=== PATIENT | male | born 1950 | race Caucasian/White ===

== ENCOUNTER 2016-11-17 17:25 | Inpatient (IN) | payer MEDICARE ==
[2016-11-17] MEDS ORDERED: SODIUM CHLORIDE 0.9% 1,000 ML IV STA (19:53)
--- NOTE | 2016-11-17 20:02 | ED ---
General Adult HPI - General Chief complaint: Dizziness Stated complaint: abn labs Time Seen by Provider: 11/17/16 19:29 Source: patient, family, RN notes reviewed, old records reviewed Mode of arrival: wheelchair Limitations: no limitations - History of Present Illness Initial comments: Chief complaint history of present illness a 66-year-old male here with his . The patient has end-stage renal disease. He had his dialysis today blood pressure was low at time. He felt dizzy. It suggested he come to the hospital. He is also having increased ascites for the past month. - Related Data Home Medications Medication Instructions Recorded Confirmed Amiodarone HCl [Pacerone] 200 mg PO HS 12/26/15 06/03/16 Furosemide [Lasix] 80 mg PO HS 12/26/15 06/03/16 Metoprolol Succinate [Toprol XL] 25 mg PO HS 12/26/15 06/03/16 Midodrine [ProAmatine] 10 mg PO DAILY PRN 12/26/15 06/03/16 Pantoprazole [Protonix] 40 mg PO DAILY 12/26/15 06/03/16 Pravastatin Sodium [Pravachol] 80 mg PO HS 12/26/15 06/03/16 Warfarin [Coumadin] 1 mg PO [id number] 06/01/16 06/03/16 Warfarin [Coumadin] 2 mg PO MOTH 06/01/16 06/03/16 Previous Rx's Medication Instructions Recorded Aspirin EC [Ecotrin Low Dose] 81 mg PO DAILY tablet. 02/07/15 Allergies Allergy/AdvReac Type Severity Reaction Status Date / Time No Known Allergies Allergy Verified 11/17/16 20:36 Review of Systems ROS Statement: Those systems with pertinent positive or pertinent negative responses have been documented in the HPI. Review of systems no headache or visual acuity changes no chest pain or shortness of breath. Feels dizzy when he gets up. He does have ascites worsening for the past month. He has dialysis 3 times weekly. Patient has a very low ejection fraction recently had a defibrillator placed. Patient had paracentesis one time several years ago. He does have peripheral edema. All systems were reviewed past medical problems end-stage renal disease dialysis 3 times a week. GERD, A. fib on Coumadin. Otherwise denies any surgeries other than the AV fistula in his right arm for dialysis. He's had a colonoscopy. He' s had paracentesis for ascites before. Patient has no indwelling defibrillator. Family history sister had cancer. Patient has no ALLERGIES. Currently nonsmoker nondrinker. ROS Other: All systems not noted in ROS Statement are negative. Past Medical History Past Medical History: Dialysis, GERD/Reflux, Renal Disease Additional Past Medical History / Comment(s): SEE DR VENTURA H&P, BLOOD CLOT IN PAST NOT SURE WHERE, ESSENTIAL TREMORS, CHRONIC RENAL FAILURE, HEMODIALYSIS, MON.WED.TUE. History of Any Multi-Drug Resistant Organisms: None Reported Past Surgical History: No Surgical Hx Reported Additional Past Surgical History / Comment(s): COLONOSCOPY, EGD, TEETH REMOVED, CARDIOVERSION, FISTULA RT UPPER ARM FOR HEMODIALYSIS, PREVIOUS CATHETER IN NECK FOR HEMODIALYSIS NOW REMOVED Past Anesthesia/Blood Transfusion Reactions: No Reported Reaction Past Psychological History: No Psychological Hx Reported Smoking Status: Former smoker Past Alcohol Use History: None Reported Additional Past Alcohol Use History / Comment(s): STARTED SMOKING AT AGE 15, SMOKED 1 TO 1.5 PPD, QUIT Past Drug Use History: None Reported - Past Family History Sister(s) Family Medical History: Cancer Mother Family Medical History: No Reported History Additional Family Medical History / Comment(s): SMOKER Father Family Medical History: No Reported History, Cancer Additional Family Medical History / Comment(s): SMOKER, PALPATATIONS General Exam - General Exam Comments Initial Comments: General: The patient is awake and alert, in no distress, has obvious ascites. Was hypotensive after having had 4/2 L removed during dialysis. He does have a large amount of third spacing with his abdominal ascites. Vital signs temperature 98.6 pulse 90 respiratory rate 20 pulse ox 90% room air blood pressure 107/53. Significantly lower after having had his dialysis and was advised to come the emergency room.. Eye: Pupils are equal, round and reactive to light, extra-ocular movements are intact ; there is normal conjunctiva bilaterally. No signs of icterus. Ears, nose, mouth and throat: There are moist mucous membranes and no oral lesions. Neck: The neck is supple, there is no tenderness . Cardiovascular: There is a regular rate and rhythm. No murmur, rub or gallop is appreciated. Respiratory: Lungs are clear to auscultation, respirations are non-labored, breath sounds are equal. No wheezes, stridor, rales, or rhonchi. Gastrointestinal: Significantly distended abdomenascites. Positive fluid wave. has Become more distended over the past month, per . Back,There is no tenderness to palpation in the midline. There is no obvious deformity. No rashes noted. Musculoskeletal: Normal ROM, no tenderness, pitting edema to his thighs . Sensation intact. Pulses equal bilaterally 2+. Neurological: CN II-XII intact, There are no obvious motor or sensory deficits. Coordination appears grossly intact. Speech is normal. Skin: Skin is warm and dry and no rashes or lesions are noted. Psychiatric: Cooperative, appropriate mood & affect, normal judgment. Limitations: no limitations Course Vital Signs 11/17/16 18:01 Temperature 98.6 F Pulse Rate 90 Respiratory 20 Rate Blood Pressure 107/53 O2 Sat by Pulse 98 Oximetry Medical Decision Making - Medical Decision Making Medical decision making patient's white count 11.7 hemoglobin 12 medical 38, INR 3.9. The patient's potassium is 5.3. BUN 28 creatinine 5.6 with a GFR of 10. Glucose 119. Chest x-ray was done and reviewed by radiologist his impression is there is no focal airspace opacity, pleural effusion, or pneumothorax seen. Cardiac silhouette size within normal limits. The osseous structures are intact. No acute cardiopulmonary process. As read by Dr. Viet Foreman X-ray of the abdomen was done and reviewed by radiologist his impression is; there is gas pattern within normal limits. No abnormal gas collections. No incidental abdominal pelvic findings. Visualized lung bases and pleural spaces are negative. Impression no acute process. As read by Dr. Master Foreman - Lab Data Result diagrams: 11/17/16 20:00 11/17/16 20:00 Lab Results 11/17/16 11/17/16 11/17/16 Range/Units 20:00 20:00 20:00 WBC 11.7 H (3.8-10.6) k/uL RBC 3.69 L (4.30-5.90) m/uL Hgb 12.3 L (13.0-17.5) gm/dL Hct 38.2 L (39.0-53.0) % MCV 103.7 H (80.0-100.0) fL MCH 33.5 (25.0-35.0) pg MCHC 32.3 (31.0-37.0) g/dL RDW 16.9 H (11.5-15.5) % Plt Count 202 (150-450) k/uL Neutrophils % 80 % Lymphocytes % 11 % Monocytes % 6 % Eosinophils % 1 % Basophils % 1 % Neutrophils # 9.3 H (1.3-7.7) k/uL Lymphocytes # 1.3 (1.0-4.8) k/uL Monocytes # 0.8 (0-1.0) k/uL Eosinophils # 0.1 (0-0.7) k/uL Basophils # 0.1 (0-0.2) k/uL Anisocytosis Slight Macrocytosis Moderate PT 38.6 H (9.0-12.0) sec INR 3.9 (<1.1) Sodium 140 (137-145) mmol/L Potassium 5.3 H (3.5-5.1) mmol/L Chloride 93 L (98-107) mmol/L Carbon Dioxide 31 H (22-30) mmol/L Anion Gap 16 mmol/L BUN 28 H (9-20) mg/dL Creatinine 5.63 H* (0.66-1.25) mg/dL Est GFR (MDRD) Af Amer 12 (>60 ml/min/1.73 sqM) Est GFR (MDRD) Non-Af 10 (>60 ml/min/1.73 sqM) Glucose 119 H (74-99) mg/dL Calcium 9.0 (8.4-10.2) mg/dL Total Bilirubin 0.7 (0.2-1.3) mg/dL AST 30 (17-59) U/L ALT 38 (21-72) U/L Alkaline Phosphatase 114 (38-126) U/L Total Protein 8.0 (6.3-8.2) g/dL Albumin 4.4 (3.5-5.0) g/dL Disposition Clinical Impression: End-stage renal disease, Ascites Disposition: ADMITTED IP TO THIS HOSP Condition: Fair
[2016-11-17 20:19] LABS: Anisocytosis Slight; Basophils # (A) 0.1 k/uL (0-0.2); Basophils % (A) 1 %; CH 34.5; CHCM 33.5; Eosinophils # (A) 0.1 k/uL (0-0.7); Eosinophils % (A) 1 %; HCT 38.2 % (39.0-53.0); HDW 3.06; HGB 12.3 gm/dL (13.0-17.5); Luc # (Auto) 0.17; Luc % (Auto) 1; Lymphocytes # (A) 1.3 k/uL (1.0-4.8); Lymphocytes % (A) 11 %; MCH 33.5 pg (25.0-35.0); MCHC 32.3 g/dL (31.0-37.0); MCV 103.7 fL (80.0-100.0); Macrocytosis Moderate; Mean Platelet Volume 7.3; Monocytes # (A) 0.8 k/uL (0-1.0); Monocytes % (A) 6 %; Neutrophils # (A) 9.3 k/uL (1.3-7.7); Neutrophils % (A) 80 %; RBC 3.69 m/uL (4.30-5.90); RDW 16.9 % (11.5-15.5); WBC 11.7 k/uL (3.8-10.6); WBC (Perox) 12.41
[2016-11-17 20:24] LABS: INR 3.9 (<1.1); Prothrombin Time 38.6 sec (9.0-12.0)
[2016-11-17 20:33] LABS: Potassium 5.3 mmol/L (3.5-5.1); Total Bilirubin 0.7 mg/dL (0.2-1.3)
--- NOTE | 2016-11-17 20:38 | XR ---
EXAMINATION TYPE: XR chest 2V DATE OF EXAM: 11/17/2016 8:30 PM COMPARISON: NONE HISTORY: Dyspnea TECHNIQUE: Frontal and lateral views of the chest are obtained. FINDINGS: There is no focal air space opacity, pleural effusion, or pneumothorax seen. The cardiac silhouette size is within normal limits. The osseous structures are intact. IMPRESSION: No acute cardiopulmonary process.
--- NOTE | 2016-11-17 20:41 | XR ---
EXAMINATION TYPE: XR abdomen 4V DATE OF EXAM: 11/17/2016 8:30 PM COMPARISON: NONE HISTORY: Hypotension dyspnea is and suspicion for ascites TECHNIQUE: 1 upright and 3 supine views FINDINGS: Bowel gas pattern is within normal limits. No abnormal gas collections. No incidental abdom inopelvic findings. Visualized lung bases and pleural spaces are negative. IMPRESSION: No acute process
[2016-11-17] MEDS ORDERED: NALOXONE 0.4 MG/ML 1 ML VIAL IV PRN (21:07)
[2016-11-17] MEDS ORDERED: MIDODRINE 5 MG TAB PO PRN (21:11)
[2016-11-17] MEDS ORDERED: CALCIUM ACETATE 667 MG CAP PO PRN (21:11)
[2016-11-17] MEDS ORDERED: SODIUM CHLORIDE 0.9% 1,000 ML IV SCH (21:15)
[2016-11-17 23:25] VITALS: BMI 29.5
[2016-11-18 07:45] VITALS: BP 91/54; PULSE 83; RESP 20; TEMP 97.2
[2016-11-18] MEDS: CALCIUM ACETATE 667 MG CAP PO SCH ×3 (07:57→18:32)
[2016-11-18] MEDS ORDERED: RENAL MULTIVITAMIN PO SCH (09:00)
[2016-11-18] MEDS ORDERED: SODIUM BICARBONATE TAB 650 MG TAB PO SCH (09:00)
[2016-11-18] MEDS ORDERED: PANTOPRAZOLE 40 MG TABLET PO SCH (09:00)
[2016-11-18 09:35] LABS: Calcium 8.3 mg/dL (8.4-10.2); Potassium 5.4 mmol/L (3.5-5.1)
--- NOTE | 2016-11-18 11:50 | HP ---
HISTORY AND PHYSICAL AND DISCHARGE SUMMARY DATE OF ADMISSION: Patient is a 66-year-old admitted secondary to dizziness and hypotension after dialysis and this commonly happens to him and I did review his medications. There is nothing much we can change. Patient does have history of irregular heartbeat for which patient is on metoprolol as well as amiodarone which we cannot discontinue. Patient is not on antihypertensive medications and patient was evaluated by Nephrology and patient does not have any fevers. No chills, no nausea or vomiting. The only thing is the INR is elevated. Patient's Coumadin will be changed and will change the dose of Coumadin and patient will be discharged today. Patient needs to be careful and someone needs to be next to him, post-dialysis. Beyond that, nothing much else can be done and patient is on midodrine and probably slow dialysis would help him, but that will be decided by Nephrology. REVIEW OF SYSTEMS: CONSTITUTIONAL: No fever, no malaise, no fatigue. HEENT: No recent visual problems or hearing problems. Denied any sore throat. CARDIOVASCULAR: No chest pain, orthopnea, PND, no palpitations, no syncope. PULMONARY: No shortness of breath, no cough, no hemoptysis. GASTROINTESTINAL: No diarrhea, no nausea, no vomiting, no abdominal pain. Normoactive bowel sounds. NEUROLOGICAL: No headaches, no weakness, no numbness. HEMATOLOGICAL: Denies any bleeding or petechiae. GENITOURINARY: Denies any burning micturition, frequency, or urgency. MUSCULOSKELETAL/RHEUMATOLOGICAL: Denies any joint pain, swelling, or any muscle pain. ENDOCRINE: Denies any polyuria or polydipsia. The rest of the 14 point review of systems is negative. REVIEW OF SYSTEMS: CONSTITUTIONAL: As described in HPI. HEENT: No recent visual problems or hearing problems. Denied any sore throat. CARDIOVASCULAR: No chest pain, orthopnea, PND, no palpitations, no syncope. PULMONARY: No shortness of breath, no cough, no hemoptysis. GASTROINTESTINAL: No diarrhea, no nausea, no vomiting, no abdominal pain. Normoactive bowel sounds. NEUROLOGICAL: No headaches, no weakness, no numbness. HEMATOLOGICAL: Denies any bleeding or petechiae. GENITOURINARY: Denies any burning micturition, frequency, or urgency. MUSCULOSKELETAL/RHEUMATOLOGICAL: Denies any joint pain, swelling, or any muscle pain. ENDOCRINE: Denies any polyuria or polydipsia. The rest of the 14 point review of systems is negative. Home medications include amiodarone, Lasix, metoprolol, midodrine, Protonix, Pravastatin, Coumadin, aspirin. ALLERGIES: No known drug allergies. PAST MEDICAL HISTORY: Gastroesophageal reflux disease, hemodialysis-dependent. Patient does have severe ischemic cardiomyopathy and ejection fraction of 20%, end-stage renal disease. SOCIAL HISTORY: Former smoker. Quit smoking in 2012, denied any alcohol abuse or any drug abuse. FAMILY HISTORY: Sister had cancer. Father had cancer as well. PHYSICAL EXAMINATION: Temperature 97.2, pulse of 83, respiratory rate of 20, blood pressure is 91/54, saturating at 95% on room air. GENERAL EXAMINATION: Morbidly obese. Abdomen is distended, there is probably a little bit of ascites. No rebound or rigidity. No tenderness was appreciated. HEENT: Pupils are round and equally reacting to light. EOMI. No scleral icterus. No conjunctival pallor. Normocephalic, atraumatic. No pharyngeal erythema. No thyromegaly. CARDIOVASCULAR: S1 and S2 present. No murmurs, rubs, or gallops. PULMONARY: Chest is clear to auscultation, no wheezing or crackles. ABDOMEN: Soft, nontender, nondistended, normoactive bowel sounds. No palpable organomegaly. MUSCULOSKELETAL: No joint swelling or deformity. NEUROLOGICAL: Gross neurological examination did not reveal any focal deficits. SKIN: No rashes. Patient has lower extremity edema, which appears to be chronic venostasis. LABORATORY DATA: CBC, CMP are abnormal for elevated potassium of 5.4, which is expected to be corrected with hemodialysis, BUN of 39, creatinine of 6.82. ASSESSMENT AND PLAN: 1. Hypotension, post hemodialysis, which is common for him. No further intervention can be done in his situation. Patient is already on midodrine. Probably slow hemodialysis will help. Further management regarding that as per Nephrology. 2. Severe ischemic cardiomyopathy. Patient is not in congestive heart failure exacerbation at this point of time. Patient is fairly euvolemic. Patient barely makes any urine. 3. Patient is on Lasix 80 mg p.o. at bedtime, although patient barely urinates. Patient is on low dose of metoprolol succinate which will be continued because patient's heart rate is already in the 90s. Discontinuation of cutting down of this medication can cause reflex tachycardia. Patient is also on amiodarone, which will be continued. 4. End-stage renal disease. 5. Deep venous in the past for which patient is on Coumadin, supratherapeutic INR. Will cut down the Coumadin dose. 6. Metabolic bone disease. 7. End-stage renal disease, hemodialysis dependent, probably related to cardiorenal syndrome. Patient will be discharged today to follow with his primary care physician and Nephrology as scheduled. Patient will follow with Dr. Jose Nix in 3 to 5 days. Cardiac and renal diet. Activity as tolerated.
--- NOTE | 2016-11-18 13:49 | CONS ---
DATE OF CONSULTATION: 11/18/2016 Patient is seen for consultation for end-stage renal disease. Patient is a 66-year-old white male with history of end-stage renal disease on hemodialysis on a Tuesday, Tuesday, Tuesday schedule. He was admitted to the hospital with low blood pressure. He normally runs low blood pressure as outpatient; however, was complaining of significant dizziness, and therefore he was admitted. He denied any chest pain. There is no fever, no shortness of breath. Blood pressure was 107/53 in the ER. PAST MEDICAL HISTORY: End-stage renal disease, gastroesophageal reflux disease, hypertension, metabolic bone disease. PAST SURGICAL HISTORY: Perm-A-Cath placement, colonoscopy, fistula right upper arm for dialysis. SOCIAL HISTORY: Patient is an ex-smoker. No history of drug abuse or alcohol abuse. REVIEW OF SYSTEMS: As per HPI. Medications prior to admission included amiodarone, Lasix, Toprol, midodrine, Protonix, Pravachol, Coumadin. ALLERGIES: None. On examination, the patient is comfortable, awake, alert, oriented x3, not in any acute distress. Blood pressure is 91/54, heart rate 83, he is afebrile. Examination of the heart, S1 and S2. Examination of the lungs, bilateral breath sounds are heard. Abdomen is soft, nontender. Examination of the lower extremities shows trace edema bilaterally. Chronic skin changes are noted. [employer] exam is grossly intact. Labs show sodium 137, potassium 5.4, BUN 39, creatinine 6.82, hemoglobin 12.3 g/dL. White cell count 11.7. ASSESSMENT: 1. End-stage renal disease on hemodialysis on a Tuesday, Tuesday, Tuesday schedule. Blood pressure had been low, but it normally runs low on a regular basis. I will discontinue the IV fluids. Patient can be discharged from a nephrology standpoint and he be dialyzed as outpatient tomorrow if he is discharged. Continue with the midodrine. Currently there is no evidence of infection. 2. Hypotension, which is chronic, maintained on midodrine. 3. Chronic kidney bone mineral disorder, maintained on PhosLo. PLAN: Patient is stable for discharge, discontinue the IV fluids and follow up as outpatient tomorrow for dialysis. Continue with the midodrine.
[2016-11-18] MEDS ORDERED: FUROSEMIDE 80 MG TAB PO SCH (21:00)
[2016-11-18] MEDS ORDERED: AMIODARONE 200 MG TAB PO SCH (21:00)
[2016-11-18] MEDS ORDERED: METOPROLOL SUCCINATE (ER) 25 MG TAB.ER.24H PO SCH (21:00)
== END 2016-11-18 18:50 | disposition home or self-care (01) | DRG 312 ==
LOC: EC 17:25 → 5MS5E 21:07
PROVIDERS: ADMIT Internal Medicine; ATTEND Internal Medicine
DX: I95.3 Hypotension of hemodialysis (principal); N18.6 End stage renal disease; R18.8 Other ascites; I13.11 Hypertensive heart and chronic kidney disease without heart failure, with stage 5 chronic kidney disease, or end stage renal disease; E88.89 Other specified metabolic disorders; I48.91 Unspecified atrial fibrillation; I25.5 Ischemic cardiomyopathy; K21.9 Gastro-esophageal reflux disease without esophagitis; R79.1 Abnormal coagulation profile; Z99.2 Dependence on renal dialysis; Z87.891 Personal history of nicotine dependence; Z79.01 Long term (current) use of anticoagulants; Z79.82 Long term (current) use of aspirin; Z79.899 Other long term (current) drug therapy
CPT/HCPCS: 36415; 71020; 74020; 80048; 80053; 85025; 85610; 93005; 96360; 99285

== ENCOUNTER 2016-12-16 12:35 | Inpatient (IN) | payer OTHER, MEDICARE ==
--- NOTE | 2016-12-16 12:44 | ED ---
Dizziness HPI - General Stated Complaint: Dizzy Time Seen by Provider: 12/16/16 12:35 Source: patient, EMS, RN notes reviewed, old records reviewed Mode of arrival: EMS - History of Present Illness Initial Comments: This is a 58-year-old male with a history of cardiac arrhythmia who was brought in by EMS from the [facility] who complains of dizziness on exertion. He was taken off amiodarone about 3 weeks ago states his symptoms that she started them but got much worse over last 3 days. He denies any chest pain source breath or overt chest pain. He is a dialysis patient is dialysis on Tuesday was a Fridays he also has apparently no history of diabetes who was noted have a blood sugar was elevated to 48 today. He states at rest he feels fine. She was noted have a rapid heart rate around 120 it was unclear whether was atrial fibrillation or atrial flutter. MD Complaint: dizziness - Related Data Home Medications Medication Instructions Recorded Confirmed Metoprolol Succinate [Toprol XL] 25 mg PO HS 12/26/15 12/16/16 Midodrine [ProAmatine] 20 mg PO DIRECTED PRN 12/26/15 12/16/16 Pantoprazole [Protonix] 40 mg PO HS 12/26/15 12/16/16 Pravastatin Sodium [Pravachol] 80 mg PO HS 12/26/15 12/16/16 Aspirin EC [Ecotrin Low Dose] 81 mg PO HS 11/17/16 12/16/16 Calcium Acetate [PhosLo] 1,334 mg PO AC-TID 11/17/16 12/16/16 Calcium Acetate [PhosLo] 667 mg PO DAILY PRN 11/17/16 12/16/16 Furosemide [Lasix] 80 mg PO HS 11/17/16 12/16/16 Renal Multivitamin 1 tab PO DAILY 11/17/16 12/16/16 Sodium Bicarbonate Tab 650 mg PO BID 11/17/16 12/16/16 Furosemide [Lasix] 40 - 80 mg PO DAILY 12/16/16 12/16/16 Warfarin [Coumadin] 2 mg PO HS 12/16/16 12/16/16 Allergies Allergy/AdvReac Type Severity Reaction Status Date / Time No Known Allergies Allergy Verified 12/16/16 13:34 Review of Systems ROS Statement: Those systems with pertinent positive or pertinent negative responses have been documented in the HPI. ROS Other: All systems not noted in ROS Statement are negative. Past Medical History Past Medical History: Dialysis, GERD/Reflux, Renal Disease Additional Past Medical History / Comment(s): SEE DR AUDREY Zhang&Carlos, BLOOD CLOT IN PAST NOT SURE WHERE, ESSENTIAL TREMORS, CHRONIC RENAL FAILURE, HEMODIALYSIS, MON.TUE.TUE. History of Any Multi-Drug Resistant Organisms: None Reported Past Surgical History: No Surgical Hx Reported Additional Past Surgical History / Comment(s): COLONOSCOPY, EGD, TEETH REMOVED, CARDIOVERSION, FISTULA RT UPPER ARM FOR HEMODIALYSIS, PREVIOUS CATHETER IN NECK FOR HEMODIALYSIS NOW REMOVED Past Anesthesia/Blood Transfusion Reactions: No Reported Reaction Past Psychological History: No Psychological Hx Reported Smoking Status: Former smoker Past Alcohol Use History: None Reported Additional Past Alcohol Use History / Comment(s): STARTED SMOKING AT AGE 15, SMOKED 1 TO 1.5 PPD, QUIT Past Drug Use History: None Reported - Past Family History Sister(s) Family Medical History: Cancer Mother Family Medical History: No Reported History Additional Family Medical History / Comment(s): SMOKER Father Family Medical History: Cancer Additional Family Medical History / Comment(s): SMOKER, PALPATATIONS General Exam - General Exam Comments Initial Comments: Is a well-developed well-nourished awake alert oriented 3 male General appearance: alert, in no apparent distress Head exam: Present: atraumatic, normocephalic, normal inspection Eye exam: Present: normal appearance, PERRL, EOMI. Absent: scleral icterus, conjunctival injection, periorbital swelling ENT exam: Present: normal exam, mucous membranes moist Neck exam: Present: normal inspection. Absent: tenderness, meningismus, lymphadenopathy Respiratory exam: Present: normal lung sounds bilaterally. Absent: respiratory distress, wheezes, rales, rhonchi, stridor Cardiovascular Exam: Present: regular rate, normal rhythm, normal heart sounds. Absent: systolic murmur, diastolic murmur, rubs, gallop, clicks GI/Abdominal exam: Present: soft, normal bowel sounds. Absent: distended, tenderness, guarding, rebound, rigid Extremities exam: Present: full ROM, normal capillary refill, pedal edema ( Trace edema bilaterally with stasis dermatitis of both lower extremities.). Absent: tenderness, joint swelling, calf tenderness Back exam: Present: normal inspection Neurological exam: Present: alert, oriented X3, CN II-XII intact Psychiatric exam: Present: normal affect, normal mood Skin exam: Present: warm, dry, intact, normal color. Absent: rash Course Vital Signs 12/16/16 12/16/16 12:40 15:02 Temperature 97.6 F Pulse Rate 119 H 107 H Respiratory 20 18 Rate Blood Pressure 133/53 92/45 O2 Sat by Pulse 98 99 Oximetry EKG Findings - EKG Results: EKG: interpreted by ERMD (Atrial flutter with a variable AV block rate was 125 QRS duration 104 QTC QTC of 362/522 left exodeviation low-voltage nonspecific ST configuration. No overt change from that presented from the office today.) Medical Decision Making - Medical Decision Making I did review the x-ray report no acute findings. - Lab Data Result diagrams: 12/16/16 13:43 12/16/16 13:43 Lab Results 12/16/16 12/16/16 12/16/16 Range/Units 12:58 13:43 13:43 WBC 9.0 (3.8-10.6) k/uL RBC 3.34 L (4.30-5.90) m/uL Hgb 11.5 L (13.0-17.5) gm/dL Hct 35.1 L (39.0-53.0) % MCV 105.4 H (80.0-100.0) fL MCH 34.5 (25.0-35.0) pg MCHC 32.7 (31.0-37.0) g/dL RDW 17.1 H (11.5-15.5) % Plt Count 211 (150-450) k/uL Neutrophils % 77 % Lymphocytes % 12 % Monocytes % 8 % Eosinophils % 1 % Basophils % 0 % Neutrophils # 6.9 (1.3-7.7) k/uL Lymphocytes # 1.0 (1.0-4.8) k/uL Monocytes # 0.7 (0-1.0) k/uL Eosinophils # 0.1 (0-0.7) k/uL Basophils # 0.0 (0-0.2) k/uL Anisocytosis Slight Macrocytosis Moderate PT 13.5 H (9.0-12.0) sec INR 1.4 (<1.1) APTT 21.9 L (22.0-30.0) sec Sodium (137-145) mmol/L Potassium (3.5-5.1) mmol/L Chloride (98-107) mmol/L Carbon Dioxide (22-30) mmol/L Anion Gap mmol/L BUN (9-20) mg/dL Creatinine (0.66-1.25) mg/dL Est GFR (MDRD) Af Amer (>60 ml/min/1.73 sqM) Est GFR (MDRD) Non-Af (>60 ml/min/1.73 sqM) Glucose (74-99) mg/dL POC Glucose (mg/dL) 135 H (75-99) mg/dL POC Glu Battery Plate Remover ID Branch, Bob Calcium (8.4-10.2) mg/dL Magnesium (1.6-2.3) mg/dL Total Bilirubin (0.2-1.3) mg/dL AST (17-59) U/L ALT (21-72) U/L Alkaline Phosphatase (38-126) U/L Total Creatine Kinase (55-170) U/L CK-MB (CK-2) (0.0-2.4) ng/mL CK-MB (CK-2) Rel Index Troponin I (0.000-0.034) ng/mL Total Protein (6.3-8.2) g/dL Albumin (3.5-5.0) g/dL 12/16/16 12/16/16 Range/Units 13:43 13:43 WBC (3.8-10.6) k/uL RBC (4.30-5.90) m/uL Hgb (13.0-17.5) gm/dL Hct (39.0-53.0) % MCV (80.0-100.0) fL MCH (25.0-35.0) pg MCHC (31.0-37.0) g/dL RDW (11.5-15.5) % Plt Count (150-450) k/uL Neutrophils % % Lymphocytes % % Monocytes % % Eosinophils % % Basophils % % Neutrophils # (1.3-7.7) k/uL Lymphocytes # (1.0-4.8) k/uL Monocytes # (0-1.0) k/uL Eosinophils # (0-0.7) k/uL Basophils # (0-0.2) k/uL Anisocytosis Macrocytosis PT (9.0-12.0) sec INR (<1.1) APTT (22.0-30.0) sec Sodium 137 (137-145) mmol/L Potassium 5.9 H (3.5-5.1) mmol/L Chloride 92 L (98-107) mmol/L Carbon Dioxide 29 (22-30) mmol/L Anion Gap 16 mmol/L BUN 43 H (9-20) mg/dL Creatinine 7.63 H* (0.66-1.25) mg/dL Est GFR (MDRD) Af Amer 9 (>60 ml/min/1.73 sqM) Est GFR (MDRD) Non-Af 7 (>60 ml/min/1.73 sqM) Glucose 107 H (74-99) mg/dL POC Glucose (mg/dL) (75-99) mg/dL POC Glu Battery Plate Remover ID Calcium 9.2 (8.4-10.2) mg/dL Magnesium 2.1 (1.6-2.3) mg/dL Total Bilirubin 0.7 (0.2-1.3) mg/dL AST 22 (17-59) U/L ALT 32 (21-72) U/L Alkaline Phosphatase 99 (38-126) U/L Total Creatine Kinase 35 L (55-170) U/L CK-MB (CK-2) 0.5 (0.0-2.4) ng/mL CK-MB (CK-2) Rel Index 1.4 Troponin I 0.024 (0.000-0.034) ng/mL Total Protein 7.5 (6.3-8.2) g/dL Albumin 4.3 (3.5-5.0) g/dL - Radiology Data Radiology results: report reviewed, image reviewed Disposition Clinical Impression: Atrial flutter, Dizziness, Chronic renal failure syndrome Disposition: [facility] Condition: Stable
[2016-12-16 12:59] LABS: Glucose,Whole Blood 135 mg/dL (75-99)
[2016-12-16 14:18] LABS: Calcium 9.2 mg/dL (8.4-10.2); Magnesium 2.1 mg/dL (1.6-2.3); Potassium 5.9 mmol/L (3.5-5.1); Total Bilirubin 0.7 mg/dL (0.2-1.3); Total Protein 7.5 g/dL (6.3-8.2)
[2016-12-16 14:21] LABS: Anisocytosis Slight; Basophils % (A) 0 %; CH 34.5; Eosinophils # (A) 0.1 k/uL (0-0.7); Eosinophils % (A) 1 %; HCT 35.1 % (39.0-53.0); HDW 3.06; HGB 11.5 gm/dL (13.0-17.5); Luc % (Auto) 3; Lymphocytes % (A) 12 %; MCH 34.5 pg (25.0-35.0); MCHC 32.7 g/dL (31.0-37.0); MCV 105.4 fL (80.0-100.0); Macrocytosis Moderate; Mean Platelet Volume 7.4; Monocytes # (A) 0.7 k/uL (0-1.0); Monocytes % (A) 8 %; Neutrophils # (A) 6.9 k/uL (1.3-7.7); Neutrophils % (A) 77 %; RBC 3.34 m/uL (4.30-5.90); RDW 17.1 % (11.5-15.5); WBC (Perox) 9.79
[2016-12-16 14:29] LABS: INR 1.4 (<1.1); Partial Thromboplastin Time 21.9 sec (22.0-30.0); Prothrombin Time 13.5 sec (9.0-12.0)
[2016-12-16 14:39] LABS: Creatine Kinase MB 0.5 ng/mL (0.0-2.4); Troponin I 0.024 ng/mL (0.000-0.034)
[2016-12-16 15:05] VITALS: RESP 18
[2016-12-16] MEDS ORDERED: NALOXONE 0.4 MG/ML 1 ML VIAL IV PRN (18:43)
[2016-12-16] MEDS ORDERED: CALCIUM ACETATE 667 MG CAP PO PRN (18:45)
[2016-12-16] MEDS ORDERED: SODIUM CHLORIDE 0.9% 1,000 ML IV SCH (18:45)
--- NOTE | 2016-12-16 19:04 | XR ---
EXAMINATION TYPE: XR chest 2V DATE OF EXAM: 12/16/2016 4:51 PM COMPARISON: 11/17/2016 HISTORY: Dizziness TECHNIQUE: Frontal and lateral views of the chest are obtained. FINDINGS: The heart and mediastinum are normal. Lungs are clear. Diaphragm is normal. Bony thorax is intact. There is a left axillary implanted device noted. There are chest leads. Bony thorax is intac t. IMPRESSION: No active cardiopulmonary disease. Normal heart. There is clearing of a poorly marginate d 2 cm density over the right upper lobe compared to last exam..
[2016-12-16] MEDS: FUROSEMIDE 80 MG TAB PO SCH (21:15)
[2016-12-16] MEDS: METOPROLOL SUCCINATE (ER) 25 MG TAB.ER.24H PO SCH (21:15)
[2016-12-16] MEDS: ASPIRIN 81 MG CHEW PO SCH (21:15)
[2016-12-16] MEDS: PANTOPRAZOLE 40 MG TABLET PO SCH (21:15)
[2016-12-16] MEDS: PRAVASTATIN SODIUM 80 MG TAB PO SCH (21:16)
[2016-12-16 21:30] LABS: Glucose,Whole Blood 231 mg/dL (75-99)
[2016-12-17] MEDS: INSULIN LISPRO (humaLOG) 300 UNIT/3 ML VIAL SQ SCH ×3 (06:35→18:47)
[2016-12-17 06:38] LABS: Glucose,Whole Blood 115 mg/dL (75-99)
--- NOTE | 2016-12-17 08:34 | P.NPCON ---
History of Present Illness - Reason for Consult end stage renal disease - History of Present Illness Reason for consultation: End-stage renal disease History of present illness: Patient is a 66-year-old male seen in renal consultation for end- stage renal disease. He is maintained on hemodialysis on a Tuesday schedule via left upper extremity AV fistula. Patient has history of severe systolic CHF with ejection fraction of less than 20%. Etiology of his renal disease is cardiorenal syndrome. He did not miss any dialysis sessions. Patient was getting blood work done as an outpatient yesterday and felt dizzy and was subsequently sent to the hospital for further care. Patient states his amiodarone was discontinued about 3 weeks ago and he was feeling fine up until 3 days ago when he's been noticing more dizziness particularly with changes in position. He did get up this morning to go to the bathroom and did not feel very dizzy. Denies any vomiting or diarrhea. Denies any chest pain. Appetite is good. No other complaints at this time. Denies syncopal episodes. Vital signs are stable. General: The patient appeared well nourished and normally developed. HEENT: Head exam is unremarkable. Neck is without jugular venous distension. LUNGS: Lungs are clear to auscultation and percussion. Breath sounds decreased. HEART: Rate and Rhythm are regular. First and second heart sounds normal. No murmurs, rubs or gallops. ABDOMEN: Abdominal exam reveals normal bowel sounds. Non-tender and non- distended. No evidence of peritonitis. EXTREMITITES: Trace edema. Past Medical History Past Medical History: Dialysis, GERD/Reflux, Renal Disease Additional Past Medical History / Comment(s): SEE DR AUDREY Zhang&Carlos, BLOOD CLOT IN PAST NOT SURE WHERE, ESSENTIAL TREMORS, CHRONIC RENAL FAILURE, HEMODIALYSIS, TUE.TUE.TUE. History of Any Multi-Drug Resistant Organisms: None Reported Past Surgical History: AICD Additional Past Surgical History / Comment(s): COLONOSCOPY, EGD, TEETH REMOVED, CARDIOVERSION, FISTULA RT UPPER ARM FOR HEMODIALYSIS, PREVIOUS CATHETER IN NECK FOR HEMODIALYSIS NOW REMOVED Past Anesthesia/Blood Transfusion Reactions: No Reported Reaction Type of Cardiac Device: AICD Device Placement Date:: may 2016 Past Psychological History: No Psychological Hx Reported Additional Psychological History / Comment(s): lives at home with his , no pets. pt stated independant when up but has fallen in past,does have a walker at home if he needs it.no outside services. pt served in the [employer] when younger and has done long term work,. Smoking Status: Former smoker Past Alcohol Use History: None Reported Additional Past Alcohol Use History / Comment(s): STARTED SMOKING AT AGE 15, SMOKED 1 TO 1.5 PPD, QUIT Past Drug Use History: None Reported - Past Family History Sister(s) Family Medical History: Cancer Mother Family Medical History: No Reported History Additional Family Medical History / Comment(s): SMOKER Father Family Medical History: Cancer Additional Family Medical History / Comment(s): SMOKER, PALPATATIONS Medications and Allergies Home Medications Medication Instructions Recorded Confirmed Type Metoprolol Succinate [Toprol XL] 25 mg PO HS 12/26/15 12/16/16 History Midodrine [ProAmatine] 20 mg PO DIRECTED PRN 12/26/15 12/16/16 History Pantoprazole [Protonix] 40 mg PO HS 12/26/15 12/16/16 History Pravastatin Sodium [Pravachol] 80 mg PO HS 12/26/15 12/16/16 History Aspirin EC [Ecotrin Low Dose] 81 mg PO HS 11/17/16 12/16/16 History Calcium Acetate [PhosLo] 1,334 mg PO AC-TID 11/17/16 12/16/16 History Calcium Acetate [PhosLo] 667 mg PO DAILY PRN 11/17/16 12/16/16 History Furosemide [Lasix] 80 mg PO HS 11/17/16 12/16/16 History Renal Multivitamin 1 tab PO DAILY 11/17/16 12/16/16 History Sodium Bicarbonate Tab 650 mg PO BID 11/17/16 12/16/16 History Furosemide [Lasix] 40 - 80 mg PO DAILY 12/16/16 12/16/16 History Warfarin [Coumadin] 2 mg PO HS 12/16/16 12/16/16 History Allergies Allergy/AdvReac Type Severity Reaction Status Date / Time No Known Allergies Allergy Verified 12/16/16 13:34 Physical Exam Vitals: Vital Signs Temp Pulse Pulse Resp BP BP Pulse Ox 12/17/16 04:00 97.1 F L 90 18 92/57 97 12/17/16 00:00 97.3 F L 94 17 92/60 97 12/16/16 20:39 97.2 F L 92 18 105/60 100 12/16/16 19:24 98.2 F 89 18 98/70 98 Intake and Output 12/16/16 12/17/16 12/17/16 22:59 06:59 14:59 Intake Total 640 Balance 640 Intake: Intake, IV Titration 160 Amount Sodium Chloride 0.9% 1, 160 000 ml @ 20 mls/hr IV . Q24H [facility] Rx#:[id number] Oral 480 Other: Voiding Method Toilet Toilet # Voids 0 0 Weight 125.3 kg Results - Lab Results Most recent lab results Calcium 9.2 mg/dL (8.4-10.2) 12/16/16 13:43 Magnesium 2.1 mg/dL (1.6-2.3) 12/16/16 13:43 12/16/16 13:43 12/16/16 13:43 Assessment and Plan Plan: Assessment: #1. End-stage renal disease maintained on hemodialysis on a Tuesday schedule via left upper extremity AV fistula. #2. Hyperkalemia secondary to chronic kidney disease. #3. Systolic CHF with ejection fraction of less than 20%. Compensated. #4. Chronic kidney disease mineral bone disease. #5. Anemia of chronic kidney disease. Hemoglobin at goal. #6. Dizziness. Rule out orthostatic hypotension. Possibly related to the discontinuation of amiodarone. #7. Chronic hypotension related to underlying cardiac status maintained on Midodrine. Plan: Hemodialysis today with goal 4 L ultrafiltration. Check phosphorus level. Maintain PhosLo with meals. Check orthostatic vital signs. Await cardiology recommendations. Thank you for the consultation. I will continue to follow the patient with you during his hospital stay.
[2016-12-17] MEDS ORDERED: MIDODRINE 5 MG TAB PO PRN (09:00)
[2016-12-17] MEDS ORDERED: HEPARIN SODIUM,PORCINE 5,000 UNIT/ML 1 ML VIAL IV PRN (10:49)
[2016-12-17] MEDS ORDERED: HEPARIN SODIUM,PORCINE 5,000 UNIT/ML 1 ML VIAL IV ONE (10:49)
[2016-12-17] MEDS ORDERED: HEPARIN SODIUM,PORCINE/D5W PMX 25,000 UNIT in DEXTROSE/WATER 1 500ML.BAG IV SCH (11:00)
--- NOTE | 2016-12-17 11:12 | CONS ---
DATE OF CONSULTATION: Mario is a 66-year-old gentleman with history of chronic end-stage renal disease on hemodialysis, cardiomyopathy with severe LV systolic dysfunction, history of chronic systolic heart failure, status post AICD, chronic atrial flutter, who presented to the hospital complaining of feeling dizzy where he was found to be in atrial flutter with poorly controlled ventricular rate and admitted to hospital for the same and he converted back to sinus rhythm. At the time of my evaluation this morning, he is free of symptoms. Denies chest pain, difficulty in breathing, palpitations or syncope. Patient was on amiodarone up until 3 weeks ago when it was stopped. He sees my associate, Dr. Enrique in the office. Patient has a subcutaneous ICD from the [employer]. Past medical history is significant for end-stage renal disease on hemodialysis, hypertension, dyslipidemia, cardiomyopathy, status post AICD. Current medications include Toprol XL 25 daily, midodrine, Protonix, Pravachol, aspirin, PhosLo, Lasix, Coumadin. ALLERGIES: There are no known drug allergies. Family history is negative for premature coronary artery disease. Social history is negative for current smoking, EtOH abuse, or drug abuse. REVIEW OF SYSTEMS: HEENT: Unremarkable. CARDIAC: As described above. RESPIRATORY: Negative. GI: Negative. GENITOURINARY: Negative. ALLERGY/IMMUNOLOGY: Negative. SKIN: Negative. MUSCULOSKELETAL: Significant for arthritis. PSYCHOSOCIAL: Negative. ENDOCRINE: Negative. HEMATOLOGICAL: Negative. DERMATOLOGY: Negative. CONSTITUTIONAL: Negative. ONCOLOGICAL: Negative. The rest of the system review is not relevant. On exam, he is comfortable at rest. Afebrile. Blood pressure is low at 86/58, but there are no orthostatic changes. There is no jugular venous distention. Carotid upstroke is normal. There is no bruit. Chest exam reveals diminished air entry at the bases. Heart exam reveals first and second heart sounds. No gallop. Exam of the extremities did not reveal any edema. Peripheral pulses are palpable. There is chronic dry skin bilaterally. EKG shows atrial flutter. Labs show a hemoglobin of 11.5. INR is subtherapeutic at 1.4. Potassium is 5.9. Creatinine is 7.6 with a BUN of 43. ASSESSMENT: 1. Paroxysmal atrial flutter. 2. Cardiomyopathy, status post AICD. 3. End-stage renal disease on hemodialysis. 4. Subtherapeutic anticoagulation. 5. History of dizziness. PLAN: Patient's dizziness may be related to hypotension. Patient is already on a large dose of midodrine, which will be continued. Instead of putting it on a p.r.n. basis, will probably change it to a regular dose. I am going to resume the amiodarone so that we can keep him in sinus rhythm. I will start him on IV heparin because of subtherapeutic anticoagulation.
[2016-12-17 11:26] LABS: INR 1.5 (<1.1); Partial Thromboplastin Time 24.7 sec (22.0-30.0); Prothrombin Time 14.3 sec (9.0-12.0)
[2016-12-17 11:33] LABS: Anisocytosis Slight; Basophils % (A) 1 %; CH 34.8; CHCM 33.3; Eosinophils # (A) 0.1 k/uL (0-0.7); Eosinophils % (A) 1 %; HCT 30.4 % (39.0-53.0); HDW 3.05; Luc # (Auto) 0.22; Luc % (Auto) 3; Lymphocytes # (A) 1.1 k/uL (1.0-4.8); Lymphocytes % (A) 13 %; MCH 34.6 pg (25.0-35.0); MCHC 32.8 g/dL (31.0-37.0); MCV 105.4 fL (80.0-100.0); Macrocytosis Moderate; Mean Platelet Volume 7.4; Monocytes # (A) 0.6 k/uL (0-1.0); Monocytes % (A) 7 %; Neutrophils # (A) 6.4 k/uL (1.3-7.7); Neutrophils % (A) 76 %; RBC 2.88 m/uL (4.30-5.90); RDW 17.2 % (11.5-15.5); WBC 8.5 k/uL (3.8-10.6); WBC (Perox) 8.72
[2016-12-17 11:51] LABS: Glucose,Whole Blood 108 mg/dL (75-99)
[2016-12-17] MEDS ORDERED: FOLIC ACID-VIT B COMPLEX-VIT C 1 CAP PO SCH (12:00)
[2016-12-17] MEDS: APIXABAN 2.5 MG TABLET PO SCH ×2 (12:08→21:18)
[2016-12-17 12:29] LABS: Hemoglobin A1C 5.9 % (4.2-6.1)
--- NOTE | 2016-12-17 16:16 | HP ---
DATE OF ADMISSION: This dictation is both H&P and discharge summary. Patient is a 66-year-old gentleman with cardiac arrhythmia, which is atrial fibrillation and flutter. He is on anticoagulation with Coumadin, came in with complaints of dizziness. Patient has had this history of dizziness multiple times. Patient was admitted in the hospital in the recent past for the same symptoms. Patient's midodrine was increased to 20 b.i.d. p.r.n. at that time. Patient is in atrial flutter with rapid ventricular rate. Patient is presently rate controlled. Patient is in sinus rhythm at this point of time. The patient had 25 mg of metoprolol. Patient was on amiodarone, which was discontinued. Patient has had this hypotension issue for a long time, which causes dizziness mostly on the days of dialysis. Today, Cardiology evaluated the patient. Patient is in sinus rhythm. Patient's midodrine is being scheduled and patient is subtherapeutic on Coumadin and Cardiology is recommending Eliquis 2.5 mg twice a day with which he will be discharged home on. Patient is approved for Eliquis although the patient is end-stage renal disease. REVIEW OF SYSTEMS: CONSTITUTIONAL: No fever, no malaise, no fatigue. HEENT: No recent visual problems or hearing problems. Denied any sore throat. CARDIOVASCULAR: As described in HPI. Patient denied any shortness of breath, orthopnea or PND. PULMONARY: No shortness of breath, no cough, no hemoptysis. GASTROINTESTINAL: No diarrhea, no nausea, no vomiting, no abdominal pain. Normoactive bowel sounds. NEUROLOGICAL: No headaches, no weakness, no numbness. HEMATOLOGICAL: Denies any bleeding or petechiae. GENITOURINARY: Denies any burning micturition, frequency, or urgency. MUSCULOSKELETAL/RHEUMATOLOGICAL: Denies any joint pain, swelling, or any muscle pain. ENDOCRINE: Denies any polyuria or polydipsia. The rest of the 14 point review of systems is negative. Home medications include: Metoprolol, midodrine, pantoprazole, pravastatin, aspirin, calcium acetate, Lasix, multivitamin supplementation, Coumadin. ALLERGIES: No known drug allergies. PAST MEDICAL HISTORY: Endstage renal disease, cardiorenal syndrome, gastroesophageal reflux disease, atrial fibrillation, colonoscopy in the past, former smoker. SOCIAL HISTORY: Quit smoking in March 2013. Denied any alcohol abuse or drug abuse. FAMILY HISTORY: Significant for sister with cancer, unknown primary. Father had some kind of cancer of lung. PHYSICAL EXAMINATION: VITAL SIGNS: Temperature 97.5, pulse of 100, respiratory rate of 18, blood pressure is 86/58, saturating at 96% on room air. GENERAL: The patient is alert and oriented x3, not in any acute distress. Well developed, well nourished. HEENT: Pupils are round and equally reacting to light. EOMI. No scleral icterus. No conjunctival pallor. Normocephalic, atraumatic. No pharyngeal erythema. No thyromegaly. CARDIOVASCULAR: S1 and S2 present. No murmurs, rubs, or gallops. PULMONARY: Chest is clear to auscultation, no wheezing or crackles. ABDOMEN: Soft, nontender, nondistended, normoactive bowel sounds. No palpable organomegaly. MUSCULOSKELETAL: No joint swelling or deformity. EXTREMITIES: No cyanosis, clubbing, or pedal edema. NEUROLOGICAL: Gross neurological examination did not reveal any focal deficits. SKIN: No rashes. LABORATORY DATA: CBC and CMP no significant abnormality was appreciated. Hemoglobin is low with elevated MCV. I believe I did B12 level during his last hospitalization. Patient may have anemia of chronic disease. ASSESSMENT AND PLAN: 1. Dizziness related to his hypotension, which has been there for a long time and mostly happens on the days of hemodialysis. Patient is already on midodrine, which will be used as scheduled rather than p.r.n. 2. Severe ischemic cardiomyopathy leading to cardiorenal syndrome and patient ended up on hemodialysis and patient will be continued on hemodialysis. Patient will be continued on Lasix and patient still urinates. 3. Deep venous thrombosis in the past and also atrial fibrillation. Patient is on Coumadin, which will be switched to Eliquis 2.5. 4. Metabolic bone disease. 5. Hyperphosphatemic secondary to endstage renal disease. 6. Hyperlipidemia. Patient will be discharged today. Patient will follow with Dr. Jose Nix in 3 to 5 days. Activity as tolerated. Follow with cardiology and nephrology as scheduled.
[2016-12-17 17:02] LABS: Glucose,Whole Blood 104 mg/dL (75-99)
[2016-12-17 17:09] VITALS: BP 89/53; PULSE 76; TEMP 98.8
[2016-12-17] MEDS ORDERED: MIDODRINE 5 MG TAB PO SCH (17:30)
[2016-12-17] MEDS ORDERED: AMIODARONE 200 MG TAB PO SCH (21:00)
[2016-12-17] MEDS: ASPIRIN 81 MG CHEW PO SCH (21:19)
[2016-12-17] MEDS: FUROSEMIDE 80 MG TAB PO SCH (21:19)
[2016-12-17] MEDS: METOPROLOL SUCCINATE (ER) 25 MG TAB.ER.24H PO SCH (21:19)
[2016-12-17] MEDS: PANTOPRAZOLE 40 MG TABLET PO SCH (21:20)
[2016-12-17] MEDS: PRAVASTATIN SODIUM 80 MG TAB PO SCH (21:20)
== END 2016-12-18 08:12 | disposition home or self-care (01) | DRG 314 ==
LOC: EC 12:35 → OBSVTOIN 18:43 → 6SEL 18:43
PROVIDERS: ADMIT Internal Medicine; ATTEND Internal Medicine
DX: I95.89 Other hypotension (principal); N18.6 End stage renal disease; I13.2 Hypertensive heart and chronic kidney disease with heart failure and with stage 5 chronic kidney disease, or end stage renal disease; I48.92 Unspecified atrial flutter; I50.22 Chronic systolic (congestive) heart failure; E88.89 Other specified metabolic disorders; I48.91 Unspecified atrial fibrillation; E83.39 Other disorders of phosphorus metabolism; E87.5 Hyperkalemia; E78.5 Hyperlipidemia, unspecified; D63.1 Anemia in chronic kidney disease; I25.5 Ischemic cardiomyopathy; K21.9 Gastro-esophageal reflux disease without esophagitis; Z79.01 Long term (current) use of anticoagulants; Z79.82 Long term (current) use of aspirin; Z79.899 Other long term (current) drug therapy; Z87.891 Personal history of nicotine dependence; Z95.810 Presence of automatic (implantable) cardiac defibrillator; Z99.2 Dependence on renal dialysis
CPT/HCPCS: 36415; 71020; 80053; 82550; 82553; 83036; 83735; 84443; 84484; 85025; 85610; 85730; 90935; 93005; 96374; 99285

== ENCOUNTER 2017-01-26 17:52 | Inpatient (IN) | payer OTHER, MEDICARE ==
[2017-01-26] MEDS ORDERED: SODIUM CHLORIDE 0.9% 500 ML IV STA (19:18)
--- NOTE | 2017-01-26 19:21 | ED ---
Weakness HPI - General Source: patient, RN notes reviewed Mode of arrival: wheelchair Limitations: no limitations <Jose Ferraro - Last Filed: 01/26/17 19:19> <Naveed Linares - Last Filed: 02/02/17 05:12> - General Chief complaint: Weakness Stated complaint: Weakness,rectal bleed Time Seen by Provider: 01/26/17 19:12 - History of Present Illness Initial comments: This a 66-year-old male presents emergency Department with chief complaint of weakness, frequent falls. Patient's been having increasing weakness. Patient states he has currently on dialysis for chronic renal failure. Patient has been Hospital for weakness. Patient states that his blood pressure has been lower than usual but states he does get very low at dialysis. Patient states that he was in the hospital and then in November and December for weakness irregular heartbeat. Patient states that he does take Coumadin. Patient states currently when he has a bowel movement he states that he's had some rectal bleeding bright red blood. Patient denies any pain associated. Patient does admit to abdominal distention but states this is no the usual form. Patient states she's had paracentesis in the past. Patient denies any chest pain or shortness breath at this time. Patient states his lower extremities are very weak and states that he's been falling more than usual. Patient states he does not have much activity throughout the day states that he very much just sits around all day. Patient states he did go to dialysis today when she had no comp patients. (Jose Ferraro) - Related Data Home Medications Medication Instructions Recorded Confirmed Metoprolol Succinate [Toprol XL] 25 mg PO HS 12/26/15 01/26/17 Pantoprazole [Protonix] 40 mg PO HS 12/26/15 01/26/17 Pravastatin Sodium [Pravachol] 80 mg PO HS 12/26/15 01/26/17 Aspirin EC [Ecotrin Low Dose] 81 mg PO HS 11/17/16 01/26/17 Calcium Acetate [PhosLo] 1,334 mg PO AC-TID 11/17/16 01/26/17 Calcium Acetate [PhosLo] 667 mg PO DAILY PRN 11/17/16 01/26/17 Furosemide [Lasix] 80 mg PO HS 11/17/16 01/26/17 Renal Multivitamin 1 tab PO DAILY 11/17/16 01/26/17 Sodium Bicarbonate Tab 650 mg PO HS 11/17/16 01/26/17 Apixaban [Eliquis] 5 mg PO HS 01/26/17 01/26/17 Midodrine [ProAmatine] 5 mg PO DIRECTED 01/26/17 01/26/17 Allergies Allergy/AdvReac Type Severity Reaction Status Date / Time No Known Allergies Allergy Verified 01/26/17 19:53 Review of Systems ROS Other: All systems not noted in ROS Statement are negative. <Jose Ferraro - Last Filed: 01/26/17 19:19> ROS Other: All systems not noted in ROS Statement are negative. <Naveed Linares - Last Filed: 02/02/17 05:12> ROS Statement: Those systems with pertinent positive or pertinent negative responses have been documented in the HPI. Past Medical History Past Medical History: Dialysis, GERD/Reflux, Renal Disease Additional Past Medical History / Comment(s): SEE DR VENTURA H&P, BLOOD CLOT IN PAST NOT SURE WHERE, ESSENTIAL TREMORS, CHRONIC RENAL FAILURE, HEMODIALYSIS, TUE.WED.TUE. History of Any Multi-Drug Resistant Organisms: None Reported Past Surgical History: AICD Additional Past Surgical History / Comment(s): COLONOSCOPY, EGD, TEETH REMOVED, CARDIOVERSION, FISTULA RT UPPER ARM FOR HEMODIALYSIS, PREVIOUS CATHETER IN NECK FOR HEMODIALYSIS NOW REMOVED Past Anesthesia/Blood Transfusion Reactions: No Reported Reaction Type of Cardiac Device: AICD Device Placement Date:: may 2016 Past Psychological History: No Psychological Hx Reported Additional Psychological History / Comment(s): lives at home with his , no pets. pt stated independant when up but has fallen in past,does have a walker at home if he needs it.no outside services. 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 Smoking Status: Former smoker Past Alcohol Use History: None Reported, Occasional, Rare Additional Past Alcohol Use History / Comment(s): STARTED SMOKING AT AGE 15, SMOKED 1 TO 1.5 PPD, QUIT Past Drug Use History: None Reported - Past Family History Sister(s) Family Medical History: Cancer Mother Family Medical History: No Reported History Additional Family Medical History / Comment(s): SMOKER Father Family Medical History: Cancer Additional Family Medical History / Comment(s): SMOKER, PALPATATIONS <Jose Ferraro Maryuri - Last Filed: 01/26/17 19:19> General Exam Limitations: no limitations General appearance: alert, in no apparent distress Head exam: Present: atraumatic, normocephalic, normal inspection Eye exam: Present: normal appearance, PERRL, EOMI. Absent: scleral icterus, conjunctival injection, periorbital swelling ENT exam: Present: normal oropharynx, mucous membranes moist Neck exam: Present: normal inspection, full ROM. Absent: tenderness, meningismus, lymphadenopathy Respiratory exam: Present: normal lung sounds bilaterally. Absent: respiratory distress, wheezes, rales, rhonchi, stridor Cardiovascular Exam: Present: regular rate, normal rhythm, normal heart sounds. Absent: systolic murmur, diastolic murmur, rubs, gallop, clicks GI/Abdominal exam: Present: soft, distended, normal bowel sounds. Absent: tenderness, guarding, rebound, rigid Rectal exam: Present: normal inspection, normal rectal tone Neurological exam: Present: alert, oriented X3, CN II-XII intact, reflexes normal. Absent: motor sensory deficit Skin exam: Present: warm, dry, intact, normal color. Absent: rash <Jose Ferraro Maryuri - Last Filed: 01/26/17 19:19> EKG Findings - EKG Comments: EKG Findings:: There are low voltage QRS complexes and possible old anterior infarct. - EKG Results: EKG: interpreted by ERMD, sinus rhythm (Rate 87 bpm), normal axis, normal ST/T - Blocks, [place], Hypertrophy, ST Abn: Repolarization changes or abnormalities: Q-T interval prolongation <Naveed Linares - Last Filed: 02/02/17 05:12> Medical Decision Making <Jose Ferraro - Last Filed: 01/26/17 19:19> - Lab Data Result diagrams: 01/31/17 08:55 01/31/17 09:05 <Naveed Linares - Last Filed: 02/02/17 05:12> - Medical Decision Making I saw this patient in conjunction with the physician assistant customer service manager. I performed independent history and physical exam. Agree with case management. (Naveed Linares) - Lab Data Lab Results 01/26/17 01/26/17 01/26/17 Range/Units 19:23 19:23 19:23 WBC 10.8 H (3.8-10.6) k/uL RBC 3.26 L (4.30-5.90) m/uL Hgb 11.4 L (13.0-17.5) gm/dL Hct 34.8 L (39.0-53.0) % MCV 106.9 H (80.0-100.0) fL MCH 34.9 (25.0-35.0) pg MCHC 32.7 (31.0-37.0) g/dL RDW 17.5 H (11.5-15.5) % Plt Count 195 (150-450) k/uL Neutrophils % 82 % Lymphocytes % 9 % Monocytes % 6 % Eosinophils % 1 % Basophils % 1 % Neutrophils # 8.8 H (1.3-7.7) k/uL Lymphocytes # 1.0 (1.0-4.8) k/uL Monocytes # 0.7 (0-1.0) k/uL Eosinophils # 0.1 (0-0.7) k/uL Basophils # 0.1 (0-0.2) k/uL Anisocytosis Slight Macrocytosis Marked PT (9.0-12.0) sec INR (<1.1) APTT (22.0-30.0) sec Sodium 136 L (137-145) mmol/L Potassium 5.3 H (3.5-5.1) mmol/L Chloride 91 L (98-107) mmol/L Carbon Dioxide 28 (22-30) mmol/L Anion Gap 17 mmol/L BUN 25 H (9-20) mg/dL Creatinine 6.15 H* (0.66-1.25) mg/dL Est GFR (MDRD) Af Amer 11 (>60 ml/min/1.73 sqM) Est GFR (MDRD) Non-Af 9 (>60 ml/min/1.73 sqM) Glucose 147 H (74-99) mg/dL Plasma Lactic Acid Maciel (0.7-2.0) mmol/L Calcium 9.0 (8.4-10.2) mg/dL Phosphorus 4.5 (2.5-4.5) mg/dL Magnesium 1.6 (1.6-2.3) mg/dL Total Bilirubin 0.8 (0.2-1.3) mg/dL AST 32 (17-59) U/L ALT 41 (21-72) U/L Alkaline Phosphatase 118 (38-126) U/L Total Creatine Kinase 33 L (55-170) U/L CK-MB (CK-2) 0.5 (0.0-2.4) ng/mL CK-MB (CK-2) Rel Index 1.5 Troponin I <0.012 (0.000-0.034) ng/mL NT-Pro-B Natriuret Pep pg/mL Total Protein 7.8 (6.3-8.2) g/dL Albumin 4.4 (3.5-5.0) g/dL 01/26/17 01/26/17 01/26/17 Range/Units 19:23 19:23 19:23 WBC (3.8-10.6) k/uL RBC (4.30-5.90) m/uL Hgb (13.0-17.5) gm/dL Hct (39.0-53.0) % MCV (80.0-100.0) fL MCH (25.0-35.0) pg MCHC (31.0-37.0) g/dL RDW (11.5-15.5) % Plt Count (150-450) k/uL Neutrophils % % Lymphocytes % % Monocytes % % Eosinophils % % Basophils % % Neutrophils # (1.3-7.7) k/uL Lymphocytes # (1.0-4.8) k/uL Monocytes # (0-1.0) k/uL Eosinophils # (0-0.7) k/uL Basophils # (0-0.2) k/uL Anisocytosis Macrocytosis PT 10.5 (9.0-12.0) sec INR 1.0 (<1.1) APTT 21.6 L (22.0-30.0) sec Sodium (137-145) mmol/L Potassium (3.5-5.1) mmol/L Chloride (98-107) mmol/L Carbon Dioxide (22-30) mmol/L Anion Gap mmol/L BUN (9-20) mg/dL Creatinine (0.66-1.25) mg/dL Est GFR (MDRD) Af Amer (>60 ml/min/1.73 sqM) Est GFR (MDRD) Non-Af (>60 ml/min/1.73 sqM) Glucose (74-99) mg/dL Plasma Lactic Acid Maciel 4.0 H* (0.7-2.0) mmol/L Calcium (8.4-10.2) mg/dL Phosphorus (2.5-4.5) mg/dL Magnesium (1.6-2.3) mg/dL Total Bilirubin (0.2-1.3) mg/dL AST (17-59) U/L ALT (21-72) U/L Alkaline Phosphatase (38-126) U/L Total Creatine Kinase (55-170) U/L CK-MB (CK-2) (0.0-2.4) ng/mL CK-MB (CK-2) Rel Index Troponin I (0.000-0.034) ng/mL NT-Pro-B Natriuret Pep 8940 pg/mL Total Protein (6.3-8.2) g/dL Albumin (3.5-5.0) g/dL Disposition <Jose Ferraro - Last Filed: 01/26/17 19:19> <Naveed Linares - Last Filed: 02/02/17 05:12> Clinical Impression: Weakness, Hypotension Disposition: ADMITTED IP TO THIS HOSP Condition: Poor
[2017-01-26 19:35] LABS: Anisocytosis Slight; Basophils # (A) 0.1 k/uL (0-0.2); Basophils % (A) 1 %; CH 35.6; CHCM 33.6; Eosinophils # (A) 0.1 k/uL (0-0.7); Eosinophils % (A) 1 %; HCT 34.8 % (39.0-53.0); HDW 3.15; HGB 11.4 gm/dL (13.0-17.5); Luc # (Auto) 0.21; Luc % (Auto) 2; Lymphocytes % (A) 9 %; MCH 34.9 pg (25.0-35.0); MCHC 32.7 g/dL (31.0-37.0); MCV 106.9 fL (80.0-100.0); Macrocytosis Marked; Mean Platelet Volume 7.1; Monocytes # (A) 0.7 k/uL (0-1.0); Monocytes % (A) 6 %; Neutrophils # (A) 8.8 k/uL (1.3-7.7); Neutrophils % (A) 82 %; RBC 3.26 m/uL (4.30-5.90); RDW 17.5 % (11.5-15.5); WBC 10.8 k/uL (3.8-10.6); WBC (Perox) 11.72
[2017-01-26 19:41] LABS: Partial Thromboplastin Time 21.6 sec (22.0-30.0); Prothrombin Time 10.5 sec (9.0-12.0)
[2017-01-26 19:43] LABS: Magnesium 1.6 mg/dL (1.6-2.3); Phosphorous 4.5 mg/dL (2.5-4.5); Potassium 5.3 mmol/L (3.5-5.1); Total Bilirubin 0.8 mg/dL (0.2-1.3); Total Protein 7.8 g/dL (6.3-8.2)
--- NOTE | 2017-01-26 19:56 | XR ---
EXAMINATION TYPE: XR chest 2V DATE OF EXAM: 01/26/2017 7:44 PM COMPARISON: 12/16/2016 HISTORY: Weakness TECHNIQUE: Frontal and lateral views of the chest are obtained. FINDINGS: Heart and mediastinum are normal. Lungs are clear. Diaphragm is normal. There is a pacemak er over the left lateral chest wall. There is no pleural effusion. Bony thorax is intact. IMPRESSION: No active cardiopulmonary disease. Normal heart. No change.
[2017-01-26 19:57] LABS: Creatine Kinase 33 U/L (55-170)
[2017-01-26 20:10] LABS: Creatine Kinase MB 0.5 ng/mL (0.0-2.4); Troponin I <0.012 ng/mL (0.000-0.034)
[2017-01-26] MEDS ORDERED: NALOXONE 0.4 MG/ML 1 ML VIAL IV PRN (20:30)
[2017-01-26] MEDS ORDERED: MIDODRINE 5 MG TAB PO PRN (20:45)
[2017-01-26 22:10] LABS: Glucose,Whole Blood 108 mg/dL (75-99)
[2017-01-26] MEDS: LACTATED RINGERS 1,000 ML IV SCH (22:48)
[2017-01-26] MEDS: APIXABAN 5 MG TAB PO SCH (22:49)
[2017-01-26] MEDS: PRAVASTATIN SODIUM 80 MG TAB PO SCH (22:49)
[2017-01-26] MEDS: PANTOPRAZOLE 40 MG TABLET PO SCH (22:49)
[2017-01-26] MEDS: ASPIRIN 81 MG CHEW PO SCH (22:49)
[2017-01-26] MEDS: SODIUM BICARBONATE TAB 650 MG TAB PO SCH (22:49)
[2017-01-26] MEDS ORDERED: CALCIUM ACETATE 667 MG CAP PO PRN (23:00)
[2017-01-26] MEDS ORDERED: HYDROcodone/APAP 5-325MG 1 EACH TAB PO PRN (23:02)
[2017-01-26] MEDS ORDERED: ALPRAZolam 0.25 MG TAB PO PRN (23:02)
[2017-01-26] MEDS ORDERED: HYDROmorphone 1 MG/ML 1 ML SYRINGE IVP PRN (23:02)
[2017-01-26] MEDS ORDERED: TEMAZEPAM 15 MG CAP PO PRN (23:02)
[2017-01-26] MEDS ORDERED: VANCOMYCIN 1,900 MG in SODIUM CHLORIDE 0.9% 250 ML IVPB ONE (23:02)
[2017-01-26] MEDS ORDERED: IV VANCOMYCIN PER PHARMACY 1 EACH MISC MISCELLANE PRN (23:02)
[2017-01-26] MEDS ORDERED: VANCOMYCIN 2,000 MG in SODIUM CHLORIDE 0.9% 500 ML IVPB ONE (23:15)
[2017-01-27] MEDS ORDERED: SODIUM CHLORIDE 0.9% 500 ML IV ONE (00:48)
[2017-01-27] MEDS: SODIUM CHLORIDE 0.9% 250 ML IV SCH ×18 (01:10→08:13)
[2017-01-27 05:18] LABS: Anisocytosis Slight; Basophils # (A) 0.1 k/uL (0-0.2); Basophils % (A) 1 %; CH 35.8; CHCM 34.4; Eosinophils # (A) 0.1 k/uL (0-0.7); Eosinophils % (A) 2 %; HCT 29.1 % (39.0-53.0); HDW 3.31; Luc # (Auto) 0.28; Luc % (Auto) 4; Lymphocytes # (A) 1.3 k/uL (1.0-4.8); Lymphocytes % (A) 17 %; MCHC 34.3 g/dL (31.0-37.0); MCV 105.1 fL (80.0-100.0); Macrocytosis Moderate; Mean Platelet Volume 7.2; Monocytes # (A) 0.6 k/uL (0-1.0); Monocytes % (A) 8 %; Neutrophils # (A) 5.3 k/uL (1.3-7.7); Neutrophils % (A) 69 %; RBC 2.77 m/uL (4.30-5.90); RDW 17.6 % (11.5-15.5); WBC 7.7 k/uL (3.8-10.6); WBC (Perox) 7.47
[2017-01-27 05:23] LABS: Calcium 8.1 mg/dL (8.4-10.2); Potassium 4.5 mmol/L (3.5-5.1)
[2017-01-27] MEDS: NOREPINEPHRIN 4 MG-0.9% NS PMX 4 MG/250 ML ML IV SCH ×2 (05:27→18:48)
[2017-01-27] MEDS ORDERED: SODIUM CHLORIDE 0.9% 1,000 ML IV ONE (06:59)
[2017-01-27 08:14] LABS: Magnesium 1.7 mg/dL (1.6-2.3); Phosphorous 4.3 mg/dL (2.5-4.5)
--- NOTE | 2017-01-27 08:26 | HP ---
DATE OF ADMISSION: CHIEF COMPLAINT: Weakness. HISTORY OF PRESENT ILLNESS: This 66-year-old gentleman with a past history of gastroesophageal reflux disease, history of chronic renal failure on hemodialysis, history of deep venous thrombosis, history of cardiomyopathy, AICD, being followed by Dr. Nix in the outpatient setting was complaining of weakness. The patient apparently getting increasingly weak at home and had multiple falls. The patient also on hemodialysis. The patient also had multiple episodes of hypotension during hemodialysis. Patient came to [facility] and admitted for further evaluation and treatment. Blood pressure fluctuating. Blood pressure went up to 70 systolic and currently is increased after multiple IV fluid boluses. The has been patient closely monitored in the ICU. There is no history of fever, rigors. No history of headache, loss of consciousness or seizures. PAST MEDICAL HISTORY: History of chronic renal failure on hemodialysis, history of gastroesophageal reflux disease, history of automatic implantable cardioverter defibrillator, cardiomyopathy. Medications prior to admission include home medications are: 1. Eliquis 5 mg p.o. q.h.s. 2. Sodium bicarb 650 q.h.s. 3. Multivitamin 1 p.o. daily. 4. Pravachol 80 mg daily. 5. Protonix 40 mg daily. 6. ProAmatine 5 mg p.r.n. 7. Toprol-XL 25 mg q.h.s. 8. Lasix 80 mg q.h.s. 9. PhosLo 1334 a.c. t.i.d. 10. PhosLo 667 p.r.n. 11. Ecotrin 81 mg q.h.s. ALLERGIES: None. FAMILY HISTORY: No history of heart disease, strokes in the family. History of smoking in the family. SOCIAL HISTORY: Previous history of smoking, occasional alcohol intake. REVIEW OF SYSTEMS: ENT: No diminishing hearing. No diminished vision. CARDIOVASCULAR SYSTEM: No angina, otherwise as mentioned earlier. RESPIRATORY: No cough, no hemoptysis. GI: As mentioned earlier. : As mentioned earlier. NERVOUS SYSTEM: No numbness, generalized weakness. ALLERGY/IMMUNOLOGY: No asthma. MUSCULOSKELETAL: As mentioned earlier. HEMATOLOGY/ONCOLOGY: No history of anemia. ENDOCRINE: No history of diabetes, hypothyroidism. CONSTITUTIONAL: As mentioned earlier. DERMATOLOGY: Negative. RHEUMATOLOGY: Negative. PSYCHIATRY: As mentioned earlier. PHYSICAL EXAMINATION: Patient is alert and oriented x3. Pulse is 60, blood pressure 105/54 was 79/51, respirations 18, temperature 97.4, pulse ox 98% on 2 liters. HEENT: Conjunctivae normal. Oral mucosa moist. NECK: No jugular venous distention. No carotid bruit. No lymph node enlargement. CARDIOVASCULAR: S1 and S2, muffled. No S3, no S4. RESPIRATORY: Breath sounds diminished at the bases. A few scattered rhonchi. ABDOMEN: Soft, obese, nontender. LEGS: Minimal edema. NERVOUS SYSTEM: Higher function as mentioned. Moves all four limbs. Mild diffuse weakness. LYMPHATIC: No lymphadenopathy in the neck, axillae or groin. SKIN: No ulcer, rash or bleeding. LABS: WBC 10.8, hemoglobin 11.4, MCV 106.9. Sodium 130, potassium 5.3. Creatinine 6.1. ASSESSMENT: 1. Generalized weakness for evaluation, relative hypotension. 2. Chronic renal failure, stage V, on hemodialysis. 3. Increased WBC. 4. Anemia, macrocytic, possibly secondary to renal disease. 5. Hyponatremia. 6. Hyperkalemia. 7. Increased random blood sugar. 8. Increased plasma lactic acid. 9. History of gastroesophageal reflux disease. 10. History of automatic implantable cardioverter defibrillator. 11. History of colonoscopy. 12. History of cardioversion. 13. Right upper arm fistula for hemodialysis. 14. Remote history of nicotine dependence. 15. Obesity with body mass index of 35.9. 16. FULL CODE. RECOMMENDATIONS AND DISCUSSION: This 66-year-old gentleman who presented with multiple complex medical issues, will monitor the patient closely. Continue the current medications. I recommend to hold the beta blockers. Monitor blood pressure closely. IV bolus fluids may be repeated cautiously. Otherwise nephrology consultation. Repeat labs. There is no evidence of infection at this time, we will obtain blood cultures and continue to monitor. Prognosis guarded because of multiple complex medical issues. I discussed with the patient who understands and discussed with staff. A copy of dictation forwarded to Dr. Nix, who is the primary physician. MUNA
[2017-01-27] MEDS: CALCIUM ACETATE 667 MG CAP PO SCH ×3 (09:18→18:25)
[2017-01-27] MEDS: FOLIC ACID-VIT B COMPLEX-VIT C 1 CAP PO SCH (09:18)
--- NOTE | 2017-01-27 10:49 | P.NPCON ---
History of Present Illness - Reason for Consult end stage renal disease - History of Present Illness Reason for consultation: End-stage renal disease History of present illness: Patient is a 66-year-old male seen in renal consultation for end- stage renal disease. He is making on hemodialysis on a Tuesday schedule via right upper extremity AV fistula. Patient has systolic CHF with ejection fraction of less than 20% status post AICD. Patient presented to the hospital due to recurrent falls. Patient states he's been getting dizzy and sustained about 3 falls in the last 2 weeks. He denies any chest shortness breath. Denies any vomiting or diarrhea. Appetite has been fair. Chest x-ray suggests no evidence of volume overload. His lactic acid level was 4 on admission and is improved to 2.1 today. He did receive 2-1/2 L of IV fluid resuscitation as his blood pressure was in the systolic 60s on admission. He is currently on 5 mics of levofed with maintenance fluids running at 40 mL an hour. Overall he is feeling better with no other complaints at this time. Vital signs are stable. General: The patient appeared well nourished and normally developed. HEENT: Head exam is unremarkable. Neck is without jugular venous distension. LUNGS: Lungs are clear to auscultation and percussion. Breath sounds decreased. HEART: Rate and Rhythm are regular. First and second heart sounds normal. No murmurs, rubs or gallops. ABDOMEN: Abdominal exam reveals normal bowel sounds. Non-tender and non- distended. No evidence of peritonitis. EXTREMITITES: 1+ edema. Chronic changes noted. Past Medical History Past Medical History: Dialysis, GERD/Reflux, Renal Disease Additional Past Medical History / Comment(s): SEE DR AUDREY Zhang&P, BLOOD CLOT IN PAST NOT SURE WHERE, ESSENTIAL TREMORS, CHRONIC RENAL FAILURE, HEMODIALYSIS, TUE.TUE.TUE. History of Any Multi-Drug Resistant Organisms: None Reported Past Surgical History: AICD Additional Past Surgical History / Comment(s): COLONOSCOPY, EGD, TEETH REMOVED, CARDIOVERSION, FISTULA RT UPPER ARM FOR HEMODIALYSIS, PREVIOUS CATHETER IN NECK FOR HEMODIALYSIS NOW REMOVED Past Anesthesia/Blood Transfusion Reactions: No Reported Reaction Type of Cardiac Device: AICD Device Placement Date:: may 2016 Past Psychological History: No Psychological Hx Reported Additional Psychological History / Comment(s): lives at home with his , no pets. pt stated independant when up but has fallen in past,does have a walker at home if he needs it.no outside services. 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 Smoking Status: Former smoker Past Alcohol Use History: None Reported, Occasional, Rare Additional Past Alcohol Use History / Comment(s): STARTED SMOKING AT AGE 10, SMOKED 1 TO 1.5 PPD, QUIT Past Drug Use History: None Reported - Past Family History Sister(s) Family Medical History: Cancer Mother Family Medical History: No Reported History Additional Family Medical History / Comment(s): SMOKER Father Family Medical History: Cancer Additional Family Medical History / Comment(s): SMOKER, PALPATATIONS Medications and Allergies Home Medications Medication Instructions Recorded Confirmed Type Metoprolol Succinate [Toprol XL] 25 mg PO HS 12/26/15 01/26/17 History Pantoprazole [Protonix] 40 mg PO HS 12/26/15 01/26/17 History Pravastatin Sodium [Pravachol] 80 mg PO HS 12/26/15 01/26/17 History Aspirin EC [Ecotrin Low Dose] 81 mg PO HS 11/17/16 01/26/17 History Calcium Acetate [PhosLo] 1,334 mg PO AC-TID 11/17/16 01/26/17 History Calcium Acetate [PhosLo] 667 mg PO DAILY PRN 11/17/16 01/26/17 History Furosemide [Lasix] 80 mg PO HS 11/17/16 01/26/17 History Renal Multivitamin 1 tab PO DAILY 11/17/16 01/26/17 History Sodium Bicarbonate Tab 650 mg PO HS 11/17/16 01/26/17 History Apixaban [Eliquis] 5 mg PO HS 01/26/17 01/26/17 History Midodrine [ProAmatine] 5 mg PO DIRECTED 01/26/17 01/26/17 History Allergies Allergy/AdvReac Type Severity Reaction Status Date / Time No Known Allergies Allergy Verified 01/26/17 19:53 Physical Exam Vitals: Vital Signs Temp Pulse Resp BP Pulse Ox 01/27/17 09:00 89 28 H 96/54 96 01/27/17 08:00 98.1 F 71 19 92/50 94 L 01/27/17 07:15 80 81/44 98 01/27/17 07:00 71 16 90/54 95 01/27/17 06:45 78 87/61 96 01/27/17 06:30 85 14 92/57 89 L 01/27/17 06:15 79 14 94/57 99 01/27/17 06:00 81 91/60 98 01/27/17 05:45 83 90/58 01/27/17 05:30 82 79/54 01/27/17 05:15 85 73/40 01/27/17 05:00 84 79/38 01/27/17 04:45 82 81/45 01/27/17 04:30 98.2 F 82 16 89/57 97 01/27/17 04:15 81 80/50 01/27/17 04:00 79 76/42 01/27/17 03:45 78 76/49 01/27/17 03:30 84 73/51 01/27/17 03:15 86 75/49 01/27/17 03:00 86 75/49 01/27/17 02:45 94 89/44 01/27/17 02:30 135 H 71/51 01/27/17 02:15 92 61/38 01/27/17 02:00 85 76/48 01/27/17 01:45 128 H 86/49 01/27/17 01:30 98.2 F 89 14 81/47 98 01/27/17 01:15 109 H 72/45 01/27/17 01:00 90 69/37 01/27/17 00:45 79 70/37 01/27/17 00:30 88 70/37 01/27/17 00:15 90 85/47 01/27/17 00:00 105 H 18 85/47 01/26/17 23:45 100 85/47 01/26/17 23:30 85/47 97 01/26/17 23:15 97 106/63 97 01/26/17 23:00 87 106/63 98 01/26/17 22:45 86 106/63 99 01/26/17 22:30 94 106/63 98 01/26/17 22:15 98.2 F 16 97/60 98 01/26/17 22:07 97/60 Intake and Output 01/26/17 01/27/17 01/27/17 22:59 06:59 14:59 Intake Total 0924.439 1449 Balance 6856.111 0626 Intake: Intake, IV Titration 1925.333 3844 Amount Lactated Ringers 1,000 ml 180 20 @ 20 mls/hr IV .Q24H [facility] Rx#:[id number] Norepinephrin 4 mg-0.9% 14.875 Ns Pmx 4 mg In 250 ml @ Titrate IV .Q0M [facility] Rx#: [id number] Sodium Chloride 0.9% 1, 1000 000 ml @ 666 mls/hr IV . Q1H31M [facility] Rx#:[id number] Sodium Chloride 0.9% 250 250 ml @ 999 mls/hr IV .Q16M [facility] Rx#:[id number] Sodium Chloride 0.9% 250 250 ml @ 999 mls/hr IV .Q16M [facility] Rx#:[id number] Vancomycin 2,000 mg In 500 Sodium Chloride 0.9% 500 ml @ 167 mls/hr IVPB ONCE ONE Rx#:[id number] Oral 360 Other: Weight 123.6 kg Results - Lab Results Most recent lab results Calcium 8.1 mg/dL (8.4-10.2) L 01/27/17 04:54 Phosphorus 4.3 mg/dL (2.5-4.5) 01/27/17 04:54 Magnesium 1.7 mg/dL (1.6-2.3) 01/27/17 04:54 01/27/17 04:54 01/27/17 04:54 Assessment and Plan Plan: Assessment: #1. End-stage renal disease maintained on hemodialysis on a Tuesday schedule via right upper extremity AV fistula. #2. Systolic CHF with ejection fraction of less than 20%. #3. Hypotension related to hypovolemia status post 2.5 L fluid bolus. Blood pressures improved but still requiring 5 mics of levofed. Cortisol level pending. White count slightly elevated at 10.8 on admission. Cultures are pending. #4. Lactic acidosis related to hypotension/hypovolemia. Improved. #5. Chronic kidney disease mineral bone disease. Plan: Encourage oral intake. Hemodialysis tomorrow with ultrafiltration as blood pressure tolerates. Wean vasopressors. Follow-up cultures and cortisol level. Maintain PhosLo with meals. Thank you for the consultation. I will continue to follow the patient with you during his hospital stay.
[2017-01-27] MEDS ORDERED: VANCOMYCIN 2,000 MG in SODIUM CHLORIDE 0.9% 500 ML IVPB ONE (12:00)
--- NOTE | 2017-01-27 12:17 | P.CRDCN ---
History of Present Illness Consult date: 01/27/17 Chief complaint: Not feeling well History of present illness: This is a pleasant 66-year-old gentleman who I see in the office as an outpatient with a past medical history significant for severe nonischemic cardiomyopathy with an ejection fraction around 25%, status post ICD, in the stage renal disease on hemodialysis, as well as multiple comorbid diseases, was admitted to the hospital because of low blood pressure. The patient has always marginally low blood pressure with a systolic pressure in the 80s to 90s. He went to have dialysis yesterday when his pressure was in the 80s. He was sent to the hospital for further evaluation and management. According to his , the patient has been feeling weak and tired and feeling sometimes dizzy once he stands up. He was receiving metoprolol as well as Lasix and both were held. The patient was started on Midrin. Also a workup to rule out sepsis is in process were patient was had blood culture. Currently he is on Levophed. He is not in any respiratory distress. He has been maintaining normal sinus mechanism. I agree about holding the metoprolol and holding the Lasix at this point. We' ll try to wean him from the Levophed. I would not recommend any further cardiac workup on this gentleman at this point. Past Medical History Past Medical History: Dialysis, GERD/Reflux, Renal Disease Additional Past Medical History / Comment(s): SEE DR VENTURA H&P, BLOOD CLOT IN PAST NOT SURE WHERE, ESSENTIAL TREMORS, CHRONIC RENAL FAILURE, HEMODIALYSIS, MON.WED.TUE. History of Any Multi-Drug Resistant Organisms: None Reported Past Surgical History: AICD Additional Past Surgical History / Comment(s): COLONOSCOPY, EGD, TEETH REMOVED, CARDIOVERSION, FISTULA RT UPPER ARM FOR HEMODIALYSIS, PREVIOUS CATHETER IN NECK FOR HEMODIALYSIS NOW REMOVED Past Anesthesia/Blood Transfusion Reactions: No Reported Reaction Type of Cardiac Device: AICD Device Placement Date:: may 2016 Past Psychological History: No Psychological Hx Reported Additional Psychological History / Comment(s): lives at home with his , no pets. pt stated independant when up but has fallen in past,does have a walker at home if he needs it.no outside services. 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 Smoking Status: Former smoker Past Alcohol Use History: None Reported, Occasional, Rare Additional Past Alcohol Use History / Comment(s): STARTED SMOKING AT AGE 10, SMOKED 1 TO 1.5 PPD, QUIT Past Drug Use History: None Reported - Past Family History Sister(s) Family Medical History: Cancer Mother Family Medical History: No Reported History Additional Family Medical History / Comment(s): SMOKER Father Family Medical History: Cancer Additional Family Medical History / Comment(s): SMOKER, PALPATATIONS Medications and Allergies Home Medications Medication Instructions Recorded Confirmed Type Metoprolol Succinate [Toprol XL] 25 mg PO HS 12/26/15 01/26/17 History Pantoprazole [Protonix] 40 mg PO HS 12/26/15 01/26/17 History Pravastatin Sodium [Pravachol] 80 mg PO HS 12/26/15 01/26/17 History Aspirin EC [Ecotrin Low Dose] 81 mg PO HS 11/17/16 01/26/17 History Calcium Acetate [PhosLo] 1,334 mg PO AC-TID 11/17/16 01/26/17 History Calcium Acetate [PhosLo] 667 mg PO DAILY PRN 11/17/16 01/26/17 History Furosemide [Lasix] 80 mg PO HS 11/17/16 01/26/17 History Renal Multivitamin 1 tab PO DAILY 11/17/16 01/26/17 History Sodium Bicarbonate Tab 650 mg PO HS 11/17/16 01/26/17 History Apixaban [Eliquis] 5 mg PO HS 01/26/17 01/26/17 History Midodrine [ProAmatine] 5 mg PO DIRECTED 01/26/17 01/26/17 History Allergies Allergy/AdvReac Type Severity Reaction Status Date / Time No Known Allergies Allergy Verified 01/26/17 19:53 Physical Exam Vitals: Vital Signs Temp Pulse Resp BP Pulse Ox 01/27/17 11:30 70 29 H 76/51 97 01/27/17 11:15 72 21 83/53 95 01/27/17 11:00 74 19 76/51 95 01/27/17 10:45 81 23 83/53 95 01/27/17 10:30 74 23 85/55 97 01/27/17 10:15 77 20 83/54 98 01/27/17 10:00 81 19 86/52 96 01/27/17 09:45 81 20 86/52 95 01/27/17 09:30 79 20 87/51 93 L 01/27/17 09:15 84 20 79/51 94 L 01/27/17 09:00 89 28 H 96/54 96 01/27/17 08:00 98.1 F 71 19 92/50 94 L 01/27/17 07:15 80 81/44 98 01/27/17 07:00 71 16 90/54 95 01/27/17 06:45 78 87/61 96 01/27/17 06:30 85 14 92/57 89 L 01/27/17 06:15 79 14 94/57 99 01/27/17 06:00 81 91/60 98 01/27/17 05:45 83 90/58 01/27/17 05:30 82 79/54 01/27/17 05:15 85 73/40 01/27/17 05:00 84 79/38 01/27/17 04:45 82 81/45 01/27/17 04:30 98.2 F 82 16 89/57 97 01/27/17 04:15 81 80/50 01/27/17 04:00 79 76/42 01/27/17 03:45 78 76/49 01/27/17 03:30 84 73/51 01/27/17 03:15 86 75/49 01/27/17 03:00 86 75/49 01/27/17 02:45 94 89/44 01/27/17 02:30 135 H 71/51 01/27/17 02:15 92 61/38 01/27/17 02:00 85 76/48 01/27/17 01:45 128 H 86/49 01/27/17 01:30 98.2 F 89 14 81/47 98 01/27/17 01:15 109 H 72/45 01/27/17 01:00 90 69/37 01/27/17 00:45 79 70/37 01/27/17 00:30 88 70/37 01/27/17 00:15 90 85/47 01/27/17 00:00 105 H 18 85/47 01/26/17 23:45 100 85/47 01/26/17 23:30 85/47 97 01/26/17 23:15 97 106/63 97 01/26/17 23:00 87 106/63 98 01/26/17 22:45 86 106/63 99 01/26/17 22:30 94 106/63 98 01/26/17 22:15 98.2 F 16 97/60 98 01/26/17 22:07 97/60 Intake and Output 01/26/17 01/27/17 01/27/17 22:59 06:59 14:59 Intake Total 1281.436 9243 Balance 9815.227 8322 Intake: IV 80 0.9 at KVO 80 Intake, IV Titration 1075.096 1492 Amount Lactated Ringers 1,000 ml 180 100 @ 20 mls/hr IV .Q24H [facility] Rx#:[id number] Norepinephrin 4 mg-0.9% 14.875 Ns Pmx 4 mg In 250 ml @ Titrate IV .Q0M [facility] Rx#: [id number] Sodium Chloride 0.9% 1, 1000 000 ml @ 666 mls/hr IV . Q1H31M [facility] Rx#:[id number] Sodium Chloride 0.9% 250 250 ml @ 999 mls/hr IV .Q16M [facility] Rx#:[id number] Sodium Chloride 0.9% 250 250 ml @ 999 mls/hr IV .Q16M [facility] Rx#:[id number] Vancomycin 2,000 mg In 500 Sodium Chloride 0.9% 500 ml @ 167 mls/hr IVPB ONCE ONE Rx#:[id number] Oral 360 250 Other: Voiding Method Urinal Weight 123.6 kg - Constitutional General appearance: no acute distress - Respiratory Respiratory: bilateral: CTA - Cardiovascular Rhythm: regular Heart sounds: normal: S1, S2 Results 01/27/17 04:54 01/27/17 04:54 CBC 01/27/17 Range/Units 04:54 WBC 7.7 (3.8-10.6) k/uL RBC 2.77 L (4.30-5.90) m/uL Hgb 10.0 L (13.0-17.5) gm/dL Hct 29.1 L (39.0-53.0) % Plt Count 192 (150-450) k/uL Comprehensive Metabolic Panel 01/27/17 Range/Units 04:54 Sodium 137 (137-145) mmol/L Potassium 4.5 (3.5-5.1) mmol/L Chloride 97 L (98-107) mmol/L Carbon Dioxide 25 (22-30) mmol/L BUN 32 H (9-20) mg/dL Creatinine 6.79 H* (0.66-1.25) mg/dL Glucose 118 H (74-99) mg/dL Calcium 8.1 L (8.4-10.2) mg/dL Current Medications Generic Name Dose Route Start Last Admin Trade Name Freq PRN Reason Stop Dose Admin Hydrocodone Bitart/Acetaminophen 1 each 01/26/17 23:02 [place] 5-325 PO Q6HR PRN Pain Alprazolam 0.25 mg 01/26/17 23:02 Xanax PO TID PRN Anxiety Apixaban 5 mg 01/26/17 21:00 01/26/17 22:49 Eliquis PO 5 mg HS [facility] Administration Aspirin 81 mg 01/26/17 21:00 01/26/17 22:49 Aspirin PO 81 mg HS [facility] Administration Calcium Acetate 1,334 mg 01/27/17 07:30 01/27/17 09:18 Phoslo PO 1,334 mg AC-TID [facility] Administration Calcium Acetate 667 mg 01/26/17 23:00 Phoslo PO DAILY PRN snack Hydromorphone HCl 0.5 mg 01/26/17 23:02 Dilaudid IVP Q6HR PRN Severe Pain Lactated Ringer's 1,000 mls @ 20 mls/hr 01/26/17 20:30 01/26/17 22:48 Lactated Ringers IV 20 mls/hr .Q24H [facility] Administration Norepinephrine Bitartrate 4 mg in 250 mls @ 0 mls/hr 01/27/17 03:45 01/27/17 06:39 Levophed-0.9% Nacl 4 Mg/250ml Pmx IV 5 mcg/min .Q0M [facility] 18.75 mls/hr Protocol Titration Titrate Vancomycin HCl 2,000 mg/ 500 mls @ 167 mls/hr 01/27/17 12:00 Sodium Chloride IVPB 01/27/17 14:59 ONCE ONE Midodrine 10 mg 01/27/17 12:30 Proamatine PO AC-TID [facility] Miscellaneous Information 1 each 01/26/17 23:02 Pharmacy To Dose Iv Vancomycin MISCELLANE DIRECTED PRN Per Protocol Multivit/Ca Carb/B Cmplx/FA/Prenat 1 each 01/27/17 09:00 01/27/17 09:18 Nephrocaps PO 1 each DAILY [facility] Administration Naloxone HCl 0.2 mg 01/26/17 20:30 Narcan IV Q2M PRN Opioid Reversal Pantoprazole Sodium 40 mg 01/26/17 21:00 01/26/17 22:49 Protonix PO 40 mg HS [facility] Administration Pravastatin Sodium 80 mg 01/26/17 21:00 01/26/17 22:49 Pravachol PO 80 mg HS [facility] Administration Sodium Bicarbonate 650 mg 01/26/17 21:00 01/26/17 22:49 Sodium Bicarbonate Tab PO 650 mg HS [facility] Administration Temazepam 15 mg 01/26/17 23:02 Restoril PO HS PRN Insomnia Intake and Output 01/26/17 01/27/17 01/27/17 22:59 06:59 14:59 Intake Total 3091.696 4893 Balance 6913.991 7051 Intake: IV 80 0.9 at KVO 80 Intake, IV Titration 3868.390 0582 Amount Lactated Ringers 1,000 ml 180 100 @ 20 mls/hr IV .Q24H [facility] Rx#:[id number] Norepinephrin 4 mg-0.9% 14.875 Ns Pmx 4 mg In 250 ml @ Titrate IV .Q0M [facility] Rx#: [id number] Sodium Chloride 0.9% 1, 1000 000 ml @ 666 mls/hr IV . Q1H31M [facility] Rx#:[id number] Sodium Chloride 0.9% 250 250 ml @ 999 mls/hr IV .Q16M [facility] Rx#:[id number] Sodium Chloride 0.9% 250 250 ml @ 999 mls/hr IV .Q16M [facility] Rx#:[id number] Vancomycin 2,000 mg In 500 Sodium Chloride 0.9% 500 ml @ 167 mls/hr IVPB ONCE [facility] Rx#:[id number] Oral 360 250 Other: Voiding Method Urinal Weight 123.6 kg 01/27/17 04:54 01/27/17 04:54 Assessment and Plan Plan: Assessment #1 systemic hypertension #2 severe cardiomyopathy #3 incisional disease Plan #1 sepsis to be ruled out #2 right wean the patient from Levophed #3 agree to start the patient on Midrin to support the blood pressure #4 follow-up with the patient
[2017-01-27] MEDS: MIDODRINE 5 MG TAB PO SCH ×2 (12:33→18:25)
--- NOTE | 2017-01-27 12:56 | P.CNPUL ---
History of Present Illness Consult date: 01/27/17 Requesting physician: Trice Patel Reason for consult: other (Critical care management) Chief complaint: Dizziness weakness falls History of present illness: This is a very pleasant 66-year-old gentleman who follows at the [facility] for his primary care needs. He has a history of atrial fibrillation, cardiomyopathy status post AICD placement, chronic renal failure receiving hemodialysis on Fridays, a chronic venous stasis, history of liver failure with previous paracentesis, esophageal reflux disease. He had presented here yesterday after being at dialysis at which time 5 L of fluid was removed. He has had recent ongoing issues with dizziness, lightheadedness and falling. He denied any significant trauma. He was found to be quite hypotensive and admitted to the intensive care unit for the same. He is currently on levothyroxine at 5 mcg/m to maintain arterial pressures greater than 65. Currently, he is awake and alert in no acute distress. He denies any worsening shortness of breath, cough or congestion. No chills or night sweats. His chest x-ray reveals no acute cardiopulmonary process. No leukocytosis. ProBNP 8940. Creatinine 6.79 initial lactic acid 4.0, down to 2.1 today. Review of Systems 14 point review of system was conducted. All negative other than as mentioned in the HPI. Past Medical History Past Medical History: Dialysis, GERD/Reflux, Renal Disease Additional Past Medical History / Comment(s): SEE DR VENTURA H&P, BLOOD CLOT IN PAST NOT SURE WHERE, ESSENTIAL TREMORS, CHRONIC RENAL FAILURE, HEMODIALYSIS, TUE.TUE.TUE. History of Any Multi-Drug Resistant Organisms: None Reported Past Surgical History: AICD Additional Past Surgical History / Comment(s): COLONOSCOPY, EGD, TEETH REMOVED, CARDIOVERSION, FISTULA RT UPPER ARM FOR HEMODIALYSIS, PREVIOUS CATHETER IN NECK FOR HEMODIALYSIS NOW REMOVED Past Anesthesia/Blood Transfusion Reactions: No Reported Reaction Type of Cardiac Device: AICD Device Placement Date:: may 2016 Past Psychological History: No Psychological Hx Reported Additional Psychological History / Comment(s): lives at home with his , no pets. pt stated independant when up but has fallen in past,does have a walker at home if he needs it.no outside services. 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 Smoking Status: Former smoker Past Alcohol Use History: None Reported, Occasional, Rare Additional Past Alcohol Use History / Comment(s): STARTED SMOKING AT AGE 10, SMOKED 1 TO 1.5 PPD, QUIT Past Drug Use History: None Reported - Past Family History Sister(s) Family Medical History: Cancer Mother Family Medical History: No Reported History Additional Family Medical History / Comment(s): SMOKER Father Family Medical History: Cancer Additional Family Medical History / Comment(s): SMOKER, PALPATATIONS Medications and Allergies Home Medications Medication Instructions Recorded Confirmed Type Metoprolol Succinate [Toprol XL] 25 mg PO HS 12/26/15 01/26/17 History Pantoprazole [Protonix] 40 mg PO HS 12/26/15 01/26/17 History Pravastatin Sodium [Pravachol] 80 mg PO HS 12/26/15 01/26/17 History Aspirin EC [Ecotrin Low Dose] 81 mg PO HS 11/17/16 01/26/17 History Calcium Acetate [PhosLo] 1,334 mg PO AC-TID 11/17/16 01/26/17 History Calcium Acetate [PhosLo] 667 mg PO DAILY PRN 11/17/16 01/26/17 History Furosemide [Lasix] 80 mg PO HS 11/17/16 01/26/17 History Renal Multivitamin 1 tab PO DAILY 11/17/16 01/26/17 History Sodium Bicarbonate Tab 650 mg PO HS 11/17/16 01/26/17 History Apixaban [Eliquis] 5 mg PO HS 01/26/17 01/26/17 History Midodrine [ProAmatine] 5 mg PO DIRECTED 01/26/17 01/26/17 History Allergies Allergy/AdvReac Type Severity Reaction Status Date / Time No Known Allergies Allergy Verified 01/26/17 19:53 Physical Exam Vitals: Vital Signs Temp Pulse Resp BP Pulse Ox 01/27/17 11:30 70 29 H 76/51 97 01/27/17 11:15 72 21 83/53 95 01/27/17 11:00 74 19 76/51 95 01/27/17 10:45 81 23 83/53 95 01/27/17 10:30 74 23 85/55 97 01/27/17 10:15 77 20 83/54 98 01/27/17 10:00 81 19 86/52 96 01/27/17 09:45 81 20 86/52 95 01/27/17 09:30 79 20 87/51 93 L 01/27/17 09:15 84 20 79/51 94 L 01/27/17 09:00 89 28 H 96/54 96 01/27/17 08:00 98.1 F 71 19 92/50 94 L 01/27/17 07:15 80 81/44 98 01/27/17 07:00 71 16 90/54 95 01/27/17 06:45 78 87/61 96 01/27/17 06:30 85 14 92/57 89 L 01/27/17 06:15 79 14 94/57 99 01/27/17 06:00 81 91/60 98 01/27/17 05:45 83 90/58 01/27/17 05:30 82 79/54 01/27/17 05:15 85 73/40 01/27/17 05:00 84 79/38 01/27/17 04:45 82 81/45 01/27/17 04:30 98.2 F 82 16 89/57 97 01/27/17 04:15 81 80/50 01/27/17 04:00 79 76/42 01/27/17 03:45 78 76/49 01/27/17 03:30 84 73/51 01/27/17 03:15 86 75/49 01/27/17 03:00 86 75/49 01/27/17 02:45 94 89/44 01/27/17 02:30 135 H 71/51 01/27/17 02:15 92 61/38 01/27/17 02:00 85 76/48 01/27/17 01:45 128 H 86/49 01/27/17 01:30 98.2 F 89 14 81/47 98 01/27/17 01:15 109 H 72/45 01/27/17 01:00 90 69/37 01/27/17 00:45 79 70/37 01/27/17 00:30 88 70/37 01/27/17 00:15 90 85/47 01/27/17 00:00 105 H 18 85/47 01/26/17 23:45 100 85/47 01/26/17 23:30 85/47 97 01/26/17 23:15 97 106/63 97 01/26/17 23:00 87 106/63 98 01/26/17 22:45 86 106/63 99 01/26/17 22:30 94 106/63 98 01/26/17 22:15 98.2 F 16 97/60 98 01/26/17 22:07 97/60 Intake and Output 01/26/17 01/27/17 01/27/17 22:59 06:59 14:59 Intake Total 6709.340 2366 Balance 7991.380 5876 Intake: IV 80 0.9 at KVO 80 Intake, IV Titration 1881.864 6462 Amount Lactated Ringers 1,000 ml 180 100 @ 20 mls/hr IV .Q24H [facility] Rx#:[id number] Norepinephrin 4 mg-0.9% 14.875 Ns Pmx 4 mg In 250 ml @ Titrate IV .Q0M [facility] Rx#: [id number] Sodium Chloride 0.9% 1, 1000 000 ml @ 666 mls/hr IV . Q1H31M [facility] Rx#:[id number] Sodium Chloride 0.9% 250 250 ml @ 999 mls/hr IV .Q16M [facility] Rx#:[id number] Sodium Chloride 0.9% 250 250 ml @ 999 mls/hr IV .Q16M [facility] Rx#:[id number] Vancomycin 2,000 mg In 500 Sodium Chloride 0.9% 500 ml @ 167 mls/hr IVPB ONCE [facility] Rx#:[id number] Oral 360 250 Other: Voiding Method Urinal Weight 123.6 kg GENERAL EXAM: Alert, active, comfortable in no apparent distress. HEAD: Normocephalic. EYES: Normal reaction of pupils, equal size. NOSE: Clear with pink turbinates. THROAT: No erythema or exudates. NECK: No masses, no JVD. CHEST: No chest wall deformity. LUNGS: Equal air entry with no crackles, wheeze, rhonchi or dullness. CVS: S1 and S2 normal with no audible mumurs, regular rhythm. ABDOMEN: No hepatosplenomegaly, normal bowel sounds, no guarding or rigidity. SPINE: No scoliosis or deformity SKIN: No rashes CENTRAL NERVOUS SYSTEM: No focal deficits, tone is normal in all 4 extremities. Extremities: There is a shunt the right upper extremity. There is changes of chronic venous stasis and healing wounds of the lower extremities. There is 2 to plus peripheral edema. No clubbing, no cyanosis. Peripheral pulses are intact. Results - Laboratory Findings CBC and BMP: 01/27/17 04:54 01/27/17 04:54 PT/INR, D-dimer PT 10.5 sec (9.0-12.0) 01/26/17 19:23 INR 1.0 (<1.1) 01/26/17 19:23 Abnormal lab findings: Abnormal Labs 01/26/17 01/27/17 01/27/17 22:09 04:54 04:54 RBC 2.77 L Hgb 10.0 L Hct 29.1 L MCV 105.1 H MCH 36.0 H RDW 17.6 H Chloride 97 L BUN 32 H Creatinine 6.79 H* Glucose 118 H POC Glucose (mg/dL) 108 H Plasma Lactic Acid Maciel Calcium 8.1 L 01/27/17 04:54 RBC Hgb Hct MCV MCH RDW Chloride BUN Creatinine Glucose POC Glucose (mg/dL) Plasma Lactic Acid Maciel 2.1 H Calcium - Diagnostic Findings Chest x-ray: image reviewed (Acute cardiopulmonary process.) Assessment and Plan Plan: Impression: #1 Progressive weakness and falls secondary to hypotension following hemodialysis. 5 L removed yesterday. Did receive 2.5 L of fluid bolus returned. #2 Acute on chronic renal failure, receiving hemodialysis Tuesday. #3 History of cardiomyopathy, Ru fraction less than 20%, status post AICD placement. #4 History of atrial fibrillation, currently in normal sinus rhythm. #5 Chronic venous stasis with ulceration of the lower extremities. #6 Obesity. #7 Essential tremors. Plan: The patient was seen and evaluated by Dr. Dunham. His chest x-ray and labs were reviewed. He does remain hypotensive. We will give him additional midodrine 10 mg orally today. We'll attempt to wean off the norepinephrine. We will continue with his current medications. He is anticoagulated with apixaban. He is also receiving vancomycin. We will continue to monitor him here closely in the intensive care unit. Once his blood pressure is stabilizing to be transferred to the regular medical floor. In the interim, we will continue to follow and make further recommendations based on his clinical status. Consultation was dictated as directed by Dr. Dunham. Time with Patient: Greater than 30
--- NOTE | 2017-01-27 18:23 | PN ---
DATE OF SERVICE: 01/27/2017 This 66-year-old gentleman who was admitted with generalized weakness also had relative hypotension. Patient also has renal failure, on hemodialysis. The patient is being closely monitored at this time. His hemoglobin is 10. Otherwise, creatinine is still elevated. Lactic acid was 4, improved to 2.1. The NT-proBNP was 8940. The cultures are negative so far. The patient is being closely monitored. He was started on empiric antibiotics, also. Past medical history reviewed. REVIEW OF SYSTEMS: CARDIOVASCULAR: No angina, palpitations. RESPIRATORY: As mentioned earlier. GI: As mentioned earlier. : No dysuria. NERVOUS SYSTEM: As mentioned earlier. Current medications are reviewed and include: 1. [place] 5 q.6 p.r.n. 2. Xanax. 3. Eliquis 5 mg at bedtime. 4. Aspirin 81 mg daily. 5. PhosLo 667 daily. 6. PhosLo 1334 p.o. t.i.d. 7. Dilaudid 0.5 q.6 p.r.n. 8. Lactated Ringers. 9. Midodrine 10 mg t.i.d. 10. Nephrocaps. 11. Narcan. 12. Norepinephrine. 13. Protonix 40 mg at bedtime. 14. Pravachol. 15. Restoril. PHYSICAL EXAMINATION: Patient alert and oriented x3. Pulse is 104, blood pressure 84/50, respiration 18, temperature 98.5, pulse ox 88% and 94% on room air. HEENT: Conjunctivae normal. Oral mucosa moist. NECK: Obese. CARDIOVASCULAR SYSTEM: S1, S2 muffled. No S3. No S4. RESPIRATORY SYSTEM: Breath sounds diminished at the bases. A few scattered rhonchi and crackles. ABDOMEN: Soft, non-tender. No mass palpable. hepatosplenomegaly. LEGS: No edema. No swelling. NERVOUS SYSTEM: No focal deficit. LABS: WBC 7.7, hemoglobin 10, sodium 137, potassium 4.5. Plasma lactic acid 2.1. ASSESSMENT: 1. Generalized weakness for evaluation, possibly related to hypotension, possibly secondary to hypovolemia. 2. Chronic renal failure, stage V, on hemodialysis. 3. Increased white count. 4. Anemia, macrocytic, possibly secondary to renal disease. 5. Hyponatremia. 6. Hyperkalemia. 7. Increased random blood sugar. 8. Increased plasma lactic acid. Rule out sepsis. Improving. 9. History of gastroesophageal reflux disease. 10. History of automatic implantable cardioverter defibrillator. 11. History of colonoscopy. 12. History of cardioversion. 13. Right arm fistula, on hemodialysis. 14. Remote history of nicotine dependence. 15. Obesity with body mass index of 35.9. 16. Lactic acidosis secondary to sepsis or hypovolemia or hypotension. 17. Severe cardiomyopathy. 18. FULL CODE. RECOMMENDATIONS AND DISCUSSION: In this 66-year-old gentleman who presented with multiple complex medical issues, we will monitor the patient closely, continue the current medications, continue with symptomatic treatment. Patient was seen by Nephrology and Cardiology as well as Pulmonary Critical Care. Patient is significantly improved after 2.5 L of fluid bolus. Patient is still requiring 5 mcg of Levophed. Cardiology has seen the patient because of extensive cardiac history, severe cardiomyopathy. Avoid hypotensive agents currently. Further recommendations to follow. Titrate off Levophed once patient is stabilized. Prognosis guarded. MTDD
[2017-01-27] MEDS: LACTATED RINGERS 1,000 ML IV SCH (20:46)
[2017-01-27] MEDS: APIXABAN 5 MG TAB PO SCH (20:47)
[2017-01-27] MEDS: ASPIRIN 81 MG CHEW PO SCH (20:47)
[2017-01-27] MEDS: SODIUM BICARBONATE TAB 650 MG TAB PO SCH (20:47)
[2017-01-27] MEDS: PANTOPRAZOLE 40 MG TABLET PO SCH (20:47)
[2017-01-27] MEDS: PRAVASTATIN SODIUM 80 MG TAB PO SCH (21:32)
[2017-01-27 23:09] LABS: Magnesium 1.6 mg/dL (1.6-2.3); Potassium 4.4 mmol/L (3.5-5.1)
[2017-01-28] MEDS: MAGNESIUM SULFATE-D5W PMX 1 GM in DEXTROSE/WATER 1 100ML.BAG IVPB SCH ×2 (00:13→01:38)
[2017-01-28 05:14] LABS: Anisocytosis Slight; Basophils # (A) 0.1 k/uL (0-0.2); Basophils % (A) 1 %; CH 35.7; CHCM 34.1; Eosinophils # (A) 0.2 k/uL (0-0.7); Eosinophils % (A) 2 %; HCT 29.4 % (39.0-53.0); HDW 3.31; HGB 9.9 gm/dL (13.0-17.5); Luc # (Auto) 0.24; Luc % (Auto) 3; Lymphocytes # (A) 1.2 k/uL (1.0-4.8); Lymphocytes % (A) 16 %; MCH 35.5 pg (25.0-35.0); MCHC 33.6 g/dL (31.0-37.0); MCV 105.9 fL (80.0-100.0); Macrocytosis Marked; Mean Platelet Volume 6.9; Monocytes # (A) 0.6 k/uL (0-1.0); Monocytes % (A) 8 %; Neutrophils # (A) 5.3 k/uL (1.3-7.7); Neutrophils % (A) 70 %; RBC 2.78 m/uL (4.30-5.90); RDW 17.9 % (11.5-15.5); WBC 7.6 k/uL (3.8-10.6); WBC (Perox) 8.02
[2017-01-28 05:25] LABS: Magnesium 2.1 mg/dL (1.6-2.3); Phosphorous 4.2 mg/dL (2.5-4.5)
[2017-01-28 05:52] LABS: Manual Review Performed
[2017-01-28 05:53] LABS: Polychromasia Present
--- NOTE | 2017-01-28 08:00 | XR ---
EXAMINATION TYPE: XR chest 1V DATE OF EXAM: 01/28/2017 7:03 AM COMPARISON: 01/26/2017 HISTORY: CHF TECHNIQUE: Single frontal view of the chest is obtained. FINDINGS: Pacemaker on the left is stable in position. No sizable pneumothorax. Heart size stable. N o definite focal liver. No overt failure. IMPRESSION: No acute process.
[2017-01-28] MEDS: CALCIUM ACETATE 667 MG CAP PO SCH ×3 (08:50→18:20)
[2017-01-28] MEDS: MIDODRINE 5 MG TAB PO SCH ×3 (08:50→18:21)
[2017-01-28] MEDS: FOLIC ACID-VIT B COMPLEX-VIT C 1 CAP PO SCH (08:50)
[2017-01-28] MEDS ORDERED: HYDROCORTISONE SUCCINATE 100 MG/2 ML VIAL IV STA (09:19)
[2017-01-28] MEDS: NOREPINEPHRIN 4 MG-0.9% NS PMX 4 MG/250 ML ML IV SCH (09:19)
--- NOTE | 2017-01-28 10:31 | P.PN ---
Subjective This is a very pleasant 66-year-old gentleman who follows at the [facility] for his primary care needs. He has a history of atrial fibrillation, cardiomyopathy status post AICD placement, chronic renal failure receiving hemodialysis on Fridays, a chronic venous stasis, history of liver failure with previous paracentesis, esophageal reflux disease. He had presented here yesterday after being at dialysis at which time 5 L of fluid was removed. He has had recent ongoing issues with dizziness, lightheadedness and falling. He denied any significant trauma. He was found to be quite hypotensive and admitted to the intensive care unit for the same. He is currently on levothyroxine at 5 mcg/m to maintain arterial pressures greater than 65. Currently, he is awake and alert in no acute distress. He denies any worsening shortness of breath, cough or congestion. No chills or night sweats. His chest x-ray reveals no acute cardiopulmonary process. No leukocytosis. ProBNP 8940. Creatinine 6.79 initial lactic acid 4.0, down to 2.1 today. She is seen again today 01/28/2017 in follow-up in the intensive care unit. He is currently off the norepinephrine and maintaining mean arterial pressures greater than 60. His cortisol level was 11 and he was given hydrocortisone without much improvement in the blood pressure. He is awake and alert in no acute distress. He is oxygenating well. He has a dry nonproductive cough. No chills or night sweats. No chest pain or palpitations. The plan is for hemodialysis again today. Objective - Vital Signs Vital signs: Vital Signs Temp 98.1 F 01/28/17 08:00 Pulse 77 01/28/17 10:00 Resp 38 H 01/28/17 10:00 BP 81/54 01/28/17 10:00 Pulse Ox 97 01/28/17 10:00 Intake & Output 01/27/17 01/28/17 01/28/17 18:59 06:59 18:59 Intake Total 2730.563 956.125 95.000 Balance 2730.563 956.125 95.000 Weight 129.3 kg Intake: IV 220 160 60 0.9 at KVO 220 160 LR 60 Intake, IV Titration 1960.563 676.125 35.000 Amount Lactated Ringers 1,000 ml 240 240 20 @ 20 mls/hr IV .Q24H [facility] Rx#:[id number] Magnesium Sulfate-D5w Pmx 200 1 gm In Dextrose/Water 1 100ml.bag @ 100 mls/hr IVPB Q1H [facility] Rx#: [id number] Norepinephrin 4 mg-0.9% 220.563 236.125 15.000 Ns Pmx 4 mg In 250 ml @ Titrate IV .Q0M [facility] Rx#: [id number] Sodium Chloride 0.9% 1, 1000 000 ml @ 666 mls/hr IV . Q1H31M [facility] Rx#:[id number] Vancomycin 2,000 mg In 500 Sodium Chloride 0.9% 500 ml @ 167 mls/hr IVPB ONCE [facility] Rx#:[id number] Oral 550 120 Other: Voiding Method Urinal Urinal Urinal # Voids 1 # Bowel Movements 1 1 - Exam GENERAL EXAM: Alert, active, comfortable in no apparent distress. HEAD: Normocephalic. EYES: Normal reaction of pupils, equal size. NOSE: Clear with pink turbinates. THROAT: No erythema or exudates. NECK: No masses, no JVD. CHEST: No chest wall deformity. LUNGS: Equal air entry with no crackles, wheeze, rhonchi or dullness. CVS: S1 and S2 normal with no audible mumurs, regular rhythm. ABDOMEN: No hepatosplenomegaly, normal bowel sounds, no guarding or rigidity. SPINE: No scoliosis or deformity SKIN: No rashes CENTRAL NERVOUS SYSTEM: No focal deficits, tone is normal in all 4 extremities. Extremities: There is a shunt the right upper extremity. There is changes of chronic venous stasis and healing wounds of the lower extremities. There is 2 to plus peripheral edema. No clubbing, no cyanosis. Peripheral pulses are intact. - Labs CBC & Chem 7: 01/28/17 04:37 01/28/17 04:37 Labs: Abnormal Lab Results - Last 24 Hours (Table) 01/27/17 01/28/17 01/28/17 Range/Units 22:38 04:37 04:37 RBC 2.78 L (4.30-5.90) m/uL Hgb 9.9 L (13.0-17.5) gm/dL Hct 29.4 L (39.0-53.0) % MCV 105.9 H (80.0-100.0) fL MCH 35.5 H (25.0-35.0) pg RDW 17.9 H (11.5-15.5) % Sodium 133 L 136 L (137-145) mmol/L Carbon Dioxide 21 L (22-30) mmol/L BUN 40 H 43 H (9-20) mg/dL Creatinine 8.59 H* 9.08 H* (0.66-1.25) mg/dL Glucose 143 H 146 H (74-99) mg/dL Calcium 8.0 L 8.0 L (8.4-10.2) mg/dL Assessment and Plan Plan: Impression: #1 Progressive weakness and falls secondary to hypotension following hemodialysis. 5 L removed yesterday. Did receive 2.5 L of fluid bolus returned. #2 Acute on chronic renal failure, receiving hemodialysis Tuesday. #3 History of cardiomyopathy, Ru fraction less than 20%, status post AICD placement. #4 History of atrial fibrillation, currently in normal sinus rhythm. #5 Chronic venous stasis with ulceration of the lower extremities. #6 Obesity. #7 Essential tremors. Plan: The patient was seen and evaluated by Dr. Dunham. He remains stable from the pulmonary and critical care standpoint. We will await hemodialysis today and continue to monitor his blood pressure closely. Continue with his current medications. We will increase his activity as tolerated. We will continue to follow. Consultation was dictated as directed by Dr. Dunham.
--- NOTE | 2017-01-28 10:54 | P.PN ---
Subjective Principal diagnosis: hypertension This is a pleasant 66-year-old gentleman who I see in the office as an outpatient with a past medical history significant for severe nonischemic cardiomyopathy with an ejection fraction around 25%, status post ICD, in the stage renal disease on hemodialysis, as well as multiple comorbid diseases, was admitted to the hospital because of low blood pressure. The patient has always marginally low blood pressure with a systolic pressure in the 80s to 90s. He went to have dialysis yesterday when his pressure was in the 80s. He was sent to the hospital for further evaluation and management. According to his , the patient has been feeling weak and tired and feeling sometimes dizzy once he stands up. He was receiving metoprolol as well as Lasix and both were held. The patient was started on Midrin. Also a workup to rule out sepsis is in process were patient was had blood culture. The patient was receiving Levophed yesterday and he is off Levophed today. we'll continue holding the blood pressure medications including beta ambika and ATTILA inhibitor. He was started on Midrin yesterday. Objective - Vital Signs Vital signs: Vital Signs Temp 98.1 F 01/28/17 08:00 Pulse 77 01/28/17 10:00 Resp 38 H 01/28/17 10:00 BP 81/54 01/28/17 10:00 Pulse Ox 97 01/28/17 10:00 Intake & Output 01/27/17 01/28/17 01/28/17 18:59 06:59 18:59 Intake Total 2730.563 956.125 95.000 Balance 2730.563 956.125 95.000 Weight 129.3 kg Intake: IV 220 160 60 0.9 at KVO 220 160 LR 60 Intake, IV Titration 1960.563 676.125 35.000 Amount Lactated Ringers 1,000 ml 240 240 20 @ 20 mls/hr IV .Q24H [facility] Rx#:[id number] Magnesium Sulfate-D5w Pmx 200 1 gm In Dextrose/Water 1 100ml.bag @ 100 mls/hr IVPB Q1H [facility] Rx#: [id number] Norepinephrin 4 mg-0.9% 220.563 236.125 15.000 Ns Pmx 4 mg In 250 ml @ Titrate IV .Q0M [facility] Rx#: [id number] Sodium Chloride 0.9% 1, 1000 000 ml @ 666 mls/hr IV . Q1H31M [facility] Rx#:[id number] Vancomycin 2,000 mg In 500 Sodium Chloride 0.9% 500 ml @ 167 mls/hr IVPB ONCE [facility] Rx#:[id number] Oral 550 120 Other: Voiding Method Urinal Urinal Urinal # Voids 1 # Bowel Movements 1 1 - Constitutional General appearance: Present: no acute distress - Respiratory Respiratory: bilateral: diminished - Cardiovascular Rhythm: regular Heart sounds: normal: S1, S2 - Labs CBC & Chem 7: 01/28/17 04:37 01/28/17 04:37 Labs: Abnormal Lab Results - Last 24 Hours (Table) 01/27/17 01/28/17 01/28/17 Range/Units 22:38 04:37 04:37 RBC 2.78 L (4.30-5.90) m/uL Hgb 9.9 L (13.0-17.5) gm/dL Hct 29.4 L (39.0-53.0) % MCV 105.9 H (80.0-100.0) fL MCH 35.5 H (25.0-35.0) pg RDW 17.9 H (11.5-15.5) % Sodium 133 L 136 L (137-145) mmol/L Carbon Dioxide 21 L (22-30) mmol/L BUN 40 H 43 H (9-20) mg/dL Creatinine 8.59 H* 9.08 H* (0.66-1.25) mg/dL Glucose 143 H 146 H (74-99) mg/dL Calcium 8.0 L 8.0 L (8.4-10.2) mg/dL Assessment and Plan Plan: Assessment #1 systemic hypertension #2 severe cardiomyopathy #3 incisional disease Plan #1 the patient was weaned from the Levophed #2 agree to start the patient on Midrin to support the blood pressure #4 follow-up with the patient
--- NOTE | 2017-01-28 17:16 | PN ---
DATE OF SERVICE: 01/28/2017 This 66-year-old gentleman admitted with generalized weakness had relative hypotension. Patient is on and off pressor support at this time. Most recently patient was on Levophed drip. The patient is being closely monitored at this time. The patient also has had multiple fluid boluses. Patient has significant cardiomyopathy, ejection fraction 20%, and also has a history of AICD. Cardiology is following the patient closely. Past medical history reviewed. REVIEW OF SYSTEMS: CARDIOVASCULAR SYSTEM: As mentioned earlier. RESPIRATORY SYSTEM: As mentioned earlier. GI: As mentioned earlier. : No dysuria. NERVOUS SYSTEM: No numbness or weakness. Current medications are reviewed and include: 1. [place] 5 mg q.6 p.r.n. 2. Xanax 0.25 t.i.d. 3. Eliquis 5 mg at bedtime. 4. Aspirin 81 mg. 5. PhosLo 663 t.i.d. and 1334 t.i.d. 6. Dilaudid 0.5 q.6 p.r.n. 7. Lactated Ringer. 8. ProAmatine 10 mg t.i.d. 9. Nephrocaps. 10. Narcan. 11. Levophed drip. 12. Protonix. 13. Pravachol. 14. Sodium bicarbonate. 15. Zestril. PHYSICAL EXAMINATION: Patient is alert and oriented x3. Pulse 79, blood pressure 90/56, respiration 20, temperature normal, pulse ox 97% on room air. HEENT: Conjunctivae normal. Oral mucosa moist. NECK: No jugular venous distention. No carotid bruit. No lymph node enlargement. CARDIOVASCULAR SYSTEM: S1, S2 muffled. No S3. No S4. Ejection systolic murmur. RESPIRATORY SYSTEM: Breath sounds diminished at the bases. A few rhonchi. No crackles. ABDOMEN: Soft, non-tender. LEGS: Bilateral leg edema. NERVOUS SYSTEM: Diffusely weak. LABS: WBC 7.6. Hemoglobin 9.9. Sodium 136. Creatinine is 9.08. Serum cortisol is 11. ASSESSMENT: 1. Generalized weakness for evaluation, possibly related to hypotension, possibly secondary to hypovolemia as well as cardiomyopathy. 2. Chronic renal disease, stage IV, on hemodialysis. 3. Increased white count. 4. Anemia, normocytic, possibly secondary to chronic renal disease. 5. Hyponatremia. 6. Hyperkalemia from renal failure. 7. Increased random blood sugar. 8. Increased plasma lactic acid, possibly secondary to hypovolemia and dehydration, improving. 9. History of gastroesophageal reflux disease. 10. History of automatic implantable cardioverter defibrillator. 11. Cultures negative so far. 12. Cardiomyopathy with ejection fraction 30% with chronic systolic dysfunction. 13. History of colonoscopy. 14. History of cardioversion. 15. History of right arm fistula for hemodialysis. 16. Remote history of nicotine dependence. 17. Obesity with a body mass index of 35.9. 18. FULL CODE. RECOMMENDATIONS AND DISCUSSION: In this 66-year-old gentleman who presented with multiple complex medical issues, we will monitor the patient closely, continue the current medications, continue with symptomatic treatment, continue with pressor support. Monitor closely. The cultures are negative so far. Continue to monitor. Further recommendations to follow. Prognosis guarded. MTDD
--- NOTE | 2017-01-28 19:05 | PN ---
The patient is seen for follow-up for end-stage renal disease. He was admitted to the hospital with weakness and hypotension. The patient normally runs a low blood pressure; however, he had been as low as in 70 range for systolic blood pressure and was maintained on Levophed. Currently blood pressure is about 80s. He is off of Levophed. He is currently sleepy but he is easily arousable. He has been eating. Patient does have underlying cardiomyopathy with ejection fraction of about 20%. On examination, blood pressure is 187/54, heart rate 77 per minute. He is afebrile. Examination of the heart S1 and S2. Examination of lungs: decreased breath sounds in bases. ABDOMEN: Soft, nontender. Examination of lower extremities shows chronic skin changes, edema, trace bilaterally. HOUSING COORDINATOR exam is grossly intact. Labs show sodium 136, potassium 4.0, hemoglobin 9.9 g/dL. ASSESSMENT: 1. End-stage renal disease on hemodialysis on a Tuesday, Tuesday, Tuesday schedule. 2. Hypotension, currently off of Levophed. Blood cultures have been negative thus far. The patient will be maintained on Midodrine. He does chronically run low blood pressure. His cortisol level was at 11 and he has been given hydrocortisone. He may need to be maintained on steroids. PLAN: Hemodialysis today. UF of about 500 mL to a liter as tolerated. We may not be able to get much UF.
[2017-01-28] MEDS: PANTOPRAZOLE 40 MG TABLET PO SCH (21:21)
[2017-01-28] MEDS: ASPIRIN 81 MG CHEW PO SCH (21:21)
[2017-01-28] MEDS: SODIUM BICARBONATE TAB 650 MG TAB PO SCH (21:21)
[2017-01-28] MEDS: APIXABAN 5 MG TAB PO SCH (21:21)
[2017-01-28] MEDS: HYDROCORTISONE SUCCINATE 100 MG/2 ML VIAL IV SCH (21:21)
[2017-01-28] MEDS: PRAVASTATIN SODIUM 80 MG TAB PO SCH (21:21)
[2017-01-28] MEDS: LACTATED RINGERS 1,000 ML IV SCH (22:52)
[2017-01-29] MEDS: HYDROCORTISONE SUCCINATE 100 MG/2 ML VIAL IV SCH ×4 (00:44→23:35)
[2017-01-29 02:55] LABS: Appearance,Urine Turbid (Clear); Bacteria,Urine Rare /hpf; Bilirubin,Urine Negative (Negative); Glucose,Urine (UA) Trace (Negative); Ketones,Urine Negative (Negative); Leukocyte Esterase,Urine Large (Negative); Mucus,Urine Rare /hpf; Nitrite,Urine Positive (Negative); PH, Urine 7.5 (5.0-8.0); Particle Count 48455; Protein,Urine 3+ (Negative); RBC,Urine 11 /hpf (0-5); Specific Gravity,Urine 1.013 (1.001-1.035); UA Billing (MACRO vs. MICRO) MICRO; Urobilinogen,Urine <2.0 mg/dL (<2.0); WBC,Urine >182 /hpf (0-5)
[2017-01-29 04:50] LABS: Anisocytosis Slight; Basophils % (A) 0 %; CH 35.6; Eosinophils % (A) 0 %; HCT 31.4 % (39.0-53.0); HDW 3.05; HGB 10.2 gm/dL (13.0-17.5); Luc # (Auto) 0.16; Luc % (Auto) 2; Lymphocytes # (A) 0.9 k/uL (1.0-4.8); Lymphocytes % (A) 10 %; MCH 35.3 pg (25.0-35.0); MCHC 32.5 g/dL (31.0-37.0); MCV 108.5 fL (80.0-100.0); Macrocytosis Marked; Mean Platelet Volume 6.9; Monocytes # (A) 0.5 k/uL (0-1.0); Monocytes % (A) 5 %; Neutrophils # (A) 7.8 k/uL (1.3-7.7); Neutrophils % (A) 83 %; RBC 2.89 m/uL (4.30-5.90); WBC 9.4 k/uL (3.8-10.6); WBC (Perox) 9.59
[2017-01-29 05:02] LABS: Calcium 8.5 mg/dL (8.4-10.2); Magnesium 1.8 mg/dL (1.6-2.3); Phosphorous 2.9 mg/dL (2.5-4.5); Potassium 4.4 mmol/L (3.5-5.1)
[2017-01-29 05:30] LABS: Manual Review Performed
[2017-01-29 05:31] LABS: Polychromasia Present
--- NOTE | 2017-01-29 09:49 | P.PN ---
Subjective This is a very pleasant 66-year-old gentleman who follows at the [facility] for his primary care needs. He has a history of atrial fibrillation, cardiomyopathy status post AICD placement, chronic renal failure receiving hemodialysis on Fridays, a chronic venous stasis, history of liver failure with previous paracentesis, esophageal reflux disease. He had presented here yesterday after being at dialysis at which time 5 L of fluid was removed. He has had recent ongoing issues with dizziness, lightheadedness and falling. He denied any significant trauma. He was found to be quite hypotensive and admitted to the intensive care unit for the same. He is currently on levothyroxine at 5 mcg/m to maintain arterial pressures greater than 65. Currently, he is awake and alert in no acute distress. He denies any worsening shortness of breath, cough or congestion. No chills or night sweats. His chest x-ray reveals no acute cardiopulmonary process. No leukocytosis. ProBNP 8940. Creatinine 6.79 initial lactic acid 4.0, down to 2.1 today. He is seen again today 01/28/2017 in follow-up in the intensive care unit. He is currently off the norepinephrine and maintaining mean arterial pressures greater than 60. His cortisol level was 11 and he was given hydrocortisone without much improvement in the blood pressure. He is awake and alert in no acute distress. He is oxygenating well. He has a dry nonproductive cough. No chills or night sweats. No chest pain or palpitations. The plan is for hemodialysis again today. The patient was seen again today Jan 29 2017 in follow-up in the intensive care unit. He is awake and alert in no acute distress. He was dialyzed yesterday and tolerated that well. He's been off norepinephrine for greater than 24 hours now. He did receive hydrocortisone. He is currently maintaining good O2 saturations in the 90s on room air. He has a lactated Ringer's at 20 miles per hour. He denies any shortness of breath, cough or congestion. He denies any chest discomfort, palpitations, lightheadedness or dizziness. His current creatinine is 6.37, down from 9.08 yesterday prior to dialysis. Objective - Vital Signs Vital signs: Vital Signs Temp 98.4 F 01/29/17 04:00 Pulse 73 01/29/17 07:00 Resp 14 01/29/17 07:00 BP 88/50 01/29/17 07:00 Pulse Ox 95 01/29/17 07:00 Intake & Output 01/28/17 01/29/17 01/29/17 18:59 06:59 18:59 Intake Total 275.000 840 20 Output Total 0 2020 Balance 275.000 -1180 20 Weight 127.5 kg Intake: IV 120 LR 120 Intake, IV Titration 155.000 240 20 Amount Lactated Ringers 1,000 ml 140 240 20 @ 20 mls/hr IV .Q24H [facility] Rx#:[id number] Norepinephrin 4 mg-0.9% 15.000 Ns Pmx 4 mg In 250 ml @ Titrate IV .Q0M [facility] Rx#: [id number] Oral 600 Output: Urine 0 20 Other 2000 Other: Voiding Method Urinal Urinal # Voids 1 # Bowel Movements 1 - Exam GENERAL EXAM: Alert, active, comfortable in no apparent distress. HEAD: Normocephalic. EYES: Normal reaction of pupils, equal size. NOSE: Clear with pink turbinates. THROAT: No erythema or exudates. NECK: No masses, no JVD. CHEST: No chest wall deformity. LUNGS: Equal air entry with no crackles, wheeze, rhonchi or dullness. CVS: S1 and S2 normal with no audible mumurs, regular rhythm. ABDOMEN: No hepatosplenomegaly, normal bowel sounds, no guarding or rigidity. SPINE: No scoliosis or deformity SKIN: No rashes CENTRAL NERVOUS SYSTEM: No focal deficits, tone is normal in all 4 extremities. Extremities: There is a shunt the right upper extremity. There is changes of chronic venous stasis and healing wounds of the lower extremities. There is 2 to plus peripheral edema. No clubbing, no cyanosis. Peripheral pulses are intact. - Labs CBC & Chem 7: 01/29/17 04:34 01/29/17 04:34 Labs: Abnormal Lab Results - Last 24 Hours (Table) 01/29/17 01/29/17 01/29/17 Range/Units 00:01 04:34 04:34 RBC 2.89 L (4.30-5.90) m/uL Hgb 10.2 L (13.0-17.5) gm/dL Hct 31.4 L (39.0-53.0) % MCV 108.5 H (80.0-100.0) fL MCH 35.3 H (25.0-35.0) pg RDW 18.0 H (11.5-15.5) % Neutrophils # 7.8 H (1.3-7.7) k/uL Lymphocytes # 0.9 L (1.0-4.8) k/uL BUN 31 H (9-20) mg/dL Creatinine 6.37 H* (0.66-1.25) mg/dL Glucose 131 H (74-99) mg/dL Urine Protein 3+ H (Negative) Urine Glucose (UA) Trace H (Negative) Urine Blood Moderate H (Negative) Ur Leukocyte Esterase Large H (Negative) Urine RBC 11 H (0-5) /hpf Urine WBC >182 H (0-5) /hpf Urine WBC Clumps Many H (None) /hpf Urine Bacteria Rare H (None) /hpf Urine Mucus Rare H (None) /hpf Assessment and Plan Plan: Impression: #1 Progressive weakness and falls secondary to hypotension following hemodialysis. #2 Acute on chronic renal failure, receiving hemodialysis Tuesday. #3 History of cardiomyopathy, Ru fraction less than 20%, status post AICD placement. #4 History of atrial fibrillation, currently in normal sinus rhythm. #5 Chronic venous stasis with ulceration of the lower extremities. #6 Obesity. #7 Essential tremors. Plan: The patient was seen and evaluated by Dr. Dunham. He remains stable from the pulmonary and critical care standpoint. He can be transferred out of the intensive care unit today. Continue with his current medications. We will increase his activity as tolerated. We will continue to follow. Consultation was dictated as directed by Dr. Dunham.
[2017-01-29] MEDS: MIDODRINE 5 MG TAB PO SCH ×5 (10:05→18:55)
[2017-01-29] MEDS: CALCIUM ACETATE 667 MG CAP PO SCH ×3 (10:05→18:55)
[2017-01-29] MEDS: FOLIC ACID-VIT B COMPLEX-VIT C 1 CAP PO SCH (10:06)
[2017-01-29] MEDS ORDERED: Magnesium Replacement Protocol 1 EACH MISC MISCELLANE PRN (10:42)
[2017-01-29] MEDS: MAGNESIUM SULFATE-D5W PMX 1 GM in DEXTROSE/WATER 1 100ML.BAG IVPB SCH ×2 (14:05→15:42)
[2017-01-29] MEDS: SODIUM BICARBONATE TAB 650 MG TAB PO SCH (20:12)
[2017-01-29] MEDS: APIXABAN 5 MG TAB PO SCH (20:12)
[2017-01-29] MEDS: PANTOPRAZOLE 40 MG TABLET PO SCH (20:12)
[2017-01-29] MEDS: LACTATED RINGERS 1,000 ML IV SCH (20:12)
[2017-01-29] MEDS: PRAVASTATIN SODIUM 80 MG TAB PO SCH (20:12)
[2017-01-29] MEDS: ASPIRIN 81 MG CHEW PO SCH (20:12)
[2017-01-30 05:38] LABS: Anisocytosis Slight; Basophils # (A) 0.1 k/uL (0-0.2); Basophils % (A) 1 %; CH 35.6; CHCM 33.8; Eosinophils % (A) 0 %; HCT 30.7 % (39.0-53.0); HDW 3.15; HGB 10.3 gm/dL (13.0-17.5); Luc # (Auto) 0.11; Luc % (Auto) 1; Lymphocytes % (A) 9 %; MCH 35.8 pg (25.0-35.0); MCHC 33.8 g/dL (31.0-37.0); MCV 106.1 fL (80.0-100.0); Macrocytosis Marked; Mean Platelet Volume 7.6; Monocytes # (A) 0.4 k/uL (0-1.0); Monocytes % (A) 4 %; Neutrophils # (A) 9.6 k/uL (1.3-7.7); Neutrophils % (A) 86 %; RBC 2.89 m/uL (4.30-5.90); RDW 17.6 % (11.5-15.5); WBC 11.2 k/uL (3.8-10.6)
[2017-01-30 05:42] LABS: Magnesium 2.4 mg/dL (1.6-2.3); Phosphorous 2.9 mg/dL (2.5-4.5)
[2017-01-30 05:59] LABS: Manual Review Performed; Polychromasia Present
[2017-01-30] MEDS: MIDODRINE 5 MG TAB PO SCH ×3 (07:54→17:40)
[2017-01-30] MEDS: CALCIUM ACETATE 667 MG CAP PO SCH ×3 (07:54→17:40)
[2017-01-30] MEDS: FOLIC ACID-VIT B COMPLEX-VIT C 1 CAP PO SCH (07:55)
--- NOTE | 2017-01-30 09:44 | PN ---
Patient is seen for follow-up for end-stage renal disease. He is currently awake, comfortable, not in any acute distress. Blood pressure is fairly stable with systolic staying at about 95 mmHg. On examination, blood pressure 95/55, heart rate 82 per minute. The patient is afebrile. Examination of the heart: S1 and S2. Examination of lungs: Bilateral breath sounds are heard. Abdomen is soft, nontender. Examination of lower extremities shows chronic skin changes. SENIOR CONTROLS TECHNICIAN exam is grossly intact. Labs show sodium 138, potassium 4.4. Hemoglobin 10.2 g/dL. ASSESSMENT: 1. End-stage renal disease on hemodialysis on a Tuesday, Tuesday, Tuesday schedule. 2. Chronic hypotension with serum cortisol level at 11 and currently patient is maintained on IV hydrocortisone, which was scheduled for 4 doses. If his blood pressure drops once the hydrocortisone is done we will need to start him on a regular dose of steroids. May continue with the midodrine for now. 3. Chronic kidney disease, metabolic bone disease. 4. Cardiomyopathy with ejection fraction of less than 20%, status post AICD placement. PLAN: Hemodialysis on Tuesday. Continue with midodrine. Encourage increased oral intake.
--- NOTE | 2017-01-30 10:32 | PN ---
DATE OF SERVICE: 01/29/2017 This 66-year-old gentleman admitted with weakness and tiredness, also has hypotension, which is related to possibly hypovolemia. The sputum culture was normal. The patient responded to bolus fluids. The patient is also receiving hemodialysis. The patient also had evidence of UTI also. Blood cultures have been negative. Midodrine has been started. Patient is on and off Levophed support. Blood pressure is in upper 80s. PAST MEDICAL HISTORY: Reviewed. REVIEW OF SYSTEMS: CARDIOVASCULAR: No angina. RESPIRATORY: As mentioned earlier. GI: As mentioned earlier. : No dysuria. NERVOUS SYSTEM: No numbness or weakness. Current medications are reviewed and include: 1. Branford 5 mg q.6 p.r.n. 2. Xanax 0.5 t.i.d. 3. Eliquis 5 mg p.o. q.h.s. 4. Aspirin 81 mg daily. 5. PhosLo 667 daily. 6. PhosLo 1334 t.i.d. 7. Rocephin 1 gram daily. 8. Solu-Cortef 100 mg IV q.8. 9. Dilaudid 0.5 mg q.6. 10. Lactic Ringers. 11. ProAmatine. 12. Nephrocaps. 13. Narcan. 14. Protonix. 15. Pravachol. 16. Restoril. PHYSICAL EXAM: Patient is alert and oriented x3. Pulse 82, blood pressure 95/52, respirations 24, temperature 98.4, pulse ox 93% on room air. HEENT: Conjunctivae normal. Oral mucosa moist. NECK: No jugular venous distention. No carotid bruit. No lymph node enlargement. CARDIOVASCULAR: S1 and S2, muffled. RESPIRATORY: Breath sounds diminished at the bases. A few scattered rhonchi and crackles. ABDOMEN: Soft, obese, nontender. No mass palpable. LEGS: No edema, no swelling. NERVOUS SYSTEM: No focal deficits. LABS: At this time shows WBC 9, hemoglobin is 10.2. UA noted. Otherwise, random cortisol was 11. ASSESSMENT: 1. Generalized weakness for evaluation, possible relative hypotension secondary to hypovolemia as well as cardiomyopathy, severe. 2. Chronic renal disease, stage V on hemodialysis. 3. Increased WBC. 4. Anemia, normocytic, possibly secondary to chronic kidney disease. 5. Hyponatremia. 6. Hyperkalemia from acute renal failure. 7. Increased random blood sugar. 8. Increased plasma lactic acid, possibly secondary to hypovolemia and dehydration as well as renal failure. 9. History of gastroesophageal reflux disease. 10. History of automatic implantable cardioverter defibrillator. 11. Cultures negative so far. 12. Urinary tract infection possibly. 13. Cardiomyopathy, ejection fraction 30% with chronic systolic dysfunction with chronic congestive heart failure. 14. History of colonoscopy. 15. History of cardioversion. 16. History of right arm fistula for hemodialysis. 17. Remote history of nicotine dependence. 18. Obesity with body mass index of 35.9. 19. FULL CODE. RECOMMENDATIONS AND DISCUSSION: I recommend to continue the current medications, continue monitoring and symptomatic treatment. Otherwise empiric steroids have been initiated. I would also add antibiotics for ( ). Continue to monitor, repeat labs, increase ambulation. Guarded prognosis. Closely follow with Pulmonary. Further recommendations to follow.
--- NOTE | 2017-01-30 11:47 | PN ---
Mr. Chavez is a 66-year-old gentleman with known case of chronic atrial fibrillation and cardiomyopathy, status post AICD placement with a history of chronic renal failure on hemodialysis. Patient was admitted with weakness and hypotension. The patient had dialysis yesterday, which he tolerated fairly well. The patient is off norepinephrine. Patient is receiving hydrocortisone along with midodrine. His blood pressure is maintaining reasonably well. He is feeling better. Denies any chest pain or shortness of breath. He is waiting to be transferred to telemetry unit. His blood pressure is about 95/55, pulse rate is about 82, respirations are 24, saturation 93%. Lungs showed diminished breath sounds. Heart is regular. His lab values showed a hemoglobin of 10.2. His creatinine is 6.37. Electrolytes are within normal limits. He is currently on: 1. Xanax. 2. Eliquis. 3. Aspirin. 4. Dilaudid. 5. Midodrine and 6. Steroids. PLAN: Continue current medical therapy, increase activity. Transfer to telemetry unit.
--- NOTE | 2017-01-30 17:37 | PN ---
This is a 66-year-old male with a history of renal failure. The patient's blood pressure has been somewhat low but he did seem to respond to hydrocortisone. His cortisol level was mildly depressed at 11. From my standpoint he is doing very well. The patient has a history of progressive weakness, acute on chronic renal failure, cardiomyopathy, atrial fibrillation, chronic venous stasis ulcerations, obesity, and essential tremors. Again, the patient seemed to be doing a bit better. From my standpoint, the patient could be an overflow patient and be transferred out to the general medical floor. He is not receiving any supplemental oxygen. His IV is LR at 20 mL an hour. Current vital signs are reviewed. His temperature is normal at 98.1, heart rate 78, respiratory rate 20, blood pressure 90/56 with a mean of 67. Room air saturation is 95%. Appears in no acute distress. HEENT examination is grossly unremarkable. Mucous membranes are moist. No oral lesions. Neck is supple. Full range of motion. No adenopathy or thyromegaly. Cardiovascular examination reveals regular rhythm and rate. S1, S2 normal. No S3, S4 or murmur. Lungs reveal clear breath sounds. No wheezes or rhonchi. Abdomen soft. Bowel sounds are heard. Extremities are intact. Mild edema. Skin without rash. Neurologic examination is nonfocal. Labs are reviewed. White count 11.2, hemoglobin 10.3, hematocrit 30.7, platelet count 317,000. Sodium, potassium, chloride, CO2 all normal. BUN and creatinine were 54 and 8.80. The rest of his labs look okay. No recent chest x-rays to review. Medications are reviewed. Microbiology is all negative. ASSESSMENT: 1. Hypotension, with progressive weakness and falling secondary to excessive volume removal during hemodialysis. 2. Acute on chronic renal failure requiring hemodialysis Tuesday, Tuesday, Tuesday. 3. History of cardiomyopathy with an ejection fraction of 20%, status post AICD placement. 4. History of atrial fibrillation. 5. Chronic venous stasis ulcerations. 6. Obesity. 7. Essential tremors. 8. Chronically low blood pressure. 9. Mild adrenal insufficiency. PLAN: The patient is doing well. He can be transferred out to the general medical floor. No additional recommendations are made. Prognosis is guarded.
[2017-01-30] MEDS: PANTOPRAZOLE 40 MG TABLET PO SCH (20:31)
[2017-01-30] MEDS: PRAVASTATIN SODIUM 80 MG TAB PO SCH (20:31)
[2017-01-30] MEDS: SODIUM BICARBONATE TAB 650 MG TAB PO SCH (20:31)
[2017-01-30] MEDS: APIXABAN 5 MG TAB PO SCH (20:31)
[2017-01-30] MEDS: ASPIRIN 81 MG CHEW PO SCH (20:31)
[2017-01-30] MEDS: LACTATED RINGERS 1,000 ML IV SCH (20:40)
--- NOTE | 2017-01-31 07:40 | PN ---
The patient is seen for followup for end-stage renal disease. He will be dialyzed tomorrow. He is currently comfortable, awake, not in any acute distress. Blood pressure 83/54, heart rate 65 per minute. He is afebrile. EXAMINATION OF THE HEART: S1 and S2. EXAMINATION OF THE LUNGS: Bilateral breath sounds are heard. Decreased breath sounds at the bases. Abdomen is soft, nontender. Labs show sodium of 137, potassium 5.0. Hemoglobin 10.3 g/dL. ASSESSMENT: 1. End-stage renal disease on hemodialysis on a Tuesday, Tuesday, Tuesday schedule. Will arrange for hemodialysis in a.m. 2. Urinary tract infection with urine culture growing gram-negative bacilli, maintained on ceftriaxone. 3. Chronic kidney disease bone mineral disorder, maintained on PhosLo. 4. Chronic hypotension, currently stable. Patient has received IV hydrocortisone. We will reassess for need for terminal worker steroids down the road. 5. Cardiomyopathy with ejection fraction of less than 20%, status post AICD placement. PLAN: Hemodialysis in a.m.
[2017-01-31] MEDS: CALCIUM ACETATE 667 MG CAP PO SCH ×3 (08:07→17:40)
[2017-01-31] MEDS: MIDODRINE 5 MG TAB PO SCH ×3 (08:08→17:40)
[2017-01-31] MEDS: FOLIC ACID-VIT B COMPLEX-VIT C 1 CAP PO SCH (08:08)
--- NOTE | 2017-01-31 09:35 | PN ---
DATE OF SERVICE: 01/30/2017 This 66-year-old gentleman who was admitted with generalized weakness had possible relative hypotension secondary to hypovolemia as well as cardiomyopathy. Patient is closely monitored. No chest pain, no palpitations. No fever. On exam, pulse 65, blood pressure 83/52, respiratory 19, temperature 97.4, pulse ox 98% on room air. HEENT: Conjunctivae normal. NECK: No jugular venous distention. CARDIOVASCULAR: S1 and S2, muffled. RESPIRATORY: Breath sounds diminished at the bases. A few scattered rhonchi. No crackles. ABDOMEN: Soft, obese. NERVOUS SYSTEM: No focal deficits. LABS: WBC 7, hemoglobin 10.2, creatinine 0.80. ASSESSMENT: 1. Generalized weakness for evaluation, possibly relative hypotension secondary to hypovolemia as well as cardiomyopathy, severe. 2. Chronic renal failure stage V, on hemodialysis. 3. Increased WBC. 4. Anemia, normocytic, possibly secondary to chronic kidney disease. 5. Hyponatremia. 6. Hyperkalemia from acute renal failure. 7. Increased random blood sugar. 8. Increased plasma lactic acid, possibly secondary to hypovolemia as well as dehydration as well as renal failure. 9. History of gastroesophageal reflux disease. 10. History of automatic implantable cardiovascular defibrillator. 11. Cultures negative so far. 12. Urinary tract infection possibly. 13. Cardiomyopathy with ejection fraction 30% with chronic systolic dysfunction with chronic congestive heart failure. 14. History of colonoscopy. 15. History of cardioversion. 16. History of right arm fistula for hemodialysis. 17. Remote history of nicotine dependence. 18. Obesity. Body mass index of 34.9. 19. FULL CODE. RECOMMENDATIONS AND DISCUSSION: I recommend to continue the current medications, continue monitoring and symptomatic treatment. Otherwise at this time I would recommend to continue with current medications, continue with symptomatic treatment and hemodialysis. Closely monitor. Further recommendations to follow.
[2017-01-31 09:50] LABS: Anisocytosis Slight; CH 35.7; CHCM 33.7; HCT 32.7 % (39.0-53.0); HDW 3.23; HGB 10.7 gm/dL (13.0-17.5); MCHC 32.8 g/dL (31.0-37.0); MCV 106.9 fL (80.0-100.0); Macrocytosis Marked; RBC 3.06 m/uL (4.30-5.90); WBC 8.7 k/uL (3.8-10.6); WBC (Perox) 8.36
[2017-01-31 10:02] LABS: Calcium 8.9 mg/dL (8.4-10.2); Magnesium 2.2 mg/dL (1.6-2.3); Potassium 4.5 mmol/L (3.5-5.1)
--- NOTE | 2017-01-31 11:02 | PN ---
Mr. Chavez is a 66-year-old gentleman who was admitted to the hospital with hypotension. He is known to have chronic atrial fibrillation, cardiomyopathy, AICD implantation. Patient also has renal failure. The patient has been treated with steroids and also Midodrine. His blood pressure has stabilized. The patient seems to be doing better. He is being transferred to [facility]. His blood pressure is 95/58, pulse is 71, respirations 16. Neck is supple. No JVD. His lab values showed a white count of 11,000, hemoglobin is 10.3. Potassium is 5. Creatinine is 8.8. FINAL IMPRESSION: 1. Hypotension improved. 2. Cardiomyopathy. 3. Chronic congestive heart failure. 4. Chronic renal failure. PLAN: The patient will continue current medical therapy. Being moved out of intensive care unit.
[2017-01-31 11:11] LABS: Add Differential Manual Differential
[2017-01-31 11:28] LABS: Metamyelocytes % 0.5 %; Myelocytes % 1.5 %; Nucleated Red Blood Cells 0 /100 WBC (0-0); Total Cells Counted 200
--- NOTE | 2017-01-31 14:41 | PN ---
Patient is seen for followup for endstage renal disease. He will be discharged today after dialysis. On examination, blood pressure 100/64, heart rate 78 per minute. He is afebrile. Examination of the heart S1 and S2. Examination of the lung bilateral breath sounds are heard. Abdomen is soft, nontender, obese. Examination of lower extremities shows chronic skin changes, extremities are currently wrapped, trace edema is noted. Labs show hemoglobin 10.7 g/dL, sodium 137, potassium 4.5. ASSESSMENT: 1. End-stage renal disease on hemodialysis on a Tuesday, Tuesday, Tuesday schedule. 2. Urinary tract infection with pseudomonas maintained on ceftriaxone. 3. Chronic kidney bone mineral disorder, currently on PhosLo. 4. Chronic hypotension, currently on midodrine and stable. 5. Atrial fibrillation, maintained on Eliquis. PLAN: Hemodialysis today and patient can be discharged post dialysis.
--- NOTE | 2017-01-31 16:53 | P.PN ---
Subjective 66-year-old male patient was in the intensive care unit and the patient got moved out of the intensive care yesterday. The patient has significant cardiomyopathy the patient has end-stage renal disease on hemodialysis. The patient undergoes dialysis 3 times a week. He also has chronic atrial fibrillation, chronic venous stasis, he is also obese. The patient is awake and alert. He is following commands. No respiratory difficulties. He was found to have pseudomonas aeruginosa and his urine and based on that he would need antibiotic modification. Objective - Vital Signs Vital signs: Vital Signs Temp 96.9 F L 01/31/17 15:00 Pulse 79 01/31/17 15:00 Resp 16 01/31/17 15:00 BP 96/48 01/31/17 15:00 Pulse Ox 97 01/31/17 15:00 Intake & Output 01/30/17 01/31/17 01/31/17 18:59 06:59 18:59 Intake Total 290 1060 1000 Output Total 250 Balance 450 459 1190 Weight 127.913 kg Intake: Intake, IV Titration 290 Amount Lactated Ringers 1,000 ml 240 @ 20 mls/hr IV .Q24H [facility] Rx#:[id number] cefTRIAXone 1,000 mg In 50 Sodium Chloride 0.9% 50 ml @ 100 mls/hr IVPB Q24HR [facility] Rx#:[id number] Oral 1060 1000 Output: Urine 250 Other: Voiding Method Urinal Urinal Urinal # Voids 1 1 # Bowel Movements 1 - Exam The patient appeared well nourished and normally developed. Vital signs as documented. Head exam is unremarkable. No scleral icterus or corneal arcus noted. Neck is without jugular venous distension, thyromegaly, or carotid bruits. Carotid upstrokes are brisk bilaterally. Lungs are clear to auscultation and percussion. Cardiac exam reveals the PMI to be normally sized and situated. Rhythm is regular. First and second heart sounds normal. No murmurs, rubs or gallops. Abdominal exam reveals normal bowel sounds, no masses , no organomegaly and no aortic enlargement. Extremities are nonedematous and both femoral and pedal pulses are normal. - Labs CBC & Chem 7: 01/31/17 08:55 01/31/17 09:05 Labs: Abnormal Lab Results - Last 24 Hours (Table) 01/31/17 01/31/17 Range/Units 08:55 09:05 RBC 3.06 L (4.30-5.90) m/uL Hgb 10.7 L (13.0-17.5) gm/dL Hct 32.7 L (39.0-53.0) % MCV 106.9 H (80.0-100.0) fL RDW 18.0 H (11.5-15.5) % Carbon Dioxide 20 L (22-30) mmol/L BUN 71 H (9-20) mg/dL Creatinine 10.89 H* (0.66-1.25) mg/dL Glucose 113 H (74-99) mg/dL Phosphorus 5.0 H (2.5-4.5) mg/dL Microbiology - Last 24 Hours (Table) 01/29/17 00:01 Urine Culture - Final Urine,Clean Catch Pseudomonas aeruginosa Assessment and Plan Plan: Assessment 1 Hypotension, recovered. Rule out underlying septicemia, likely of a urinary source. The patient was cultured to have pseudomonas aeruginosa in the urine. Urinalysis was quite abnormal at time of admission 2 chronic renal failure currently on hemodialysis 3 times a week 3 cardiomyopathy with an ejection fraction of 20% and the patient is status post AICD placement 4 chronic atrial fibrillation fibrillation 5 chronic venous stasis 6 obesity 7 tremors 8 questionable adrenal insufficiency Plan Stop the IV Rocephin it was this patient to IV Fortaz to cover Pseudomonas. Monitor the blood pressure. Continue the midodrine. Continue rest of the treatment including the anticoagulation. We'll continue to follow.
[2017-01-31] MEDS ORDERED: GELATIN SPONGE,ABSORB (SMALL) 1 EACH SPONGE ONE (19:30)
[2017-01-31] MEDS: ASPIRIN 81 MG CHEW PO SCH (20:38)
[2017-01-31] MEDS: LACTATED RINGERS 1,000 ML IV SCH (20:38)
[2017-01-31] MEDS: PANTOPRAZOLE 40 MG TABLET PO SCH (20:38)
[2017-01-31] MEDS: APIXABAN 5 MG TAB PO SCH (20:38)
[2017-01-31] MEDS: SODIUM BICARBONATE TAB 650 MG TAB PO SCH (20:38)
[2017-01-31] MEDS: PRAVASTATIN SODIUM 80 MG TAB PO SCH (20:39)
--- NOTE | 2017-02-01 08:05 | PN ---
DATE OF SERVICE: 01/31/2017 This 66-year-old gentleman who was admitted with generalized weakness and hypotension is being closely monitored. No chest pain or palpitations. No fever. On exam, alert and oriented x3. Pulse 78, blood pressure 89/45, respirations 22, temperature 97.1. HEENT: Conjunctivae normal. NECK: No jugular venous distention. CARDIOVASCULAR: S1 and S2, muffled. RESPIRATORY: Breath sounds diminished at the bases. A few scattered rhonchi and crackles. ABDOMEN: Soft, obese. LEGS: No edema, no swelling. NERVOUS SYSTEM: No focal deficits. Labs are at this time show WBC 8.6, hemoglobin 10.7. noted. ASSESSMENT: 1. Generalized weakness for further evaluation, possibly related to hypotension secondary to hypovolemia reduced intake as well as cardiogenic secondary to cardiomyopathy severe. 2. Chronic renal failure stage V on hemodialysis. 3. Increased WBC. 4. Anemia, normocytic, possibly secondary to chronic kidney disease. 5. Hyponatremia. 6. Hyperkalemia from acute renal failure. 7. Increased random blood sugar. 8. Increased plasma lactic acid, possibly secondary to hypovolemia as well as dehydration as well as renal failure. 9. History of gastroesophageal reflux disease. 10. History of automatic implantable cardioverter-defibrillator. 11. Culture negative so far. 12. Urinary tract infection previously. 13. Cardiomyopathy with a ejection fraction 30% with chronic systolic dysfunction with chronic congestive heart failure. 14. History of colonoscopy. 15. History of cardioversion. 16. History of right arm fistula for hemodialysis. 17. Remote history of nicotine dependence. 18. Obesity, body mass index 34.9. 19. FULL CODE. RECOMMENDATIONS AND DISCUSSION: Continue the current medications. Continue monitoring and symptomatic treatment. Continue with current medications. Continue with symptomatic treatment. Continue to monitor. Continue with IV fluids. Monitor creatinine closely. Creatinine is 10.89 at this time. Further recommendations to follow. MTDD
[2017-02-01] MEDS: MIDODRINE 5 MG TAB PO SCH ×3 (08:31→17:47)
[2017-02-01] MEDS: CALCIUM ACETATE 667 MG CAP PO SCH ×3 (08:31→17:48)
[2017-02-01] MEDS: FOLIC ACID-VIT B COMPLEX-VIT C 1 CAP PO SCH (08:31)
--- NOTE | 2017-02-01 09:31 | CDI ---
In responding to this query, please exercise your independent professional judgment. The [facility] Coding Staff and Clinical Documentation Specialists appreciate your assistance in clarifying documentation, maintaining compliance with coding guidelines, accurately documenting patients condition and capturing severity of illness. The fact that a question is asked does not imply that any particular answer is desired or expected. Communication forms are a method of clarifying documentation and are not made part of the Legal Health Record. Thank you in advance for your clarification. Last Revision, November 2015 Ele [address] [facility] [place] [address] Documentation Clarification Form Date: 02/01/2017 9:15:00 AM From: Pastora Cuevas, CCS, CCDS Admit Date: 01/26/2017 8:36:00 PM Patient Name: Mario hCavez Visit Number: [id number] Discharge Date: Dr. Trice Patel: 66 yo male, presented to ER with weakness, frequent falls, low BP, some rectal bleeding w/bright red blood, abdominal distention, went to dialysis today for ESRD. Diagnosed with possible hypotension due to hemodialysis, Acute on Chronic Renal Failure and possible Sepsis due to UTI. Patient history/risk factors: ESRD on HD, Cardiomyopathy with chronic systolic CHF, Chronic Atrial Fib and AICD. Clinical Indicators: Vitals: T 97.5, P 98-60, R 18, BP 79/51, PO 98 ra/2Lnc LAB: WBC 10.8^, Hgb 11.4, Na 136, K 5.3, BUN 25, Cr 6.15, Lactic Acid 4.0. UA (01/29): turbid, 3+ prot, mod blood, lg esterase, WBC >182. Cx: Pseudomonas. Treatment: IV fluid bolus x4, IV Lactated Ringers 20 mg, IV Norepinephrine, IV IV Rocephin, Vancomycin, IV MagSulfate. In your professional opinion, can you please specify if the patient was treated for shock and the type of shock if known? Septic Shock o Suspected or known causative organism o Any associated organ failure Hypovolemic Shock o Cause Other, please specify Unable to determine Please document in your progress notes and discharge summary in order to capture severity of illness and risk of mortality. Include clinical findings that support your diagnosis. FYI: Press F11 to launch patient chart. Place X here if this finding has no clinical significance, is not applicable or if you are not able to provide any additional documentation. Thank You. MUNA
[2017-02-01 10:57] LABS: Phosphorous 4.6 mg/dL (2.5-4.5)
--- NOTE | 2017-02-01 11:19 | P.PN ---
Subjective Patient seen in follow-up for end-stage renal disease. He is maintained on hemodialysis on a Tuesday schedule. He underwent hemodialysis yesterday and tolerated it well. He's been treated for Pseudomonas UTI with IV anesthetics. Denies chest pain or shortness of breath. No vomiting or diarrhea. Vital signs are stable. General: The patient appeared well nourished and normally developed. HEENT: Head exam is unremarkable. Neck is without jugular venous distension. LUNGS: Lungs are clear to auscultation and percussion. Breath sounds decreased. HEART: Rate and Rhythm are regular. First and second heart sounds normal. No murmurs, rubs or gallops. ABDOMEN: Abdominal exam reveals normal bowel sounds. Non-tender and non- distended. No evidence of peritonitis. EXTREMITITES: No clubbing, cyanosis, or edema. Objective - Vital Signs Vital signs: Vital Signs Temp 97.2 F L 02/01/17 07:00 Pulse 86 02/01/17 07:00 Resp 16 02/01/17 07:00 BP 94/57 02/01/17 07:00 Pulse Ox 96 02/01/17 07:00 Intake & Output 01/31/17 02/01/17 02/01/17 18:59 06:59 18:59 Intake Total 1000 Balance 1000 Weight 131 kg Intake: Oral 1000 Other: Voiding Method Urinal Urinal # Voids 2 - Labs CBC & Chem 7: 01/31/17 08:55 01/31/17 09:05 Labs: Abnormal Lab Results - Last 24 Hours (Table) 01/31/17 02/01/17 Range/Units 08:55 09:49 RBC 3.06 L (4.30-5.90) m/uL Hgb 10.7 L (13.0-17.5) gm/dL Hct 32.7 L (39.0-53.0) % MCV 106.9 H (80.0-100.0) fL RDW 18.0 H (11.5-15.5) % Phosphorus 4.6 H (2.5-4.5) mg/dL Microbiology - Last 24 Hours (Table) 01/26/17 19:23 Blood Culture - Preliminary Blood No Growth after 120 hours 01/29/17 00:01 Urine Culture - Final Urine,Clean Catch Pseudomonas aeruginosa Assessment and Plan Plan: Assessment: #1. End-stage renal disease maintained on hemodialysis on a Tuesday schedule via right upper extremity AV fistula. #2. Systolic CHF with ejection fraction of less than 20%. #3. Hypotension related to hypovolemia status post 2.5 L fluid bolus on admission. Off all vasopressors. Maintained on Midodrine. #4. UTI with urine culture positive for Pseudomonas. #5. Chronic kidney disease mineral bone disease. Plan: Encourage oral intake. Hemodialysis tomorrow with ultrafiltration as blood pressure tolerates. Maintain PhosLo with meals. Continue with antibiotics. Potential discharge to subacute rehab.
--- NOTE | 2017-02-01 12:50 | P.PN ---
Subjective This is a very pleasant 66-year-old gentleman who follows at the [facility] for his primary care needs. He has a history of atrial fibrillation, cardiomyopathy status post AICD placement, chronic renal failure receiving hemodialysis on Fridays, a chronic venous stasis, history of liver failure with previous paracentesis, esophageal reflux disease. He had presented here yesterday after being at dialysis at which time 5 L of fluid was removed. He has had recent ongoing issues with dizziness, lightheadedness and falling. He denied any significant trauma. He was found to be quite hypotensive and admitted to the intensive care unit for the same. He is currently on levothyroxine at 5 mcg/m to maintain arterial pressures greater than 65. Currently, he is awake and alert in no acute distress. He denies any worsening shortness of breath, cough or congestion. No chills or night sweats. His chest x-ray reveals no acute cardiopulmonary process. No leukocytosis. ProBNP 8940. Creatinine 6.79 initial lactic acid 4.0, down to 2.1 today. The patient is seen again today 02/01/2017 in follow-up on the regular medical floor. He is awake and alert in no acute distress. He is maintaining good O2 saturations in the upper 90s on room air. His been hemodynamically stable at rest. There is been some noted orthostatic hypotension. He did tolerate dialysis yesterday. He is still covered with antibiotics for the Pseudomonas urinary tract infection. Objective - Vital Signs Vital signs: Vital Signs Temp 97.2 F L 02/01/17 07:00 Pulse 86 02/01/17 07:00 Resp 16 02/01/17 07:00 BP 94/57 02/01/17 07:00 Pulse Ox 96 02/01/17 07:00 Intake & Output 01/31/17 02/01/17 02/01/17 18:59 06:59 18:59 Intake Total 1000 Balance 1000 Weight 131 kg Intake: Oral 1000 Other: Voiding Method Urinal Urinal Urinal # Voids 2 - Exam GENERAL EXAM: Alert, active, comfortable in no apparent distress. HEAD: Normocephalic. EYES: Normal reaction of pupils, equal size. NOSE: Clear with pink turbinates. THROAT: No erythema or exudates. NECK: No masses, no JVD. CHEST: No chest wall deformity. LUNGS: Equal air entry with no crackles, wheeze, rhonchi or dullness. CVS: S1 and S2 normal with no audible mumurs, regular rhythm. ABDOMEN: No hepatosplenomegaly, normal bowel sounds, no guarding or rigidity. SPINE: No scoliosis or deformity SKIN: No rashes CENTRAL NERVOUS SYSTEM: No focal deficits, tone is normal in all 4 extremities. Extremities: There is a shunt the right upper extremity. There is changes of chronic venous stasis and healing wounds of the lower extremities. There is 2 to plus peripheral edema. No clubbing, no cyanosis. Peripheral pulses are intact. - Labs CBC & Chem 7: 01/31/17 08:55 01/31/17 09:05 Labs: Abnormal Lab Results - Last 24 Hours (Table) 02/01/17 Range/Units 09:49 Phosphorus 4.6 H (2.5-4.5) mg/dL Microbiology - Last 24 Hours (Table) 01/26/17 19:23 Blood Culture - Preliminary Blood No Growth after 120 hours 01/29/17 00:01 Urine Culture - Final Urine,Clean Catch Pseudomonas aeruginosa Assessment and Plan Plan: Impression: #1 Progressive weakness and falls secondary to hypotension following hemodialysis. #2 Acute on chronic renal failure, receiving hemodialysis Tuesday. #3 History of cardiomyopathy, ejection fraction less than 20%, status post AICD placement. #4 History of atrial fibrillation, currently in normal sinus rhythm. #5 Chronic venous stasis with ulceration of the lower extremities. #6 Obesity. #7 Essential tremors. Plan: The patient was seen and evaluated by Dr. Solis. We'll continue with his current medications. He remains stable from the pulmonary and critical care standpoint. We'll follow the patient on as-needed basis.
--- NOTE | 2017-02-01 18:05 | P.PN ---
Subjective Date of service 02/01/2017. Personal being dictated for Dr. Novoa. Interval history: This a 66-year-old gentleman admitted with generalized weakness, hypotension, hypovolemia, decreased intake with severe cardiomyopathy , chronic renal failure stage IV on hemodialysis and multiple other medical issues. Tolerated dialysis yesterday. Positive for orthostatic hypotension earlier this morning with rechecks resolved. Maintained on ceftazidime for her UTI with pseudomonas aeruginosa. Denies chest pain palpitations or shortness of breath. Denies lightheadedness dizziness or focal deficits. Objective - Vital Signs Vital signs: Vital Signs Temp 98.5 F 02/01/17 15:00 Pulse 92 02/01/17 15:00 Resp 16 02/01/17 15:00 BP 97/56 02/01/17 15:00 Pulse Ox 95 02/01/17 15:00 Intake & Output 01/31/17 02/01/17 02/01/17 18:59 06:59 18:59 Intake Total 1000 1200 Balance 1000 1200 Weight 131 kg Intake: Oral 1000 1200 Other: Voiding Method Urinal Urinal Urinal # Voids 2 3 - Exam PHYSICAL EXAM: VITAL SIGNS: As above GENERAL: [Sitting up in bed, no acute] HEENT: [Pupils equal conjunctiva normal. No conjunctival pallor] NECK: [Supple, no JVD] RESPIRATORY EFFORT:[Normal] LUNGS: [Bilateral bases diminished, scattered rhonchi, no crackles, no wheezing ] CARDIOVASCULAR[regular S1-S2, positive edema GI: [Abdomen soft, nontender, positive bowel sounds.] PSYCH: [Alert and oriented -3, mood and affect normal.] NEURO: [No focal deficits] - Labs CBC & Chem 7: 01/31/17 08:55 01/31/17 09:05 Labs: Abnormal Lab Results - Last 24 Hours (Table) 02/01/17 Range/Units 09:49 Phosphorus 4.6 H (2.5-4.5) mg/dL Microbiology - Last 24 Hours (Table) 01/26/17 19:23 Blood Culture - Preliminary Blood No Growth after 120 hours Assessment and Plan Plan: 1. Generalized weakness, falls related to hypotension post-hemodialysis, secondary to hypovolemia, reduced intake, cardiogenic secondary to severe cardiomyopathy. 2. End-stage renal disease on hemodialysis via right upper extremity AV fistula]. 3. [Leukocytosis]. 4. [Anemia, normocytic, secondary to chronic kidney disease]. 5. [Hyponatremia]. 6. [Hyperkalemia secondary to acute renal failure]. 7. [Increased plasma lactic acid possibly secondary to hypovolemia, dehydration and renal failure]. 8. Gastroesophageal reflux disease 9. AICD, cardiomyopathy with EF less than 20% with chronic CHF, systolic dysfunction 10. Remote history of nicotine dependence 11. Obesity, BMI 37 Plan: Continue on current medication regime ,midodrine, monitoring and symptomatic treatment. PT/OT. Discharge planning in progress for ECF rehab. Further recommendations to follow. The impression and plan of care has been dictated as directed. : I performed a H&P examination of this patient and discussed the same with the dictator. I agree with the dictator's note. Any additional findings/opinions/ etc. will be noted.
[2017-02-01] MEDS: LACTATED RINGERS 1,000 ML IV SCH (21:59)
[2017-02-01] MEDS: APIXABAN 5 MG TAB PO SCH (22:00)
[2017-02-01] MEDS: PANTOPRAZOLE 40 MG TABLET PO SCH (22:00)
[2017-02-01] MEDS: SODIUM BICARBONATE TAB 650 MG TAB PO SCH (22:00)
[2017-02-01] MEDS: PRAVASTATIN SODIUM 80 MG TAB PO SCH (22:00)
[2017-02-01] MEDS: ASPIRIN 81 MG CHEW PO SCH (22:00)
--- NOTE | 2017-02-01 22:03 | PN ---
DATE OF SERVICE: 02/01/2017 This 66-year-old gentleman who was admitted with generalized weakness and hypotension is being closely monitored. At this time, the patient is to be worked up for ECF rehab. The hypotension could be multifactorial. I have seen and evaluated the patient with the nurse practitioner. Please refer to the nurse practitioner's notes and impressions documented as scribe for further information.
[2017-02-02] MEDS: FOLIC ACID-VIT B COMPLEX-VIT C 1 CAP PO SCH (08:29)
[2017-02-02] MEDS: MIDODRINE 5 MG TAB PO SCH ×3 (08:29→17:45)
[2017-02-02] MEDS: CALCIUM ACETATE 667 MG CAP PO SCH ×3 (08:29→17:45)
[2017-02-02] MEDS ORDERED: GELATIN SPONGE,ABSORB (SMALL) 1 EACH SPONGE ONE (13:30)
[2017-02-02 14:04] VITALS: BMI 37.6
--- NOTE | 2017-02-02 16:04 | P.DS ---
Providers Date of admission: 01/26/17 20:36 Attending physician: Trice Patel Consults: 01/26/17 20:31 Consult Physician Routine Consulting Provider: Edil Pantoja Consult Reason/Comments: dialysis patient Do you want consulting provider notified?: Yes 01/26/17 20:32 Consult Physician Routine Consulting Provider: Dragan Dixon Consult Reason/Comments: hypotension Do you want consulting provider notified?: Yes 01/26/17 23:35 Consult Physician Routine Consulting Provider: Marco Antonio Stevenson Consult Reason/Comments: cad Do you want consulting provider notified?: Yes 01/27/17 05:33 Consult Physician Routine Consulting Provider: Igor Dunham Consult Reason/Comments: ICU management Do you want consulting provider notified?: Yes, Notify in am Primary care physician: [facility] Course: Final Diagnoses: 1. Generalized weakness, falls related to hypotension post-hemodialysis, secondary to hypovolemia, reduced intake, cardiogenic secondary to severe cardiomyopathy, 2. End-stage renal disease on hemodialysis via right upper extremity AV fistula]. 3. acute UTI with pseudomonas aeruginosa. 4. [Anemia, normocytic, secondary to chronic kidney disease]. 5. [Hyponatremia]. 6. [Hyperkalemia secondary to acute renal failure]. 7. [Increased plasma lactic acid possibly secondary to hypovolemia, dehydration and renal failure]. 8. Gastroesophageal reflux disease 9. AICD, cardiomyopathy with EF less than 20% with chronic CHF, systolic dysfunction 10. Remote history of nicotine dependence 11. Obesity, BMI 37 Hospital course:This marylin a 66-year-old gentleman admitted with generalized weakness, hypotension, hypovolemia, decreased intake with severe cardiomyopathy , chronic renal failure stage IV on hemodialysis and multiple other medical issues. Immediately after dialysis with 5 L removed developed symptomatic hypotension. Creatinine on admission 6.79, lactic acid 4. Evaluated by pulmonary, nephrology .Received multiple IV fluid boluses, initially monitored in the ICU. Maintained on ceftazidime for her UTI with pseudomonas aeruginosa. Received hemodialysis as per nephrology. Significant clinical improvement. Evaluated by physical therapy and subacute rehab recommended. Patient has been cleared for discharge by all consults. Patient is being discharged to [facility] in a stable condition with guarded prognosis. The impression and plan of care has been dictated as directed. : I performed a H&P examination of this patient and discussed the same with the dictator. I agree with the dictator's note. Any additional findings/opinions/ etc. will be noted. Patient Condition at Discharge: Stable Plan - Discharge Summary New Discharge Prescriptions: Ciprofloxacin HCl [Cipro] 750 mg PO DAILY #10 tablet Furosemide [Lasix] 40 mg PO BID #1 tablet HYDROcodone/APAP 5-325MG [[place] 5-325] 1 each PO Q6HR PRN #20 tab PRN Reason: Pain Discharge Medication List Metoprolol Succinate [Toprol XL] 25 mg PO HS 12/26/15 [History] Pantoprazole [Protonix] 40 mg PO HS 12/26/15 [History] Pravastatin Sodium [Pravachol] 80 mg PO HS 12/26/15 [History] Aspirin EC [Ecotrin Low Dose] 81 mg PO HS 11/17/16 [History] Calcium Acetate [PhosLo] 1,334 mg PO AC-TID 11/17/16 [History] Calcium Acetate [PhosLo] 667 mg PO DAILY PRN 11/17/16 [History] Renal Multivitamin 1 tab PO DAILY 11/17/16 [History] Sodium Bicarbonate Tab 650 mg PO HS 11/17/16 [History] Apixaban [Eliquis] 5 mg PO HS 01/26/17 [History] Ciprofloxacin HCl [Cipro] 750 mg PO DAILY #10 tablet 02/02/17 [Rx] Furosemide [Lasix] 40 mg PO BID #1 tablet 02/02/17 [Rx] HYDROcodone/APAP 5-325MG [[place] 5-325] 1 each PO Q6HR PRN #20 tab 02/02/17 [Rx] Midodrine [ProAmatine] 10 mg PO AC-TID tab 02/02/17 [Rx] Follow up Appointment(s)/Referral(s): Gael Brice MD [STAFF PHYSICIAN] - 3 Days (At [facility]) Edil Pantoja DO [STAFF PHYSICIAN] - 1 Week Jose Nix DO [Primary Care Provider] - 3 Days Activity/Diet/Wound Care/Special Instructions: Hemodialysis as per nephrology. CIpro-pseudomonal dosing & Lasix as per nephrology pending Diet: Renal Activity: As tolerated CBC, BMP, phosphorus in 3 days
[2017-02-02 16:17] VITALS: RESP 16
[2017-02-02 20:21] LABS: Hepatitis B Surface Ag Index 0.06
[2017-02-02] MEDS: APIXABAN 5 MG TAB PO SCH (20:40)
[2017-02-02] MEDS: ASPIRIN 81 MG CHEW PO SCH (20:40)
[2017-02-02] MEDS: PRAVASTATIN SODIUM 80 MG TAB PO SCH (20:40)
[2017-02-02] MEDS: PANTOPRAZOLE 40 MG TABLET PO SCH (20:40)
[2017-02-02] MEDS: SODIUM BICARBONATE TAB 650 MG TAB PO SCH (20:40)
[2017-02-02] MEDS: LACTATED RINGERS 1,000 ML IV SCH (20:41)
[2017-02-03 07:55] VITALS: BP 112/49
[2017-02-03 07:56] VITALS: PULSE 99; TEMP 96.9
[2017-02-03] MEDS: CALCIUM ACETATE 667 MG CAP PO SCH ×3 (08:03→18:14)
[2017-02-03] MEDS: MIDODRINE 5 MG TAB PO SCH ×3 (08:03→18:14)
[2017-02-03] MEDS: FOLIC ACID-VIT B COMPLEX-VIT C 1 CAP PO SCH (08:03)
--- NOTE | 2017-02-03 10:51 | P.PN ---
Subjective Patient seen in follow-up for end-stage renal disease. He is maintained on hemodialysis on a Tuesday schedule. He underwent hemodialysis yesterday and tolerated it well. He's been treated for Pseudomonas UTI with IV antibiotics. Denies chest pain or shortness of breath. No vomiting or diarrhea. Vital signs are stable. General: The patient appeared well nourished and normally developed. HEENT: Head exam is unremarkable. Neck is without jugular venous distension. LUNGS: Lungs are clear to auscultation and percussion. Breath sounds decreased. HEART: Rate and Rhythm are regular. First and second heart sounds normal. No murmurs, rubs or gallops. ABDOMEN: Abdominal exam reveals normal bowel sounds. Non-tender and non- distended. No evidence of peritonitis. EXTREMITITES: No clubbing, cyanosis, or edema. Objective - Vital Signs Vital signs: Vital Signs Temp 96.9 F L 02/03/17 07:00 Pulse 99 02/03/17 07:00 Resp 16 02/03/17 07:00 BP 112/49 02/03/17 07:00 Pulse Ox 96 02/03/17 07:00 Intake & Output 02/02/17 02/03/17 02/03/17 18:59 06:59 18:59 Intake Total 400 Balance 400 Weight 133 kg 131 kg Intake: Intake, IV Titration 400 Amount cefTAZidime 0.5 gm In 400 Sodium Chloride 0.9% 50 ml @ 100 mls/hr IVPB Q24HR [facility] Rx#:[id number] Other: Voiding Method Urinal Urinal # Voids 1 2 - Labs CBC & Chem 7: 01/31/17 08:55 01/31/17 09:05 Assessment and Plan Plan: Assessment: #1. End-stage renal disease maintained on hemodialysis on a Tuesday schedule via right upper extremity AV fistula. #2. Systolic CHF with ejection fraction of less than 20%. #3. Hypotension related to hypovolemia status post 2.5 L fluid bolus on admission. Off all vasopressors. Maintained on Midodrine. #4. UTI with urine culture positive for Pseudomonas. #5. Chronic kidney disease mineral bone disease. Plan: Encourage oral intake. Hemodialysis tomorrow with ultrafiltration as blood pressure tolerates. Maintain PhosLo with meals. Continue with antibiotics. Potential discharge to subacute rehab.
--- NOTE | 2017-02-04 00:37 | P.PN ---
Subjective Date of service 02/02/2017 Progress Note being dictated for Dr. Torres. Interval history: This a 66-year-old gentleman admitted with generalized weakness, hypotension, hypovolemia, decreased intake with severe cardiomyopathy , chronic renal failure stage IV on hemodialysis and multiple other medical issues. Maintained on ceftazidime for UTI with pseudomonas aeruginosa. Maintaining MAP of 73-78, currently not orthostatic hypotensive. Denies lightheadedness dizziness or focal deficits. Afebrile. Awaiting preauthorization for ECF rehab. Objective - Vital Signs Vital signs: Vital Signs Temp 96.9 F L 02/03/17 07:00 Pulse 99 02/03/17 07:00 Resp 16 02/03/17 07:00 BP 112/49 02/03/17 07:00 Pulse Ox 96 02/03/17 07:00 Intake & Output 02/02/17 02/03/17 02/03/17 18:59 06:59 18:59 Intake Total 400 Balance 400 Weight 133 kg 131 kg Intake: Intake, IV Titration 400 Amount cefTAZidime 0.5 gm In 400 Sodium Chloride 0.9% 50 ml @ 100 mls/hr IVPB Q24HR [facility] Rx#:[id number] Other: Voiding Method Urinal Urinal # Voids 1 2 - Exam PHYSICAL EXAM: VITAL SIGNS: As above GENERAL: [Sitting up in bed, no acute distress] HEENT: [Pupils equal conjunctiva normal. No conjunctival pallor] NECK: [Supple, no JVD] RESPIRATORY EFFORT:[Normal] LUNGS: [Bilateral bases diminished, scattered rhonchi, no crackles, no wheezing ] CARDIOVASCULAR[regular S1-S2, positive edema GI: [Abdomen soft, nontender, nondistended positive bowel sounds.] PSYCH: [Alert and oriented -3, mood and affect normal.] NEURO: [No focal deficits, moves all 4 extremities, strength and sensation grossly intact] - Labs CBC & Chem 7: 01/31/17 08:55 01/31/17 09:05 Assessment and Plan Plan: 1. Generalized weakness, falls related to hypotension post-hemodialysis, secondary to hypovolemia, reduced intake, cardiogenic secondary to severe cardiomyopathy. 2. End-stage renal disease on hemodialysis via right upper extremity AV fistula]. 3. [Leukocytosis]. 4. [Anemia, normocytic, secondary to chronic kidney disease]. 5. [Hyponatremia]. 6. [Hyperkalemia secondary to acute renal failure]. 7. [Increased plasma lactic acid possibly secondary to hypovolemia, dehydration and renal failure]. 8. Gastroesophageal reflux disease 9. AICD, cardiomyopathy with EF less than 20% with chronic CHF, systolic dysfunction 10. Remote history of nicotine dependence 11. Obesity, BMI 37 Plan: Continue on current medication regime ,midodrine, monitoring and symptomatic treatment. Orthostatic vital signs every shift. PT/OT. Increase ambulation as tolerated. Preauthorization pending for subacute rehab. Further recommendations to follow. The impression and plan of care has been dictated as directed. : I performed a H&P examination of this patient and discussed the same with the dictator. I agree with the dictator's note. Any additional findings/opinions/ etc. will be noted.
[2017-02-07 09:34] LABS: Hepatitis B Surface Antibody Negative (Negative)
--- NOTE | 2017-02-09 08:06 | DS ---
DATE OF ADMISSION: 01/26/2017 DATE OF DISCHARGE: 02/04/2017 ADDENDUM: Please add: FINAL DIAGNOSIS(ES): Cardiogenic shock secondary to severe cardiomyopathy.
== END 2017-02-04 02:59 | disposition home or self-care (01) | DRG 291 ==
LOC: EC 17:52 → 6SEL 20:36 → 6ICU 20:46 → 4MS4W 01-30 18:10
PROVIDERS: ADMIT Hospitalist; ATTEND Hospitalist
PROC: 5A1D00Z (ICD-10-PCS; principal; 2017-01-29)
DX: I13.2 Hypertensive heart and chronic kidney disease with heart failure and with stage 5 chronic kidney disease, or end stage renal disease (principal); R57.0 Cardiogenic shock; N17.9 Acute kidney failure, unspecified; E87.2 Acidosis; I95.3 Hypotension of hemodialysis; N18.6 End stage renal disease; E27.40 Unspecified adrenocortical insufficiency; I48.2 Chronic atrial fibrillation; E87.1 Hypo-osmolality and hyponatremia; I50.22 Chronic systolic (congestive) heart failure; K62.5 Hemorrhage of anus and rectum; N39.0 Urinary tract infection, site not specified; Z99.2 Dependence on renal dialysis; B96.5 Pseudomonas (aeruginosa) (mallei) (pseudomallei) as the cause of diseases classified elsewhere; D63.1 Anemia in chronic kidney disease; E66.9 Obesity, unspecified; E87.5 Hyperkalemia; G25.0 Essential tremor; I25.10 Atherosclerotic heart disease of native coronary artery without angina pectoris; I87.8 Other specified disorders of veins; K21.9 Gastro-esophageal reflux disease without esophagitis; R29.6 Repeated falls; Z68.37 Body mass index [BMI] 37.0-37.9, adult; Z79.01 Long term (current) use of anticoagulants; Z79.899 Other long term (current) drug therapy; Z86.718 Personal history of other venous thrombosis and embolism; Z87.891 Personal history of nicotine dependence; Z95.810 Presence of automatic (implantable) cardiac defibrillator; Z79.82 Long term (current) use of aspirin
CPT/HCPCS: 36415; 71010; 71020; 80048; 80053; 80202; 81001; 82533; 82550; 82553; 83605; 83735; 83880; 84100; 84484; 85025; 85610; 85730; 86706; 87040; 87077; 87086; 87186; 87340; 90935; 93005

== ENCOUNTER 2017-03-04 15:41 | Emergency (ER) | payer MEDICARE ==
--- NOTE | 2017-03-04 16:50 | ED ---
General Adult HPI - General Source: patient, family, RN notes reviewed Mode of arrival: EMS Limitations: no limitations <Hermes Stringer - Last Filed: 03/04/17 16:48> <Naveed Linares - Last Filed: 03/04/17 20:03> - General Chief complaint: Fall Stated complaint: Fall Time Seen by Provider: 03/04/17 16:39 - History of Present Illness Initial comments: Patient is a pleasant 66-year-old male presenting to the emergency Department with following a fall. Patient has generalized weakness and does frequently fall. estimates this occurs approximately every 3 days. Patient denies any syncope. Patient did call back and strike his head. No neck pain. No back pain. No weakness. No confusion. Patient denies ever losing consciousness. Patient has no significant complaints at this time. ( Hermes Stringer) - Related Data Home Medications Medication Instructions Recorded Confirmed Pantoprazole [Protonix] 40 mg PO HS 12/26/15 03/04/17 Pravastatin Sodium [Pravachol] 80 mg PO HS 12/26/15 03/04/17 Aspirin EC [Ecotrin Low Dose] 81 mg PO HS 11/17/16 03/04/17 Calcium Acetate [PhosLo] 1,334 mg PO TID-W/MEALS 11/17/16 03/04/17 Calcium Acetate [PhosLo] 667 mg PO DAILY PRN 11/17/16 03/04/17 Sodium Bicarbonate Tab 650 mg PO HS 11/17/16 03/04/17 Apixaban [Eliquis] 5 mg PO HS 01/26/17 03/04/17 Folic Acid-Vit B Complex-Vit C 1 mg PO DAILY 03/04/17 03/04/17 [Nephrocaps] Furosemide [Lasix] 40 mg PO HS 03/04/17 03/04/17 Metoprolol Tartrate [Lopressor] 25 mg PO HS 03/04/17 03/04/17 Midodrine [ProAmatine] 10 mg PO HS 03/04/17 03/04/17 Midodrine [ProAmatine] 10 mg PO MOWEFR 03/04/17 03/04/17 Allergies Allergy/AdvReac Type Severity Reaction Status Date / Time No Known Allergies Allergy Verified 03/04/17 15:52 Review of Systems ROS Other: All systems not noted in ROS Statement are negative. Constitutional: Denies: fever Eyes: Denies: eye pain ENT: Denies: ear pain Respiratory: Denies: cough Cardiovascular: Denies: chest pain Endocrine: Denies: fatigue Gastrointestinal: Denies: abdominal pain Genitourinary: Denies: urgency Musculoskeletal: Denies: back pain Skin: Denies: rash Neurological: Reports: weakness (Chronic generalized weakness) <MykeHermes - Last Filed: 03/04/17 16:48> ROS Other: All systems not noted in ROS Statement are negative. <Naveed Linares - Last Filed: 03/04/17 20:03> ROS Statement: Those systems with pertinent positive or pertinent negative responses have been documented in the HPI. Past Medical History Past Medical History: Dialysis, GERD/Reflux, Renal Disease Additional Past Medical History / Comment(s): SEE DR VENTURA H&P, BLOOD CLOT IN PAST NOT SURE WHERE, ESSENTIAL TREMORS, CHRONIC RENAL FAILURE, HEMODIALYSIS, MON.WED.TUE. History of Any Multi-Drug Resistant Organisms: None Reported Past Surgical History: AICD Additional Past Surgical History / Comment(s): COLONOSCOPY, EGD, TEETH REMOVED, CARDIOVERSION, FISTULA RT UPPER ARM FOR HEMODIALYSIS, PREVIOUS CATHETER IN NECK FOR HEMODIALYSIS NOW REMOVED Past Anesthesia/Blood Transfusion Reactions: No Reported Reaction Type of Cardiac Device: AICD Device Placement Date:: may 2016 Past Psychological History: No Psychological Hx Reported Smoking Status: Former smoker Past Alcohol Use History: None Reported, Occasional, Rare Past Drug Use History: None Reported - Past Family History Sister(s) Family Medical History: Cancer Mother Family Medical History: No Reported History Additional Family Medical History / Comment(s): SMOKER Father Family Medical History: Cancer Additional Family Medical History / Comment(s): SMOKER, PALPATATIONS <MykeHremes - Last Filed: 03/04/17 16:48> General Exam Limitations: no limitations General appearance: alert, in no apparent distress Head exam: Present: other (Posterior scalp abrasions) Eye exam: Present: normal appearance, PERRL ENT exam: Present: normal oropharynx Neck exam: Present: normal inspection, full ROM. Absent: tenderness Respiratory exam: Present: normal lung sounds bilaterally Cardiovascular Exam: Present: regular rate, normal rhythm GI/Abdominal exam: Present: soft. Absent: tenderness Extremities exam: Present: pedal edema. Absent: calf tenderness Neurological exam: Present: alert, oriented X3, CN II-XII intact. Absent: motor sensory deficit Psychiatric exam: Present: normal affect, normal mood Skin exam: Present: abrasion <Hermes Stringer - Last Filed: 03/04/17 16:48> EKG Findings - EKG Comments: EKG Findings:: Normal sinus rhythm at 80. ME 178. QRS 94. QT 450. QTC 519. Poor R-wave progression. No acute ST change. Normal axis <Hermes Stringer - Last Filed: 03/04/17 16:48> Medical Decision Making <Hermes Stringer - Last Filed: 03/04/17 16:48> - Lab Data Result diagrams: 03/04/17 18:30 03/04/17 18:30 <Naveed Linares - Last Filed: 03/04/17 20:03> - Medical Decision Making Blood pressure discussed with the patient who states that he always runs low. He is currently feeling well and requests to go home. Discussed return parameters. Patient states she will have close follow-up, returning if he is feeling any worse at all. (Naveed Linares) - Lab Data Lab Results 03/04/17 03/04/17 Range/Units 18:30 18:30 WBC 13.4 H (3.8-10.6) k/uL RBC 3.40 L (4.30-5.90) m/uL Hgb 12.0 L (13.0-17.5) gm/dL Hct 35.4 L (39.0-53.0) % MCV 104.2 H (80.0-100.0) fL MCH 35.4 H (25.0-35.0) pg MCHC 34.0 (31.0-37.0) g/dL RDW 17.9 H (11.5-15.5) % Plt Count 212 (150-450) k/uL Neutrophils % 84 % Lymphocytes % 8 % Monocytes % 6 % Eosinophils % 1 % Basophils % 0 % Neutrophils # 11.2 H (1.3-7.7) k/uL Lymphocytes # 1.1 (1.0-4.8) k/uL Monocytes # 0.7 (0-1.0) k/uL Eosinophils # 0.1 (0-0.7) k/uL Basophils # 0.0 (0-0.2) k/uL Poikilocytosis Slight Anisocytosis Slight Macrocytosis Moderate Sodium 135 L (137-145) mmol/L Potassium 4.7 (3.5-5.1) mmol/L Chloride 92 L (98-107) mmol/L Carbon Dioxide 27 (22-30) mmol/L Anion Gap 16 mmol/L BUN 29 H (9-20) mg/dL Creatinine 7.17 H* (0.66-1.25) mg/dL Est GFR (MDRD) Af Amer 9 (>60 ml/min/1.73 sqM) Est GFR (MDRD) Non-Af 8 (>60 ml/min/1.73 sqM) Glucose 116 H (74-99) mg/dL Calcium 8.7 (8.4-10.2) mg/dL Total Bilirubin 0.9 (0.2-1.3) mg/dL AST 26 (17-59) U/L ALT 38 (21-72) U/L Alkaline Phosphatase 124 (38-126) U/L Total Protein 7.2 (6.3-8.2) g/dL Albumin 4.3 (3.5-5.0) g/dL Disposition <Hermes Stringer - Last Filed: 03/04/17 16:48> <Naveed Linares - Last Filed: 03/04/17 20:03> Clinical Impression: Fall, Chronic renal failure syndrome Disposition: HOME SELF-CARE Condition: Fair Instructions: Fall Prevention for Older Adults (ED) Referrals: Jose Nix DO [Primary Care Provider] - 1-2 days
--- NOTE | 2017-03-04 17:19 | CT ---
EXAMINATION TYPE: CT brain wo con DATE OF EXAM: 03/04/2017 COMPARISON: NONE INDICATION: Fall today with posterior injury DLP: 2128.6 mGycm, Automated exposure control for dose reduction was used. CONTRAST: None CT of the brain is performed utilizing 3 mm thick sections through the posterior fossa and 3 mm thick sections through the remaining calvarium. Study is performed within 24 hours of arrival to the hosp ital. There is some motion artifact present during the examination images are repeated. No abnormal hyperdensity is present to suggest an acute intracranial hemorrhage. No mass lesion is evident. No acute infarcts are evident. Periventricular white matter hypodensity is present, likely on the bas is of chronic white matter ischemic changes. Ventricles and sulci are prominent for the patient age. Paranasal sinuses and mastoid air cells within the [id number] are clear. IMPRESSIONS: 1. Atrophy with periventricular white matter ischemic type changes.
[2017-03-04] MEDS ORDERED: DIPH,PERTUS(ACELL)TETVAC-LF 0.5 ML VIAL IM ONE (17:22)
[2017-03-04] MEDS ORDERED: SODIUM CHLORIDE 0.9% 500 ML IV STA ×2 (17:57→18:59)
[2017-03-04 18:42] LABS: Anisocytosis Slight; Basophils % (A) 0 %; CH 35.5; CHCM 34.4; Eosinophils # (A) 0.1 k/uL (0-0.7); Eosinophils % (A) 1 %; HCT 35.4 % (39.0-53.0); HDW 3.42; Luc # (Auto) 0.23; Luc % (Auto) 2; Lymphocytes # (A) 1.1 k/uL (1.0-4.8); Lymphocytes % (A) 8 %; MCH 35.4 pg (25.0-35.0); MCV 104.2 fL (80.0-100.0); Macrocytosis Moderate; Mean Platelet Volume 6.7; Monocytes # (A) 0.7 k/uL (0-1.0); Monocytes % (A) 6 %; Neutrophils # (A) 11.2 k/uL (1.3-7.7); Neutrophils % (A) 84 %; Poikilocytosis Slight; RDW 17.9 % (11.5-15.5); WBC 13.4 k/uL (3.8-10.6); WBC (Perox) 13.89
[2017-03-04 18:49] LABS: Calcium 8.7 mg/dL (8.4-10.2); Potassium 4.7 mmol/L (3.5-5.1); Total Bilirubin 0.9 mg/dL (0.2-1.3); Total Protein 7.2 g/dL (6.3-8.2)
[2017-03-04 20:12] VITALS: BP 100/51; PULSE 86; RESP 18; TEMP 98.1
== END 2017-03-04 20:14 | disposition home or self-care (01) ==
LOC: EC 15:41
DX: S00.01XA Abrasion of scalp, initial encounter (principal); N18.9 Chronic kidney disease, unspecified; R53.1 Weakness; K21.9 Gastro-esophageal reflux disease without esophagitis; G31.9 Degenerative disease of nervous system, unspecified; Z23 Encounter for immunization; Z95.810 Presence of automatic (implantable) cardiac defibrillator; Z99.2 Dependence on renal dialysis; Z79.01 Long term (current) use of anticoagulants; Z79.82 Long term (current) use of aspirin; Z79.899 Other long term (current) drug therapy; Z87.891 Personal history of nicotine dependence; W01.10XA Fall on same level from slipping, tripping and stumbling with subsequent striking against unspecified object, initial encounter; Y92.009 Unspecified place in unspecified non-institutional (private) residence as the place of occurrence of the external cause
CPT/HCPCS: 36415; 70450; 80053; 85025; 90471; 90715; 93005; 96360; 99284

== ENCOUNTER 2017-05-22 07:29 | Inpatient (IN) | payer OTHER, MEDICARE ==
--- NOTE | 2017-05-22 08:04 | ED ---
General Adult HPI - General Chief complaint: Shortness of Breath Stated complaint: SILVIA Hx AFIB/CHF Time Seen by Provider: 05/22/17 07:35 Source: patient, RN notes reviewed Mode of arrival: wheelchair Limitations: no limitations - History of Present Illness Initial comments: This is a 67-year-old male who presents to the emergency department complaining shortness of breath. Patient states she's had shortness of breath for a few weeks. Patient states she has a history of congestive heart failure. Patient denies any recent fever chills or cough. Patient states his legs are no more swollen than normal. Patient states the breathing gets worse when he lays down flat. Patient states he has no chest pain or palpitations. Patient denies any abdominal pain patient denies nausea vomiting diarrhea. Patient denies any headache patient denies numbness weakness. Patient states he feels as though short of breath even though he realizes pulse ox is in the high 90s. Patient denies any pain anywhere. Patient's only complaint is shortness of breath. Patient is a dialysis patient is due for dialysis tomorrow and he had his last dialysis treatment on Tuesday - Related Data Home Medications Medication Instructions Recorded Confirmed Pantoprazole [Protonix] 40 mg PO DAILY 12/26/15 05/22/17 Calcium Acetate [PhosLo] 1,334 mg PO TID-W/MEALS 11/17/16 05/22/17 Metoprolol Tartrate [Lopressor] 12.5 mg PO BID 03/04/17 05/22/17 Midodrine [ProAmatine] 5 mg PO TID 03/04/17 05/22/17 Albuterol Inhaler [Ventolin Hfa 1 - 2 puff INHALATION RT-Q6H PRN 05/22/17 Inhaler] Atorvastatin [Lipitor] 40 mg PO HS 05/22/17 05/22/17 B Complex W-C No.20/Folic Acid 1 mg PO DAILY 05/22/17 05/22/17 [Renal Caps Softgel] Escitalopram [Lexapro] 15 mg PO AC-BRKFST 05/22/17 05/22/17 Warfarin Sodium [Coumadin] 5 mg PO MO 05/22/17 05/22/17 Warfarin [Coumadin] 2.5 mg PO SUTUWETHFRSA 05/22/17 05/22/17 Allergies Allergy/AdvReac Type Severity Reaction Status Date / Time No Known Allergies Allergy Verified 05/22/17 08:58 Review of Systems ROS Statement: Those systems with pertinent positive or pertinent negative responses have been documented in the HPI. ROS Other: All systems not noted in ROS Statement are negative. Past Medical History Past Medical History: Atrial Fibrillation, Heart Failure, Dialysis, GERD/Reflux , Renal Disease Additional Past Medical History / Comment(s): SEE DR VENTURA H&P, BLOOD CLOT IN PAST NOT SURE WHERE, ESSENTIAL TREMORS, CHRONIC RENAL FAILURE, HEMODIALYSIS, MON.WED.TUE. History of Any Multi-Drug Resistant Organisms: None Reported Past Surgical History: AICD, Pacemaker Additional Past Surgical History / Comment(s): COLONOSCOPY, EGD, TEETH REMOVED, CARDIOVERSION, FISTULA RT UPPER ARM FOR HEMODIALYSIS, PREVIOUS CATHETER IN NECK FOR HEMODIALYSIS NOW REMOVED Past Anesthesia/Blood Transfusion Reactions: No Reported Reaction Type of Cardiac Device: AICD Device Placement Date:: may 2016 Past Psychological History: No Psychological Hx Reported Smoking Status: Former smoker Past Alcohol Use History: None Reported, Occasional, Rare Past Drug Use History: None Reported - Past Family History Sister(s) Family Medical History: Cancer Mother Family Medical History: No Reported History Additional Family Medical History / Comment(s): SMOKER Father Family Medical History: Cancer Additional Family Medical History / Comment(s): SMOKER, PALPATATIONS General Exam - General Exam Comments Initial Comments: GENERAL: Patient is well-developed and well-nourished. Patient is nontoxic and well- hydrated and is in mild distress ENT: Neck is soft and supple. No significant lymphadenopathy is noted. Oropharynx is clear. Moist mucous membranes. Neck has full range of motion without eliciting any pain. EYES: The sclera were anicteric and conjunctiva were pink and moist. Extraocular movements were intact and pupils were equal round and reactive to light. Eyelids were unremarkable. PULMONARY: Unlabored respirations. Good breath sounds bilaterally. No audible rales rhonchi or wheezing was noted. CARDIOVASCULAR: There is a regular rate and rhythm without any murmurs gallops or rubs. ABDOMEN: Soft and nontender with normal bowel sounds. No palpable organomegaly was noted. There is no palpable pulsatile mass. SKIN: Skin is clear with no lesions or rashes and otherwise unremarkable. NEUROLOGIC: Patient is alert and oriented x3. Cranial nerves II through XII are grossly intact. Motor and sensory are also intact. Normal speech, volume and content. Symmetrical smile. MUSCULOSKELETAL: Normal extremities with adequate strength and full range of motion. 1+ edema bilaterally and some chronic cellulitis bilaterally LYMPHATICS: No significant lymphadenopathy is noted PSYCHIATRIC: Normal psychiatric evaluation. Limitations: no limitations Course Vital Signs 05/22/17 05/22/17 05/22/17 07:31 08:36 09:18 Temperature 97 F L Pulse Rate 98 95 Respiratory 22 22 18 Rate Blood Pressure 91/62 116/65 O2 Sat by Pulse 98 96 Oximetry Medical Decision Making - Medical Decision Making EKG shows normal sinus rhythm at 94 bpm HI interval is 204 QRS is 92 QT interval 44 QTC is 504 patient's EKG shows no ST segment elevation or depression or T-wave abdomen is noted. Patient's EKG is compared to an old EKG there are no new changes. Chest x-ray shows pulmonary edema. The patient's hemoglobin was 9.9 which is dropped 2 points over the month. Patient states she has had some rectal bleeding which she did not indicate earlier. Patient is no longer eliquis he is on Coumadin. I spoke with Dr. Canela he admitted the patient I wrote admitting orders I continued some Lasix on the floor and I consult to nephrology and cardiology - Lab Data Result diagrams: 05/22/17 08:24 05/22/17 08:24 Lab Results 05/22/17 05/22/17 05/22/17 Range/Units 08:24 08:24 08:24 WBC 9.9 (3.8-10.6) k/uL RBC 3.02 L (4.30-5.90) m/uL Hgb 9.9 L D (13.0-17.5) gm/dL Hct 30.1 L (39.0-53.0) % MCV 99.6 (80.0-100.0) fL MCH 32.7 (25.0-35.0) pg MCHC 32.9 (31.0-37.0) g/dL RDW 16.9 H (11.5-15.5) % Plt Count 212 (150-450) k/uL Neutrophils % 83 % Lymphocytes % 10 % Monocytes % 5 % Eosinophils % 1 % Basophils % 1 % Neutrophils # 8.2 H (1.3-7.7) k/uL Lymphocytes # 1.0 (1.0-4.8) k/uL Monocytes # 0.5 (0-1.0) k/uL Eosinophils # 0.1 (0-0.7) k/uL Basophils # 0.1 (0-0.2) k/uL Anisocytosis Slight Macrocytosis Slight PT (9.0-12.0) sec INR (<1.2) APTT (22.0-30.0) sec D-Dimer (<0.60) mg/L FEU Sodium 139 (137-145) mmol/L Potassium 4.8 (3.5-5.1) mmol/L Chloride 99 (98-107) mmol/L Carbon Dioxide 24 (22-30) mmol/L Anion Gap 16 mmol/L BUN 50 H (9-20) mg/dL Creatinine 8.00 H* (0.66-1.25) mg/dL Est GFR (MDRD) Af Amer 8 (>60 ml/min/1.73 sqM) Est GFR (MDRD) Non-Af 7 (>60 ml/min/1.73 sqM) Glucose 119 H (74-99) mg/dL Calcium 8.2 L (8.4-10.2) mg/dL Magnesium 1.5 L (1.6-2.3) mg/dL Total Bilirubin 0.7 (0.2-1.3) mg/dL AST 42 (17-59) U/L ALT 81 H (21-72) U/L Alkaline Phosphatase 177 H (38-126) U/L Total Creatine Kinase 44 L (55-170) U/L CK-MB (CK-2) 0.7 (0.0-2.4) ng/mL CK-MB (CK-2) Rel Index 1.6 Troponin I <0.012 (0.000-0.034) ng/mL NT-Pro-B Natriuret Pep pg/mL Total Protein 6.4 (6.3-8.2) g/dL Albumin 3.7 (3.5-5.0) g/dL 05/22/17 05/22/17 Range/Units 08:24 08:24 WBC (3.8-10.6) k/uL RBC (4.30-5.90) m/uL Hgb (13.0-17.5) gm/dL Hct (39.0-53.0) % MCV (80.0-100.0) fL MCH (25.0-35.0) pg MCHC (31.0-37.0) g/dL RDW (11.5-15.5) % Plt Count (150-450) k/uL Neutrophils % % Lymphocytes % % Monocytes % % Eosinophils % % Basophils % % Neutrophils # (1.3-7.7) k/uL Lymphocytes # (1.0-4.8) k/uL Monocytes # (0-1.0) k/uL Eosinophils # (0-0.7) k/uL Basophils # (0-0.2) k/uL Anisocytosis Macrocytosis PT 19.2 H (9.0-12.0) sec INR 2.0 H (<1.2) APTT 30.0 (22.0-30.0) sec D-Dimer 1.02 H (<0.60) mg/L FEU Sodium (137-145) mmol/L Potassium (3.5-5.1) mmol/L Chloride (98-107) mmol/L Carbon Dioxide (22-30) mmol/L Anion Gap mmol/L BUN (9-20) mg/dL Creatinine (0.66-1.25) mg/dL Est GFR (MDRD) Af Amer (>60 ml/min/1.73 sqM) Est GFR (MDRD) Non-Af (>60 ml/min/1.73 sqM) Glucose (74-99) mg/dL Calcium (8.4-10.2) mg/dL Magnesium (1.6-2.3) mg/dL Total Bilirubin (0.2-1.3) mg/dL AST (17-59) U/L ALT (21-72) U/L Alkaline Phosphatase (38-126) U/L Total Creatine Kinase (55-170) U/L CK-MB (CK-2) (0.0-2.4) ng/mL CK-MB (CK-2) Rel Index Troponin I (0.000-0.034) ng/mL NT-Pro-B Natriuret Pep 09663 pg/mL Total Protein (6.3-8.2) g/dL Albumin (3.5-5.0) g/dL Disposition Clinical Impression: Pulmonary edema, Renal failure, Rectal bleeding Disposition: ADMITTED IP TO THIS HOSP Referrals: Jose Nix DO [Primary Care Provider] - 1-2 days Time of Disposition: 10:46
[2017-05-22 08:49] LABS: Calcium 8.2 mg/dL (8.4-10.2); Magnesium 1.5 mg/dL (1.6-2.3); Potassium 4.8 mmol/L (3.5-5.1); Total Bilirubin 0.7 mg/dL (0.2-1.3); Total Protein 6.4 g/dL (6.3-8.2)
--- NOTE | 2017-05-22 08:59 | XR ---
EXAMINATION TYPE: XR chest 2V DATE OF EXAM: 05/22/2017 COMPARISON: Chest x-ray from January 28, 2017. HISTORY: Shortness of breath cough and congestion. TECHNIQUE: Frontal and lateral views of the chest are obtained. FINDINGS: There is persistent mild cardiomegaly with single lead pacemaker/AICD overlying the anteri or chest wall. There are persistent small bilateral pleural effusions seen best on lateral view. Ther e is no suspicious focal airspace opacity or pneumothorax seen bilaterally. New mild central vascular congestion is felt present. Degenerative change bilateral acromioclavicular joints is noted. IMPRESSION: Suspect CHF exacerbation as there is cardiomegaly with new mild central vascular congest ion and small bilateral pleural effusions identified currently.
[2017-05-22 09:19] LABS: Creatine Kinase 44 U/L (55-170)
[2017-05-22 09:24] LABS: Anisocytosis Slight; Basophils # (A) 0.1 k/uL (0-0.2); Basophils % (A) 1 %; CH 33.6; Eosinophils # (A) 0.1 k/uL (0-0.7); Eosinophils % (A) 1 %; HCT 30.1 % (39.0-53.0); HDW 2.99; Luc # (Auto) 0.12; Luc % (Auto) 1; Lymphocytes % (A) 10 %; MCH 32.7 pg (25.0-35.0); MCHC 32.9 g/dL (31.0-37.0); MCV 99.6 fL (80.0-100.0); Macrocytosis Slight; Mean Platelet Volume 8.3; Monocytes # (A) 0.5 k/uL (0-1.0); Monocytes % (A) 5 %; Neutrophils # (A) 8.2 k/uL (1.3-7.7); Neutrophils % (A) 83 %; RBC 3.02 m/uL (4.30-5.90); RDW 16.9 % (11.5-15.5); WBC 9.9 k/uL (3.8-10.6); WBC (Perox) 10.19
[2017-05-22 09:25] LABS: HGB 9.9 gm/dL (13.0-17.5); Prothrombin Time 19.2 sec (9.0-12.0)
[2017-05-22 09:32] LABS: Creatine Kinase MB 0.7 ng/mL (0.0-2.4); Troponin I <0.012 ng/mL (0.000-0.034)
[2017-05-22] MEDS ORDERED: FUROSEMIDE 10 MG/ML 10 ML VIAL IV STA (09:47)
[2017-05-22] MEDS ORDERED: FUROSEMIDE 10 MG/ML 4 ML VIAL IV STA (10:49)
[2017-05-22] MEDS ORDERED: FUROSEMIDE 10 MG/ML 4 ML VIAL IV SCH ×2 (11:00→21:00)
--- NOTE | 2017-05-22 11:52 | P.NPCON ---
History of Present Illness - Reason for Consult Consult date: 05/22/17 end stage renal disease - Chief Complaint ESRD with SOB - History of Present Illness This is a 67-year-old male known to us with ESRD on dialysis Tuesday who came in with shortness of breath for 2-3 weeks. He was last dialyzed on Tuesday day before yesterday. Supposedly 2-3 L were taken off is not sure. Workup has shown a chest x-ray with possible early congestive heart failure, he is on room air and comfortable. BNP is high at 44,200. Troponin is 0.01. No past history of acute MS but he is known with poor ejection fraction 20%. He has a defibrillator because of poor LV function. His hemoglobin is 9.9. More recent history includes admission here in January 2017 3 months ago with weakness and dizziness and fall. He does deemed to be from hypotension related to fluid removal. He was discharged but he went from here to be admitted to the [facility] for a few days and then was discharged to many large. Supposedly spend their 2 weeks and then came home and was again taken to [facility] for rehab for about 2 weeks. He was discharged a few days ago and had his first dialysis after that on Tuesday day before yesterday here at [place] [facility]. The Details of This Is Unclear As Patient and His Are Somewhat Forgetful. He is on dialysis since February 2015, recently he was taken off of the Lasix at [facility]. Past Medical History Past Medical History: Atrial Fibrillation, Heart Failure, Dialysis, GERD/Reflux , Renal Disease Additional Past Medical History / Comment(s): SEE DR VENTURA H&P, BLOOD CLOT IN PAST NOT SURE WHERE, ESSENTIAL TREMORS, CHRONIC RENAL FAILURE, HEMODIALYSIS, TUE.TUE.TUE. History of Any Multi-Drug Resistant Organisms: None Reported Past Surgical History: AICD, Pacemaker Additional Past Surgical History / Comment(s): COLONOSCOPY, EGD, TEETH REMOVED, CARDIOVERSION, FISTULA RT UPPER ARM FOR HEMODIALYSIS, PREVIOUS CATHETER IN NECK FOR HEMODIALYSIS NOW REMOVED Past Anesthesia/Blood Transfusion Reactions: No Reported Reaction Type of Cardiac Device: AICD Device Placement Date:: may 2016 Past Psychological History: No Psychological Hx Reported Smoking Status: Former smoker Past Alcohol Use History: None Reported, Occasional, Rare Past Drug Use History: None Reported - Past Family History Sister(s) Family Medical History: Cancer Mother Family Medical History: No Reported History Additional Family Medical History / Comment(s): SMOKER Father Family Medical History: Cancer Additional Family Medical History / Comment(s): SMOKER, PALPATATIONS Medications and Allergies Home Medications Medication Instructions Recorded Confirmed Type Pantoprazole [Protonix] 40 mg PO DAILY 12/26/15 05/22/17 History Calcium Acetate [PhosLo] 1,334 mg PO TID-W/MEALS 11/17/16 05/22/17 History Metoprolol Tartrate [Lopressor] 12.5 mg PO BID 03/04/17 05/22/17 History Midodrine [ProAmatine] 5 mg PO TID 03/04/17 05/22/17 History Albuterol Inhaler [Ventolin Hfa 1 - 2 puff INHALATION RT-Q6H PRN 05/22/17 History Inhaler] Atorvastatin [Lipitor] 40 mg PO HS 05/22/17 05/22/17 History B Complex W-C No.20/Folic Acid 1 mg PO DAILY 05/22/17 05/22/17 History [Renal Caps Softgel] Escitalopram [Lexapro] 15 mg PO AC-BRKFST 05/22/17 05/22/17 History Warfarin Sodium [Coumadin] 5 mg PO MO 05/22/17 05/22/17 History Warfarin [Coumadin] 2.5 mg PO SUTUWETHFRSA 05/22/17 05/22/17 History Allergies Allergy/AdvReac Type Severity Reaction Status Date / Time No Known Allergies Allergy Verified 05/22/17 08:58 Physical Exam Vitals: Vital Signs Temp Pulse Resp BP Pulse Ox 05/22/17 11:31 97.2 F L 05/22/17 10:45 94 103/74 97 05/22/17 09:45 88 104/62 96 05/22/17 09:18 95 18 116/65 96 05/22/17 08:36 22 05/22/17 08:20 94 109/67 97 05/22/17 07:31 97 F L 98 22 91/62 98 Intake and Output 05/21/17 05/22/17 05/22/17 22:59 06:59 14:59 Other: Weight 122.47 kg Patient Weight 05/23/17 06:59 Weight 122.47 kg On examination is awake alert oriented seems to be comfortable without oxygen. HEENT exam no JVP neck is supple no facial asymmetry no lymphadenopathy thyromegaly noted Lungs are significantly clear for any wheezing or crackles. Good air entry bilaterally Heart sounds are unremarkable for any murmur rub gallop. Abdomen soft nontender no organomegaly ascites masses Extremity exam was minimal edema with redness. Nontender. Neurologically awake alert oriented but generalized weakness. Results - Lab Results Most recent lab results Calcium 8.2 mg/dL (8.4-10.2) L 05/22/17 08:24 Magnesium 1.5 mg/dL (1.6-2.3) L 05/22/17 08:24 05/22/17 08:24 05/22/17 08:24 Assessment and Plan Plan: Impression. 1. ESRD on dialysis Tuesday. 2. Admitted with shortness of breath and high BNP chest x-ray is not very impressive and lung exams are clear, there is mild edema. He can wait for dialysis until tomorrow. 3. 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 4. Rule out an deficiency. 5. Poor ejection fraction at 20%, cardiomyopathy. Status post defibrillator 6. History of frequent falls dizziness and generalized weakness in spite of fair amount of physiotherapy or the last 3 months at various places including [facility], [facility], [facility] which was the last admission until a few days ago. Recommendation. 1. Will hold off dialysis tomorrow as he is stable. 2. Check iron saturation. 3. IV Lasix 80 every 12. 4. Agree with Midrin 5 before meals meals.
[2017-05-22] MEDS: MIDODRINE 5 MG TAB PO SCH ×2 (12:15→17:08)
[2017-05-22 12:33] LABS: Phosphorous 3.6 mg/dL (2.5-4.5)
[2017-05-22 12:42] LABS: % Iron Saturation 28.7 % (20-50)
[2017-05-22] MEDS: CALCIUM ACETATE 667 MG CAP PO SCH ×2 (13:59→17:08)
--- NOTE | 2017-05-22 16:00 | P.HPIM ---
History of Present Illness H&P Date: 05/22/17 . 67-year-old gentleman with history of ESRD on hemodialysis Tuesday this was apparently after an episode of multiorgan failure back in 2014 Patient is also noted to have an ejection fraction of about 20%, atrial fibrillation patient was recently admitted to the [facility] for possible rehab thereafter discharged. Patient comes in to the hospital with the difficulty breathing that has been persistent for the last few hours. In the emergency room patient was noted to have a BNP elevated 44,000 chest x-ray showed some chronic changes however is not very impressive for pulmonary vessel congestion patient appears to have some dyspnea at rest Unsure if this is chronic in nature patient was admitted to the hospital for possible early CHF evaluation in the emergency room At this time patient is on minimal amounts of supplemental oxygen. Patient also complains of orthopnea and PND over the recent times INR is appropriate. Review of systems a 14 point review of systems was done nonpertinent then all as mentioned above. Gen. appearance alert oriented 3 Neck is supple no JVD Lungs good air movement no rhonchi or wheezing or crackles Heart irregularly irregular no murmurs appreciated Abdomen soft nontender no organomegaly Lower extremities chronic skin changes no significant edema Neuro no focal deficits noted. Assessment and plan #1 dyspnea of unknown etiology Next number early systolic congestive heart failure that is acute on chronic #3 atrial fibrillation #4 ESRD and hemodialysis #5 acute blood loss anemia likely from external hemorrhoids #6 history of CAD #7 episodes of hypotension Plan Nephrology evaluation Midrin will be restarted Hemodialysis per nephrology Right before meals fistula appears to be functional Close monitoring threat monitoring analyst need to consider a echocardiogram for evaluation of RVSP has patient's physical exam and chest x-ray is not significant however patient symptomatic. Past Medical History Past Medical History: Atrial Fibrillation, Heart Failure, Dialysis, GERD/Reflux , Renal Disease Additional Past Medical History / Comment(s): SEE DR VENTURA H&P, BLOOD CLOT IN PAST NOT SURE WHERE, ESSENTIAL TREMORS, CHRONIC RENAL FAILURE, HEMODIALYSIS, TUE.TUE.TUE. History of Any Multi-Drug Resistant Organisms: None Reported Past Surgical History: AICD, Pacemaker Additional Past Surgical History / Comment(s): COLONOSCOPY, EGD, TEETH REMOVED, CARDIOVERSION, FISTULA RT UPPER ARM FOR HEMODIALYSIS, PREVIOUS CATHETER IN NECK FOR HEMODIALYSIS NOW REMOVED Past Anesthesia/Blood Transfusion Reactions: No Reported Reaction Type of Cardiac Device: AICD Device Placement Date:: may 2016 Past Psychological History: No Psychological Hx Reported Smoking Status: Former smoker Past Alcohol Use History: None Reported, Occasional, Rare Past Drug Use History: None Reported - Past Family History Sister(s) Family Medical History: Cancer Mother Family Medical History: No Reported History Additional Family Medical History / Comment(s): SMOKER Father Family Medical History: Cancer Additional Family Medical History / Comment(s): SMOKER, PALPATATIONS Medications and Allergies Home Medications Medication Instructions Recorded Confirmed Type Pantoprazole [Protonix] 40 mg PO DAILY 12/26/15 05/22/17 History Calcium Acetate [PhosLo] 1,334 mg PO TID-W/MEALS 11/17/16 05/22/17 History Metoprolol Tartrate [Lopressor] 12.5 mg PO BID 03/04/17 05/22/17 History Midodrine [ProAmatine] 5 mg PO TID 03/04/17 05/22/17 History Albuterol Inhaler [Ventolin Hfa 1 - 2 puff INHALATION RT-Q6H PRN 05/22/17 History Inhaler] Atorvastatin [Lipitor] 40 mg PO HS 05/22/17 05/22/17 History B Complex W-C No.20/Folic Acid 1 mg PO DAILY 05/22/17 05/22/17 History [Renal Caps Softgel] Escitalopram [Lexapro] 15 mg PO [id number] 05/22/17 05/22/17 History Warfarin Sodium [Coumadin] 5 mg PO MO 05/22/17 05/22/17 History Warfarin [Coumadin] 2.5 mg PO [id number] 05/22/17 05/22/17 History Allergies Allergy/AdvReac Type Severity Reaction Status Date / Time No Known Allergies Allergy Verified 05/22/17 08:58 Physical Exam Vitals: Vital Signs Temp Pulse Resp BP Pulse Ox 05/22/17 11:31 97.2 F L 05/22/17 10:45 94 103/74 97 05/22/17 09:45 88 104/62 96 05/22/17 09:18 95 18 116/65 96 05/22/17 08:36 22 05/22/17 08:20 94 109/67 97 05/22/17 07:31 97 F L 98 22 91/62 98 Intake and Output 05/22/17 05/22/17 05/22/17 06:59 14:59 22:59 Other: Weight 122.47 kg Patient Weight 05/23/17 06:59 Weight 122.47 kg Results CBC & Chem 7: 05/22/17 08:24 05/22/17 08:24 Labs: Abnormal Lab Results - Last 24 Hours (Table) 05/22/17 05/22/17 05/22/17 Range/Units 08:24 08:24 08:24 RBC 3.02 L (4.30-5.90) m/uL Hgb 9.9 L D (13.0-17.5) gm/dL Hct 30.1 L (39.0-53.0) % RDW 16.9 H (11.5-15.5) % Neutrophils # 8.2 H (1.3-7.7) k/uL PT (9.0-12.0) sec INR (<1.2) D-Dimer (<0.60) mg/L FEU BUN 50 H (9-20) mg/dL Creatinine 8.00 H* (0.66-1.25) mg/dL Glucose 119 H (74-99) mg/dL Calcium 8.2 L (8.4-10.2) mg/dL Magnesium 1.5 L (1.6-2.3) mg/dL ALT 81 H (21-72) U/L Alkaline Phosphatase 177 H (38-126) U/L Total Creatine Kinase 44 L (55-170) U/L 05/22/17 Range/Units 08:24 RBC (4.30-5.90) m/uL Hgb (13.0-17.5) gm/dL Hct (39.0-53.0) % RDW (11.5-15.5) % Neutrophils # (1.3-7.7) k/uL PT 19.2 H (9.0-12.0) sec INR 2.0 H (<1.2) D-Dimer 1.02 H (<0.60) mg/L FEU BUN (9-20) mg/dL Creatinine (0.66-1.25) mg/dL Glucose (74-99) mg/dL Calcium (8.4-10.2) mg/dL Magnesium (1.6-2.3) mg/dL ALT (21-72) U/L Alkaline Phosphatase (38-126) U/L Total Creatine Kinase (55-170) U/L
[2017-05-22] MEDS: WARFARIN 2.5 MG TAB PO SCH (17:08)
[2017-05-22] MEDS: ATORVASTATIN 40 MG TAB PO SCH (20:09)
[2017-05-22] MEDS: FUROSEMIDE 10 MG/ML 10 ML VIAL IV SCH (20:10)
[2017-05-22] MEDS: METOPROLOL TARTRATE 12.5 MG TAB PO SCH (20:11)
[2017-05-22 23:43] LABS: Anisocytosis Slight; Basophils % (A) 0 %; CH 33.5; CHCM 33.7; Eosinophils # (A) 0.2 k/uL (0-0.7); Eosinophils % (A) 2 %; HCT 29.8 % (39.0-53.0); HDW 2.99; HGB 9.7 gm/dL (13.0-17.5); Luc # (Auto) 0.13; Luc % (Auto) 1; Lymphocytes # (A) 1.2 k/uL (1.0-4.8); Lymphocytes % (A) 10 %; MCH 32.8 pg (25.0-35.0); MCHC 32.7 g/dL (31.0-37.0); MCV 100.4 fL (80.0-100.0); Macrocytosis Slight; Mean Platelet Volume 8.1; Monocytes # (A) 0.5 k/uL (0-1.0); Monocytes % (A) 4 %; Neutrophils # (A) 9.7 k/uL (1.3-7.7); Neutrophils % (A) 83 %; RBC 2.96 m/uL (4.30-5.90); WBC 11.7 k/uL (3.8-10.6); WBC (Perox) 11.74
[2017-05-23] MEDS: ALPRAZolam 0.25 MG TAB PO PRN (01:08)
--- NOTE | 2017-05-23 03:15 | XR ---
EXAM: XR Chest, 1 View CLINICAL HISTORY: Shortness of breath. TECHNIQUE: Frontal view of the chest. COMPARISON: Radiographs dated 05/22/2017. FINDINGS: Lungs: Mild opacity at the right lung base. Increased retrocardiac opacity suspected. Lungs otherwise appear clear. Mild prominence of central pulmonary vascular markings. Pleural space: No pneumothorax. Suspected pleural effusions, slightly larger on the right than left. Heart: Enlarged cardiac silhouette. Mediastinum: Stable mediastinal contours given rotation. Bones/joints: Stable osseous structures. Tubes, lines and devices: Stable cardiac device along the left chest wall with lead slightly changed in location which is likely related to differences in positioning. IMPRESSION: 1. Increased opacity at the right lung base and retrocardiac region, possibly small pleural effusions (R>L) with adjacent atelectasis, edema, infiltrates or other process. 2. Enlarged cardiac silhouette and mild central pulmonary vascular congestion, similar compared to prior CXR. 3. Left chest wall cardiac device.
[2017-05-23 06:33] LABS: Anisocytosis Slight; Basophils # (A) 0.1 k/uL (0-0.2); Basophils % (A) 1 %; CH 33.4; CHCM 32.7; Eosinophils # (A) 0.2 k/uL (0-0.7); Eosinophils % (A) 1 %; HCT 31.4 % (39.0-53.0); HDW 2.92; HGB 9.9 gm/dL (13.0-17.5); Luc # (Auto) 0.15; Luc % (Auto) 1; Lymphocytes # (A) 1.3 k/uL (1.0-4.8); Lymphocytes % (A) 13 %; MCH 32.5 pg (25.0-35.0); MCHC 31.7 g/dL (31.0-37.0); MCV 102.8 fL (80.0-100.0); Macrocytosis Moderate; Mean Platelet Volume 8.2; Monocytes # (A) 0.4 k/uL (0-1.0); Monocytes % (A) 4 %; Neutrophils # (A) 8.4 k/uL (1.3-7.7); Neutrophils % (A) 80 %; RBC 3.05 m/uL (4.30-5.90); RDW 17.1 % (11.5-15.5); WBC 10.5 k/uL (3.8-10.6); WBC (Perox) 11.03
[2017-05-23] MEDS: MIDODRINE 5 MG TAB PO SCH ×3 (06:35→18:14)
[2017-05-23] MEDS: CALCIUM ACETATE 667 MG CAP PO SCH ×3 (06:35→18:14)
[2017-05-23] MEDS: ESCITALOPRAM 5 MG TAB PO SCH (06:35)
[2017-05-23] MEDS: PANTOPRAZOLE 40 MG TABLET PO SCH (06:35)
[2017-05-23] MEDS: IPRATROPIUM-ALBUTEROL 3 ML NEB INHALATION PRN ×4 (07:32→20:40)
[2017-05-23] MEDS: FOLIC ACID-VIT B COMPLEX-VIT C 1 CAP PO SCH (08:22)
[2017-05-23] MEDS: FUROSEMIDE 10 MG/ML 10 ML VIAL IV SCH ×2 (08:22→21:04)
--- NOTE | 2017-05-23 09:26 | P.PN ---
Subjective This is a 67-year-old male known to us with ESRD on dialysis Tuesday who came in with shortness of breath for 2-3 weeks. He was last dialyzed on Tuesday. Supposedly 2-3 L were taken off is not sure. He was examined in the emergency room yesterday on presentation, and Workup has shown a chest x-ray with possible early congestive heart failure, he is on room air and comfortable. BNP is high at 44,200. Troponin is 0.01. He was given IV Lasix 80 mg every 12 without much urine output. This morning he is feeling tired and weak short of breath. No chest pain. No nausea vomiting. Appetite is fair. No past history of acute OR but he is known with poor ejection fraction 20%. He has a defibrillator because of poor LV function. His hemoglobin is 9.9. More recent history includes admission here in January 2017 3 months ago with weakness and dizziness and fall. He does deemed to be from hypotension related to fluid removal. He was discharged but he went from here to be admitted to the [facility] for a few days and then was discharged to many large. Supposedly spend their 2 weeks and then came home and was again taken to [facility] for rehab for about 2 weeks. He was discharged a few days ago and had his first dialysis after that on Tuesday day before yesterday here at [place] on. The Details of This Is Unclear As Patient and His Are Somewhat Forgetful. He is on dialysis since February 2015, recently he was taken off of the Lasix at [facility]. Objective - Vital Signs Vital signs: Vital Signs Temp 97.1 F L 05/23/17 08:00 Pulse 83 05/23/17 08:00 Resp 18 05/23/17 08:00 BP 91/58 05/23/17 08:00 Pulse Ox 97 05/23/17 08:00 Intake & Output 05/22/17 05/23/17 05/23/17 18:59 06:59 18:59 Intake Total 200 Output Total 50 Balance -50 200 Weight 122.47 kg 128.1 kg Intake: Oral 200 Output: Urine 50 Other: Voiding Method Toilet Urinal Urinal # Voids 2 On examination his tired and weak. HEENT exam no JVP neck is supple no facial asymmetry Lungs are clear to auscultation fair air entry bilaterally Heart sounds are unremarkable for any murmur rub gallop. Abdomen soft nontender obese. Extremity exam was moderate edema with some redness in his lower legs. Neurologically awake alert oriented but weak and tired and wants to sleep. - Labs CBC & Chem 7: 05/23/17 06:14 05/22/17 08:24 Labs: Abnormal Lab Results - Last 24 Hours (Table) 05/22/17 05/22/17 05/22/17 Range/Units 08:24 08:24 08:24 WBC (3.8-10.6) k/uL RBC 3.02 L (4.30-5.90) m/uL Hgb 9.9 L D (13.0-17.5) gm/dL Hct 30.1 L (39.0-53.0) % MCV (80.0-100.0) fL RDW 16.9 H (11.5-15.5) % Neutrophils # 8.2 H (1.3-7.7) k/uL PT (9.0-12.0) sec INR (<1.2) D-Dimer (<0.60) mg/L FEU Creatinine 8.00 H* (0.66-1.25) mg/dL Glucose 119 H (74-99) mg/dL Alkaline Phosphatase 177 H (38-126) U/L Total Creatine Kinase 44 L (55-170) U/L 05/22/17 05/22/17 05/23/17 Range/Units 08:24 23:32 06:14 WBC 11.7 H (3.8-10.6) k/uL RBC 2.96 L 3.05 L (4.30-5.90) m/uL Hgb 9.7 L 9.9 L (13.0-17.5) gm/dL Hct 29.8 L 31.4 L (39.0-53.0) % MCV 100.4 H 102.8 H (80.0-100.0) fL RDW 17.0 H 17.1 H (11.5-15.5) % Neutrophils # 9.7 H 8.4 H (1.3-7.7) k/uL PT 19.2 H (9.0-12.0) sec INR 2.0 H (<1.2) D-Dimer 1.02 H (<0.60) mg/L FEU Creatinine (0.66-1.25) mg/dL Glucose (74-99) mg/dL Alkaline Phosphatase (38-126) U/L Total Creatine Kinase (55-170) U/L Assessment and Plan Plan: Impression. 1. ESRD on dialysis Tuesday. 2. Admitted with shortness of breath and high BNP chest x-ray is not very impressive and lung exams are clear, there is mild edema. 3. 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 Saturation is normal at 28% 5. Poor ejection fraction at 20%, cardiomyopathy. Status post defibrillator 6. History of frequent falls dizziness and generalized weakness in spite of fair amount of physiotherapy or the last 3 months at various places including [facility], [facility], [facility] which was the last admission until a few days ago. Recommendation. 1. Will will be dialyzed today. We'll take off about 4 L. 2. Agree with Midrin 5 before meals meals. 3. We will keep his hemoglobin around 11. Start Araneso 40 Mcg SQ q week
[2017-05-23] MEDS: METOPROLOL TARTRATE 12.5 MG TAB PO SCH ×2 (11:48→21:04)
[2017-05-23] MEDS: DARBEPOETIN ALFA 40 MCG/0.4 ML SYRINGE SQ SCH (11:48)
[2017-05-23] MEDS ORDERED: GELATIN SPONGE,ABSORB (SMALL) 1 EACH SPONGE ONE (14:55)
--- NOTE | 2017-05-23 15:55 | P.PN ---
Subjective Mrs. 67-year-old gentleman with history of ESRD on hemodialysis Tuesday this was apparently after an episode of multiorgan failure back in 2014 Patient is also noted to have an ejection fraction of about 20%, atrial fibrillation patient was recently admitted to the [facility] for possible rehab thereafter discharged. Patient comes in to the hospital with the difficulty breathing that has been persistent for the last few hours. In the emergency room patient was noted to have a BNP elevated 44,000 chest x-ray showed some chronic changes however is not very impressive for pulmonary vessel congestion patient appears to have some dyspnea at rest Unsure if this is chronic in nature patient was admitted to the hospital for possible early CHF evaluation in the emergency room At this time patient is on minimal amounts of supplemental oxygen. Patient also complains of orthopnea and PND over the recent times INR is appropriate. 2016 Patient was seen during hemodialysis. Is stable denies having any additional complaints. This chest pain difficulty breathing nausea vomiting diarrhea is laying flat during the time of my evaluation Denies cough or any sputum production at this time. Review of systems a 14 point review of systems was done nonpertinent then all as mentioned above. Gen. appearance alert oriented 3 Neck is supple no JVD Lungs good air movement no rhonchi or wheezing or crackles Heart irregularly irregular no murmurs appreciated Abdomen soft nontender no organomegaly Lower extremities chronic skin changes no significant edema Neuro no focal deficits noted. Assessment and plan #1 dyspnea of unknown etiology #2 early systolic congestive heart failure that is acute on chronic #3 atrial fibrillation #4 ESRD and hemodialysis #5 acute blood loss anemia likely from external hemorrhoids #6 history of CAD #7 episodes of hypotension Plan Continue with current therapy. This appears to be more of a social issue patient is having some difficulty with ambulation apparently [facility] and [place] has refused rehab. The family said note some resources at home Patient is not in failure appears to be doing well undergoing hemodialysis today will likely discuss some home care services for potential discharge patient would not be a candidate for rehab as patient was recently evaluated at the [facility] facility and was refused rehab stay. Objective - Vital Signs Vital signs: Vital Signs Temp 97.2 F L 05/23/17 11:47 Pulse 93 05/23/17 15:04 Resp 18 05/23/17 15:04 BP 101/77 05/23/17 11:47 Pulse Ox 98 05/23/17 11:47 Intake & Output 05/22/17 05/23/17 05/23/17 18:59 06:59 18:59 Intake Total 200 Output Total 50 Balance -50 200 Weight 122.47 kg 128.1 kg 128.1 kg Intake: Oral 200 Output: Urine 50 Other: Voiding Method Toilet Urinal Urinal # Voids 2 - Labs CBC & Chem 7: 05/23/17 06:14 05/22/17 08:24 Labs: Abnormal Lab Results - Last 24 Hours (Table) 05/22/17 05/23/17 Range/Units 23:32 06:14 WBC 11.7 H (3.8-10.6) k/uL RBC 2.96 L 3.05 L (4.30-5.90) m/uL Hgb 9.7 L 9.9 L (13.0-17.5) gm/dL Hct 29.8 L 31.4 L (39.0-53.0) % MCV 100.4 H 102.8 H (80.0-100.0) fL RDW 17.0 H 17.1 H (11.5-15.5) % Neutrophils # 9.7 H 8.4 H (1.3-7.7) k/uL
[2017-05-23] MEDS ORDERED: WARFARIN 5 MG TAB PO SCH (18:00)
[2017-05-23] MEDS: ATORVASTATIN 40 MG TAB PO SCH (21:04)
[2017-05-24 06:32] LABS: INR 2.4 (<1.2); Prothrombin Time 22.6 sec (9.0-12.0)
[2017-05-24] MEDS: MIDODRINE 5 MG TAB PO SCH ×3 (07:11→17:55)
[2017-05-24] MEDS: ESCITALOPRAM 5 MG TAB PO SCH (07:11)
[2017-05-24] MEDS: CALCIUM ACETATE 667 MG CAP PO SCH ×3 (07:11→17:55)
[2017-05-24] MEDS: PANTOPRAZOLE 40 MG TABLET PO SCH (07:11)
[2017-05-24] MEDS: FUROSEMIDE 10 MG/ML 10 ML VIAL IV SCH ×2 (07:11→19:59)
[2017-05-24] MEDS: FOLIC ACID-VIT B COMPLEX-VIT C 1 CAP PO SCH (09:59)
[2017-05-24] MEDS: METOPROLOL TARTRATE 12.5 MG TAB PO SCH ×2 (09:59→19:59)
[2017-05-24] MEDS: IPRATROPIUM-ALBUTEROL 3 ML NEB INHALATION PRN ×3 (10:35→19:59)
[2017-05-24] MEDS: WARFARIN 2.5 MG TAB PO SCH (17:55)
--- NOTE | 2017-05-24 18:24 | P.PN ---
Subjective Mrs. 67-year-old gentleman with history of ESRD on hemodialysis Tuesday this was apparently after an episode of multiorgan failure back in 2014 Patient is also noted to have an ejection fraction of about 20%, atrial fibrillation patient was recently admitted to the for possible rehab thereafter discharged. Patient comes in to the hospital with the difficulty breathing that has been persistent for the last few hours. In the emergency room patient was noted to have a BNP elevated 44,000 chest x-ray showed some chronic changes however is not very impressive for pulmonary vessel congestion patient appears to have some dyspnea at rest Unsure if this is chronic in nature patient was admitted to the hospital for possible early CHF evaluation in the emergency room At this time patient is on minimal amounts of supplemental oxygen. Patient also complains of orthopnea and PND over the recent times INR is appropriate. 2016 Patient was seen during hemodialysis. Is stable denies having any additional complaints. This chest pain difficulty breathing nausea vomiting diarrhea is laying flat during the time of my evaluation Denies cough or any sputum production at this time. 05/24/17 Patient is on room air. States to have some dyspnea intermittently is able to lay flat denies having chest pain headaches blurry vision abdominal pain diarrhea. States that he still having difficulty with ambulation. Review of systems a 14 point review of systems was done nonpertinent then all as mentioned above. Gen. appearance alert oriented 3 Neck is supple no JVD Lungs good air movement no rhonchi or wheezing or crackles Heart irregularly irregular no murmurs appreciated Abdomen soft nontender no organomegaly Lower extremities chronic skin changes no significant edema Neuro no focal deficits noted. Assessment and plan #1 dyspnea of unknown etiology #2 early systolic congestive heart failure that is acute on chronic #3 atrial fibrillation #4 ESRD and hemodialysis #5 acute blood loss anemia likely from external hemorrhoids #6 history of CAD #7 episodes of hypotension Plan Continue with current therapy. T Patient appears to have low activity tolerance. Dyspnea on exertion. Patient is also anxious about his medical condition States that home care is not an option. Patient believes that he will would benefit from needing some additional help as his is not able to care for him. PTOT evaluation We'll reevaluate if patient would benefit from a short rehabilitation stay blood pressure is stable Hemodialysis tomorrow likely. Discussed the case with the lather apprentice as well. Objective - Vital Signs Vital signs: Vital Signs Temp 97.1 F L 05/24/17 16:00 Pulse 109 H 05/24/17 16:00 Resp 20 05/24/17 16:00 BP 100/57 05/24/17 16:00 Pulse Ox 100 05/24/17 16:00 Intake & Output 05/23/17 05/24/17 05/24/17 18:59 06:59 18:59 Intake Total 420 10 Balance 420 10 Weight 128.1 kg 126.5 kg 126.5 kg Intake: IV 10 .9 10 Oral 420 Other: Voiding Method Urinal Urinal Urinal # Voids 2 - Labs CBC & Chem 7: 05/23/17 06:14 05/22/17 08:24 Labs: Abnormal Lab Results - Last 24 Hours (Table) 05/24/17 Range/Units 06:10 PT 22.6 H (9.0-12.0) sec INR 2.4 H (<1.2)
[2017-05-24] MEDS: ATORVASTATIN 40 MG TAB PO SCH (19:59)
[2017-05-24 21:01] LABS: Glucose,Whole Blood 130 mg/dL (75-99)
--- NOTE | 2017-05-24 22:10 | PN ---
PROGRESS NOTE DATE OF SERVICE: 05/24/2017 Patient is seen for followup for end-stage renal disease. He is currently lying in bed. Patient is comfortable. He denies any complaints. He was dialyzed yesterday. We will dialyze him again tomorrow. PHYSICAL EXAMINATION: Heart rate is 108 per minute, blood pressure 94/73. Patient is afebrile. EXAMINATION OF THE HEART: S1, S2. EXAMINATION OF LUNGS: Bilateral breath sounds are heard. ABDOMEN: Soft, non-tender. Examination of lower extremities shows trace edema bilaterally with chronic skin changes present. SENIOR PROJECT ARCHITECT exam is grossly intact. LABS: Hemoglobin 9.9, potassium 4.8 on 05/22/2017. ASSESSMENT: 1. End-stage renal disease, on hemodialysis on Tuesday, Tuesday, Tuesday schedule. We will plan for hemodialysis tomorrow. 2. Hypotension, currently maintained on midodrine, which we will continue. 3. Generalized debility. 4. History of coronary artery disease. 5. Cardiomyopathy with ejection fraction of 20%. PLAN: Hemodialysis in a.m. Continue with Edith. MMODL / IJN: [id number] /
[2017-05-25 05:41] LABS: Glucose,Whole Blood 136 mg/dL (75-99)
[2017-05-25] MEDS: ESCITALOPRAM 5 MG TAB PO SCH (06:37)
[2017-05-25] MEDS: MIDODRINE 5 MG TAB PO SCH ×3 (06:37→18:34)
[2017-05-25] MEDS: PANTOPRAZOLE 40 MG TABLET PO SCH (06:37)
[2017-05-25] MEDS: CALCIUM ACETATE 667 MG CAP PO SCH ×3 (06:37→18:34)
[2017-05-25] MEDS: IPRATROPIUM-ALBUTEROL 3 ML NEB INHALATION PRN ×3 (07:09→20:35)
--- NOTE | 2017-05-25 09:10 | CT ---
EXAMINATION TYPE: CT facial bones wo con DATE OF EXAM: 05/25/2017 COMPARISON: NONE HISTORY: fall, trauma and pain CT DLP: 685.4 mGycm Automated exposure control for dose reduction was used. TECHNIQUE: CT scan of the sinuses is performed without contrast, axial images are obtained, coronal r eformatted images are also reviewed. FINDINGS: There is extensive abnormal appearance to the maxilla and mandible likely due to dental dec ay, periodontal disease. The anterior frontal incisor on the left shows lucency surrounding it greate r than the right, associated fracture of the mandible suspected bilaterally. Additional areas of bone erosion, tooth loss noted. Cortical atrophy is noted incidentally. Inflammatory change noted in the frontal and ethmoidal region s. The orbits are intact. Ostiomeatal units are patent. Minimal mucosal disease present in the maxill laureano sinuses. No erosion of the scutum bilaterally, auditory ossicles show symmetric appearance. Some inflammatory change suspected within the mastoid air cells. Cerumen present in the external auditory canals. IMPRESSION: Extensive dental disease as described, associated anterior maxillary fractures at the lev el of the central incisors with minimal displacement. Mild sinus disease.
--- NOTE | 2017-05-25 09:13 | XR ---
EXAMINATION TYPE: XR foot complete RT DATE OF EXAM: 05/25/2017 COMPARISON: NONE HISTORY: Fall, pain lateral right foot TECHNIQUE: Three-view right foot FINDINGS: No acute fractures evident. The soft tissues appear normal. Joint spaces are preserved. Nisreen ntar calcaneal heel spur is present. Follow-up study can be performed 7-10 days from acute trauma for continued pain. IMPRESSION: 1. Normal three-view right foot
[2017-05-25 10:23] LABS: Potassium 4.8 mmol/L (3.5-5.1)
[2017-05-25] MEDS: METOPROLOL TARTRATE 12.5 MG TAB PO SCH ×2 (11:18→20:19)
[2017-05-25] MEDS: FUROSEMIDE 10 MG/ML 10 ML VIAL IV SCH ×2 (11:18→20:19)
[2017-05-25] MEDS: FOLIC ACID-VIT B COMPLEX-VIT C 1 CAP PO SCH (11:18)
[2017-05-25 11:32] LABS: Glucose,Whole Blood 128 mg/dL (75-99)
--- NOTE | 2017-05-25 14:44 | PN ---
PROGRESS NOTE Patient is seen for followup on endstage renal disease. He is maintained on a Tuesday, Tuesday, Tuesday schedule for hemodialysis. Patient reports that he fell in the hospital while trying to get out of bed. His blood pressure has been on the lower side, staying about 99, 90 to 100 mmHg systolic. His heart rate has been around 101 to 104 per minute. The patient is afebrile. X-rays of his face and foot do not reveal any fractures due to falls. PHYSICAL EXAMINATION: Today blood pressure was 90/56, heart rate of 101 per minute. Patient is afebrile. Examination of the heart, S1, S2. Examination lungs, bilateral breath sounds are heard. Abdomen is soft, nontender. Examination of lower extremities shows chronic skin changes and edema 1+ bilaterally. LABS: Revealed potassium 4.8, sodium 135. ASSESSMENT: 1. End-stage renal disease, on hemodialysis on a Tuesday, Tuesday, Tuesday schedule. Will arrange for hemodialysis today. 2. Chronic hypotension. Currently maintained on midodrine. Random cortisol level was at 11 when it was checked in January of 2017. Will continue the midodrine for now. 3. Fluid overload on initial admission, currently improved. Will try for about 2-3 L again as tolerated, depending on the blood pressure. 4. Generalized debility. PLAN: Hemodialysis today with increase UF as tolerated. Continue with physical therapy and continue with midodrine. MMMARINAL / KIMN: [id number] /
--- NOTE | 2017-05-25 14:57 | P.PN ---
Subjective Mrs. 67-year-old gentleman with history of ESRD on hemodialysis Tuesday this was apparently after an episode of multiorgan failure back in 2014 Patient is also noted to have an ejection fraction of about 20%, atrial fibrillation patient was recently admitted to the [facility] for possible rehab thereafter discharged. Patient comes in to the hospital with the difficulty breathing that has been persistent for the last few hours. In the emergency room patient was noted to have a BNP elevated 44,000 chest x-ray showed some chronic changes however is not very impressive for pulmonary vessel congestion patient appears to have some dyspnea at rest Unsure if this is chronic in nature patient was admitted to the hospital for possible early CHF evaluation in the emergency room At this time patient is on minimal amounts of supplemental oxygen. Patient also complains of orthopnea and PND over the recent times INR is appropriate. 2016 Patient was seen during hemodialysis. Is stable denies having any additional complaints. This chest pain difficulty breathing nausea vomiting diarrhea is laying flat during the time of my evaluation Denies cough or any sputum production at this time. 05/24/17 Patient is on room air. States to have some dyspnea intermittently is able to lay flat denies having chest pain headaches blurry vision abdominal pain diarrhea. States that he still having difficulty with ambulation. 05/25/2017 Patient sustained a fall fall this morning hitting his head. Patient underwent a computed tomography scan of the face there was some chipping of the incisors around the maxilla Denies having any headaches change in vision focal weakness nausea vomiting. Denies having chest pain difficulty in breathing. However does get dyspneic intermittently without exertion Review of systems a 14 point review of systems was done nonpertinent then all as mentioned above. Gen. appearance alert oriented 3 Neck is supple no JVD Lungs good air movement no rhonchi or wheezing or crackles Ecchymosis on the frontal region Oral cavity bright blood noted no active bleeding is appreciated Heart irregularly irregular no murmurs appreciated Abdomen soft nontender no organomegaly Lower extremities chronic skin changes no significant edema Neuro no focal deficits noted. Assessment and plan #1 dyspnea of unknown etiology #2 early systolic congestive heart failure that is acute on chronic #3 atrial fibrillation #4 ESRD and hemodialysis #5 acute blood loss anemia likely from external hemorrhoids #6 history of CAD #7 episodes of hypotension Plan Patient appears to have low activity tolerance. Dyspnea on exertion. Patient is also anxious about his medical condition Oral surgery consultation Patient's safety after this fall patient would likely benefit from a short rehab suspending approval Hemodialysis tomorrow likely. Discussed the case with the perfumer as well. Objective - Vital Signs Vital signs: Vital Signs Temp 98.3 F 05/25/17 04:00 Pulse 104 H 05/25/17 11:21 Resp 24 05/25/17 11:07 BP 90/56 05/25/17 08:00 Pulse Ox 97 05/25/17 04:00 Intake & Output 05/24/17 05/25/17 05/25/17 18:59 06:59 18:59 Intake Total 247 30 Balance 247 30 Weight 126.5 kg 127.6 kg Intake: IV 10 .9 10 Oral 237 30 Other: Voiding Method Urinal Urinal Urinal # Voids 1 - Labs CBC & Chem 7: 05/23/17 06:14 05/25/17 09:34 Labs: Abnormal Lab Results - Last 24 Hours (Table) 05/24/17 05/25/17 05/25/17 Range/Units 20:59 05:40 09:34 Sodium 135 L (137-145) mmol/L Chloride 97 L (98-107) mmol/L Carbon Dioxide 20 L (22-30) mmol/L POC Glucose (mg/dL) 130 H 136 H (75-99) mg/dL 05/25/17 Range/Units 11:30 Sodium (137-145) mmol/L Chloride (98-107) mmol/L Carbon Dioxide (22-30) mmol/L POC Glucose (mg/dL) 128 H (75-99) mg/dL
[2017-05-25] MEDS ORDERED: GELATIN SPONGE,ABSORB (SMALL) 1 EACH SPONGE ONE (15:10)
[2017-05-25 16:36] LABS: Glucose,Whole Blood 92 mg/dL (75-99)
[2017-05-25] MEDS: WARFARIN 2.5 MG TAB PO SCH (18:34)
[2017-05-25] MEDS: ATORVASTATIN 40 MG TAB PO SCH (20:19)
[2017-05-25 21:06] LABS: Glucose,Whole Blood 168 mg/dL (75-99)
[2017-05-25] MEDS: ALPRAZolam 0.25 MG TAB PO PRN (22:57)
[2017-05-26 06:15] LABS: Glucose,Whole Blood 111 mg/dL (75-99)
[2017-05-26 06:41] LABS: Anisocytosis Slight; Basophils % (A) 0 %; CH 33.8; CHCM 33.6; Eosinophils # (A) 0.1 k/uL (0-0.7); Eosinophils % (A) 1 %; HCT 28.9 % (39.0-53.0); HDW 3.12; HGB 9.1 gm/dL (13.0-17.5); Luc % (Auto) 2; Lymphocytes # (A) 0.9 k/uL (1.0-4.8); Lymphocytes % (A) 9 %; MCH 32.1 pg (25.0-35.0); MCHC 31.6 g/dL (31.0-37.0); MCV 101.7 fL (80.0-100.0); Macrocytosis Moderate; Mean Platelet Volume 8.4; Monocytes # (A) 0.7 k/uL (0-1.0); Monocytes % (A) 6 %; Neutrophils # (A) 8.5 k/uL (1.3-7.7); Neutrophils % (A) 81 %; RBC 2.84 m/uL (4.30-5.90); RDW 18.2 % (11.5-15.5); WBC 10.5 k/uL (3.8-10.6); WBC (Perox) 11.05
[2017-05-26] MEDS: PANTOPRAZOLE 40 MG TABLET PO SCH (06:50)
[2017-05-26] MEDS: CALCIUM ACETATE 667 MG CAP PO SCH ×3 (06:50→17:38)
[2017-05-26] MEDS: MIDODRINE 5 MG TAB PO SCH ×3 (06:50→17:38)
[2017-05-26] MEDS: ESCITALOPRAM 5 MG TAB PO SCH (06:50)
[2017-05-26 06:54] LABS: Calcium 8.5 mg/dL (8.4-10.2); Potassium 4.5 mmol/L (3.5-5.1); Total Bilirubin 0.9 mg/dL (0.2-1.3); Total Protein 6.1 g/dL (6.3-8.2)
[2017-05-26] MEDS: FUROSEMIDE 10 MG/ML 10 ML VIAL IV SCH (09:03)
--- NOTE | 2017-05-26 09:10 | XR ---
EXAMINATION TYPE: XR panorex DATE OF EXAM: 05/25/2017 COMPARISON: NONE HISTORY: Pain post fall TECHNIQUE: Single Panorex view submitted FINDINGS: There are number of missing teeth within both the upper and lower portions of the jaw. At l east one tooth appears to be angulated on the right may be chronic. Acute deformity not excluded. Periapical lucency involving a couple of the visualized teeth may been the basis of caries. Correlate clinically. IMPRESSION: No acute fracture. See above.
[2017-05-26 10:06] LABS: INR 2.7 (<1.2); Prothrombin Time 26.2 sec (9.0-12.0)
--- NOTE | 2017-05-26 11:18 | P.PN ---
Subjective Patient is seen in follow-up for her incisional disease. He is maintained on hemodialysis on a Tuesday schedule. Patient has systolic CHF with ejection fraction of less than 20%. He has chronic hypotension that is maintained on midodrine. He sustained a fall yesterday and did hit his teeth on the ground. No evidence of fracture was noted on imaging. Currently resting in bed. Denies chest pain or shortness of breath. Vital signs are stable. General: The patient appeared well nourished and normally developed. HEENT: Head exam is unremarkable. Neck is without jugular venous distension. LUNGS: Lungs are clear to auscultation and percussion. Breath sounds decreased. HEART: Rate and Rhythm are regular. First and second heart sounds normal. No murmurs, rubs or gallops. ABDOMEN: Abdominal exam reveals normal bowel sounds. Non-tender and non- distended. No evidence of peritonitis. EXTREMITITES: 1+ edema. Objective - Vital Signs Vital signs: Vital Signs Temp 96.6 F L 05/26/17 09:00 Pulse 90 05/26/17 09:00 Resp 16 05/26/17 09:00 BP 86/51 05/26/17 09:00 Pulse Ox 100 05/26/17 09:00 Intake & Output 05/25/17 05/26/17 05/26/17 18:59 06:59 18:59 Intake Total 30 240 Balance 30 240 Weight 127.6 kg 123.4 kg Intake: Oral 30 240 Other: Voiding Method Urinal Urinal # Voids 1 # Bowel Movements 1 - Labs CBC & Chem 7: 05/26/17 06:18 05/26/17 06:18 Labs: Abnormal Lab Results - Last 24 Hours (Table) 05/25/17 05/25/17 05/26/17 Range/Units 11:30 21:01 06:13 RBC (4.30-5.90) m/uL Hgb (13.0-17.5) gm/dL Hct (39.0-53.0) % MCV (80.0-100.0) fL RDW (11.5-15.5) % Neutrophils # (1.3-7.7) k/uL Lymphocytes # (1.0-4.8) k/uL PT (9.0-12.0) sec INR (<1.2) Sodium (137-145) mmol/L Chloride (98-107) mmol/L BUN (9-20) mg/dL Creatinine (0.66-1.25) mg/dL Glucose (74-99) mg/dL POC Glucose (mg/dL) 128 H 168 H 111 H (75-99) mg/dL AST (17-59) U/L ALT (21-72) U/L Alkaline Phosphatase (38-126) U/L Total Protein (6.3-8.2) g/dL 05/26/17 05/26/17 05/26/17 Range/Units 06:18 06:18 06:18 RBC 2.84 L (4.30-5.90) m/uL Hgb 9.1 L (13.0-17.5) gm/dL Hct 28.9 L (39.0-53.0) % MCV 101.7 H (80.0-100.0) fL RDW 18.2 H (11.5-15.5) % Neutrophils # 8.5 H (1.3-7.7) k/uL Lymphocytes # 0.9 L (1.0-4.8) k/uL PT 26.2 H (9.0-12.0) sec INR 2.7 H (<1.2) Sodium 134 L (137-145) mmol/L Chloride 96 L (98-107) mmol/L BUN 45 H (9-20) mg/dL Creatinine 7.50 H* (0.66-1.25) mg/dL Glucose 106 H (74-99) mg/dL POC Glucose (mg/dL) (75-99) mg/dL AST 326 H (17-59) U/L ALT 452 H (21-72) U/L Alkaline Phosphatase 201 H (38-126) U/L Total Protein 6.1 L (6.3-8.2) g/dL Assessment and Plan Plan: Assessment: #1. End-stage renal disease maintained on hemodialysis on a Tuesday schedule. #2. Systolic CHF with ejection fraction of less than 20%. #3. Chronic hypotension maintained on midodrine. This is related to his underlying cardiac status. #4. Chronic kidney disease mineral bone disease. #5. Anemia of chronic kidney disease. Plan: Hemodialysis tomorrow with goal 3 L ultrafiltration. Maintain Aranesp. Continue PhosLo with meals. Possible rehab upon discharge.
[2017-05-26] MEDS: FOLIC ACID-VIT B COMPLEX-VIT C 1 CAP PO SCH (11:30)
[2017-05-26] MEDS: METOPROLOL TARTRATE 12.5 MG TAB PO SCH ×2 (11:30→21:57)
[2017-05-26 11:33] LABS: Glucose,Whole Blood 175 mg/dL (75-99)
[2017-05-26] MEDS ORDERED: ONDANSETRON 4 MG/2 ML VIAL IVP PRN (13:13)
--- NOTE | 2017-05-26 16:58 | US ---
EXAMINATION TYPE: US abdomen limited DATE OF EXAM: 05/26/2017 COMPARISON: Prior US in PACS March 12, 2015. CLINICAL HISTORY: transaminitis. Abd pain EXAM MEASUREMENTS: Liver Length: 20.1 cm Gallbladder Wall: 0.3 cm CBD: 0.5 cm Right Kidney: 8.7 x 3.4 x 5.8 cm Pancreas: Obscured by bowel gas Liver: Enlarged, heterogeneous Gallbladder: Wall measuring upper limits of normal Evidence for sonographic Dickey's sign: No CBD: wnl as visualized, distal portion obscured by bowel gas Right Kidney: Measuring small, corticomedullary thinning Heterogeneous hyperechoic liver redemonstrated. Evaluation for focal masses suboptimal due to the het erogeneity. No intrahepatic ductal dilatation is noted. IMPRESSION: Heterogeneous hyperechoic liver consistent with cirrhosis redemonstrated. No significant ascites seen on current study.
[2017-05-26 17:07] LABS: Glucose,Whole Blood 100 mg/dL (75-99)
--- NOTE | 2017-05-26 17:34 | P.PN ---
Subjective Mrs. 67-year-old gentleman with history of ESRD on hemodialysis Tuesday this was apparently after an episode of multiorgan failure back in 2014 Patient is also noted to have an ejection fraction of about 20%, atrial fibrillation patient was recently admitted to the [facility] for possible rehab thereafter discharged. Patient comes in to the hospital with the difficulty breathing that has been persistent for the last few hours. In the emergency room patient was noted to have a BNP elevated 44,000 chest x-ray showed some chronic changes however is not very impressive for pulmonary vessel congestion patient appears to have some dyspnea at rest Unsure if this is chronic in nature patient was admitted to the hospital for possible early CHF evaluation in the emergency room At this time patient is on minimal amounts of supplemental oxygen. Patient also complains of orthopnea and PND over the recent times INR is appropriate. 2016 Patient was seen during hemodialysis. Is stable denies having any additional complaints. This chest pain difficulty breathing nausea vomiting diarrhea is laying flat during the time of my evaluation Denies cough or any sputum production at this time. 05/24/17 Patient is on room air. States to have some dyspnea intermittently is able to lay flat denies having chest pain headaches blurry vision abdominal pain diarrhea. States that he still having difficulty with ambulation. 05/25/2017 Patient sustained a fall fall this morning hitting his head. Patient underwent a computed tomography scan of the face there was some chipping of the incisors around the maxilla Denies having any headaches change in vision focal weakness nausea vomiting. Denies having chest pain difficulty in breathing. However does get dyspneic intermittently without exertion 05/26/2017 Today patient complains of some abdominal discomfort with nausea. Apparently patient has a guardian as there was some concern about patient not having the resources to live. Apparently him and his have been living in a car. Review of systems a 14 point review of systems was done nonpertinent then all as mentioned above. Gen. appearance alert oriented 3 Neck is supple no JVD Lungs good air movement no rhonchi or wheezing or crackles Ecchymosis on the frontal region Oral cavity bright blood noted no active bleeding is appreciated Heart irregularly irregular no murmurs appreciated Abdomen soft nontender no organomegaly Lower extremities chronic skin changes no significant edema Neuro no focal deficits noted. Assessment and plan #1 dyspnea of unknown etiology #2 early systolic congestive heart failure that is acute on chronic #3 atrial fibrillation #4 ESRD and hemodialysis #5 acute blood loss anemia likely from external hemorrhoids #6 history of CAD #7 episodes of hypotension #8 acute hepatitis this is likely due to episodes of hypotension Plan Hold off on Lasix 80 IV twice a day patient appears to be stable in regards to his volume Repeat liver enzymes in a.m. Patient appears to have low activity tolerance. Dyspnea on exertion. Patient is also anxious about his medical condition Patient's safety after this fall patient would likely benefit from a short rehab suspending approval Objective - Vital Signs Vital signs: Vital Signs Temp 97.1 F L 05/26/17 16:00 Pulse 87 05/26/17 16:00 Resp 18 05/26/17 16:00 BP 86/58 05/26/17 16:00 Pulse Ox 94 L 05/26/17 16:00 Intake & Output 05/25/17 05/26/17 05/26/17 18:59 06:59 18:59 Intake Total 30 240 Balance 30 240 Weight 127.6 kg 123.4 kg Intake: Oral 30 240 Other: Voiding Method Urinal Urinal Urinal # Voids 1 1 # Bowel Movements 1 - Labs CBC & Chem 7: 05/26/17 06:18 05/26/17 06:18 Labs: Abnormal Lab Results - Last 24 Hours (Table) 05/25/17 05/26/17 05/26/17 Range/Units 21:01 06:13 06:18 RBC 2.84 L (4.30-5.90) m/uL Hgb 9.1 L (13.0-17.5) gm/dL Hct 28.9 L (39.0-53.0) % MCV 101.7 H (80.0-100.0) fL RDW 18.2 H (11.5-15.5) % Neutrophils # 8.5 H (1.3-7.7) k/uL Lymphocytes # 0.9 L (1.0-4.8) k/uL PT (9.0-12.0) sec INR (<1.2) Sodium (137-145) mmol/L Chloride (98-107) mmol/L BUN (9-20) mg/dL Creatinine (0.66-1.25) mg/dL Glucose (74-99) mg/dL POC Glucose (mg/dL) 168 H 111 H (75-99) mg/dL AST (17-59) U/L ALT (21-72) U/L Alkaline Phosphatase (38-126) U/L Total Protein (6.3-8.2) g/dL 05/26/17 05/26/17 05/26/17 Range/Units 06:18 06:18 11:31 RBC (4.30-5.90) m/uL Hgb (13.0-17.5) gm/dL Hct (39.0-53.0) % MCV (80.0-100.0) fL RDW (11.5-15.5) % Neutrophils # (1.3-7.7) k/uL Lymphocytes # (1.0-4.8) k/uL PT 26.2 H (9.0-12.0) sec INR 2.7 H (<1.2) Sodium 134 L (137-145) mmol/L Chloride 96 L (98-107) mmol/L BUN 45 H (9-20) mg/dL Creatinine 7.50 H* (0.66-1.25) mg/dL Glucose 106 H (74-99) mg/dL POC Glucose (mg/dL) 175 H (75-99) mg/dL AST 326 H (17-59) U/L ALT 452 H (21-72) U/L Alkaline Phosphatase 201 H (38-126) U/L Total Protein 6.1 L (6.3-8.2) g/dL 05/26/17 Range/Units 17:05 RBC (4.30-5.90) m/uL Hgb (13.0-17.5) gm/dL Hct (39.0-53.0) % MCV (80.0-100.0) fL RDW (11.5-15.5) % Neutrophils # (1.3-7.7) k/uL Lymphocytes # (1.0-4.8) k/uL PT (9.0-12.0) sec INR (<1.2) Sodium (137-145) mmol/L Chloride (98-107) mmol/L BUN (9-20) mg/dL Creatinine (0.66-1.25) mg/dL Glucose (74-99) mg/dL POC Glucose (mg/dL) 100 H (75-99) mg/dL AST (17-59) U/L ALT (21-72) U/L Alkaline Phosphatase (38-126) U/L Total Protein (6.3-8.2) g/dL
[2017-05-26] MEDS: WARFARIN 2.5 MG TAB PO SCH (17:38)
[2017-05-26 21:30] LABS: Glucose,Whole Blood 155 mg/dL (75-99)
[2017-05-26] MEDS: ATORVASTATIN 40 MG TAB PO SCH (21:57)
[2017-05-26] MEDS: ALPRAZolam 0.25 MG TAB PO PRN (23:22)
[2017-05-27] MEDS: IPRATROPIUM-ALBUTEROL 3 ML NEB INHALATION PRN ×2 (00:59→08:55)
[2017-05-27 06:00] LABS: Glucose,Whole Blood 140 mg/dL (75-99)
[2017-05-27 06:09] LABS: Anisocytosis Slight; Basophils # (A) 0.1 k/uL (0-0.2); Basophils % (A) 1 %; CH 32.4; CHCM 32.2; Eosinophils # (A) 0.2 k/uL (0-0.7); Eosinophils % (A) 2 %; HCT 28.1 % (39.0-53.0); HDW 3.11; HGB 9.2 gm/dL (13.0-17.5); Hypochromasia Slight; Luc # (Auto) 0.21; Luc % (Auto) 2; Lymphocytes # (A) 1.2 k/uL (1.0-4.8); Lymphocytes % (A) 10 %; MCH 33.4 pg (25.0-35.0); MCHC 32.9 g/dL (31.0-37.0); MCV 101.5 fL (80.0-100.0); Macrocytosis Moderate; Mean Platelet Volume 7.6; Monocytes # (A) 0.6 k/uL (0-1.0); Monocytes % (A) 5 %; Neutrophils # (A) 9.7 k/uL (1.3-7.7); Neutrophils % (A) 82 %; RBC 2.77 m/uL (4.30-5.90); RDW 18.1 % (11.5-15.5); WBC 11.9 k/uL (3.8-10.6); WBC (Perox) 12.18
[2017-05-27 06:22] LABS: Calcium 8.1 mg/dL (8.4-10.2); Potassium 4.6 mmol/L (3.5-5.1); Total Bilirubin 0.9 mg/dL (0.2-1.3)
[2017-05-27] MEDS: PANTOPRAZOLE 40 MG TABLET PO SCH (06:24)
[2017-05-27] MEDS: ESCITALOPRAM 5 MG TAB PO SCH (06:24)
[2017-05-27] MEDS: MIDODRINE 5 MG TAB PO SCH ×3 (06:24→17:49)
[2017-05-27] MEDS: CALCIUM ACETATE 667 MG CAP PO SCH ×3 (06:24→17:49)
--- NOTE | 2017-05-27 07:54 | CONS ---
CONSULTATION DATE OF CONSULT: 05/26/2017 CHIEF COMPLAINT: "I fell and hit my teeth." HISTORY OF PRESENT ILLNESS: The patient is a 67-year-old male, who has been admitted for CHF and is currently on the floor. He states that he fell face forward and knocked his upper front teeth. The patient is currently complaining of intermittent pain and that the teeth are loose. PATIENT'S PAST MEDICAL HISTORY: Significant for A fib, heart failure, end-stage renal disease, GERD and dialysis. PAST SURGICAL HISTORY: Significant for a pacemaker and AICD. The patient has also had a colonoscopy and EGD, cardioversion, fistula placement in the right arm and he has previously had teeth removed. PAST SOCIAL HISTORY: The patient currently does not smoke, abuse medications and occasionally uses alcohol. MEDICATIONS INCLUDE: PhosLo, Protonix, Lopressor, Ventolin inhaler, Lipitor, Lexapro, renal soft gel caps and Coumadin. He is currently receiving IV Lasix. RADIOGRAPHIC EXAMINATION: Revealed the patient to have displaced teeth numbers 8 and 9 and a fracture of the maxillary alveolar bone associated with these teeth. PHYSICAL EXAM: Reveals the patient to be resting comfortably in bed with no marked complaint. Head and neck examination reveals mild edema of the upper lip. There are no other contusions or swelling of the face or mandible. There is no evidence of lymphadenopathy. Intraoral examination reveals teeth #8 and 9 to be displaced and mobile. There is some mild swelling. There are no other oral lesions. His gingiva is inflamed and has receded. Patient's dental oral hygiene is poor. ASSESSMENT: 1. Displaced teeth #8 and 9. 2. Localized fractured maxillary alveolar bone. PLAN: Patient will be seen as an outpatient in my office for the extraction of these teeth. A soft diet is recommended at this time. MMODL / IJN: [id number] /
[2017-05-27] MEDS: FOLIC ACID-VIT B COMPLEX-VIT C 1 CAP PO SCH (09:12)
[2017-05-27] MEDS: METOPROLOL TARTRATE 12.5 MG TAB PO SCH ×2 (09:13→21:10)
[2017-05-27 11:50] LABS: Glucose,Whole Blood 125 mg/dL (75-99)
[2017-05-27] MEDS ORDERED: GELATIN SPONGE,ABSORB (SMALL) 1 EACH SPONGE ONE (14:40)
[2017-05-27 16:46] LABS: Glucose,Whole Blood 103 mg/dL (75-99)
[2017-05-27] MEDS: WARFARIN 2.5 MG TAB PO SCH (17:49)
--- NOTE | 2017-05-27 18:45 | P.PN ---
Subjective Mrs. 67-year-old gentleman with history of ESRD on hemodialysis Tuesday this was apparently after an episode of multiorgan failure back in 2014 Patient is also noted to have an ejection fraction of about 20%, atrial fibrillation patient was recently admitted to the [facility] for possible rehab thereafter discharged. Patient comes in to the hospital with the difficulty breathing that has been persistent for the last few hours. In the emergency room patient was noted to have a BNP elevated 44,000 chest x-ray showed some chronic changes however is not very impressive for pulmonary vessel congestion patient appears to have some dyspnea at rest Unsure if this is chronic in nature patient was admitted to the hospital for possible early CHF evaluation in the emergency room At this time patient is on minimal amounts of supplemental oxygen. Patient also complains of orthopnea and PND over the recent times INR is appropriate. 2016 Patient was seen during hemodialysis. Is stable denies having any additional complaints. This chest pain difficulty breathing nausea vomiting diarrhea is laying flat during the time of my evaluation Denies cough or any sputum production at this time. 05/24/17 Patient is on room air. States to have some dyspnea intermittently is able to lay flat denies having chest pain headaches blurry vision abdominal pain diarrhea. States that he still having difficulty with ambulation. 05/25/2017 Patient sustained a fall fall this morning hitting his head. Patient underwent a computed tomography scan of the face there was some chipping of the incisors around the maxilla Denies having any headaches change in vision focal weakness nausea vomiting. Denies having chest pain difficulty in breathing. However does get dyspneic intermittently without exertion 05/26/2017 Today patient complains of some abdominal discomfort with nausea. Apparently patient has a guardian as there was some concern about patient not having the resources to live. Apparently him and his have been living in a car. 05/27/2017 No new overnight events. Patient does not have any new complaints at this time Continues to have intermittent dyspnea. No bleeding is reported. Review of systems a 14 point review of systems was done nonpertinent then all as mentioned above. Gen. appearance alert oriented 3 Neck is supple no JVD Lungs good air movement no rhonchi or wheezing or crackles Ecchymosis on the frontal region Oral cavity bright blood noted no active bleeding is appreciated Heart irregularly irregular no murmurs appreciated Abdomen soft nontender no organomegaly Lower extremities chronic skin changes no significant edema Neuro no focal deficits noted. Assessment and plan #1 dyspnea of unknown etiology #2 early systolic congestive heart failure that is acute on chronic #3 atrial fibrillation #4 ESRD and hemodialysis #5 acute blood loss anemia likely from external hemorrhoids #6 history of CAD #7 episodes of hypotension #8 acute hepatitis this is likely due to episodes of hypotension Plan Continue monitoring the patient pending discharge to a rehab when approved by his insurance. Patient appears to have low activity tolerance. Dyspnea on exertion. Patient is also anxious about his medical condition Objective - Vital Signs Vital signs: Vital Signs Temp 96.2 F L 05/27/17 03:30 Pulse 83 05/27/17 15:35 Resp 19 05/27/17 15:35 BP 90/55 05/27/17 12:00 Pulse Ox 99 05/27/17 12:00 Intake & Output 05/26/17 05/27/17 05/27/17 18:59 06:59 18:59 Intake Total 240 320 450 Balance 240 320 450 Weight 125.5 kg Intake: Oral 240 320 450 Other: Voiding Method Urinal Bedside Commode Bedside Commode Urinal Urinal # Voids 1 1 # Bowel Movements 1 - Labs CBC & Chem 7: 05/27/17 05:49 05/27/17 05:49 Labs: Abnormal Lab Results - Last 24 Hours (Table) 05/26/17 05/27/17 05/27/17 Range/Units 21:28 05:49 05:49 WBC 11.9 H (3.8-10.6) k/uL RBC 2.77 L (4.30-5.90) m/uL Hgb 9.2 L (13.0-17.5) gm/dL Hct 28.1 L (39.0-53.0) % MCV 101.5 H (80.0-100.0) fL RDW 18.1 H (11.5-15.5) % Neutrophils # 9.7 H (1.3-7.7) k/uL Sodium 134 L (137-145) mmol/L Chloride 95 L (98-107) mmol/L BUN 59 H (9-20) mg/dL Creatinine 9.10 H* (0.66-1.25) mg/dL Glucose 141 H (74-99) mg/dL POC Glucose (mg/dL) 155 H (75-99) mg/dL Calcium 8.1 L (8.4-10.2) mg/dL AST 570 H (17-59) U/L ALT 683 H (21-72) U/L Alkaline Phosphatase 230 H (38-126) U/L Total Protein 6.0 L (6.3-8.2) g/dL 05/27/17 05/27/17 05/27/17 Range/Units 05:58 11:46 16:31 WBC (3.8-10.6) k/uL RBC (4.30-5.90) m/uL Hgb (13.0-17.5) gm/dL Hct (39.0-53.0) % MCV (80.0-100.0) fL RDW (11.5-15.5) % Neutrophils # (1.3-7.7) k/uL Sodium (137-145) mmol/L Chloride (98-107) mmol/L BUN (9-20) mg/dL Creatinine (0.66-1.25) mg/dL Glucose (74-99) mg/dL POC Glucose (mg/dL) 140 H 125 H 103 H (75-99) mg/dL Calcium (8.4-10.2) mg/dL AST (17-59) U/L ALT (21-72) U/L Alkaline Phosphatase (38-126) U/L Total Protein (6.3-8.2) g/dL
[2017-05-27] MEDS: ATORVASTATIN 40 MG TAB PO SCH (20:09)
[2017-05-27 20:34] LABS: Glucose,Whole Blood 127 mg/dL (75-99)
[2017-05-28 05:49] LABS: Glucose,Whole Blood 109 mg/dL (75-99)
[2017-05-28 06:31] LABS: Anisocytosis Slight; Basophils # (A) 0.1 k/uL (0-0.2); Basophils % (A) 0 %; CH 32.5; Eosinophils # (A) 0.3 k/uL (0-0.7); Eosinophils % (A) 2 %; HCT 30.1 % (39.0-53.0); HDW 3.22; HGB 9.8 gm/dL (13.0-17.5); Hypochromasia Slight; Luc # (Auto) 0.23; Luc % (Auto) 2; Lymphocytes # (A) 1.2 k/uL (1.0-4.8); Lymphocytes % (A) 10 %; MCH 33.5 pg (25.0-35.0); MCHC 32.7 g/dL (31.0-37.0); MCV 102.6 fL (80.0-100.0); Macrocytosis Moderate; Mean Platelet Volume 7.6; Monocytes # (A) 0.6 k/uL (0-1.0); Monocytes % (A) 5 %; Neutrophils # (A) 9.5 k/uL (1.3-7.7); Neutrophils % (A) 81 %; RBC 2.93 m/uL (4.30-5.90); RDW 18.3 % (11.5-15.5); WBC 11.9 k/uL (3.8-10.6); WBC (Perox) 12.27
[2017-05-28 06:35] LABS: Prothrombin Time 29.3 sec (9.0-12.0)
[2017-05-28 06:46] LABS: Calcium 8.1 mg/dL (8.4-10.2); Potassium 4.9 mmol/L (3.5-5.1); Total Bilirubin 0.9 mg/dL (0.2-1.3); Total Protein 6.2 g/dL (6.3-8.2)
[2017-05-28] MEDS: MIDODRINE 5 MG TAB PO SCH ×3 (06:55→17:21)
[2017-05-28] MEDS: PANTOPRAZOLE 40 MG TABLET PO SCH (06:55)
[2017-05-28] MEDS: ESCITALOPRAM 5 MG TAB PO SCH (06:55)
[2017-05-28] MEDS: CALCIUM ACETATE 667 MG CAP PO SCH ×3 (06:55→17:22)
[2017-05-28] MEDS: FOLIC ACID-VIT B COMPLEX-VIT C 1 CAP PO SCH (09:07)
[2017-05-28] MEDS: METOPROLOL TARTRATE 12.5 MG TAB PO SCH ×2 (09:07→21:23)
--- NOTE | 2017-05-28 09:36 | P.PN ---
Subjective Patient is seen for follow-up for end-stage renal disease. He is currently laying in bed comfortable. We are waiting for placement to senior living possibly [facility]. Patient was dialyzed yesterday he tolerated his treatment well. Objective - Vital Signs Vital signs: Vital Signs Temp 97.7 F 05/28/17 09:08 Pulse 91 05/28/17 09:08 Resp 16 05/28/17 09:08 BP 90/56 05/28/17 09:08 Pulse Ox 99 05/28/17 09:08 Intake & Output 05/27/17 05/28/17 05/28/17 18:59 06:59 18:59 Intake Total 450 200 118 Balance 450 200 118 Weight 127.5 kg Intake: Oral 450 200 118 Other: Voiding Method Bedside Commode Bedside Commode Urinal Urinal # Voids 0 1 # Bowel Movements 1 - Exam On examination patient is comfortable laying comfortably in bed. Blood pressure 90/56 heart rate 75/m he is afebrile Examination of the heart S1 and S2 Exertion lungs decreased breath sounds bases Abdomen is soft morbidly obese Exam Schnoor ex Mittie shows chronic skin changes and chronic edema. SECURITIES CONSULTANT exam is grossly intact patient has been moving all 4 extremities. - Labs CBC & Chem 7: 05/28/17 06:03 05/28/17 06:03 Labs: Abnormal Lab Results - Last 24 Hours (Table) 05/27/17 05/27/17 05/27/17 Range/Units 11:46 16:31 20:32 WBC (3.8-10.6) k/uL RBC (4.30-5.90) m/uL Hgb (13.0-17.5) gm/dL Hct (39.0-53.0) % MCV (80.0-100.0) fL RDW (11.5-15.5) % Neutrophils # (1.3-7.7) k/uL PT (9.0-12.0) sec INR (<1.2) Sodium (137-145) mmol/L Chloride (98-107) mmol/L BUN (9-20) mg/dL Creatinine (0.66-1.25) mg/dL POC Glucose (mg/dL) 125 H 103 H 127 H (75-99) mg/dL Calcium (8.4-10.2) mg/dL AST (17-59) U/L ALT (21-72) U/L Alkaline Phosphatase (38-126) U/L Total Protein (6.3-8.2) g/dL 05/28/17 05/28/17 05/28/17 Range/Units 05:47 06:03 06:03 WBC 11.9 H (3.8-10.6) k/uL RBC 2.93 L (4.30-5.90) m/uL Hgb 9.8 L (13.0-17.5) gm/dL Hct 30.1 L (39.0-53.0) % MCV 102.6 H (80.0-100.0) fL RDW 18.3 H (11.5-15.5) % Neutrophils # 9.5 H (1.3-7.7) k/uL PT (9.0-12.0) sec INR (<1.2) Sodium 135 L (137-145) mmol/L Chloride 95 L (98-107) mmol/L BUN 53 H (9-20) mg/dL Creatinine 8.50 H* (0.66-1.25) mg/dL POC Glucose (mg/dL) 109 H (75-99) mg/dL Calcium 8.1 L (8.4-10.2) mg/dL AST 392 H (17-59) U/L ALT 736 H (21-72) U/L Alkaline Phosphatase 275 H (38-126) U/L Total Protein 6.2 L (6.3-8.2) g/dL 05/28/17 Range/Units 06:03 WBC (3.8-10.6) k/uL RBC (4.30-5.90) m/uL Hgb (13.0-17.5) gm/dL Hct (39.0-53.0) % MCV (80.0-100.0) fL RDW (11.5-15.5) % Neutrophils # (1.3-7.7) k/uL PT 29.3 H (9.0-12.0) sec INR 3.0 H (<1.2) Sodium (137-145) mmol/L Chloride (98-107) mmol/L BUN (9-20) mg/dL Creatinine (0.66-1.25) mg/dL POC Glucose (mg/dL) (75-99) mg/dL Calcium (8.4-10.2) mg/dL AST (17-59) U/L ALT (21-72) U/L Alkaline Phosphatase (38-126) U/L Total Protein (6.3-8.2) g/dL Assessment and Plan Plan: Assessment 1. End-stage renal disease on hemodialysis on a Tuesday schedule 2. Generalized debility and falls currently being worked up for senior living placement. 3. Cardiomyopathy 4. Chronic hypotension maintained on midodrine 5. Fluid overload slowly improving. We have been able to get about 4 L with each treatment for the last few hemodialysis treatments 6. Anemia of chronic disease maintained on Aranesp 7. CK D bone mineral disorder maintained on PhosLo. Plan Dialysis will be on Tuesday , await senior living placement.
--- NOTE | 2017-05-28 09:38 | PN ---
PROGRESS NOTE The patient is seen for followup for end-stage renal disease. He is currently lying in bed, comfortable. He is being started on dialysis. Patient denies any complaints. Multiple social issues being taken care of currently. EXAMINATION: Blood pressure is 90/55, heart rate 104 per minute. Patient is afebrile. Examination of the heart: S1, S2. Examination of the lungs: Decreased breath sounds at bases. Abdomen is soft, morbidly obese. Examination lower extremity shows edema 2+ bilaterally with chronic skin changes. LABS: Sodium 134, potassium 4.6. ASSESSMENT: 1. End-stage renal disease, on hemodialysis on a Tuesday, Tuesday, Tuesday schedule. 2. Cardiomyopathy with ejection fraction of 20%. 3. Chronic hypotension, mainly cardiogenic maintained on midodrine. 4. Multiple social issues. 5. Anemia of chronic disease. PLAN: Hemodialysis today. Possible discharge to a rehab facility. MMODL / IJN: [id number] /
[2017-05-28 12:23] LABS: Glucose,Whole Blood 160 mg/dL (75-99)
--- NOTE | 2017-05-28 15:04 | P.PN ---
Subjective Mrs. 67-year-old gentleman with history of ESRD on hemodialysis Tuesday this was apparently after an episode of multiorgan failure back in 2014 Patient is also noted to have an ejection fraction of about 20%, atrial fibrillation patient was recently admitted to the [facility] for possible rehab thereafter discharged. Patient comes in to the hospital with the difficulty breathing that has been persistent for the last few hours. In the emergency room patient was noted to have a BNP elevated 44,000 chest x-ray showed some chronic changes however is not very impressive for pulmonary vessel congestion patient appears to have some dyspnea at rest Unsure if this is chronic in nature patient was admitted to the hospital for possible early CHF evaluation in the emergency room At this time patient is on minimal amounts of supplemental oxygen. Patient also complains of orthopnea and PND over the recent times INR is appropriate. 2016 Patient was seen during hemodialysis. Is stable denies having any additional complaints. This chest pain difficulty breathing nausea vomiting diarrhea is laying flat during the time of my evaluation Denies cough or any sputum production at this time. 05/24/17 Patient is on room air. States to have some dyspnea intermittently is able to lay flat denies having chest pain headaches blurry vision abdominal pain diarrhea. States that he still having difficulty with ambulation. 05/25/2017 Patient sustained a fall fall this morning hitting his head. Patient underwent a computed tomography scan of the face there was some chipping of the incisors around the maxilla Denies having any headaches change in vision focal weakness nausea vomiting. Denies having chest pain difficulty in breathing. However does get dyspneic intermittently without exertion 05/26/2017 Today patient complains of some abdominal discomfort with nausea. Apparently patient has a guardian as there was some concern about patient not having the resources to live. Apparently him and his have been living in a car. 05/27/2017 No new overnight events. Patient does not have any new complaints at this time Continues to have intermittent dyspnea. No bleeding is reported. 90 05/28/2017 Patient is doing well however states to poor appetite no headaches chest pain difficulty breathing nausea vomiting abdominal pain is reported Review of systems a 14 point review of systems was done nonpertinent then all as mentioned above. Gen. appearance alert oriented 3 Neck is supple no JVD Lungs good air movement no rhonchi or wheezing or crackles Ecchymosis on the frontal region Oral cavity bright blood noted no active bleeding is appreciated Heart irregularly irregular no murmurs appreciated Abdomen soft nontender no organomegaly Lower extremities chronic skin changes no significant edema Neuro no focal deficits noted. Assessment and plan #1 dyspnea of unknown etiology #2 early systolic congestive heart failure that is acute on chronic #3 atrial fibrillation #4 ESRD and hemodialysis #5 acute blood loss anemia likely from external hemorrhoids #6 history of CAD #7 episodes of hypotension #8 acute hepatitis this is likely due to episodes of hypotension patient continues to have episodes of hypotension. Plan Increase Midrin to 10 3 times a day Hold metoprolol at this time Continue ongoing care fall precautions Patient will need outpatient follow up with oral surgery for his recent fall an tooth fractures Discharge to [place] on Tuesday Objective - Vital Signs Vital signs: Vital Signs Temp 97.7 F 05/28/17 12:32 Pulse 91 05/28/17 12:32 Resp 16 05/28/17 12:32 BP 78/53 05/28/17 12:32 Pulse Ox 100 05/28/17 12:32 Intake & Output 05/27/17 05/28/17 05/28/17 18:59 06:59 18:59 Intake Total 450 200 118 Balance 450 200 118 Weight 127.5 kg Intake: Oral 450 200 118 Other: Voiding Method Bedside Commode Bedside Commode Urinal Urinal # Voids 0 1 # Bowel Movements 1 - Labs CBC & Chem 7: 05/28/17 06:03 05/28/17 06:03 Labs: Abnormal Lab Results - Last 24 Hours (Table) 05/27/17 05/27/17 05/28/17 Range/Units 16:31 20:32 05:47 WBC (3.8-10.6) k/uL RBC (4.30-5.90) m/uL Hgb (13.0-17.5) gm/dL Hct (39.0-53.0) % MCV (80.0-100.0) fL RDW (11.5-15.5) % Neutrophils # (1.3-7.7) k/uL PT (9.0-12.0) sec INR (<1.2) Sodium (137-145) mmol/L Chloride (98-107) mmol/L BUN (9-20) mg/dL Creatinine (0.66-1.25) mg/dL POC Glucose (mg/dL) 103 H 127 H 109 H (75-99) mg/dL Calcium (8.4-10.2) mg/dL AST (17-59) U/L ALT (21-72) U/L Alkaline Phosphatase (38-126) U/L Total Protein (6.3-8.2) g/dL 05/28/17 05/28/17 05/28/17 Range/Units 06:03 06:03 06:03 WBC 11.9 H (3.8-10.6) k/uL RBC 2.93 L (4.30-5.90) m/uL Hgb 9.8 L (13.0-17.5) gm/dL Hct 30.1 L (39.0-53.0) % MCV 102.6 H (80.0-100.0) fL RDW 18.3 H (11.5-15.5) % Neutrophils # 9.5 H (1.3-7.7) k/uL PT 29.3 H (9.0-12.0) sec INR 3.0 H (<1.2) Sodium 135 L (137-145) mmol/L Chloride 95 L (98-107) mmol/L BUN 53 H (9-20) mg/dL Creatinine 8.50 H* (0.66-1.25) mg/dL POC Glucose (mg/dL) (75-99) mg/dL Calcium 8.1 L (8.4-10.2) mg/dL AST 392 H (17-59) U/L ALT 736 H (21-72) U/L Alkaline Phosphatase 275 H (38-126) U/L Total Protein 6.2 L (6.3-8.2) g/dL 05/28/17 Range/Units 12:04 WBC (3.8-10.6) k/uL RBC (4.30-5.90) m/uL Hgb (13.0-17.5) gm/dL Hct (39.0-53.0) % MCV (80.0-100.0) fL RDW (11.5-15.5) % Neutrophils # (1.3-7.7) k/uL PT (9.0-12.0) sec INR (<1.2) Sodium (137-145) mmol/L Chloride (98-107) mmol/L BUN (9-20) mg/dL Creatinine (0.66-1.25) mg/dL POC Glucose (mg/dL) 160 H (75-99) mg/dL Calcium (8.4-10.2) mg/dL AST (17-59) U/L ALT (21-72) U/L Alkaline Phosphatase (38-126) U/L Total Protein (6.3-8.2) g/dL
[2017-05-28] MEDS: WARFARIN 2.5 MG TAB PO SCH (17:22)
[2017-05-28] MEDS: ATORVASTATIN 40 MG TAB PO SCH (21:23)
[2017-05-29 05:55] VITALS: RESP 18
[2017-05-29] MEDS: MIDODRINE 5 MG TAB PO SCH ×3 (06:17→16:43)
[2017-05-29] MEDS: ESCITALOPRAM 5 MG TAB PO SCH (06:17)
[2017-05-29] MEDS: CALCIUM ACETATE 667 MG CAP PO SCH ×3 (06:18→16:43)
[2017-05-29] MEDS: PANTOPRAZOLE 40 MG TABLET PO SCH (06:18)
[2017-05-29 06:27] LABS: INR 3.8 (<1.2)
[2017-05-29] MEDS: FOLIC ACID-VIT B COMPLEX-VIT C 1 CAP PO SCH (08:10)
[2017-05-29] MEDS: METOPROLOL TARTRATE 12.5 MG TAB PO SCH ×2 (08:14→22:14)
--- NOTE | 2017-05-29 15:19 | PN ---
PROGRESS NOTE Patient is seen for followup for end-stage renal disease. He is currently lying in bed. The patient is scheduled for hemodialysis tomorrow. He will be going to extended care facility. EXAMINATION: Blood pressure is 82/54, heart rate 74 per minute. He is afebrile. Examination of the heart: S1, S2. Examination of the lungs: Bilateral breath sounds are heard. Abdomen is soft, obese. Examination lower extremity shows chronic skin changes. Decreasing edema is noted. LABS: Sodium 135, potassium 4.9, hemoglobin 9.8 g/dL. ASSESSMENT: 1. End-stage renal disease, on hemodialysis on a Tuesday, Tuesday, Tuesday schedule. 2. Chronic hypotension. Maintained on midodrine. 3. Fluid overload, currently improved. 4. Generalized debility. The patient will be going to extended care facility. 5. Elevated transaminases secondary to hypoperfusion. PLAN: Hemodialysis in a.m. We need to be careful with anticoagulation given his predisposition to falls and chronic low blood pressure. MMODL / IJN: [id number] /
[2017-05-29] MEDS: WARFARIN 2.5 MG TAB PO SCH (16:40)
--- NOTE | 2017-05-29 17:41 | P.PN ---
Subjective Mrs. 67-year-old gentleman with history of ESRD on hemodialysis Tuesday this was apparently after an episode of multiorgan failure back in 2014 Patient is also noted to have an ejection fraction of about 20%, atrial fibrillation patient was recently admitted to the [facility] for possible rehab thereafter discharged. Patient comes in to the hospital with the difficulty breathing that has been persistent for the last few hours. In the emergency room patient was noted to have a BNP elevated 44,000 chest x-ray showed some chronic changes however is not very impressive for pulmonary vessel congestion patient appears to have some dyspnea at rest Unsure if this is chronic in nature patient was admitted to the hospital for possible early CHF evaluation in the emergency room At this time patient is on minimal amounts of supplemental oxygen. Patient also complains of orthopnea and PND over the recent times INR is appropriate. 2016 Patient was seen during hemodialysis. Is stable denies having any additional complaints. This chest pain difficulty breathing nausea vomiting diarrhea is laying flat during the time of my evaluation Denies cough or any sputum production at this time. 05/24/17 Patient is on room air. States to have some dyspnea intermittently is able to lay flat denies having chest pain headaches blurry vision abdominal pain diarrhea. States that he still having difficulty with ambulation. 05/25/2017 Patient sustained a fall fall this morning hitting his head. Patient underwent a computed tomography scan of the face there was some chipping of the incisors around the maxilla Denies having any headaches change in vision focal weakness nausea vomiting. Denies having chest pain difficulty in breathing. However does get dyspneic intermittently without exertion 05/26/2017 Today patient complains of some abdominal discomfort with nausea. Apparently patient has a guardian as there was some concern about patient not having the resources to live. Apparently him and his have been living in a car. 05/27/2017 No new overnight events. Patient does not have any new complaints at this time Continues to have intermittent dyspnea. No bleeding is reported. 90 05/28/2017 Patient is doing well however states to poor appetite no headaches chest pain difficulty breathing nausea vomiting abdominal pain is reported Review of systems a 14 point review of systems was done nonpertinent then all as mentioned above. Gen. appearance alert oriented 3 Neck is supple no JVD Lungs good air movement no rhonchi or wheezing or crackles Ecchymosis on the frontal region Oral cavity bright blood noted no active bleeding is appreciated Heart irregularly irregular no murmurs appreciated Abdomen soft nontender no organomegaly Lower extremities chronic skin changes no significant edema Neuro no focal deficits noted. Assessment and plan #1 dyspnea of unknown etiology #2 early systolic congestive heart failure that is acute on chronic #3 atrial fibrillation #4 ESRD and hemodialysis #5 acute blood loss anemia likely from external hemorrhoids #6 history of CAD #7 episodes of hypotension #8 acute hepatitis this is likely due to episodes of hypotension patient continues to have episodes of hypotension. Plan Increase Midrin 10mg tid Repeat liver functions tomorrow. Patient continues to have episodes of low blood pressure if transaminases are improved could likely be discharged on the current medication regimen however if they worsen admitted initiated workup including a cortisol level in the a.m. Patient does have severe LV dysfunction however this is slightly worse and in the past causing some degree of hepatic hypoperfusion patient's prognosis needs to be addressed at that time. Patient will need outpatient follow up with oral surgery for his recent fall an tooth fractures Discharge to [place] on Tuesday Objective - Vital Signs Vital signs: Vital Signs Temp 97.5 F L 05/29/17 16:00 Pulse 79 05/29/17 16:00 Resp 18 05/29/17 16:00 BP 83/59 05/29/17 16:00 Pulse Ox 98 05/29/17 17:09 Intake & Output 05/28/17 05/29/17 05/29/17 18:59 06:59 18:59 Intake Total 318 436 Output Total 300 Balance 318 -300 436 Weight 119 kg Intake: Oral 318 436 Output: Urine 300 Other: Voiding Method Bedside Commode Bedside Commode Bedside Commode Urinal Urinal Urinal # Voids 2 1 1 # Bowel Movements 1 1 1 - Labs CBC & Chem 7: 05/28/17 06:03 05/28/17 06:03 Labs: Abnormal Lab Results - Last 24 Hours (Table) 05/29/17 Range/Units 05:35 PT 37.0 H (9.0-12.0) sec INR 3.8 H (<1.2)
[2017-05-29] MEDS: ATORVASTATIN 40 MG TAB PO SCH (22:13)
[2017-05-30 06:20] LABS: Anisocytosis Slight; Basophils # (A) 0.1 k/uL (0-0.2); Basophils % (A) 1 %; CH 33.3; CHCM 33.1; Eosinophils # (A) 0.2 k/uL (0-0.7); Eosinophils % (A) 2 %; HCT 30.3 % (39.0-53.0); HDW 3.42; HGB 9.7 gm/dL (13.0-17.5); Hypochromasia Slight; Luc # (Auto) 0.19; Luc % (Auto) 2; Lymphocytes # (A) 1.1 k/uL (1.0-4.8); Lymphocytes % (A) 9 %; MCH 32.6 pg (25.0-35.0); MCV 101.9 fL (80.0-100.0); Macrocytosis Moderate; Monocytes # (A) 0.8 k/uL (0-1.0); Monocytes % (A) 7 %; Neutrophils # (A) 8.9 k/uL (1.3-7.7); Neutrophils % (A) 80 %; Poikilocytosis Slight; RBC 2.97 m/uL (4.30-5.90); RDW 19.1 % (11.5-15.5); WBC 11.2 k/uL (3.8-10.6)
[2017-05-30 06:24] LABS: INR 4.1 (<1.2); Prothrombin Time 40.7 sec (9.0-12.0)
[2017-05-30 06:25] LABS: Calcium 7.9 mg/dL (8.4-10.2); Potassium 5.6 mmol/L (3.5-5.1); Total Bilirubin 0.9 mg/dL (0.2-1.3); Total Protein 6.1 g/dL (6.3-8.2)
[2017-05-30] MEDS: ESCITALOPRAM 5 MG TAB PO SCH (06:58)
[2017-05-30] MEDS: MIDODRINE 5 MG TAB PO SCH ×3 (06:58→15:22)
[2017-05-30] MEDS: PANTOPRAZOLE 40 MG TABLET PO SCH (06:58)
[2017-05-30] MEDS: CALCIUM ACETATE 667 MG CAP PO SCH ×3 (06:58→18:08)
[2017-05-30 11:39] VITALS: BMI 34.9
[2017-05-30 13:23] LABS: Hepatitis B Surface Ag Index 0.06
--- NOTE | 2017-05-30 13:56 | P.PN ---
Subjective patient with a history of end-stage renal disease and can start failure is admitted for CHF exacerbation and patient is undergoing hemodialysis today. And patient is awaiting disposition to subacute rehabitation. Patient denied any shortness of breath, chest pain, nausea, abdominal pain, fever, chills. Objective - Vital Signs Vital signs: Vital Signs Temp 97.8 F 05/30/17 11:59 Pulse 75 05/30/17 11:59 Resp 18 05/30/17 11:59 BP 96/63 05/30/17 11:59 Pulse Ox 93 L 05/30/17 11:59 Intake & Output 05/29/17 05/30/17 05/30/17 18:59 06:59 18:59 Intake Total 556 0 Output Total 75 Balance 556 -75 0 Weight 123.4 kg 123.4 kg Intake: IV 0 .9 0 Oral 556 Output: Urine 75 Other: Voiding Method Bedside Commode Bedside Commode Bedside Commode Urinal Urinal Urinal # Voids 1 1 # Bowel Movements 1 1 - Exam PHYSICAL EXAMINATION: GENERAL: The patient is alert and oriented x3, not in any acute distress. Well developed, well nourished. HEENT: Pupils are round and equally reacting to light. EOMI. No scleral icterus. No conjunctival pallor. Normocephalic, atraumatic. No pharyngeal erythema. No thyromegaly. CARDIOVASCULAR: S1 and S2 present. No murmurs, rubs, or gallops. PULMONARY: Chest is clear to auscultation, no wheezing or crackles. ABDOMEN: Soft, nontender, nondistended, normoactive bowel sounds. No palpable organomegaly. MUSCULOSKELETAL: No joint swelling or deformity. EXTREMITIES: No cyanosis, clubbing, or pedal edema. NEUROLOGICAL: Gross neurological examination did not reveal any focal deficits. SKIN: No rashes. - Labs CBC & Chem 7: 05/30/17 05:38 05/30/17 05:38 Labs: Abnormal Lab Results - Last 24 Hours (Table) 05/30/17 05/30/17 05/30/17 Range/Units 05:38 05:38 05:38 WBC 11.2 H (3.8-10.6) k/uL RBC 2.97 L (4.30-5.90) m/uL Hgb 9.7 L (13.0-17.5) gm/dL Hct 30.3 L (39.0-53.0) % MCV 101.9 H (80.0-100.0) fL RDW 19.1 H (11.5-15.5) % Neutrophils # 8.9 H (1.3-7.7) k/uL PT 40.7 H (9.0-12.0) sec INR 4.1 H (<1.2) Sodium 130 L (137-145) mmol/L Potassium 5.6 H (3.5-5.1) mmol/L Chloride 91 L (98-107) mmol/L Carbon Dioxide 21 L (22-30) mmol/L BUN 82 H* (9-20) mg/dL Creatinine 11.40 H* (0.66-1.25) mg/dL Calcium 7.9 L (8.4-10.2) mg/dL AST 259 H (17-59) U/L ALT 712 H (21-72) U/L Alkaline Phosphatase 270 H (38-126) U/L Total Protein 6.1 L (6.3-8.2) g/dL Albumin 3.4 L (3.5-5.0) g/dL Assessment and Plan Plan: #1 acute hypoxic respiratory failure probably secondary to pulmonary edema which is again secondary to congestive heart failure chronic systolic dysfunction with acute exacerbation and patient is presently undergoing hemodialysis patient was pretty status is fairly stable awaiting disposition to subacute rehabitation #2 early systolic congestive heart failure that is acute on chronic #3 atrial fibrillation: Rate controlled at this point of time, on Coumadin and INR is supratherapeutic because of which will hold off" and patient may require 2.5 mg of Coumadin upon discharge and patient had an acute bleed due to external hemorrhoids which is again secondary to elevated INR most probably #4 ESRD and hemodialysis #5 acute blood loss anemia likely from external hemorrhoids #6 history of CAD #7 episodes of hypotension #8 acute hepatitis this is likely due to episodes of hypotension patient continues to have episodes of hypotension. patient is awaiting disposition to subacute rehabilitation
[2017-05-30] MEDS: METOPROLOL TARTRATE 12.5 MG TAB PO SCH ×2 (15:17→20:15)
[2017-05-30] MEDS: DARBEPOETIN ALFA 40 MCG/0.4 ML SYRINGE SQ SCH (15:18)
[2017-05-30] MEDS: FOLIC ACID-VIT B COMPLEX-VIT C 1 CAP PO SCH (15:18)
--- NOTE | 2017-05-30 19:14 | PN ---
PROGRESS NOTE Patient is seen on hemodialysis. He is tolerating his treatment very well. Systolic blood pressure is about 99 mmHg. We are trying for about 4 L. Patient is maintained on sodium modeling. He has tolerated ultrafiltration of up to 3 L during his past treatments for the week. PHYSICAL EXAMINATION: On examination, blood pressure is 99/65, heart rate 77 per minute. He is afebrile. Examination shows chronic skin changes in the lower extremities with edema 1+ bilaterally. Abdomen is soft, obese, nontender. Right arm access is running well. LABS: Sodium 130, potassium 5.6, BUN 82, serum creatinine 11.4, hemoglobin 9.7 g/dL. ASSESSMENT: 1. End-stage renal disease, on hemodialysis on a Tuesday, Tuesday, Tuesday schedule. 2. Generalized debility and history of falls. Patient will be placed in ECF. 3. Hyperkalemia. Expect improvement with dialysis. 4. Fluid overload, currently significantly improved from 1 week ago. 5. Anemia of chronic disease, maintained on Aranesp. PLAN: Hemodialysis today. If patient is discharged, he will follow up as outpatient for his regular dialysis treatment on Tuesday. MMODL / KIMN: [id number] /
[2017-05-30] MEDS: ATORVASTATIN 40 MG TAB PO SCH (20:15)
[2017-05-31 07:15] LABS: Prothrombin Time 29.3 sec (9.0-12.0)
[2017-05-31 08:04] VITALS: TEMP 96
[2017-05-31] MEDS: MIDODRINE 5 MG TAB PO SCH ×2 (08:45→12:21)
[2017-05-31] MEDS: CALCIUM ACETATE 667 MG CAP PO SCH ×2 (08:45→12:20)
[2017-05-31] MEDS: ESCITALOPRAM 5 MG TAB PO SCH (08:45)
[2017-05-31] MEDS: FOLIC ACID-VIT B COMPLEX-VIT C 1 CAP PO SCH (08:46)
[2017-05-31] MEDS: PANTOPRAZOLE 40 MG TABLET PO SCH (08:46)
[2017-05-31] MEDS: METOPROLOL TARTRATE 12.5 MG TAB PO SCH (10:50)
[2017-05-31 10:52] VITALS: BP 97/70; PULSE 100
--- NOTE | 2017-05-31 12:38 | P.DS ---
Providers Date of admission: 05/22/17 10:47 Expected date of discharge: 05/31/17 Attending physician: MD Dr. Brian Reyes Consults: 05/22/17 10:47 Consult Physician Routine Consulting Provider: Sumeet Avalos Consult Reason/Comments: renal failure Do you want consulting provider notified?: Already Contacted 05/25/17 15:06 Consult Physician Routine Consulting Provider: Macho Mcnulty Consult Reason/Comments: Fx maxilla from fall Do you want consulting provider notified?: Yes Primary care physician: [facility] Course: Final Diagnoses: #1 acute hypoxic respiratory failure secondary to acute on chronic congestive heart failure systolic dysfunction, EF 20% #2atrial fibrillation; patient had an acute bleed due to external hemorrhoids which is again secondary to elevated INR most probably #4 ESRD and hemodialysis #5 acute blood loss anemia likely from external hemorrhoids #6 history of CAD #7 episodes of hypotension #8 acute hepatitis this is likely due to episodes of hypotension patient continues to have episodes of hypotension. Hospital course: This is a 67-year-old gentleman admitted with end-stage renal disease, admitted for CHF exacerbation. Patient is also noted to have an ejection fraction of about 20%. BNP elevated 44,000, chest x-ray reporting increased opacity at the right lung base and retrocardiac region, adjacent atelectasis, edema. Initially treated with Lasix IV push, followed by hemodialysis. Significant clinical improvement. Patient is to also follow-up with Dr. Mcnulty regarding extraction of displaced teeth. Patient has been cleared by all consults for discharge. Patient is being discharged to [facility], in a stable condition with guarded prognosis. The impression and plan of care has been dictated as directed as a scribe. : I performed a H&P examination of this patient and discussed the same with the dictator. I agree with the dictator's note. Any additional findings/opinions/ etc. will be noted. Patient Condition at Discharge: Stable Plan - Discharge Summary New Discharge Prescriptions: New Darbepoetin Daniel [Aranesp] 40 mcg SQ Q7D syr Ipratropium-Albuterol Nebulize [Duoneb 0.5 mg-3 mg/3 ml Soln] 3 ml INHALATION RT-QID neb Continue Pantoprazole [Protonix] 40 mg PO DAILY Calcium Acetate [PhosLo] 1,334 mg PO TID-W/MEALS Midodrine [ProAmatine] 5 mg PO TID Metoprolol Tartrate [Lopressor] 12.5 mg PO BID Escitalopram [Lexapro] 15 mg PO AC-BRKFST Atorvastatin [Lipitor] 40 mg PO HS B Complex W-C No.20/Folic Acid [Renal Caps Softgel] 1 mg PO DAILY Changed Warfarin [Coumadin] 2.5 mg PO DAILY #0 Discontinued Warfarin Sodium [Coumadin] 5 mg PO MO Albuterol Inhaler [Ventolin Hfa Inhaler] 1 - 2 puff INHALATION RT-Q6H PRN PRN Reason: Shortness Of Breath Discharge Medication List Pantoprazole [Protonix] 40 mg PO DAILY 12/26/15 [History] Calcium Acetate [PhosLo] 1,334 mg PO TID-W/MEALS 11/17/16 [History] Metoprolol Tartrate [Lopressor] 12.5 mg PO BID 03/04/17 [History] Midodrine [ProAmatine] 5 mg PO TID 03/04/17 [History] Atorvastatin [Lipitor] 40 mg PO HS 05/22/17 [History] B Complex W-C No.20/Folic Acid [Renal Caps Softgel] 1 mg PO DAILY 05/22/17 [ History] Escitalopram [Lexapro] 15 mg PO AC-BRKFST 05/22/17 [History] Darbepoetin Daniel [Aranesp] 40 mcg SQ Q7D syr 05/31/17 [Rx] Ipratropium-Albuterol Nebulize [Duoneb 0.5 mg-3 mg/3 ml Soln] 3 ml INHALATION RT -QID neb 05/31/17 [Rx] Warfarin [Coumadin] 2.5 mg PO DAILY #0 05/31/17 [Rx] Follow up Appointment(s)/Referral(s): Radha Justice MD [STAFF PHYSICIAN] - 1 Week Apollo Corbett DO [STAFF PHYSICIAN] - 3 Days (while at [facility]) Macho Mcnulty DDS [STAFF PHYSICIAN] - 1 Week (please schedule apt. before dc.) Jose Nix DO [Primary Care Provider] - 1 Week (after dc from ECF) Activity/Diet/Wound Care/Special Instructions: Diet: Soft mechanical, Activity: As tolerated CBC, BMP in 3 days Hemodialysis as per nephrology
--- NOTE | 2017-06-01 08:43 | PN ---
PROGRESS NOTE Patient is seen for followup for end-stage renal disease. He was dialyzed yesterday. Patient is lying in bed. He is comfortable. He is not in any acute distress. Blood pressure is 97/70, heart rate 100 per minute. He is afebrile. Examination shows patient is resting comfortably. Lungs are clear. His lower extremity shows chronic skin changes, chronic edema, which has improved significantly during his hospitalization. LABS: Reviewed. Potassium is 5.6 from yesterday. Hemoglobin was 9.7 g/dL yesterday. ASSESSMENT: 1. End-stage renal disease, on hemodialysis on a Tuesday, Tuesday, Tuesday schedule. 2. Chronic hypotension, maintained on midodrine. 3. Hyperkalemia, status post-dialysis yesterday. 4. Generalized debility, being transferred to rehab facility. PLAN: Patient can be discharged from nephrology standpoint. He will follow up as outpatient for dialysis on Tuesday. MMMARINAL / KIMN: [id number] /
== END 2017-05-31 15:57 | DRG 291 ==
LOC: EC 07:29 → EEVIPCON 10:47 → 6SEL 10:47
PROVIDERS: ADMIT Internal Medicine; ATTEND Internal Medicine
PROC: 5A1D60Z (ICD-10-PCS; principal; 2017-05-23)
DX: I13.2 Hypertensive heart and chronic kidney disease with heart failure and with stage 5 chronic kidney disease, or end stage renal disease (principal); J96.01 Acute respiratory failure with hypoxia; I95.89 Other hypotension; N18.6 End stage renal disease; E87.5 Hyperkalemia; E66.01 Morbid (severe) obesity due to excess calories; I50.23 Acute on chronic systolic (congestive) heart failure; B17.9 Acute viral hepatitis, unspecified; J98.11 Atelectasis; S02.42XA Fracture of alveolus of maxilla, initial encounter for closed fracture; I48.91 Unspecified atrial fibrillation; K64.4 Residual hemorrhoidal skin tags; I25.10 Atherosclerotic heart disease of native coronary artery without angina pectoris; D63.1 Anemia in chronic kidney disease; I42.9 Cardiomyopathy, unspecified; R79.1 Abnormal coagulation profile; D50.0 Iron deficiency anemia secondary to blood loss (chronic); K21.9 Gastro-esophageal reflux disease without esophagitis; Z79.51 Long term (current) use of inhaled steroids; Z99.2 Dependence on renal dialysis; Z79.899 Other long term (current) drug therapy; Z79.01 Long term (current) use of anticoagulants; Z95.810 Presence of automatic (implantable) cardiac defibrillator; Z87.891 Personal history of nicotine dependence; Z80.9 Family history of malignant neoplasm, unspecified; Z91.81 History of falling; W06.XXXA Fall from bed, initial encounter; Y92.230 Patient room in hospital as the place of occurrence of the external cause
CPT/HCPCS: 36415; 70355; 70486; 71010; 71020; 76705; 80051; 80053; 82533; 82550; 82553; 83540; 83550; 83735; 83880; 84100; 84484; 85025; 85379; 85610; 85730; 86850; 86900; 86901; 87340; 90935; 93005; 94640; 94760; 96374; 99285

== ENCOUNTER 2017-07-04 21:36 | Inpatient (IN) | payer OTHER, MEDICARE ==
[2017-07-04 22:03] LABS: Glucose,Whole Blood 137 mg/dL (75-99)
[2017-07-04] MEDS ORDERED: SODIUM CHLORIDE 0.9% 500 ML IV ONE (22:05)
--- NOTE | 2017-07-04 22:07 | ED ---
General Adult HPI - General Chief complaint: Fall Stated complaint: FALL Time Seen by Provider: 07/04/17 21:45 Source: patient, EMS, RN notes reviewed Mode of arrival: EMS Limitations: no limitations - History of Present Illness Initial comments: This is a 67-year-old male who presents emergency department because of hypotension generalized weakness. Patient has had multiple falls the last being 3 days ago. And according to his is not getting any physical rehab and [facility] and because of this is like some more swollen and more red and he is becoming weaker and weaker. Patient has a history of heart failure dialysis and A. fib. Patient has no complaints of pain he denies chest pain denies headache denies abdominal pain. Patient denies any shortness of breath or difficulty breathing. Patient denies any recent fever chills or cough. Patient denies any vomiting or diarrhea. Patient states she is becoming weaker and weaker and more lightheaded anytime he stands and is afraid he'll fall again. Patient states his last fall he had not had any injury. - Related Data Home Medications Medication Instructions Recorded Confirmed Calcium Acetate [PhosLo] 1,334 mg PO TID-W/MEALS 11/17/16 07/04/17 Metoprolol Tartrate [Lopressor] 12.5 mg PO BID 03/04/17 07/04/17 Escitalopram [Lexapro] 15 mg PO AC-BRKFST 05/22/17 07/04/17 Atorvastatin [Lipitor] 40 mg PO HS 07/04/17 07/04/17 Docusate [Colace] 100 mg PO BID PRN 07/04/17 07/04/17 Midodrine HCl [ProAmatine] 10 mg PO TID 07/04/17 07/04/17 Omeprazole 20 mg PO HS 07/04/17 07/04/17 Sodium Bicarbonate Tab 650 mg PO QAM 07/04/17 07/04/17 Vitamin B Complex 1 cap PO DAILY 07/04/17 07/04/17 Previous Rx's Medication Instructions Recorded Ipratropium-Albuterol Nebulize 3 ml INHALATION RT-QID neb 05/31/17 [Duoneb 0.5 mg-3 mg/3 ml Soln] Warfarin [Coumadin] 2.5 mg PO DAILY #0 05/31/17 Allergies Allergy/AdvReac Type Severity Reaction Status Date / Time No Known Allergies Allergy Verified 07/04/17 21:49 Review of Systems ROS Statement: Those systems with pertinent positive or pertinent negative responses have been documented in the HPI. ROS Other: All systems not noted in ROS Statement are negative. Past Medical History Past Medical History: Atrial Fibrillation, Heart Failure, Dialysis, GERD/Reflux , Renal Disease Additional Past Medical History / Comment(s): SEE DR VENTURA H&P, BLOOD CLOT IN PAST NOT SURE WHERE, ESSENTIAL TREMORS, CHRONIC RENAL FAILURE, HEMODIALYSIS, MON.WED.TUE. History of Any Multi-Drug Resistant Organisms: None Reported Past Surgical History: AICD, Pacemaker Additional Past Surgical History / Comment(s): COLONOSCOPY, EGD, TEETH REMOVED, CARDIOVERSION, FISTULA RT UPPER ARM FOR HEMODIALYSIS, PREVIOUS CATHETER IN NECK FOR HEMODIALYSIS NOW REMOVED Past Anesthesia/Blood Transfusion Reactions: No Reported Reaction Type of Cardiac Device: AICD Device Placement Date:: may 2016 Past Psychological History: No Psychological Hx Reported Smoking Status: Former smoker Past Alcohol Use History: None Reported, Occasional, Rare Past Drug Use History: None Reported - Past Family History Sister(s) Family Medical History: Cancer Mother Family Medical History: No Reported History Additional Family Medical History / Comment(s): SMOKER Father Family Medical History: Cancer Additional Family Medical History / Comment(s): SMOKER, PALPATATIONS General Exam - General Exam Comments Initial Comments: GENERAL: Patient is well-developed and well-nourished. Patient is nontoxic and well- hydrated and is in mild distress. ENT: Neck is soft and supple. No significant lymphadenopathy is noted. Oropharynx is clear. Moist mucous membranes. Neck has full range of motion without eliciting any pain. EYES: The sclera were anicteric and conjunctiva were pink and moist. Extraocular movements were intact and pupils were equal round and reactive to light. Eyelids were unremarkable. PULMONARY: Unlabored respirations. Good breath sounds bilaterally. No audible rales rhonchi or wheezing was noted. CARDIOVASCULAR: There is a regular rate and rhythm without any murmurs gallops or rubs. ABDOMEN: Soft and nontender with normal bowel sounds. No palpable organomegaly was noted. There is no palpable pulsatile mass. SKIN: Patient's legs are both erythematous right greater than left NEUROLOGIC: Patient is alert and oriented x3. Cranial nerves II through XII are grossly intact. Motor and sensory are also intact. Normal speech, volume and content. Symmetrical smile. MUSCULOSKELETAL: Normal extremities with adequate strength and full range of motion. Patient has 2+ edema bilateral his right leg is extremely erythematous left leg is mildly erythematous. Patient has open sores on both legs. LYMPHATICS: No significant lymphadenopathy is noted PSYCHIATRIC: Normal psychiatric evaluation. Normal interpersonal interactions appears functionally intact in deals appropriately with others. No signs of depression. No signs of anxiety. Limitations: no limitations Course Vital Signs 07/04/17 07/04/17 07/04/17 21:44 22:03 22:58 Temperature 97.2 F L 97.0 F L Pulse Rate 96 101 H 92 Respiratory 18 18 16 Rate Blood Pressure 74/51 84/60 85/55 O2 Sat by Pulse 100 97 100 Oximetry 07/04/17 22:59 Temperature Pulse Rate 96 Respiratory 20 Rate Blood Pressure 91/63 O2 Sat by Pulse 97 Oximetry Medical Decision Making - Medical Decision Making EKG shows A. fib at 80 beats a minute QRS is under QT intervals 46 QTC is 491. Patient has no ST segment elevation or depression. Patient states his blood pressure systolic is between 70s and 80s normally. - Lab Data Result diagrams: 07/04/17 22:11 07/04/17 22:11 Lab Results 07/04/17 07/04/17 07/04/17 Range/Units 21:59 22:11 22:11 WBC 8.6 (3.8-10.6) k/uL RBC 4.30 (4.30-5.90) m/uL Hgb 13.9 (13.0-17.5) gm/dL Hct 46.7 (39.0-53.0) % MCV 108.8 H (80.0-100.0) fL MCH 32.3 (25.0-35.0) pg MCHC 29.7 L (31.0-37.0) g/dL RDW 20.4 H (11.5-15.5) % Plt Count 188 (150-450) k/uL Neutrophils % 76 % Lymphocytes % 13 % Monocytes % 7 % Eosinophils % 1 % Basophils % 1 % Neutrophils # 6.6 (1.3-7.7) k/uL Lymphocytes # 1.2 (1.0-4.8) k/uL Monocytes # 0.6 (0-1.0) k/uL Eosinophils # 0.1 (0-0.7) k/uL Basophils # 0.1 (0-0.2) k/uL Manual Slide Review Performed Large Platelets Present Polychromasia Present Hypochromasia Marked Poikilocytosis Slight Anisocytosis Moderate Macrocytosis Marked Spherocytes Present PT (9.0-12.0) sec INR (<1.2) APTT (22.0-30.0) sec Sodium (137-145) mmol/L Potassium (3.5-5.1) mmol/L Chloride (98-107) mmol/L Carbon Dioxide (22-30) mmol/L Anion Gap mmol/L BUN (9-20) mg/dL Creatinine (0.66-1.25) mg/dL Est GFR (MDRD) Af Amer (>60 ml/min/1.73 sqM) Est GFR (MDRD) Non-Af (>60 ml/min/1.73 sqM) Glucose (74-99) mg/dL POC Glucose (mg/dL) 137 H (75-99) mg/dL POC Glu Production Sampler ID Yanna Elke Plasma Lactic Acid Maciel (0.7-2.0) mmol/L Calcium (8.4-10.2) mg/dL Magnesium (1.6-2.3) mg/dL Total Bilirubin (0.2-1.3) mg/dL AST (17-59) U/L ALT (21-72) U/L Alkaline Phosphatase (38-126) U/L Total Creatine Kinase 28 L (55-170) U/L CK-MB (CK-2) 1.8 (0.0-2.4) ng/mL CK-MB (CK-2) Rel Index 6.4 Troponin I <0.012 (0.000-0.034) ng/mL NT-Pro-B Natriuret Pep pg/mL Total Protein (6.3-8.2) g/dL Albumin (3.5-5.0) g/dL 07/04/17 07/04/17 07/04/17 Range/Units 22:11 22:11 22:11 WBC (3.8-10.6) k/uL RBC (4.30-5.90) m/uL Hgb (13.0-17.5) gm/dL Hct (39.0-53.0) % MCV (80.0-100.0) fL MCH (25.0-35.0) pg MCHC (31.0-37.0) g/dL RDW (11.5-15.5) % Plt Count (150-450) k/uL Neutrophils % % Lymphocytes % % Monocytes % % Eosinophils % % Basophils % % Neutrophils # (1.3-7.7) k/uL Lymphocytes # (1.0-4.8) k/uL Monocytes # (0-1.0) k/uL Eosinophils # (0-0.7) k/uL Basophils # (0-0.2) k/uL Manual Slide Review Large Platelets Polychromasia Hypochromasia Poikilocytosis Anisocytosis Macrocytosis Spherocytes PT 53.7 H (9.0-12.0) sec INR 5.4 H* (<1.2) APTT 31.4 H (22.0-30.0) sec Sodium 135 L (137-145) mmol/L Potassium 4.9 (3.5-5.1) mmol/L Chloride 95 L (98-107) mmol/L Carbon Dioxide 21 L (22-30) mmol/L Anion Gap 19 mmol/L BUN 59 H (9-20) mg/dL Creatinine 8.50 H* (0.66-1.25) mg/dL Est GFR (MDRD) Af Amer 8 (>60 ml/min/1.73 sqM) Est GFR (MDRD) Non-Af 6 (>60 ml/min/1.73 sqM) Glucose 147 H (74-99) mg/dL POC Glucose (mg/dL) (75-99) mg/dL POC Glu Production Sampler ID Plasma Lactic Acid Maciel 2.7 H* (0.7-2.0) mmol/L Calcium 8.3 L (8.4-10.2) mg/dL Magnesium 1.9 (1.6-2.3) mg/dL Total Bilirubin 0.8 (0.2-1.3) mg/dL AST 69 H (17-59) U/L ALT 166 H (21-72) U/L Alkaline Phosphatase 347 H (38-126) U/L Total Creatine Kinase (55-170) U/L CK-MB (CK-2) (0.0-2.4) ng/mL CK-MB (CK-2) Rel Index Troponin I (0.000-0.034) ng/mL NT-Pro-B Natriuret Pep pg/mL Total Protein 6.2 L (6.3-8.2) g/dL Albumin 3.4 L (3.5-5.0) g/dL 07/04/17 Range/Units 22:11 WBC (3.8-10.6) k/uL RBC (4.30-5.90) m/uL Hgb (13.0-17.5) gm/dL Hct (39.0-53.0) % MCV (80.0-100.0) fL MCH (25.0-35.0) pg MCHC (31.0-37.0) g/dL RDW (11.5-15.5) % Plt Count (150-450) k/uL Neutrophils % % Lymphocytes % % Monocytes % % Eosinophils % % Basophils % % Neutrophils # (1.3-7.7) k/uL Lymphocytes # (1.0-4.8) k/uL Monocytes # (0-1.0) k/uL Eosinophils # (0-0.7) k/uL Basophils # (0-0.2) k/uL Manual Slide Review Large Platelets Polychromasia Hypochromasia Poikilocytosis Anisocytosis Macrocytosis Spherocytes PT (9.0-12.0) sec INR (<1.2) APTT (22.0-30.0) sec Sodium (137-145) mmol/L Potassium (3.5-5.1) mmol/L Chloride (98-107) mmol/L Carbon Dioxide (22-30) mmol/L Anion Gap mmol/L BUN (9-20) mg/dL Creatinine (0.66-1.25) mg/dL Est GFR (MDRD) Af Amer (>60 ml/min/1.73 sqM) Est GFR (MDRD) Non-Af (>60 ml/min/1.73 sqM) Glucose (74-99) mg/dL POC Glucose (mg/dL) (75-99) mg/dL POC Glu Production Sampler ID Plasma Lactic Acid Maciel (0.7-2.0) mmol/L Calcium (8.4-10.2) mg/dL Magnesium (1.6-2.3) mg/dL Total Bilirubin (0.2-1.3) mg/dL AST (17-59) U/L ALT (21-72) U/L Alkaline Phosphatase (38-126) U/L Total Creatine Kinase (55-170) U/L CK-MB (CK-2) (0.0-2.4) ng/mL CK-MB (CK-2) Rel Index Troponin I (0.000-0.034) ng/mL NT-Pro-B Natriuret Pep 70321 pg/mL Total Protein (6.3-8.2) g/dL Albumin (3.5-5.0) g/dL Disposition Clinical Impression: Cellulitis of right leg, Chronic renal failure, Coagulopathy, Generalized weakness Disposition: ADMITTED IP TO THIS HOSP Referrals: Apollo Corbett DO [Primary Care Provider] - 1-2 days Time of Disposition: 23:40
--- NOTE | 2017-07-04 22:29 | XR ---
EXAMINATION TYPE: XR chest 2V DATE OF EXAM: 07/04/2017 COMPARISON: 05/23/2017 HISTORY: Weakness TECHNIQUE: Frontal and lateral views of the chest are obtained. FINDINGS: Heart appears enlarged. There is no heart failure. There are chest leads. There is pacemak er device noted over the sternum. There is no pleural effusion. Bony thorax is intact. IMPRESSION: Cardiomegaly. No active cardiopulmonary disease. There is clearing of right lower lobe i nfiltrate and pleural fluid compared to old exam.
[2017-07-04 22:39] LABS: Creatine Kinase 28 U/L (55-170)
[2017-07-04 22:40] LABS: Anisocytosis Moderate; Basophils # (A) 0.1 k/uL (0-0.2); Basophils % (A) 1 %; CH 32.5; CHCM 30.3; Calcium 8.3 mg/dL (8.4-10.2); Eosinophils # (A) 0.1 k/uL (0-0.7); Eosinophils % (A) 1 %; HCT 46.7 % (39.0-53.0); HDW 3.66; HGB 13.9 gm/dL (13.0-17.5); Hypochromasia Marked; Luc # (Auto) 0.16; Luc % (Auto) 2; Lymphocytes # (A) 1.2 k/uL (1.0-4.8); Lymphocytes % (A) 13 %; MCH 32.3 pg (25.0-35.0); MCHC 29.7 g/dL (31.0-37.0); MCV 108.8 fL (80.0-100.0); Macrocytosis Marked; Magnesium 1.9 mg/dL (1.6-2.3); Mean Platelet Volume 7.8; Monocytes # (A) 0.6 k/uL (0-1.0); Monocytes % (A) 7 %; Neutrophils # (A) 6.6 k/uL (1.3-7.7); Neutrophils % (A) 76 %; Poikilocytosis Slight; Potassium 4.9 mmol/L (3.5-5.1); RDW 20.4 % (11.5-15.5); Total Bilirubin 0.8 mg/dL (0.2-1.3); Total Protein 6.2 g/dL (6.3-8.2); WBC 8.6 k/uL (3.8-10.6); WBC (Perox) 8.51
[2017-07-04 22:46] LABS: Partial Thromboplastin Time 31.4 sec (22.0-30.0); Prothrombin Time 53.7 sec (9.0-12.0)
[2017-07-04] MEDS ORDERED: SODIUM CHLORIDE 0.9% 1,000 ML IV ONE ×2 (22:49→23:45)
[2017-07-04 22:52] LABS: Creatine Kinase MB 1.8 ng/mL (0.0-2.4); Troponin I <0.012 ng/mL (0.000-0.034)
[2017-07-04 22:54] LABS: INR 5.4 (<1.2)
[2017-07-04 23:01] LABS: Manual Review Performed
[2017-07-04 23:03] LABS: Large Platelets Present; Polychromasia Present
[2017-07-04 23:04] LABS: Spherocytes Present
[2017-07-04] MEDS ORDERED: AMPICILLIN-SULBACTAM 3 GM in SODIUM CHLORIDE 0.9% 100 ML IVPB STA (23:42)
[2017-07-05 05:36] VITALS: BMI 31.3
[2017-07-05] MEDS: AMPICILLIN-SULBACTAM 3 GM in SODIUM CHLORIDE 0.9% 100 ML IVPB SCH ×2 (06:26→12:00)
[2017-07-05] MEDS ORDERED: ENOXAPARIN 30 MG/0.3 ML SYRINGE SQ SCH (09:00)
[2017-07-05] MEDS ORDERED: ENOXAPARIN 40 MG/0.4 ML SYRINGE SQ SCH (09:00)
[2017-07-05] MEDS ORDERED: NON-FORMULARY DRUG (Vitamin B Complex [Vitamin B Complex] 1 TAB) PO SCH (09:00)
[2017-07-05] MEDS ORDERED: WARFARIN 5 MG TAB PO SCH (09:00)
[2017-07-05] MEDS: B COMPLEX-VIT C-VIT E-ZINC 1 EACH TAB PO SCH (09:49)
[2017-07-05] MEDS: SODIUM BICARBONATE TAB 650 MG TAB PO SCH (09:49)
--- NOTE | 2017-07-05 10:07 | P.NPCON ---
History of Present Illness - Reason for Consult end stage renal disease - History of Present Illness Reason for consultation: End-stage renal disease History of present illness: Patient is a 67-year-old male seen in renal consultation for end-stage renal disease. He is maintained on hemodialysis on a Tuesday schedule via right AV fistula. Over the last few months patient has deteriorated quite a bit. He's been sustaining multiple falls. He's been feeling progressively weaker and lightheaded. He does have severe systolic CHF with ejection fraction of 10%. He is currently residing at [facility]. According to the chart, the was concerned about his diet and progressive weakness and brought him to the hospital. She was also concerned that he may sustain another fall. Patient is awake and alert but not a very reliable historian. He denies chest pain or shortness of breath. He was also noted to have lower extremity cellulitis and is maintained on IV antibiotics. He does have chronic hypotension related to his underlying cardiac status and is maintained on midodrine as an outpatient. Denies fever or chills. He is also noted to have an elevated lactic acid level. Vital signs are stable. General: The patient appeared well nourished and normally developed. HEENT: Head exam is unremarkable. Neck is without jugular venous distension. LUNGS: Lungs are clear to auscultation and percussion. Breath sounds decreased. HEART: Rate and Rhythm are regular. First and second heart sounds normal. No murmurs, rubs or gallops. ABDOMEN: Abdominal exam reveals normal bowel sounds. Non-tender and non- distended. No evidence of peritonitis. EXTREMITITES: Bilateral lower extremity erythema noted. No obvious drainage. Trace edema. Past Medical History Past Medical History: Atrial Fibrillation, Heart Failure, Dialysis, GERD/Reflux , Renal Disease Additional Past Medical History / Comment(s): SEE DR AUDREY Zhang&Carlos, BLOOD CLOT IN PAST NOT SURE WHERE, ESSENTIAL TREMORS, CHRONIC RENAL FAILURE, HEMODIALYSIS, TUE.TUE.TUE., hypotension, hemmorhoids History of Any Multi-Drug Resistant Organisms: None Reported Past Surgical History: AICD, Pacemaker Additional Past Surgical History / Comment(s): COLONOSCOPY, EGD, TEETH REMOVED, CARDIOVERSION, FISTULA RT UPPER ARM FOR HEMODIALYSIS, PREVIOUS CATHETER IN NECK FOR HEMODIALYSIS NOW REMOVED Past Anesthesia/Blood Transfusion Reactions: No Reported Reaction Type of Cardiac Device: AICD Device Placement Date:: may 2016 Past Psychological History: Depression Additional Psychological History / Comment(s): pt currently lives at [facility] in [facility]. pt. has a [facility] appointed legal guardian Smoking Status: Former smoker Past Alcohol Use History: None Reported, Occasional, Rare Additional Past Alcohol Use History / Comment(s): STARTED SMOKING AT AGE 10, SMOKED 1 TO 1.5 PPD, QUIT Past Drug Use History: None Reported - Past Family History Sister(s) Family Medical History: Cancer Mother Family Medical History: No Reported History Additional Family Medical History / Comment(s): SMOKER Father Family Medical History: Cancer Additional Family Medical History / Comment(s): SMOKER, PALPATATIONS Medications and Allergies Home Medications Medication Instructions Recorded Confirmed Type Calcium Acetate [PhosLo] 1,334 mg PO TID-W/MEALS 11/17/16 07/04/17 History Metoprolol Tartrate [Lopressor] 12.5 mg PO BID 03/04/17 07/04/17 History Escitalopram [Lexapro] 15 mg PO AC-BRKFST 05/22/17 07/04/17 History Ipratropium-Albuterol Nebulize 3 ml INHALATION RT-QID neb 05/31/17 07/04/17 Rx [Duoneb 0.5 mg-3 mg/3 ml Soln] Warfarin [Coumadin] 2.5 mg PO DAILY #0 05/31/17 07/04/17 Rx Atorvastatin [Lipitor] 40 mg PO HS 07/04/17 07/04/17 History Docusate [Colace] 100 mg PO BID PRN 07/04/17 07/04/17 History Midodrine HCl [ProAmatine] 10 mg PO TID 07/04/17 07/04/17 History Omeprazole 20 mg PO HS 07/04/17 07/04/17 History Sodium Bicarbonate Tab 650 mg PO QAM 07/04/17 07/04/17 History Vitamin B Complex 1 cap PO DAILY 07/04/17 07/04/17 History Vitamin B Complex 1 tab PO DAILY 07/05/17 07/05/17 History Warfarin [Coumadin] 5 mg PO DIRECTED 07/05/17 07/05/17 History Allergies Allergy/AdvReac Type Severity Reaction Status Date / Time No Known Allergies Allergy Verified 07/04/17 21:49 Physical Exam Vitals: Vital Signs Temp Pulse Pulse Resp BP BP Pulse Ox 07/05/17 09:51 81/66 07/05/17 08:00 97.2 F L 111 H 16 94/57 94 L 07/05/17 01:00 97.2 F L 116 H 18 82/57 96 07/05/17 00:30 120 H 16 07/05/17 00:15 110 H 20 76/54 100 07/05/17 00:00 97.4 F L 100 18 91/59 97 07/04/17 22:59 96 20 91/63 97 07/04/17 22:58 97.0 F L 92 16 85/55 100 07/04/17 22:03 101 H 18 84/60 97 07/04/17 21:44 97.2 F L 96 18 74/51 100 Intake and Output 07/04/17 07/05/17 07/05/17 22:59 06:59 14:59 Output Total 1 Balance -1 Output: Stool 1 Other: # Bowel Movements 1 Weight 110.677 kg 120 kg Results - Lab Results Most recent lab results Calcium 8.3 mg/dL (8.4-10.2) L 07/04/17 22:11 Magnesium 1.9 mg/dL (1.6-2.3) 07/04/17 22:11 07/04/17 22:11 07/04/17 22:11 Assessment and Plan Plan: Assessment: #1. End-stage renal disease maintained on hemodialysis on a Tuesday schedule via right upper extremity AV fistula. #2. Lower extremity cellulitis maintained on IV antibiotics. #3. Systolic CHF with ejection fraction of less than 20%. #4. Chronic hypotension secondary to underlying cardiac status maintained on midodrine. #5. Chronic kidney disease mineral bone disease. #6. Generalized debility with progressive weakness. Also recurrent falls. #7. A. fib maintained on Coumadin. INR elevated. #8. Lactic acidosis. Likely related to hypoperfusion due to hypotension. Plan: Hemodialysis tomorrow with goal 3-4 L ultrafiltration. Resume midodrine 10 mg 3 times a day. Check phosphorus level. Maintain PhosLo with meals. Hep-Lock IV fluids. Physical therapy has been consulted. Thank you for the consultation. I will continue to follow the patient with you during his hospital stay.
[2017-07-05] MEDS: IPRATROPIUM-ALBUTEROL 3 ML NEB INHALATION SCH ×3 (11:28→21:25)
[2017-07-05] MEDS: METOPROLOL TARTRATE 12.5 MG TAB PO SCH ×2 (12:00→20:50)
[2017-07-05] MEDS: CALCIUM ACETATE 667 MG CAP PO SCH ×2 (12:01→17:20)
[2017-07-05] MEDS: MIDODRINE 5 MG TAB PO SCH ×2 (12:01→17:20)
[2017-07-05] MEDS ORDERED: DOCUSATE 100 MG CAP PO PRN (14:55)
[2017-07-05] MEDS ORDERED: DOCUSATE 100 MG CAP PO ONE (17:30)
--- NOTE | 2017-07-05 19:27 | HP ---
HISTORY AND PHYSICAL DATE OF ADMISSION: July 04, 2017. DATE OF SERVICE: July 05, 2017. PRESENTING COMPLAINT: Dizzy, fall. HISTORY OF PRESENTING COMPLAINT: This is a 67-year-old patient who was at the [facility], being followed by Dr. Corbett. The patient's chronic stable conditions include end-stage kidney disease, on hemodialysis Tuesday, Tuesday and Tuesday. The right arm AV fistula. The patient has got EF of 10%. Chronically hypertensive for midodrine, also has got atrial fibrillation for which she is on Coumadin. Patient's gets dizzy and lightheaded when he stands up. He has been having falls. Hence he has been brought in. Patient also has got cellulitis lower extremity for which she has been put on Unasyn. Patient's appetite is okay. Just feels tired and run down. Some shortness of breath. REVIEW OF SYSTEMS: Constitutional: Weak and tired. HEENT: None. Respiratory: Shortness of breath. Cardiovascular: No chest pain. Edema present. Gastrointestinal none. Genitourinary: None. Musculoskeletal: None. Dermatological: Cellulitis of lower extremity. Hematologic none. Lymphatics none. Psychiatry none. Neurological: No focal symptoms. PAST MEDICAL HISTORY: Past medical history of atrial fibrillation congestive heart failure. EF 10%. End stage kidney disease, GERD, blood clots, essential tremor, hypertension, hemorrhoids. PAST SURGICAL HISTORY: AICD, fistula right upper arm for hemodialysis, depression. SOCIAL HISTORY: Resident of [facility]. Has a critical access hospital appointed legal guardian. Started smoking at age of 10, smoked a pack to pack and half per day. Quit in 2012. Alcohol occasionally. FAMILY HISTORY: Reviewed. Noncontributory to presentation. HOME MEDICATIONS: 1. Coumadin 5 mg as directed. 2. Vitamin B complex 1 tab p.o. daily. 3. DuoNeb q.i.d. 4. Colace 100 mg b.i.d. p.r.n. 5. PhosLo 1334 p.o. t.i.d. with meals. 6. Midodrine 10 mg p.o. t.i.d. 7. Coumadin 2.5 p.o. daily. 8. Sodium bicarb 650 mg p.o. daily. 9. Lopressor 12.5 p.o. b.i.d. 10.Omeprazole 20 mg p.o. q.h.s. 11.Lipitor 40 mg at bedtime. 12.Vitamin B complex 1 capsule p.o. daily. 13.Lexapro 50 mg with breakfast. ALLERGIES: None. PHYSICAL EXAMINATION: Temperature 97.2, pulse 96, respiration 18, blood pressure 87/54. Pulse ox 96% on room air. GENERAL APPEARANCE: Well built, BMI 34. Lying in bed, tired appearing. Eyes pupils equal. Conjunctivae normal. HEENT: Oral cavity normal. NECK: JVD unable to assess. Mass not palpable. RESPIRATORY: Effort increased. LUNGS: Diminished breath sounds. CARDIOVASCULAR: First and second sounds normal. Edema present. ABDOMEN: Soft, nontender. Liver and spleen not palpable. Psychiatry: Awake and answering questions. Extremities: Left lower extremity cellulitis present with some superficial blister. . Neurological: Pupils equal, cranial nerves grossly intact. Power grossly intact. INVESTIGATIONS: White count 8.6, hemoglobin 13.9, INR 5.4, potassium 4.9, BUN 59, creatinine 8.50, lactic acid 2.7, AST 69 and ALT 166, EKG atrial fibrillation. Chest x-ray cardiomegaly. ASSESSMENT: 1. Chronic hypotension likely cardiac causing the patient to be dizzy and lightheaded and having frequent falls. 2. End-stage kidney disease, on hemodialysis Tuesday and Tuesday with right arm AV fistula. 3. Chronic congestive heart failure from systolic dysfunction, EF 10% probably from hypertensive heart disease. 4. Lower extremity cellulitis acute left lower extremity. 5. Persistent atrial fibrillation chronically on Coumadin. 6. Coumadin toxicity with no evidence of bleeding. 7. Depression not otherwise specified. 8. Metabolic acidosis. 9. Lactic acidosis from hypoperfusion. 10.Medical debility. Chronic multifactorial. 11.Chronic obstructive pulmonary disease in an ex-smoker. PLAN: Nephrology and cardiology is being consulted. Overall prognosis is guarded. The patient is on IV Unasyn. We will hold off Coumadin right now. We will cut back the dose. Prognosis is guarded given the poor ejection fraction. Care was discussed with the patient. MMODL / IJN: [id number] /
[2017-07-05] MEDS: ATORVASTATIN 40 MG TAB PO SCH (20:50)
[2017-07-05] MEDS: PANTOPRAZOLE 40 MG TABLET PO SCH (20:51)
--- NOTE | 2017-07-05 21:13 | P.CONS ---
History of Present Illness - Reason for Consult Consult date: 07/05/17 - Chief Complaint weakness - History of Present Illness 67-year-old male that has an extensive past medical history that includes cardiomyopathy with a 10% ejection fraction, end-stage renal disease on hemodialysis and ongoing deterioration of his status over the last few months. The patient is a poor historian the chart gives further information. His related over the last few months that his status has continued to decline. He has been weaker. He said increasing lower extremity edema and ulcerations. Has had multiple falls. He has become weaker over time. The family is concerned that his dietary needs are not being appropriately mattes where he is staying and may be contributing to his worsening status. The patient relates that he feels poorly. His legs hurt him because of the swelling and the wounds. He denies fevers or chills. Has had is elevated because he is short of breath that he has laid supine. He has no exercise tolerance. Review of Systems HEENT:Denies headache or acute visual change. Denies sinus or mouth discomforts. Denies neck stiffness or pain. Denies significant oral cavity pain. Denies difficulty on swallowing. Lungs: Chronic shortness of breath chronic cough without much sputum production no hemoptysis Cardiovascular: Chronic shortness of breath has had multiple falls denies chest pain has orthopnea and dyspnea on exertion Gastrointestinal:Denies nausea, vomiting, diarrhea, constipation, hematemesis, melena, hematochezia. No no significant change of bowel habit noticed. Musculoskeletal: Chronic bilateral lower extremity edema with chronic pain Skin: Lower extremities with chronic erythema and weeping lesions are noted Neuro: Denies headache or visual change. Denies any new onset weakness or difficulty with ambulation. Denies falls or seizures. Psychiatric:Denies anxiety or depression. Endocrine: Has chronic fatigue and his weight has been stable by his dialysis Past Medical History Past Medical History: Atrial Fibrillation, Heart Failure, Dialysis, GERD/Reflux , Renal Disease Additional Past Medical History / Comment(s): SEE DR AUDREY Zhang&Carlos, BLOOD CLOT IN PAST NOT SURE WHERE, ESSENTIAL TREMORS, CHRONIC RENAL FAILURE, HEMODIALYSIS, MON.WED.FRI., hypotension, hemmorhoids History of Any Multi-Drug Resistant Organisms: None Reported Past Surgical History: AICD, Pacemaker Additional Past Surgical History / Comment(s): COLONOSCOPY, EGD, TEETH REMOVED, CARDIOVERSION, FISTULA RT UPPER ARM FOR HEMODIALYSIS, PREVIOUS CATHETER IN NECK FOR HEMODIALYSIS NOW REMOVED Past Anesthesia/Blood Transfusion Reactions: No Reported Reaction Type of Cardiac Device: AICD Device Placement Date:: may 2016 Past Psychological History: Depression Additional Psychological History / Comment(s): pt currently lives at [facility]. pt. has a [facility] appointed legal guardian. Retired laborer [employer]. [place] . No international travel in the last many years. Cats in the home where he was living before his hospitalization and placement in extended care Smoking Status: Former smoker Past Alcohol Use History: None Reported, Occasional, Rare Additional Past Alcohol Use History / Comment(s): STARTED SMOKING AT AGE 10, SMOKED 1 TO 1.5 PPD, QUIT Past Drug Use History: None Reported - Past Family History Sister(s) Family Medical History: Cancer Mother Family Medical History: No Reported History Additional Family Medical History / Comment(s): SMOKER Father Family Medical History: Cancer Additional Family Medical History / Comment(s): SMOKER, PALPATATIONS Medications and Allergies Home Medications and Allergies Comment(s): Current Medications Albuterol/Ipratropium (Duoneb 0.5 Mg-3 Mg/3 Ml Soln) 3 ml INHALATION RT-QID [facility] Last Admin: 07/05/17 15:43 Dose: 3 ml Atorvastatin Calcium (Lipitor) 40 mg PO [facility] Last Admin: 07/05/17 20:50 Dose: 40 mg Calcium Acetate (Phoslo) 1,334 mg PO TID-W/MEALS [facility] Last Admin: 07/05/17 17:20 Dose: 1,334 mg Escitalopram Oxalate (Lexapro) 15 mg PO AC-BRKFST [facility] Ampicillin Sodium/Sulbactam (Sodium 3 gm/ Sodium Chloride) 100 mls @ 100 mls/ hr IVPB DAILY@1200 [facility] Metoprolol Tartrate (Lopressor) 12.5 mg PO BID [facility] Last Admin: 07/05/17 20:50 Dose: 12.5 mg Midodrine (Proamatine) 10 mg PO AC-TID [facility] Last Admin: 07/05/17 17:20 Dose: 10 mg Pantoprazole Sodium (Protonix) 40 mg PO [facility] Last Admin: 07/05/17 20:51 Dose: 40 mg Silver Sulfadiazine (Silvadene Cream) 1 applic TOPICAL BID [facility] Sodium Bicarbonate (Sodium Bicarbonate Tab) 650 mg PO QAM [facility] Last Admin: 07/05/17 09:49 Dose: 650 mg Vitamin B Complex/Vit C/Vit E/Zinc (Z-Bec) 1 each PO DAILY [facility] Last Admin: 07/05/17 09:49 Dose: 1 each Home Medications Medication Instructions Recorded Confirmed Type Calcium Acetate [PhosLo] 1,334 mg PO TID-W/MEALS 11/17/16 07/04/17 History Metoprolol Tartrate [Lopressor] 12.5 mg PO BID 03/04/17 07/04/17 History Escitalopram [Lexapro] 15 mg PO AC-BRKFST 05/22/17 07/04/17 History Ipratropium-Albuterol Nebulize 3 ml INHALATION RT-QID neb 05/31/17 07/04/17 Rx [Duoneb 0.5 mg-3 mg/3 ml Soln] Warfarin [Coumadin] 2.5 mg PO DAILY #0 05/31/17 07/04/17 Rx Atorvastatin [Lipitor] 40 mg PO HS 07/04/17 07/04/17 History Docusate [Colace] 100 mg PO BID PRN 07/04/17 07/04/17 History Midodrine HCl [ProAmatine] 10 mg PO TID 07/04/17 07/04/17 History Omeprazole 20 mg PO HS 07/04/17 07/04/17 History Sodium Bicarbonate Tab 650 mg PO QAM 07/04/17 07/04/17 History Vitamin B Complex 1 cap PO DAILY 07/04/17 07/04/17 History Vitamin B Complex 1 tab PO DAILY 07/05/17 07/05/17 History Warfarin [Coumadin] 5 mg PO DIRECTED 07/05/17 07/05/17 History Allergies Allergy/AdvReac Type Severity Reaction Status Date / Time No Known Allergies Allergy Verified 07/04/17 21:49 Physical Exam Vitals: Vital Signs Temp Pulse Pulse Resp BP BP Pulse Ox 07/05/17 20:00 97.8 F 117 H 22 92/50 98 07/05/17 16:00 97.4 F L 116 H 16 84/55 97 07/05/17 15:55 100 07/05/17 15:44 100 07/05/17 12:00 123 H 16 07/05/17 11:57 96.7 F L 123 H 16 99/64 99 07/05/17 11:42 104 H 07/05/17 11:28 104 H 07/05/17 09:51 81/66 07/05/17 08:00 97.2 F L 111 H 16 94/57 94 L 07/05/17 01:00 97.2 F L 116 H 18 82/57 96 07/05/17 00:30 120 H 16 07/05/17 00:15 110 H 20 76/54 100 07/05/17 00:00 97.4 F L 100 18 91/59 97 07/04/17 22:59 96 20 91/63 97 07/04/17 22:58 97.0 F L 92 16 85/55 100 07/04/17 22:03 101 H 18 84/60 97 07/04/17 21:44 97.2 F L 96 18 74/51 100 Intake and Output 07/05/17 07/05/17 07/05/17 06:59 14:59 22:59 Intake Total 240 480 Output Total 1 Balance -1 240 480 Intake: Oral 240 480 Output: Stool 1 Other: # Bowel Movements 1 1 1 Weight 120 kg 67-year-old male appears older than his stated age. Is chronically ill. Fortunately he is not frankly short of breath at this time, relates he feels poorly HEENT: Anicteric conjunctiva are pink and moist nasal mucosa grossly intact without significant lesions, there is no thrush. Neck: The neck is supple without significant lymphadenopathy or thyromegaly. Lungs: There are symmetrical air entry. There is bibasilar crackles. Minimal dullness at the bases. No egophony is noted Heart: Irregular, audible S1 and S2, murmur is noted pansystolic likely related to his fistula, no click or rub Abdomen: Obese, Positive bowel sounds soft and nontender without palpable masses or organomegaly. There was no guarding or rebound. Extremities: The upper extremities have excellent pulses they are symmetric, no significant petechiae or telangiectasia. No splinter hemorrhages were noted. Official the right arm is intact in his is healing thrill. The lower extremities reveal evidence of the chronic bilateral lower extremity edema, intense erythema, ulceration is noted in both pretibial areas with scant drainage. Serous in nature. The limbs are tender to touch. The erythema is from the foot to the mid calf bilaterally. Healing injury to the left knee from his recent fall Neuro: Arousable. Poor historian. However is able to move upper and lower extremities on command. Results CBC & Chem 7: 07/04/17 22:11 07/04/17 22:11 Labs: Abnormal Lab Results - Last 24 Hours (Table) 07/04/17 07/04/17 07/04/17 Range/Units 21:59 22:11 22:11 MCV 108.8 H (80.0-100.0) fL MCHC 29.7 L (31.0-37.0) g/dL RDW 20.4 H (11.5-15.5) % PT (9.0-12.0) sec INR (<1.2) APTT (22.0-30.0) sec Sodium (137-145) mmol/L Chloride (98-107) mmol/L Carbon Dioxide (22-30) mmol/L BUN (9-20) mg/dL Creatinine (0.66-1.25) mg/dL Glucose (74-99) mg/dL POC Glucose (mg/dL) 137 H (75-99) mg/dL Plasma Lactic Acid Maciel (0.7-2.0) mmol/L Calcium (8.4-10.2) mg/dL AST (17-59) U/L ALT (21-72) U/L Alkaline Phosphatase (38-126) U/L Total Creatine Kinase 28 L (55-170) U/L Total Protein (6.3-8.2) g/dL Albumin (3.5-5.0) g/dL 07/04/17 07/04/17 07/04/17 Range/Units 22:11 22:11 22:11 MCV (80.0-100.0) fL MCHC (31.0-37.0) g/dL RDW (11.5-15.5) % PT 53.7 H (9.0-12.0) sec INR 5.4 H* (<1.2) APTT 31.4 H (22.0-30.0) sec Sodium 135 L (137-145) mmol/L Chloride 95 L (98-107) mmol/L Carbon Dioxide 21 L (22-30) mmol/L BUN 59 H (9-20) mg/dL Creatinine 8.50 H* (0.66-1.25) mg/dL Glucose 147 H (74-99) mg/dL POC Glucose (mg/dL) (75-99) mg/dL Plasma Lactic Acid Maciel 2.7 H* (0.7-2.0) mmol/L Calcium 8.3 L (8.4-10.2) mg/dL AST 69 H (17-59) U/L ALT 166 H (21-72) U/L Alkaline Phosphatase 347 H (38-126) U/L Total Creatine Kinase (55-170) U/L Total Protein 6.2 L (6.3-8.2) g/dL Albumin 3.4 L (3.5-5.0) g/dL 07/05/17 Range/Units 02:03 MCV (80.0-100.0) fL MCHC (31.0-37.0) g/dL RDW (11.5-15.5) % PT (9.0-12.0) sec INR (<1.2) APTT (22.0-30.0) sec Sodium (137-145) mmol/L Chloride (98-107) mmol/L Carbon Dioxide (22-30) mmol/L BUN (9-20) mg/dL Creatinine (0.66-1.25) mg/dL Glucose (74-99) mg/dL POC Glucose (mg/dL) (75-99) mg/dL Plasma Lactic Acid Maciel 4.8 H* (0.7-2.0) mmol/L Calcium (8.4-10.2) mg/dL AST (17-59) U/L ALT (21-72) U/L Alkaline Phosphatase (38-126) U/L Total Creatine Kinase (55-170) U/L Total Protein (6.3-8.2) g/dL Albumin (3.5-5.0) g/dL Laboratory Results WBC 8.6 k/uL (3.8-10.6) 07/04/17 22:11 RBC 4.30 m/uL (4.30-5.90) 07/04/17 22:11 Hgb 13.9 gm/dL (13.0-17.5) 07/04/17 22:11 Hct 46.7 % (39.0-53.0) 07/04/17 22:11 MCV 108.8 fL (80.0-100.0) H 07/04/17 22:11 MCH 32.3 pg (25.0-35.0) 07/04/17 22:11 MCHC 29.7 g/dL (31.0-37.0) L 07/04/17 22:11 RDW 20.4 % (11.5-15.5) H 07/04/17 22:11 Plt Count 188 k/uL (150-450) 07/04/17 22:11 Neutrophils % 76 % 07/04/17 22:11 Lymphocytes % 13 % 07/04/17 22:11 Monocytes % 7 % 07/04/17 22:11 Eosinophils % 1 % 07/04/17 22:11 Basophils % 1 % 07/04/17 22:11 Neutrophils # 6.6 k/uL (1.3-7.7) 07/04/17 22:11 Lymphocytes # 1.2 k/uL (1.0-4.8) 07/04/17 22:11 Monocytes # 0.6 k/uL (0-1.0) 07/04/17 22:11 Eosinophils # 0.1 k/uL (0-0.7) 07/04/17 22:11 Basophils # 0.1 k/uL (0-0.2) 07/04/17 22:11 Manual Slide Review Performed 07/04/17 22:11 Large Platelets Present 07/04/17 22:11 Polychromasia Present 07/04/17 22:11 Hypochromasia Marked 07/04/17 22:11 Poikilocytosis Slight 07/04/17 22:11 Anisocytosis Moderate 07/04/17 22:11 Macrocytosis Marked 07/04/17 22:11 Spherocytes Present 07/04/17 22:11 PT 53.7 sec (9.0-12.0) H 07/04/17 22:11 INR 5.4 (<1.2) H* 07/04/17 22:11 APTT 31.4 sec (22.0-30.0) H 07/04/17 22:11 Sodium 135 mmol/L (137-145) L 07/04/17 22:11 Potassium 4.9 mmol/L (3.5-5.1) 07/04/17 22:11 Chloride 95 mmol/L (98-107) L 07/04/17 22:11 Carbon Dioxide 21 mmol/L (22-30) L 07/04/17 22:11 Anion Gap 19 mmol/L 07/04/17 22:11 BUN 59 mg/dL (9-20) H 07/04/17 22:11 Creatinine 8.50 mg/dL (0.66-1.25) H* 07/04/17 22:11 Est GFR (MDRD) Af Amer 8 (>60 ml/min/1.73 sqM) 07/04/17 22:11 Est GFR (MDRD) Non-Af 6 (>60 ml/min/1.73 sqM) 07/04/17 22:11 Glucose 147 mg/dL (74-99) H 07/04/17 22:11 POC Glucose (mg/dL) 137 mg/dL (75-99) H 07/04/17 21:59 POC Glu Nurse Aide Evaluator ID Elke Raines 07/04/17 21:59 Lactic Ac Sepsis Rflx Y 07/04/17 22:44 Plasma Lactic Acid Maciel 4.8 mmol/L (0.7-2.0) H* 07/05/17 02:03 Calcium 8.3 mg/dL (8.4-10.2) L 07/04/17 22:11 Magnesium 1.9 mg/dL (1.6-2.3) 07/04/17 22:11 Total Bilirubin 0.8 mg/dL (0.2-1.3) 07/04/17 22:11 AST 69 U/L (17-59) H 07/04/17 22:11 ALT 166 U/L (21-72) H 07/04/17 22:11 Alkaline Phosphatase 347 U/L (38-126) H 07/04/17 22:11 Total Creatine Kinase 28 U/L (55-170) L 07/04/17 22:11 CK-MB (CK-2) 1.8 ng/mL (0.0-2.4) 07/04/17 22:11 CK-MB (CK-2) Rel Index 6.4 07/04/17 22:11 Troponin I <0.012 ng/mL (0.000-0.034) 07/04/17 22:11 NT-Pro-B Natriuret Pep 49314 pg/mL 07/04/17 22:11 Total Protein 6.2 g/dL (6.3-8.2) L 07/04/17 22:11 Albumin 3.4 g/dL (3.5-5.0) L 07/04/17 22:11 Assessment and Plan (1) Weakness Current Visit: No Status: Acute Code(s): R53.1 - WEAKNESS SNOMED Code(s): 00113855 (2) Cardiomyopathy Current Visit: Yes Status: Acute Code(s): I42.9 - CARDIOMYOPATHY, UNSPECIFIED SNOMED Code(s): 83117119 (3) Chronic kidney disease with end stage renal failure on dialysis Current Visit: Yes Status: Acute Code(s): N18.6 - END STAGE RENAL DISEASE; Z99.2 - DEPENDENCE ON RENAL DIALYSIS SNOMED Code(s): 822784754 (4) Bilateral lower leg cellulitis Narrative/Plan: 67-year-old male presents to Hospital extended care facility with increasing weakness, increasing shortness of breath, increasing lower extremity edema with erythema and tenderness in ulceration. Prior cultures reviewed avoidance of MRSA. Patient has been started on Unasyn. Culture is to be obtained from the drainage. Which will further help direct antimicrobial therapy. Local wound care as been requested with Silvadene and gentle wraps to bilateral lower extremities. Hopefully this will provide him some improvement to elicit any discomfort that he is having. No severe leukocytosis but there was lactic acidosis. This appears multifactorial possibly due to underlying infection however the patient also has significant acidosis from his chronic kidney disease and chronic hypoperfusion from his chronic cardiomyopathy Current Visit: Yes Status: Acute Code(s): L03.116 - CELLULITIS OF LEFT LOWER LIMB; L03.115 - CELLULITIS OF RIGHT LOWER LIMB SNOMED Code(s): 765555676
[2017-07-05] MEDS ORDERED: NON-FORMULARY DRUG (Midodrine Hcl [Proamatine] 10 MG) PO SCH (22:00)
[2017-07-06] MEDS ORDERED: ESCITALOPRAM 5 MG TAB PO SCH (07:30)
[2017-07-06] MEDS: IPRATROPIUM-ALBUTEROL 3 ML NEB INHALATION SCH ×4 (09:00→19:56)
[2017-07-06] MEDS: SODIUM BICARBONATE TAB 650 MG TAB PO SCH (09:17)
[2017-07-06] MEDS: CALCIUM ACETATE 667 MG CAP PO SCH ×3 (09:17→16:51)
[2017-07-06] MEDS: B COMPLEX-VIT C-VIT E-ZINC 1 EACH TAB PO SCH (09:17)
[2017-07-06] MEDS: MIDODRINE 5 MG TAB PO SCH ×3 (09:17→16:51)
[2017-07-06] MEDS: METOPROLOL TARTRATE 12.5 MG TAB PO SCH (09:17)
[2017-07-06 09:42] LABS: Prothrombin Time 55.4 sec (9.0-12.0)
[2017-07-06 10:04] LABS: INR 5.5 (<1.2)
--- NOTE | 2017-07-06 10:15 | P.PN ---
Subjective Patient is seen in follow-up for end-stage renal disease. He is maintained on hemodialysis on a Tuesday schedule. Right upper extremity AV fistula. Patient presented with generalized weakness and recurrent falls. He' s also noted to have lower extremity cellulitis and is maintained on IV antibiotics. Patient states he did walk yesterday and felt a little dizzy. He does of systolic CHF with ejection fraction less than 20%. Oral intake is fair. Denies chest pain. Vital signs are stable. General: The patient appeared well nourished and normally developed. HEENT: Head exam is unremarkable. Neck is without jugular venous distension. LUNGS: Lungs are clear to auscultation and percussion. Breath sounds decreased. HEART: Rate and Rhythm are regular. First and second heart sounds normal. No murmurs, rubs or gallops. ABDOMEN: Abdominal exam reveals normal bowel sounds. Non-tender and non- distended. No evidence of peritonitis. EXTREMITITES: 1+ edema. Erythema noted. No obvious drainage. Objective - Vital Signs Vital signs: Vital Signs Temp 97.2 F L 07/06/17 08:00 Pulse 114 H 07/06/17 08:00 Resp 16 07/06/17 08:00 BP 88/56 07/06/17 08:00 Pulse Ox 99 07/06/17 08:00 Intake & Output 07/05/17 07/06/17 07/06/17 18:59 06:59 18:59 Intake Total 720 360 Output Total 1 Balance 720 -1 360 Weight 125.5 kg Intake: Oral 720 360 Output: Urine 0 Stool 1 Other: # Bowel Movements 1 2 1 - Labs CBC & Chem 7: 07/04/17 22:11 07/04/17 22:11 Labs: Abnormal Lab Results - Last 24 Hours (Table) 07/06/17 07/06/17 Range/Units 07:10 09:03 PT 55.4 H (9.0-12.0) sec INR 5.5 H* (<1.2) Phosphorus 5.8 H (2.5-4.5) mg/dL Microbiology - Last 24 Hours (Table) 07/04/17 22:13 Blood Culture - Preliminary Blood No Growth after 24 hours Assessment and Plan Plan: Assessment: #1. End-stage renal disease maintained on hemodialysis on a [place] Wednesday Jude schedule via right upper extremity AV fistula. #2. Lower extremity cellulitis maintained on IV antibiotics. Infectious disease following. #3. Systolic CHF with ejection fraction of less than 20%. #4. Chronic hypotension secondary to underlying cardiac status maintained on midodrine. #5. Chronic kidney disease mineral bone disease. #6. Generalized debility with progressive weakness. Also recurrent falls. #7. A. fib maintained on Coumadin, currently held. INR elevated. #8. Lactic acidosis. Likely related to hypoperfusion due to hypotension. Plan: Hemodialysis today with goal 3-4 L ultrafiltration. Maintain midodrine 10 mg 3 times a day. Maintain PhosLo with meals. Encouraged oral intake. Continue to work with physical therapy. Patient's functional status has declined quite considerably over the last couple of months. He has required multiple hospitalizations.
--- NOTE | 2017-07-06 10:51 | P.CRDCN ---
History of Present Illness Consult date: 07/06/17 Requesting physician: Sami Duron Reason for Consult (text): This is a pleasant 67-year-old gentleman who follows with Dr. Montgomery in the office. He has a known history of severe nonischemic cardiomyopathy, status post AICD, chronic persistent atrial fibrillation, hypertension, end- stage renal disease on hemodialysis, hyperlipidemia, who presents to the hospital with complaints of dizzy spells and frequent falls. According to the patient, he states that he's been extremely weak at home, he's been falling more than usual, he states that he does not pass out when he falls, he just feels extremely weak and dizzy. Patient also states that he's had increased swelling in his lower extremities with open wounds that have been draining. Patient has also been more short of breath than usual. Because of the frequent episodes of dizziness with associated false he came to the emergency room for further evaluation. EKG on arrival here showed atrial fibrillation with a controlled ventricular response. Home medications states that the patient has been taking Coumadin, on review of the office note, patient was to be taking Eliquis instead of Coumadin at home. His INR on admission was 5.4, and 5.5 this morning. White blood cell count 8.6, hemoglobin 13.9, platelet count 188. Sodium 135, potassium 4.9, BUN 59 and creatinine 8.5. AST 69, ALT 166, alk phos 347, troponin 0.012. BNP level 66,300. S2 x-ray reveals cardiomegaly with no active cardiopulmonary disease. There is clearing of the right lower lobe infiltrate and pleural fluid as compared with prior exam. Blood pressure on arrival here 74/50, heart rate in the low 100s, 100% on room air. Patient is currently on antibiotics for bilateral cellulitis, he is also currently receiving IV fluids. No orthostatics documented. Patient was taking midodrine at home for prior history of orthostasis. Past Medical History Past Medical History: Atrial Fibrillation, Heart Failure, Dialysis, GERD/Reflux , Renal Disease Additional Past Medical History / Comment(s): SEE DR AUDREY Zhang&P, BLOOD CLOT IN PAST NOT SURE WHERE, ESSENTIAL TREMORS, CHRONIC RENAL FAILURE, HEMODIALYSIS, MON.WED.FRI., hypotension, hemmorhoids History of Any Multi-Drug Resistant Organisms: None Reported Past Surgical History: AICD, Pacemaker Additional Past Surgical History / Comment(s): COLONOSCOPY, EGD, TEETH REMOVED, CARDIOVERSION, FISTULA RT UPPER ARM FOR HEMODIALYSIS, PREVIOUS CATHETER IN NECK FOR HEMODIALYSIS NOW REMOVED Past Anesthesia/Blood Transfusion Reactions: No Reported Reaction Type of Cardiac Device: AICD Device Placement Date:: may 2016 Past Psychological History: Depression Additional Psychological History / Comment(s): pt currently lives at [facility]. pt. has a [facility] appointed legal guardian. Retired hoisting laborer. [place] . No international travel in the last many years. Cats in the home where he was living before his hospitalization and placement in extended care Smoking Status: Former smoker Past Alcohol Use History: None Reported, Occasional, Rare Additional Past Alcohol Use History / Comment(s): STARTED SMOKING AT AGE 10, SMOKED 1 TO 1.5 PPD, QUIT Past Drug Use History: None Reported - Past Family History Sister(s) Family Medical History: Cancer Mother Family Medical History: No Reported History Additional Family Medical History / Comment(s): SMOKER Father Family Medical History: Cancer Additional Family Medical History / Comment(s): SMOKER, PALPATATIONS Medications and Allergies Home Medications Medication Instructions Recorded Confirmed Type Calcium Acetate [PhosLo] 1,334 mg PO TID-W/MEALS 11/17/16 07/04/17 History Metoprolol Tartrate [Lopressor] 12.5 mg PO BID 03/04/17 07/04/17 History Escitalopram [Lexapro] 15 mg PO AC-BRKFST 05/22/17 07/04/17 History Ipratropium-Albuterol Nebulize 3 ml INHALATION RT-QID neb 05/31/17 07/04/17 Rx [Duoneb 0.5 mg-3 mg/3 ml Soln] Warfarin [Coumadin] 2.5 mg PO DAILY #0 05/31/17 07/04/17 Rx Atorvastatin [Lipitor] 40 mg PO HS 07/04/17 07/04/17 History Docusate [Colace] 100 mg PO BID PRN 07/04/17 07/04/17 History Midodrine HCl [ProAmatine] 10 mg PO TID 07/04/17 07/04/17 History Omeprazole 20 mg PO HS 07/04/17 07/04/17 History Sodium Bicarbonate Tab 650 mg PO QAM 07/04/17 07/04/17 History Vitamin B Complex 1 cap PO DAILY 07/04/17 07/04/17 History Vitamin B Complex 1 tab PO DAILY 07/05/17 07/05/17 History Warfarin [Coumadin] 5 mg PO DIRECTED 07/05/17 07/05/17 History Allergies Allergy/AdvReac Type Severity Reaction Status Date / Time No Known Allergies Allergy Verified 07/04/17 21:49 Physical Exam Vitals: Vital Signs Temp Pulse Pulse Resp BP Pulse Ox 07/06/17 08:00 97.2 F L 114 H 16 88/56 99 07/06/17 04:00 97.9 F 110 H 20 76/55 100 07/06/17 00:00 98.4 F 112 H 20 74/57 97 07/05/17 21:27 114 H 99 07/05/17 20:00 97.8 F 112 H 20 92/50 98 07/05/17 16:00 97.4 F L 116 H 16 84/55 97 07/05/17 15:55 100 07/05/17 15:44 100 07/05/17 12:00 123 H 16 07/05/17 11:57 96.7 F L 123 H 16 99/64 99 07/05/17 11:42 104 H 07/05/17 11:28 104 H Intake and Output 07/05/17 07/06/17 07/06/17 22:59 06:59 14:59 Intake Total 480 360 Output Total 1 0 Balance 479 0 360 Intake: Oral 480 360 Output: Urine 0 Stool 1 Other: # Bowel Movements 1 2 1 Weight 125.5 kg PHYSICAL EXAMINATION: HEENT: Head is atraumatic, normocephalic. Pupils equal, round. Neck is supple. There is elevated jugular venous pressure. HEART EXAMINATION: S1 and S2 irregularly irregular a systolic murmur is heard. CHEST EXAMINATION: Lungs reveal bilateral crackles with diminished air entry to the bases. ABDOMEN: Soft, nontender. Bowel sounds are heard. No organomegaly noted. EXTREMITIES: 2+ bilateral lower extremity edema with evidence of erythema and ulceration bilaterally.. NEUROLOGIC patient is awake, alert, mildly confused. . Results 07/04/17 22:11 07/04/17 22:11 Coagulation 07/06/17 Range/Units 09:03 PT 55.4 H (9.0-12.0) sec Current Medications Generic Name Dose Route Start Last Admin Trade Name Munira PRN Reason Stop Dose Admin Albuterol/Ipratropium 3 ml 07/05/17 12:00 07/06/17 09:00 Duoneb 0.5 Mg-3 Mg/3 Ml Soln INHALATION Not Given RT-QID MARTIN Atorvastatin Calcium 40 mg 07/05/17 21:00 07/05/17 20:50 Lipitor PO 40 mg HS MARTIN Administration Calcium Acetate 1,334 mg 07/05/17 12:30 07/06/17 09:17 Phoslo PO 1,334 mg TID-W/MEALS MARTIN Administration Escitalopram Oxalate 15 mg 07/06/17 07:30 07/06/17 09:17 Lexapro PO 15 mg AC-BRKFST MARTIN Administration Ampicillin Sodium/Sulbactam 100 mls @ 100 mls/hr 07/06/17 12:00 Sodium 3 gm/ Sodium Chloride IVPB DAILY@1200 MARTIN Metoprolol Tartrate 12.5 mg 07/05/17 09:00 07/06/17 09:17 Lopressor PO 12.5 mg BID MARTIN Administration Midodrine 10 mg 07/05/17 12:30 07/06/17 09:17 Proamatine PO 10 mg AC-TID MARTIN Administration Pantoprazole Sodium 40 mg 07/05/17 21:00 07/05/17 20:51 Protonix PO 40 mg HS MARTIN Administration Silver Sulfadiazine 1 applic 07/05/17 21:00 07/06/17 09:17 Silvadene Cream TOPICAL 1 applic BID MARTIN Administration Sodium Bicarbonate 650 mg 07/05/17 09:00 07/06/17 09:17 Sodium Bicarbonate Tab PO 650 mg QAM MARTIN Administration Vitamin B Complex/Vit C/Vit E/Zinc 1 each 07/05/17 09:00 07/06/17 09:17 Z-Bec PO 1 each DAILY MARTIN Administration Intake and Output 07/05/17 07/06/17 07/06/17 22:59 06:59 14:59 Intake Total 480 360 Output Total 1 0 Balance 479 0 360 Intake: Oral 480 360 Output: Urine 0 Stool 1 Other: # Bowel Movements 1 2 1 Weight 125.5 kg 07/04/17 22:11 07/04/17 22:11 EKG Interpretations (text) EKG shows atrial fibrillation with a moderately rapid ventricular response. Assessment and Plan Plan: Assessment and plan #1 symptoms of progressive weakness and dizziness with frequent falls, no clear- cut syncope. Patient does have history of orthostatic hypotension for which she is on midodrine. Blood pressure on arrival 78/60. #2 systolic congestive heart failure acute on chronic, BNP level 66,300. #3 end-stage renal disease on hemodialysis #4 chronic persistent atrial fibrillation on Coumadin, supratherapeutic INR, 5.5. #5 nonischemic cardiomyopathy with prior AICD implantation #6 chronic bilateral lower extremity edema with evidence of bilateral cellulitis , being followed by Dr. Guthrie. #7 hyperlipidemia #8 abnormal liver functions, likely secondary to congestion Plan We will obtain a repeat echocardiogram with Doppler study. We will also discontinue the patient's Coumadin, consider initiating the patient on Eliquis 2 -1/2 mg one tablet by mouth twice a day. Discontinue the IV fluids and start the patient on IV Lasix. Continue metoprolol tartrate 12-1/2 mg one tablet by mouth twice a day. Monitor accurate intake and output along with daily weights. Further recommendations to follow. DNP note has been reviewed, I agree with a documented findings and plan of care. Patient was seen and examined.
[2017-07-06 11:45] LABS: Glucose,Whole Blood 168 mg/dL (75-99)
[2017-07-06] MEDS: FUROSEMIDE 250 MG in SODIUM CHLORIDE 0.9% 225 ML IVP SCH ×2 (11:50→11:53)
[2017-07-06 12:13] LABS: Hemoglobin A1C 5.6 % (4.2-6.1)
[2017-07-06] MEDS ORDERED: GELATIN SPONGE,ABSORB (SMALL) 1 EACH SPONGE ONE (15:00)
[2017-07-06 15:03] LABS: Potassium 5.1 mmol/L (3.5-5.1)
[2017-07-06 15:04] LABS: Calcium 7.5 mg/dL (8.4-10.2); Magnesium 1.8 mg/dL (1.6-2.3)
[2017-07-06] MEDS: AMPICILLIN-SULBACTAM 3 GM in SODIUM CHLORIDE 0.9% 100 ML IVPB SCH (16:51)
--- NOTE | 2017-07-06 17:58 | P.PN ---
Progress Note - Text Progress Note Date: 07/06/17 DATE OF SERVICE: 07/06/2017 PRESENTING COMPLAINT: Dizziness and falling HISTORY OF PRESENT ILLNESS: 67-year-old patient who is currently staying at [facility] and is on hemodialysis Tuesday has a right arm AV fistula. Patient has having been having dizziness and lightheadedness when he stands up and subsequently falls. Admitted for the same INTERVAL HISTORY: 07/06/2017: Patient seen in follow-up, sitting up in a chair at the bedside appears comfortable. Nephrology planning on hemodialysis today with 3-4 L of ultrafiltration, continue midodrine, and work with physical therapy to improve functional status. Cardiology will not be utilizing Lasix or Coumadin because of patient's poor renal function and the risk of bleeding due to his frequent falling. Tolerating his diet, ambulatory with some assistance. REVIEW OF SYSTEMS: Done for constitutional ,cardiovascular, GI, pulmonary with relevant findings as above. CURRENT MEDICATIONS DuoNeb's, ampicillin sulbactam 3 g IV piggyback, Lipitor 40 mg by mouth at bedtime, PhosLo 1334 mg by mouth 3 times a day with meals ProAmatine 10 mg by mouth before meals 3 times a day, Protonix 40 mg by mouth at bedtime, Silvadene cream to bilateral lower extremities, sodium bicarbonate tablets 650 mg by mouth every morning. PHYSICAL EXAM VITAL SIGNS: Temperature 96.8, pulse 114, respiratory rate 16, blood pressure 87/58, oxygen saturation 98% on room air. GENERAL APPEARANCE: Lying in bed, not in distress. EYES: Pupils equal. Conjunctiva normal. NECK: JVD unable to assess. Mass not palpable. RESPIRATORY: Respiratory effort increased. Lungs diminished to auscultation. CARDIOVASCULAR: First and second sounds normal. No edema. ABDOMEN: Soft. Liver and spleen not palpable. No tenderness. No mass palpable. PSYCHIATRY: Awake able to answer questions INTEGUMENT: Left lower extremity cellulitis present with superficial blister. INVESTIGATIONS: INR 5.5, sodium 131, chloride 95, carbon dioxide 14, BUN 77, creatinine 10.32 Accu-Cheks noted ASSESSMENT: -Chronic hypotension likely cardiac causing the patient to be dizzy and lightheaded and having frequent falls. -End-stage kidney disease, on hemodialysis Tuesday with a right arm AV fistula. -Chronic congestive heart failure from systolic dysfunction EF 10% probably from hypertensive heart disease. -Lower Extremity cellulitis left lower extremity. -Persistent atrial fibrillation chronically on Coumadin. -Coumadin toxicity with no evidence of bleeding. -Depression not otherwise specified. -Metabolic acidosis. -Lactic acidosis from hypoperfusion. -Medical debility, chronic and multifactorial -chronic obstructive pulmonary disease in an ex-smoker. PLAN: Continue midodrine, IV Lasix and anticoagulation held due to frequent falling and patient's poor kidney function. Continue hemodialysis as per the schedule. Plan of care discussed with patient at the bedside he is in agreement. We will follow closely. CAD TECHNICIAN statement: Patient was seen and examined by nurse practitioner Rebekah Jones and all elements of the case discussed with attending Dr. Duron
[2017-07-06] MEDS: ATORVASTATIN 40 MG TAB PO SCH (19:43)
[2017-07-06] MEDS: PANTOPRAZOLE 40 MG TABLET PO SCH (19:43)
--- NOTE | 2017-07-07 05:13 | PN ---
PROGRESS NOTE DATE OF SERVICE: 07/06/2017 PRESENTING COMPLAINT: Dizziness and falling. ATTENDING NOTE: The patient was seen and examined by me. I discussed with my nurse practitioner, Ms. Jones. Patient admitted with falls, is chronically hypotensive and also on hemodialysis. Continues to feel weak and tired. PHYSICAL EXAMINATION: On examination, afebrile, pulse 114, blood pressure 88/56. LUNGS: Decreased breath sounds. Some edema. Awake, but tired. ASSESSMENT: 1. Chronic hypotension including cardiac cachexia and severe cardiomyopathy. 2. End-stage kidney disease, on hemodialysis. PLAN: I spoke with Dr. Pantoja to whom patient is well known on during his hemodialysis normally anywhere from 2 to 3 L of fluid has been removed, but the patient chronically remains hypotensive. Options are really limited. If things do not improve, hospice may be consideration. I also spoke to Dr. Yemi Guadalupe who will evaluate and take it from here. MMDEBI / KIMN: [id number] /
[2017-07-07] MEDS: CALCIUM ACETATE 667 MG CAP PO SCH ×3 (06:50→16:55)
[2017-07-07] MEDS: MIDODRINE 5 MG TAB PO SCH ×3 (06:50→16:56)
[2017-07-07 06:53] LABS: INR 4.3 (<1.2); Prothrombin Time 41.9 sec (9.0-12.0)
[2017-07-07] MEDS: SODIUM BICARBONATE TAB 650 MG TAB PO SCH (08:08)
[2017-07-07] MEDS: B COMPLEX-VIT C-VIT E-ZINC 1 EACH TAB PO SCH (08:09)
[2017-07-07] MEDS: IPRATROPIUM-ALBUTEROL 3 ML NEB INHALATION SCH ×4 (08:48→20:00)
--- NOTE | 2017-07-07 10:33 | P.PN ---
Subjective Patient is seen in follow-up for end-stage renal disease. He is maintained on hemodialysis on a Tuesday schedule via right upper extremity AV fistula. Patient presented with generalized weakness and recurrent falls. He' s also noted to have lower extremity cellulitis and is maintained on IV antibiotics. Patient states he has been trying to ambulate to the best of his ability but is only able to walk short distances. He does of systolic CHF with ejection fraction less than 20%. Oral intake is fair. Denies chest pain. Vital signs are stable. General: The patient appeared well nourished and normally developed. HEENT: Head exam is unremarkable. Neck is without jugular venous distension. LUNGS: Lungs are clear to auscultation and percussion. Breath sounds decreased. HEART: Rate and Rhythm are regular. First and second heart sounds normal. No murmurs, rubs or gallops. ABDOMEN: Abdominal exam reveals normal bowel sounds. Non-tender and non- distended. No evidence of peritonitis. EXTREMITITES: 1+ edema. Erythema noted. No obvious drainage. Objective - Vital Signs Vital signs: Vital Signs Temp 96.7 F L 07/07/17 04:00 Pulse 121 H 07/07/17 04:00 Resp 18 07/07/17 04:00 BP 102/59 07/07/17 04:00 Pulse Ox 96 07/07/17 04:00 Intake & Output 07/06/17 07/07/17 07/07/17 18:59 06:59 18:59 Intake Total 478 100 240 Balance 478 100 240 Weight 122 kg Intake: Oral 478 100 240 Other: # Voids 2 # Bowel Movements 1 2 1 - Labs CBC & Chem 7: 07/04/17 22:11 07/06/17 07:10 Labs: Abnormal Lab Results - Last 24 Hours (Table) 07/06/17 07/06/17 07/07/17 Range/Units 07:10 11:35 06:13 PT 41.9 H (9.0-12.0) sec INR 4.3 H (<1.2) Sodium 131 L (137-145) mmol/L Chloride 95 L (98-107) mmol/L Carbon Dioxide 14 L (22-30) mmol/L BUN 77 H (9-20) mg/dL Creatinine 10.32 H* (0.66-1.25) mg/dL Glucose 148 H (74-99) mg/dL POC Glucose (mg/dL) 168 H (75-99) mg/dL Calcium 7.5 L (8.4-10.2) mg/dL Microbiology - Last 24 Hours (Table) 07/04/17 22:13 Blood Culture - Preliminary Blood No Growth after 48 hours Assessment and Plan Plan: Assessment: #1. End-stage renal disease maintained on hemodialysis on a Tuesday schedule via right upper extremity AV fistula. #2. Lower extremity cellulitis maintained on IV antibiotics. Infectious disease following. #3. Systolic CHF with ejection fraction of less than 20%. #4. Chronic hypotension secondary to underlying cardiac status maintained on midodrine. #5. Chronic kidney disease mineral bone disease. #6. Generalized debility with progressive weakness. Also recurrent falls. #7. A. fib maintained on Coumadin, currently held. INR elevated. #8. Lactic acidosis. Likely related to hypoperfusion due to hypotension. Plan: Hemodialysis tomorrow with goal 3-4 L ultrafiltration. Maintain midodrine 10 mg 3 times a day. Maintain PhosLo with meals. Encouraged oral intake. Continue to work with physical therapy. Patient's functional status has declined quite considerably over the last couple of months. He has required multiple hospitalizations.
[2017-07-07] MEDS: AMPICILLIN-SULBACTAM 3 GM in SODIUM CHLORIDE 0.9% 100 ML IVPB SCH (13:16)
--- NOTE | 2017-07-07 14:51 | P.PN ---
Subjective Progress Note Date: 07/07/17 Principal diagnosis: This is a pleasant 67-year-old gentleman who follows with Dr. Montgomery in the office. He has a known history of severe nonischemic cardiomyopathy, status post AICD, chronic persistent atrial fibrillation, hypertension, end- stage renal disease on hemodialysis, hyperlipidemia, who presents to the hospital with complaints of dizzy spells and frequent falls. According to the patient, he states that he's been extremely weak at home, he's been falling more than usual, he states that he does not pass out when he falls, he just feels extremely weak and dizzy. Patient also states that he's had increased swelling in his lower extremities with open wounds that have been draining. Patient has also been more short of breath than usual. Because of the frequent episodes of dizziness with associated false he came to the emergency room for further evaluation. EKG on arrival here showed atrial fibrillation with a controlled ventricular response. Home medications states that the patient has been taking Coumadin, on review of the office note, patient was to be taking Eliquis instead of Coumadin at home. His INR on admission was 5.4, and 5.5 this morning. White blood cell count 8.6, hemoglobin 13.9, platelet count 188. Sodium 135, potassium 4.9, BUN 59 and creatinine 8.5. AST 69, ALT 166, alk phos 347, troponin 0.012. BNP level 66,300. S2 x-ray reveals cardiomegaly with no active cardiopulmonary disease. There is clearing of the right lower lobe infiltrate and pleural fluid as compared with prior exam. Blood pressure on arrival here 74/50, heart rate in the low 100s, 100% on room air. Patient is currently on antibiotics for bilateral cellulitis, he is also currently receiving IV fluids. No orthostatics documented. Patient was taking midodrine at home for prior history of orthostasis. 07/07/2017 Doing better today overall. Heart rate in the 120s, we will add Lanoxin by mouth to his medication regime. Objective - Vital Signs Vital signs: Vital Signs Temp 96.7 F L 07/07/17 04:00 Pulse 121 H 07/07/17 04:00 Resp 18 07/07/17 04:00 BP 102/59 07/07/17 04:00 Pulse Ox 96 07/07/17 04:00 Intake & Output 07/06/17 07/07/17 07/07/17 18:59 06:59 18:59 Intake Total 478 100 480 Output Total 1 Balance 478 100 479 Weight 122 kg Intake: Oral 478 100 480 Output: Urine/Stool Mix 1 Other: # Voids 2 # Bowel Movements 1 2 1 - Exam PHYSICAL EXAMINATION: HEENT: Head is atraumatic, normocephalic. Pupils equal, round. Neck is supple. There is elevated jugular venous pressure. HEART EXAMINATION: S1 and S2 irregularly irregular a systolic murmur is heard. CHEST EXAMINATION: Lungs reveal bilateral crackles with diminished air entry to the bases. ABDOMEN: Soft, nontender. Bowel sounds are heard. No organomegaly noted. EXTREMITIES: 2+ bilateral lower extremity edema with evidence of erythema and ulceration bilaterally.. NEUROLOGIC patient is awake, alert, mildly confused. . - Labs CBC & Chem 7: 07/04/17 22:11 07/06/17 07:10 Labs: Abnormal Lab Results - Last 24 Hours (Table) 07/06/17 07/07/17 Range/Units 07:10 06:13 PT 41.9 H (9.0-12.0) sec INR 4.3 H (<1.2) Sodium 131 L (137-145) mmol/L Chloride 95 L (98-107) mmol/L Carbon Dioxide 14 L (22-30) mmol/L BUN 77 H (9-20) mg/dL Creatinine 10.32 H* (0.66-1.25) mg/dL Glucose 148 H (74-99) mg/dL Calcium 7.5 L (8.4-10.2) mg/dL Microbiology - Last 24 Hours (Table) 07/04/17 22:13 Blood Culture - Preliminary Blood No Growth after 48 hours Assessment and Plan Plan: Assessment and plan #1 symptoms of progressive weakness and dizziness with frequent falls, no clear- cut syncope. Patient does have history of orthostatic hypotension for which she is on midodrine. Blood pressure on arrival 78/60.108/60 today. #2 systolic congestive heart failure acute on chronic, BNP level 66,300. #3 end-stage renal disease on hemodialysis #4 chronic persistent atrial fibrillation on Coumadin, supratherapeutic INR, 5.5. #5 nonischemic cardiomyopathy with prior AICD implantation #6 chronic bilateral lower extremity edema with evidence of bilateral cellulitis , being followed by Dr. Guthrie. #7 hyperlipidemia #8 abnormal liver functions, likely secondary to congestion Plan we will add Lanoxin 0.125 mg by mouth daily to the patient's medication regime.continue his other medications. He may be able to be discharged once cleared by the primary. DNP note has been reviewed, I agree with a documented findings and plan of care. Patient was seen and examined.
--- NOTE | 2017-07-07 14:54 | P.DS ---
Providers Date of admission: 07/06/17 08:53 Expected date of discharge: 07/07/17 Attending physician: Sami uDron Consults: 07/04/17 23:45 Consult Physician Urgent Consulting Provider: Radha Justice Consult Reason/Comments: Chronic renal failure Do you want consulting provider notified?: Yes 07/05/17 12:10 Consult Physician Urgent Consulting Provider: Nba Guthrie Consult Reason/Comments: Lower extremity cellulitis and wounds Do you want consulting provider notified?: Yes 07/05/17 18:27 Consult Physician Routine Consulting Provider: Chloe Guadalupe Consult Reason/Comments: chf Do you want consulting provider notified?: Yes Primary care physician: 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 -Chronic congestive heart failure from systolic dysfunction EF 10% probably from hypertensive heart disease. -Lower Extremity cellulitis left lower extremity. -Persistent atrial fibrillation chronically on Coumadin. -Coumadin toxicity with no evidence of bleeding. -Depression not otherwise specified. -Metabolic acidosis. -Lactic acidosis from hypoperfusion. -Medical debility, chronic and multifactorial -chronic obstructive pulmonary disease in an ex-smoker. HOSPTIAL COURSE: 66-year-old male currently a resident of [facility] ,on hemodialysis with a right arm AV fistula admitted for dizziness and lightheadedness and repeated falling.home medications reordered, consultation to nephrology, infectious disease, and cardiology placed.cardiology evaluated the patient no clear-cut syncope, history of orthostatic hypotension patient remains on midodrine. Chronically low blood pressure. beta ambika stopped and digoxin 125 g added daily. Coumadin stopped due to frequent falls and patient' s poor renal function, nephrology provided hemodialysis on his Tuesday schedule through his AV fistula., maintain midodrine for blood pressure support, PhosLo with meals. infectious disease ordered culture from lower extremity ulcerations and antibiotic therapy. Continued silvadene cream and gentle wraps to lower extremity. patient is tolerating his diet, agreeable to work with physical therapy,moving his bowels. Overall condition stabilized and is appropriate for return to [facility]. PHYSICAL EXAM: CARDIOVASCULAR: first and second sound noted mild edema RESPIRATORY: respiratory effort normal, lung sounds diminished bilaterally MUSKULOSKELETAL:requires use of rolling walker,able to take a few steps in place , unable to lift legs from the bed INTEGUMENT:left knee with abrasion.lower extremities erythematous, ulcerations to bilateral pretibial area NEUROLOGIC: gross motor movement intact, alert and able to answer some questions PSYCHIATRY: Alert and able to answer questions, mood and affect appropriate for situation Patient was seen and examined by nurse practitioner Rebekah Jones in all elements of the case discussed with attending Dr. Duron DISPOSITION:transfer back to [facility] Patient Condition at Discharge: Stable Plan - Discharge Summary New Discharge Prescriptions: New SILVER sulfADIAZINE CREAM [Silvadene Cream] 1 applic TOPICAL BID #1 applic Digoxin [Lanoxin] 125 mcg PO DAILY #30 tab Amoxicillin/Potassium Clav [Augmentin 500-125 Tablet] 1 tab PO DAILY #7 tab Continue Calcium Acetate [PhosLo] 1,334 mg PO TID-W/MEALS Escitalopram [Lexapro] 15 mg PO AC-BRKFST Ipratropium-Albuterol Nebulize [Duoneb 0.5 mg-3 mg/3 ml Soln] 3 ml INHALATION RT-QID neb Midodrine HCl [ProAmatine] 10 mg PO TID Sodium Bicarbonate Tab 650 mg PO QAM Omeprazole 20 mg PO HS Atorvastatin [Lipitor] 40 mg PO HS Vitamin B Complex 1 cap PO DAILY Vitamin B Complex 1 tab PO DAILY Discontinued Metoprolol Tartrate [Lopressor] 12.5 mg PO BID Warfarin [Coumadin] 2.5 mg PO DAILY #0 Docusate [Colace] 100 mg PO BID PRN PRN Reason: Constipation Warfarin [Coumadin] 5 mg PO DIRECTED Discharge Medication List Calcium Acetate [PhosLo] 1,334 mg PO TID-W/MEALS 11/17/16 [History] Escitalopram [Lexapro] 15 mg PO AC-BRKFST 05/22/17 [History] Ipratropium-Albuterol Nebulize [Duoneb 0.5 mg-3 mg/3 ml Soln] 3 ml INHALATION RT -QID neb 05/31/17 [Rx] Atorvastatin [Lipitor] 40 mg PO HS 07/04/17 [History] Midodrine HCl [ProAmatine] 10 mg PO TID 07/04/17 [History] Omeprazole 20 mg PO HS 07/04/17 [History] Sodium Bicarbonate Tab 650 mg PO QAM 07/04/17 [History] Vitamin B Complex 1 cap PO DAILY 07/04/17 [History] Vitamin B Complex 1 tab PO DAILY 07/05/17 [History] Amoxicillin/Potassium Clav [Augmentin 500-125 Tablet] 1 tab PO DAILY #7 tab [Rx] Digoxin [Lanoxin] 125 mcg PO DAILY #30 tab 07/07/17 [Rx] SILVER sulfADIAZINE CREAM [Silvadene Cream] 1 applic TOPICAL BID #1 applic 07/07 [Rx] Follow up Appointment(s)/Referral(s): Apollo Corbett DO [Primary Care Provider] - 1-2 days Andre Murillo MD [STAFF PHYSICIAN] - 1 Week Nba Guthrie MD [STAFF PHYSICIAN] - 1 Week Ambulatory/Diagnostic Orders: Basic Metabolic Panel [LAB.AMB] Location: Determined By Patient Prothrombin Time INR [LAB.AMB] Location: Determined By Patient Patient Instructions/Handouts: Chronic Kidney Disease (DC) Activity/Diet/Wound Care/Special Instructions: Low potassium and phosphorous diet Patient has a base line of LOW BLOOD PRESSURE, he runs in the 80's sometimes. His EF is only 10% He has a history of falls r/t low blood pressure and weakness. wound care to continue as per dr. guthrie Discharge Disposition: TRANSFER TO SNF/ECF
[2017-07-07] MEDS: DIGOXIN 125 MCG TAB PO SCH (16:07)
--- NOTE | 2017-07-07 20:53 | P.PN ---
Subjective Progress Note Date: 07/07/17 Principal diagnosis: shortness of breath 67-year-old male that has an extensive past medical history that includes cardiomyopathy with a 10% ejection fraction, end-stage renal disease on hemodialysis and ongoing deterioration of his status over the last few months. The patient is a poor historian the chart gives further information. His related over the last few months that his status has continued to decline. He has been weaker. He said increasing lower extremity edema and ulcerations. Has had multiple falls. He has become weaker over time. The family is concerned that his dietary needs are not being appropriately mattes where he is staying and may be contributing to his worsening status. The patient relates that he feels poorly. His legs hurt him because of the swelling and the wounds. He denies fevers or chills. Has had is elevated because he is short of breath that he has laid supine. He has no exercise tolerance. feels slightly better today.the patient is bleeding he may be going back to home although it is clear that he'll be transferred back to [facility] [place]. Objective - Vital Signs Vital signs: Vital Signs Temp 97.8 F 07/07/17 16:00 Pulse 115 H 07/07/17 16:00 Resp 18 07/07/17 16:00 BP 98/69 07/07/17 16:00 Pulse Ox 96 07/07/17 16:00 Intake & Output 07/07/17 07/07/17 07/08/17 06:59 18:59 06:59 Intake Total 100 600 Output Total 201 Balance 100 399 Weight 122 kg Intake: Oral 100 600 Output: Urine 200 Urine/Stool Mix 1 Other: # Voids 2 # Bowel Movements 2 0 - Exam 67-year-old male appears older than his stated age. Is chronically ill. Fortunately he is not frankly short of breath at this time, relates he feels poorly HEENT: Anicteric conjunctiva are pink and moist nasal mucosa grossly intact without significant lesions, there is no thrush. Neck: The neck is supple without significant lymphadenopathy or thyromegaly. Lungs: There are symmetrical air entry. There is bibasilar crackles. Minimal dullness at the bases. No egophony is noted Heart: Irregular, audible S1 and S2, murmur is noted pansystolic likely related to his fistula, no click or rub Abdomen: Obese, Positive bowel sounds soft and nontender without palpable masses or organomegaly. There was no guarding or rebound. Extremities: The upper extremities have excellent pulses they are symmetric, no significant petechiae or telangiectasia. No splinter hemorrhages were noted. Official the right arm is intact in his is healing thrill. The lower extremities reveal evidence of the chronic bilateral lower extremity edema, intense erythema, ulceration is noted in both pretibial areas without drainage today. The limbs are tender to touch. The erythema is from the foot to the mid calf bilaterally. Healing injury to the left knee from his recent fall Neuro: Arousable. Poor historian. However is able to move upper and lower extremities on command. - Labs CBC & Chem 7: 07/04/17 22:11 07/06/17 07:10 Labs: Abnormal Lab Results - Last 24 Hours (Table) 07/07/17 Range/Units 06:13 PT 41.9 H (9.0-12.0) sec INR 4.3 H (<1.2) Microbiology - Last 24 Hours (Table) 07/04/17 22:13 Blood Culture - Preliminary Blood No Growth after 48 hours Laboratory Results WBC 8.6 k/uL (3.8-10.6) 07/04/17 22:11 RBC 4.30 m/uL (4.30-5.90) 07/04/17 22:11 Hgb 13.9 gm/dL (13.0-17.5) 07/04/17 22:11 Hct 46.7 % (39.0-53.0) 07/04/17 22:11 MCV 108.8 fL (80.0-100.0) H 07/04/17 22:11 MCH 32.3 pg (25.0-35.0) 07/04/17 22:11 MCHC 29.7 g/dL (31.0-37.0) L 07/04/17 22:11 RDW 20.4 % (11.5-15.5) H 07/04/17 22:11 Plt Count 188 k/uL (150-450) 07/04/17 22:11 Neutrophils % 76 % 07/04/17 22:11 Lymphocytes % 13 % 07/04/17 22:11 Monocytes % 7 % 07/04/17 22:11 Eosinophils % 1 % 07/04/17 22:11 Basophils % 1 % 07/04/17 22:11 Neutrophils # 6.6 k/uL (1.3-7.7) 07/04/17 22:11 Lymphocytes # 1.2 k/uL (1.0-4.8) 07/04/17 22:11 Monocytes # 0.6 k/uL (0-1.0) 07/04/17 22:11 Eosinophils # 0.1 k/uL (0-0.7) 07/04/17 22:11 Basophils # 0.1 k/uL (0-0.2) 07/04/17 22:11 Manual Slide Review Performed 07/04/17 22:11 Large Platelets Present 07/04/17 22:11 Polychromasia Present 07/04/17 22:11 Hypochromasia Marked 07/04/17 22:11 Poikilocytosis Slight 07/04/17 22:11 Anisocytosis Moderate 07/04/17 22:11 Macrocytosis Marked 07/04/17 22:11 Spherocytes Present 07/04/17 22:11 PT 41.9 sec (9.0-12.0) H 07/07/17 06:13 INR 4.3 (<1.2) H 07/07/17 06:13 APTT 31.4 sec (22.0-30.0) H 07/04/17 22:11 Sodium 131 mmol/L (137-145) L 07/06/17 07:10 Potassium 5.1 mmol/L (3.5-5.1) 07/06/17 07:10 Chloride 95 mmol/L (98-107) L 07/06/17 07:10 Carbon Dioxide 14 mmol/L (22-30) L 07/06/17 07:10 Anion Gap 22 mmol/L 07/06/17 07:10 BUN 77 mg/dL (9-20) H 07/06/17 07:10 Creatinine 10.32 mg/dL (0.66-1.25) H* 07/06/17 07:10 Est GFR (MDRD) Af Amer 6 (>60 ml/min/1.73 sqM) 07/06/17 07:10 Est GFR (MDRD) Non-Af 5 (>60 ml/min/1.73 sqM) 07/06/17 07:10 Glucose 148 mg/dL (74-99) H 07/06/17 07:10 POC Glucose (mg/dL) 168 mg/dL (75-99) H 07/06/17 11:35 POC Glu Booking Agent ID Ramsey Ruffin 07/06/17 11:[address] Glu mg/dL 114 mg/dL 07/06/17 09:03 Hemoglobin A1c 5.6 % (4.2-6.1) 07/06/17 09:03 Lactic Ac Sepsis Rflx Y 07/04/17 22:44 Plasma Lactic Acid Maciel 4.8 mmol/L (0.7-2.0) H* 07/05/17 02:03 Calcium 7.5 mg/dL (8.4-10.2) L 07/06/17 07:10 Phosphorus 5.8 mg/dL (2.5-4.5) H 07/06/17 07:10 Magnesium 1.8 mg/dL (1.6-2.3) 07/06/17 07:10 Total Bilirubin 0.8 mg/dL (0.2-1.3) 07/04/17 22:11 AST 69 U/L (17-59) H 07/04/17 22:11 ALT 166 U/L (21-72) H 07/04/17 22:11 Alkaline Phosphatase 347 U/L (38-126) H 07/04/17 22:11 Total Creatine Kinase 28 U/L (55-170) L 07/04/17 22:11 CK-MB (CK-2) 1.8 ng/mL (0.0-2.4) 07/04/17 22:11 CK-MB (CK-2) Rel Index 6.4 07/04/17 22:11 Troponin I <0.012 ng/mL (0.000-0.034) 07/04/17 22:11 NT-Pro-B Natriuret Pep 66824 pg/mL 07/04/17 22:11 Total Protein 6.2 g/dL (6.3-8.2) L 07/04/17 22:11 Albumin 3.4 g/dL (3.5-5.0) L 07/04/17 22:11 Microbiology 07/04/17 22:13 Blood Blood Culture - Preliminary No Growth after 48 hours Assessment and Plan (1) Weakness Current Visit: No Status: Acute Code(s): R53.1 - WEAKNESS SNOMED Code(s): 90307106 (2) Cardiomyopathy Current Visit: Yes Status: Acute Code(s): I42.9 - CARDIOMYOPATHY, UNSPECIFIED SNOMED Code(s): 39323074 (3) Chronic kidney disease with end stage renal failure on dialysis Current Visit: Yes Status: Acute Code(s): N18.6 - END STAGE RENAL DISEASE; Z99.2 - DEPENDENCE ON RENAL DIALYSIS SNOMED Code(s): 709281574 (4) Bilateral lower leg cellulitis Narrative/Plan: 67-year-old male presents to Hospital extended care facility with increasing weakness, increasing shortness of breath, increasing lower extremity edema with erythema and tenderness in ulceration. Prior cultures reviewed avoidance of MRSA. Patient has been started on Unasyn. Culture is to be obtained from the drainage. Which will further help direct antimicrobial therapy. Local wound care as been requested with Silvadene and gentle wraps to bilateral lower extremities. Hopefully this will provide him some improvement to elicit any discomfort that he is having. No severe leukocytosis but there was lactic acidosis. This appears multifactorial possibly due to underlying infection however the patient also has significant acidosis from his chronic kidney disease and chronic hypoperfusion from his chronic cardiomyopathy. The patient is now having some improvement.there is contemplation for transfer back to the extended care [facility]. Lower extremities have had improvement. He may transition to oral antimicrobial therapy with Augmentin 500/125 orally twice per day, for 7 days. Continue local wound care with the wraps that he is found to be quite soothing. Current Visit: Yes Status: Acute Code(s): L03.116 - CELLULITIS OF LEFT LOWER LIMB; L03.115 - CELLULITIS OF RIGHT LOWER LIMB SNOMED Code(s): 310959986
[2017-07-07] MEDS: PANTOPRAZOLE 40 MG TABLET PO SCH (21:21)
[2017-07-07] MEDS: ATORVASTATIN 40 MG TAB PO SCH (21:21)
--- NOTE | 2017-07-07 22:32 | PN ---
PROGRESS NOTE DATE OF SERVICE: 07/07/2017 PRESENTING COMPLAINT: Dizziness. INTERVAL HISTORY: This is a patient, F resident, was on hemodialysis, who is persistently hypotensive and having frequent falls. Prognosis is not good. EF is around 10%. Was hemodialyzed, taken off 3L. Tolerating a diet. REVIEW OF SYSTEMS: Done for constitutional, cardiovascular, GI, pulmonary; relevant findings as above next. CURRENT MEDICATIONS: Reviewed, include IV Unasyn. PHYSICAL EXAMINATION: Temperature 97.2, pulse 101.7, respirations 18, blood pressure 98/67, pulse ox 95% on room air. GENERAL APPEARANCE: Lying in bed. EYES: Pupils equal. Conjunctivae normal. NECK: JVD not raised. RESPIRATORY: Effort decreased. LUNGS: Decreased breath sounds. CARDIOVASCULAR: 1st and 2nd sounds normal. Edema is present. DERMATOLOGICAL: Lower extremity cellulitis with some superficial blister. INVESTIGATIONS: INR 4.3. ASSESSMENT: 1. Chronic hypotension from poor ejection fraction making the patient symptomatic with falls. 2. End-stage kidney disease, on hemodialysis Tuesday, Tuesday, Tuesday with a right arm arteriovenous fistula. 3. Chronic congestive heart failure from systolic dysfunction, ejection fraction 10%. 4. Hypertensive heart disease. 5. Lower extremity cellulitis, left lower. 6. Persistent atrial fibrillation chronically on Coumadin. 7. Coumadin toxicity. No evidence of bleeding on presentation. 8. Depression, not otherwise specified. 9. Metabolic acidosis. 10.Lactic acidosis from hypoperfusion. 11.Medical debility; chronic, multifactorial. 12.Chronic obstructive pulmonary disease in an ex-smoker. PLAN: Care was discussed with . Overall prognosis is guarded. Not too much can be added, given his very poor ejection fraction. The patient will probably be transferred back to the [facility]. Patient is being switched over to oral antibiotics. MMODL / IJN: [id number] /
[2017-07-08] MEDS: IPRATROPIUM-ALBUTEROL 3 ML NEB INHALATION SCH ×4 (07:13→20:55)
[2017-07-08] MEDS: MIDODRINE 5 MG TAB PO SCH ×3 (07:52→18:31)
[2017-07-08] MEDS: CALCIUM ACETATE 667 MG CAP PO SCH ×3 (09:11→18:31)
[2017-07-08] MEDS: B COMPLEX-VIT C-VIT E-ZINC 1 EACH TAB PO SCH (12:05)
[2017-07-08] MEDS: DIGOXIN 125 MCG TAB PO SCH (12:05)
[2017-07-08] MEDS: SODIUM BICARBONATE TAB 650 MG TAB PO SCH (12:06)
[2017-07-08] MEDS: AMOXIC-POT CLAV 500-125 MG 1 EACH TAB PO SCH (12:06)
--- NOTE | 2017-07-08 13:57 | P.PN ---
Subjective Patient is seen in follow-up for end-stage renal disease. He is maintained on hemodialysis on a Tuesday schedule via right upper extremity AV fistula. Patient presented with generalized weakness and recurrent falls. He' s also noted to have lower extremity cellulitis and is maintained on PO antibiotics. Patient states he has been trying to ambulate to the best of his ability but is only able to walk short distances. He does of systolic CHF with ejection fraction less than 20%. Oral intake is fair. Denies chest pain. He remains quite weak. Vital signs are stable. General: The patient appeared well nourished and normally developed. HEENT: Head exam is unremarkable. Neck is without jugular venous distension. LUNGS: Lungs are clear to auscultation and percussion. Breath sounds decreased. HEART: Rate and Rhythm are regular. First and second heart sounds normal. No murmurs, rubs or gallops. ABDOMEN: Abdominal exam reveals normal bowel sounds. Non-tender and non- distended. No evidence of peritonitis. EXTREMITITES: 1+ edema. Erythema noted. No obvious drainage. Objective - Vital Signs Vital signs: Vital Signs Temp 97.1 F L 07/08/17 08:00 Pulse 115 H 07/08/17 08:00 Resp 21 07/08/17 08:00 BP 91/65 07/08/17 08:00 Pulse Ox 97 07/08/17 08:00 Intake & Output 07/07/17 07/08/17 07/08/17 18:59 06:59 18:59 Intake Total 600 310 Output Total 201 Balance 399 310 Weight 123 kg Intake: Oral 600 310 Output: Urine 200 Urine/Stool Mix 1 Other: # Voids 2 # Bowel Movements 0 1 - Labs CBC & Chem 7: 07/04/17 22:11 07/06/17 07:10 Labs: Microbiology - Last 24 Hours (Table) 07/04/17 22:13 Blood Culture - Preliminary Blood No Growth after 72 hours Assessment and Plan Plan: Assessment: #1. End-stage renal disease maintained on hemodialysis on a Tuesday schedule via right upper extremity AV fistula. #2. Lower extremity cellulitis maintained on oral antibiotics. Infectious disease following. #3. Systolic CHF with ejection fraction of less than 20%. #4. Chronic hypotension secondary to underlying cardiac status maintained on midodrine. #5. Chronic kidney disease mineral bone disease. #6. Generalized debility with progressive weakness. Also recurrent falls. #7. A. fib maintained on Coumadin, currently held. INR elevated but trending down. #8. Lactic acidosis. Likely related to hypoperfusion due to hypotension. Improved. Plan: Hemodialysis today with goal 3-4 L ultrafiltration. Maintain midodrine 10 mg 3 times a day. Maintain PhosLo with meals. Encouraged oral intake. Continue to work with physical therapy. Patient's functional status has declined quite considerably over the last couple of months. He has required multiple hospitalizations. Potential discharge back to subacute rehab today.
--- NOTE | 2017-07-08 14:59 | P.DS ---
Providers Date of admission: 07/06/17 08:53 Expected date of discharge: 07/08/17 Attending physician: Sami Duron Consults: 07/04/17 23:45 Consult Physician Urgent Consulting Provider: Radha Justice Consult Reason/Comments: Chronic renal failure Do you want consulting provider notified?: Yes 07/05/17 12:10 Consult Physician Urgent Consulting Provider: Nba Guthrie Consult Reason/Comments: Lower extremity cellulitis and wounds Do you want consulting provider notified?: Yes 07/05/17 18:27 Consult Physician Routine Consulting Provider: Chloe Guadalupe Consult Reason/Comments: chf Do you want consulting provider notified?: Yes Primary care physician: [facility] Course: FINAL DIAGNOSES: -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 -Chronic congestive heart failure from systolic dysfunction EF 10% probably from hypertensive heart disease. -Lower Extremity cellulitis left lower extremity. -Persistent atrial fibrillation chronically on Coumadin. -Coumadin toxicity with no evidence of bleeding. -Depression not otherwise specified. -Metabolic acidosis. -Lactic acidosis from hypoperfusion. -Medical debility, chronic and multifactorial -chronic obstructive pulmonary disease in an ex-smoker. HOSPTIAL COURSE: 66-year-old male currently a resident of [facility] ,on hemodialysis with a right arm AV fistula admitted for dizziness and lightheadedness and repeated falling.home medications reordered, consultation to nephrology, infectious disease, and cardiology placed.cardiology evaluated the patient no clear-cut syncope, history of orthostatic hypotension patient remains on midodrine. Chronically low blood pressure. beta ambika stopped and digoxin 125 g added daily. Coumadin stopped due to frequent falls and patient' s poor renal function, nephrology provided hemodialysis on his Tuesday schedule through his AV fistula., maintain midodrine for blood pressure support, PhosLo with meals. infectious disease ordered culture from lower extremity ulcerations and antibiotic therapy. Continued silvadene cream and gentle wraps to lower extremity. patient is tolerating his diet, agreeable to work with physical therapy,moving his bowels. Overall condition stabilized and is appropriate for return to [facility]. PHYSICAL EXAM: CARDIOVASCULAR: first and second sound noted mild edema RESPIRATORY: respiratory effort normal, lung sounds diminished bilaterally MUSKULOSKELETAL:requires use of rolling walker,able to take a few steps in place , unable to lift legs from the bed INTEGUMENT:left knee with abrasion.lower extremities erythematous, ulcerations to bilateral pretibial area NEUROLOGIC: gross motor movement intact, alert and able to answer some questions PSYCHIATRY: Alert and able to answer questions, mood and affect appropriate for situation Patient was seen and examined by nurse practitioner Rebekah Jones in all elements of the case discussed with attending Dr. Duron DISPOSITION:transfer back to [facility] Patient Condition at Discharge: Stable Plan - Discharge Summary Discharge Rx Participant: No New Discharge Prescriptions: New SILVER sulfADIAZINE CREAM [Silvadene Cream] 1 applic TOPICAL BID #1 applic Digoxin [Lanoxin] 125 mcg PO DAILY #30 tab Amoxicillin/Potassium Clav [Augmentin 500-125 Tablet] 1 tab PO DAILY #7 tab Continue Calcium Acetate [PhosLo] 1,334 mg PO TID-W/MEALS Escitalopram [Lexapro] 15 mg PO AC-BRKFST Ipratropium-Albuterol Nebulize [Duoneb 0.5 mg-3 mg/3 ml Soln] 3 ml INHALATION RT-QID neb Midodrine HCl [ProAmatine] 10 mg PO TID Sodium Bicarbonate Tab 650 mg PO QAM Omeprazole 20 mg PO HS Atorvastatin [Lipitor] 40 mg PO HS Vitamin B Complex 1 cap PO DAILY Vitamin B Complex 1 tab PO DAILY Discontinued Metoprolol Tartrate [Lopressor] 12.5 mg PO BID Warfarin [Coumadin] 2.5 mg PO DAILY #0 Docusate [Colace] 100 mg PO BID PRN PRN Reason: Constipation Warfarin [Coumadin] 5 mg PO DIRECTED Discharge Medication List Calcium Acetate [PhosLo] 1,334 mg PO TID-W/MEALS 11/17/16 [History] Escitalopram [Lexapro] 15 mg PO AC-BRKFST 05/22/17 [History] Ipratropium-Albuterol Nebulize [Duoneb 0.5 mg-3 mg/3 ml Soln] 3 ml INHALATION RT -QID neb 05/31/17 [Rx] Atorvastatin [Lipitor] 40 mg PO HS 07/04/17 [History] Midodrine HCl [ProAmatine] 10 mg PO TID 07/04/17 [History] Omeprazole 20 mg PO HS 07/04/17 [History] Sodium Bicarbonate Tab 650 mg PO QAM 07/04/17 [History] Vitamin B Complex 1 cap PO DAILY 07/04/17 [History] Vitamin B Complex 1 tab PO DAILY 07/05/17 [History] Amoxicillin/Potassium Clav [Augmentin 500-125 Tablet] 1 tab PO DAILY #7 tab [Rx] Digoxin [Lanoxin] 125 mcg PO DAILY #30 tab 07/07/17 [Rx] SILVER sulfADIAZINE CREAM [Silvadene Cream] 1 applic TOPICAL BID #1 applic 07/07 [Rx] Follow up Appointment(s)/Referral(s): Apollo Corbett DO [Primary Care Provider] - 1-2 days Andre Murillo MD [STAFF PHYSICIAN] - 1 Week Nba Guthrie MD [STAFF PHYSICIAN] - 1 Week Ambulatory/Diagnostic Orders: Basic Metabolic Panel [LAB.AMB] Location: Determined By Patient Prothrombin Time INR [LAB.AMB] Location: Determined By Patient Patient Instructions/Handouts: Chronic Kidney Disease (DC) Activity/Diet/Wound Care/Special Instructions: Low potassium and phosphorous diet Patient has a base line of LOW BLOOD PRESSURE, he runs in the 80's sometimes. His EF is only 10% He has a history of falls r/t low blood pressure and weakness. wound care to continue as per dr. guthrie Discharge Disposition: TRANSFER TO SNF/ECF
[2017-07-08 15:31] VITALS: RESP 20
[2017-07-08] MEDS: PANTOPRAZOLE 40 MG TABLET PO SCH (20:54)
[2017-07-08] MEDS: ATORVASTATIN 40 MG TAB PO SCH (20:54)
--- NOTE | 2017-07-08 21:32 | P.PN ---
Subjective Progress Note Date: 07/08/17 Principal diagnosis: shortness of breath 67-year-old male that has an extensive past medical history that includes cardiomyopathy with a 10% ejection fraction, end-stage renal disease on hemodialysis and ongoing deterioration of his status over the last few months. The patient is a poor historian the chart gives further information. His related over the last few months that his status has continued to decline. He has been weaker. He said increasing lower extremity edema and ulcerations. Has had multiple falls. He has become weaker over time. The family is concerned that his dietary needs are not being appropriately mattes where he is staying and may be contributing to his worsening status. The patient relates that he feels poorly. His legs hurt him because of the swelling and the wounds. He denies fevers or chills. Has had is elevated because he is short of breath that he has laid supine. He has no exercise tolerance. feels slightly better today.is able to relate today that he will be going to [place] at his discharge. Objective - Vital Signs Vital signs: Vital Signs Temp 97.9 F 07/08/17 15:00 Pulse 107 H 07/08/17 15:00 Resp 20 07/08/17 15:00 BP 84/59 07/08/17 15:00 Pulse Ox 98 07/08/17 15:00 Intake & Output 07/08/17 07/08/17 07/09/17 06:59 18:59 06:59 Intake Total 310 Balance 310 Weight 123 kg Intake: Oral 310 Other: # Voids 3 # Bowel Movements 1 1 - Exam 67-year-old male appears older than his stated age. Is chronically ill. Fortunately he is not frankly short of breath at this time, relates he feels poorly HEENT: Anicteric conjunctiva are pink and moist nasal mucosa grossly intact without significant lesions, there is no thrush. Neck: The neck is supple without significant lymphadenopathy or thyromegaly. Lungs: There are symmetrical air entry. There is bibasilar crackles. Minimal dullness at the bases. No egophony is noted Heart: Irregular, audible S1 and S2, murmur is noted pansystolic likely related to his fistula, no click or rub Abdomen: Obese, Positive bowel sounds soft and nontender without palpable masses or organomegaly. There was no guarding or rebound. Extremities: The upper extremities have excellent pulses they are symmetric, no significant petechiae or telangiectasia. No splinter hemorrhages were noted. Official the right arm is intact in his is healing thrill. The lower extremities reveal evidence of the chronic bilateral lower extremity edema, intense erythema, ulceration is noted in both pretibial areas without drainage today. The limbs are tender to touch. The erythema is from the foot to the mid calf bilaterally. Healing injury to the left knee from his recent fall Neuro: Arousable. Poor historian. However is able to move upper and lower extremities on command. - Labs CBC & Chem 7: 07/04/17 22:11 07/06/17 07:10 Labs: Microbiology - Last 24 Hours (Table) 07/04/17 22:13 Blood Culture - Preliminary Blood No Growth after 72 hours Laboratory Results WBC 8.6 k/uL (3.8-10.6) 07/04/17 22:11 RBC 4.30 m/uL (4.30-5.90) 07/04/17 22:11 Hgb 13.9 gm/dL (13.0-17.5) 07/04/17 22:11 Hct 46.7 % (39.0-53.0) 07/04/17 22:11 MCV 108.8 fL (80.0-100.0) H 07/04/17 22:11 MCH 32.3 pg (25.0-35.0) 07/04/17 22:11 MCHC 29.7 g/dL (31.0-37.0) L 07/04/17 22:11 RDW 20.4 % (11.5-15.5) H 07/04/17 22:11 Plt Count 188 k/uL (150-450) 07/04/17 22:11 Neutrophils % 76 % 07/04/17 22:11 Lymphocytes % 13 % 07/04/17 22:11 Monocytes % 7 % 07/04/17 22:11 Eosinophils % 1 % 07/04/17 22:11 Basophils % 1 % 07/04/17 22:11 Neutrophils # 6.6 k/uL (1.3-7.7) 07/04/17 22:11 Lymphocytes # 1.2 k/uL (1.0-4.8) 07/04/17 22: Monocytes # 0.6 k/uL (0-1.0) 07/04/17 22:11 Eosinophils # 0.1 k/uL (0-0.7) 07/04/17 22:11 Basophils # 0.1 k/uL (0-0.2) 07/04/17 22:11 Manual Slide Review Performed 07/04/17 22:11 Large Platelets Present 07/04/17 22:11 Polychromasia Present 07/04/17 22:11 Hypochromasia Marked 07/04/17 22:11 Poikilocytosis Slight 07/04/17 22:11 Anisocytosis Moderate 07/04/17 22:11 Macrocytosis Marked 07/04/17 22:11 Spherocytes Present 07/04/17 22:11 PT 41.9 sec (9.0-12.0) H 07/07/17 06:13 INR 4.3 (<1.2) H 07/07/17 06:13 APTT 31.4 sec (22.0-30.0) H 07/04/17 22:11 Sodium 131 mmol/L (137-145) L 07/06/17 07:10 Potassium 5.1 mmol/L (3.5-5.1) 07/06/17 07:10 Chloride 95 mmol/L (98-107) L 07/06/17 07:10 Carbon Dioxide 14 mmol/L (22-30) L 07/06/17 07:10 Anion Gap 22 mmol/L 07/06/17 07:10 BUN 77 mg/dL (9-20) H 07/06/17 07:10 Creatinine 10.32 mg/dL (0.66-1.25) H* 07/06/17 07:10 Est GFR (MDRD) Af Amer 6 (>60 ml/min/1.73 sqM) 07/06/17 07:10 Est GFR (MDRD) Non-Af 5 (>60 ml/min/1.73 sqM) 07/06/17 07:10 Glucose 148 mg/dL (74-99) H 07/06/17 07:10 POC Glucose (mg/dL) 168 mg/dL (75-99) H 07/06/17 11:35 POC Glu Airplane Refueler ID [place] 07/06/17 11:[address] Glu mg/dL 114 mg/dL 07/06/17 09:03 Hemoglobin A1c 5.6 % (4.2-6.1) 07/06/17 09:03 Lactic Ac Sepsis Rflx Y 07/04/17 22:44 Plasma Lactic Acid Maciel 1.9 mmol/L (0.7-2.0) 07/08/17 02:43 Calcium 7.5 mg/dL (8.4-10.2) L 07/06/17 07:10 Phosphorus 5.8 mg/dL (2.5-4.5) H 07/06/17 07:10 Magnesium 1.8 mg/dL (1.6-2.3) 07/06/17 07:10 Total Bilirubin 0.8 mg/dL (0.2-1.3) 07/04/17 22:11 AST 69 U/L (17-59) H 07/04/17 22:11 ALT 166 U/L (21-72) H 07/04/17 22:11 Alkaline Phosphatase 347 U/L (38-126) H 07/04/17 22:11 Total Creatine Kinase 28 U/L (55-170) L 07/04/17 22:11 CK-MB (CK-2) 1.8 ng/mL (0.0-2.4) 07/04/17 22:11 CK-MB (CK-2) Rel Index 6.4 07/04/17 22:11 Troponin I <0.012 ng/mL (0.000-0.034) 07/04/17 22:11 NT-Pro-B Natriuret Pep 19587 pg/mL 07/04/17 22:11 Total Protein 6.2 g/dL (6.3-8.2) L 07/04/17 22:11 Albumin 3.4 g/dL (3.5-5.0) L 07/04/17 22:11 Microbiology 07/04/17 22:13 Blood Blood Culture - Preliminary No Growth after 72 hours Assessment and Plan (1) Weakness Current Visit: No Status: Acute Code(s): R53.1 - WEAKNESS SNOMED Code(s): 59511751 (2) Cardiomyopathy Current Visit: Yes Status: Acute Code(s): I42.9 - CARDIOMYOPATHY, UNSPECIFIED SNOMED Code(s): 80674324 (3) Chronic kidney disease with end stage renal failure on dialysis Current Visit: Yes Status: Acute Code(s): N18.6 - END STAGE RENAL DISEASE; Z99.2 - DEPENDENCE ON RENAL DIALYSIS SNOMED Code(s): 687705295 (4) Bilateral lower leg cellulitis Narrative/Plan: 67-year-old male presents to [facility] extended care facility with increasing weakness, increasing shortness of breath, increasing lower extremity edema with erythema and tenderness in ulceration. Prior cultures reviewed avoidance of MRSA. Patient has been started on Unasyn. Culture is to be obtained from the drainage. Which will further help direct antimicrobial therapy. Local wound care as been requested with Silvadene and gentle wraps to bilateral lower extremities. Hopefully this will provide him some improvement to elicit any discomfort that he is having. No severe leukocytosis but there was lactic acidosis. This appears multifactorial possibly due to underlying infection however the patient also has significant acidosis from his chronic kidney disease and chronic hypoperfusion from his chronic cardiomyopathy. The patient is now having some improvement.there is contemplation for transfer back to the extended care facility. Lower extremities have had improvement. He may transition to oral antimicrobial therapy with Augmentin 500/125 orally twice per day, for 7 days. Continue local wound care with the wraps that he is found to be quite soothing. Current Visit: Yes Status: Acute Code(s): L03.116 - CELLULITIS OF LEFT LOWER LIMB; L03.115 - CELLULITIS OF RIGHT LOWER LIMB SNOMED Code(s): 473633483
[2017-07-09] MEDS: IPRATROPIUM-ALBUTEROL 3 ML NEB INHALATION SCH ×2 (07:55→11:36)
[2017-07-09] MEDS: CALCIUM ACETATE 667 MG CAP PO SCH ×2 (08:13→12:43)
[2017-07-09] MEDS: MIDODRINE 5 MG TAB PO SCH ×2 (08:14→12:43)
[2017-07-09] MEDS: DIGOXIN 125 MCG TAB PO SCH (08:14)
[2017-07-09] MEDS: B COMPLEX-VIT C-VIT E-ZINC 1 EACH TAB PO SCH (08:14)
[2017-07-09] MEDS: SODIUM BICARBONATE TAB 650 MG TAB PO SCH (08:14)
[2017-07-09] MEDS: AMOXIC-POT CLAV 500-125 MG 1 EACH TAB PO SCH (08:14)
[2017-07-09 08:22] VITALS: BP 93/55; PULSE 113; TEMP 96.5
--- NOTE | 2017-07-09 11:21 | P.PN ---
Subjective Progress Note Date: 07/09/17 Principal diagnosis: This is a 67-year-old with ESRD on dialysis Tuesday who came in because of generalized weakness and recurrent falls. He also additionally had cellulitis in his legs. He was on antibiotics by mouth. He is ready to be discharged but because of the weekend he will be in the hospital until Tuesday. Patient continues to have weakness tiredness and difficulty walking because of dizziness. His blood pressure is somewhat low in the 90s. He is on midodrine. Denies any chest pain fever chills. He has a good appetite. No nausea vomiting diarrhea. Objective - Vital Signs Vital signs: Vital Signs Temp 96.5 F L 07/09/17 07:00 Pulse 113 H 07/09/17 08:00 Resp 20 07/09/17 08:00 BP 93/55 07/09/17 07:00 Pulse Ox 100 07/09/17 07:00 Intake & Output 07/08/17 07/09/17 07/09/17 18:59 06:59 18:59 Intake Total 970 Balance 970 Weight 120 kg Intake: Oral 970 Other: # Voids 3 0 # Bowel Movements 1 1 On examination is awake alert oriented He has generalized weakness difficulty sitting up A chin exam no JVP neck is supple no facial asymmetry Lungs are clear to auscultation fair air entry bilaterally Heart sounds are unremarkable no murmur rub gallop abdomen soft nontender protuberant and obese Extremity exam was 1-2+ edema Awake alert oriented No focal motor deficit but profoundly weakness. - Labs CBC & Chem 7: 07/04/17 22:11 07/06/17 07:10 Labs: Microbiology - Last 24 Hours (Table) 07/04/17 22:13 Blood Culture - Preliminary Blood No Growth after 96 hours Assessment and Plan Plan: Impression 1. ESRD on dialysis Tuesday 2. admitted with frequent falls with low blood pressure and postural dizziness. On Mid. 3. High INR. 4-5. 4. On digoxin on 125 g daily 5. Mild hyponatremia secondary to ESRD and dilution 6. Gap metabolic acidosis from lactic acidosis,Lactic acidosis, cause not very clear resolved went down from 4.8-1.9 Recommendation. Patient can be discharged from our perspective. If he is here on Tuesday we will dialyze him before his discharge he is scheduled to go to a [facility] Will check his labs and Tuesday
[2017-07-09 11:33] LABS: Prothrombin Time 19.7 sec (9.0-12.0)
--- NOTE | 2017-07-09 13:37 | PN ---
PROGRESS NOTE DATE OF SERVICE: July 08, 2017. PRESENTING COMPLAINT: Tired. INTERVAL HISTORY: The patient is seen by me yesterday on July 08, 2017. The patient is on hemodialysis. Persistently hypertensive. Tolerating his diet. The patient was taken off Coumadin. Discussed with Dr. Pantoja, the patient not felt to be a good candidate for anticoagulation anymore because of frequent falls which we also agree. REVIEW OF SYSTEMS: Done for constitutional, cardiovascular, GI, pulmonary, relevant findings as above. CURRENT MEDICATIONS: Reviewed. PHYSICAL EXAMINATION: Temperature 97.2, pulse 117, respiratory 18, blood pressure 90/67, pulse ox 95% room air. General: Lying in bed, comfortable. Eyes pupils are normal. NECK: JVD not raised. Respiratory effort: Increased. Lungs decreased breath sounds. Cardiovascular first and second sounds normal. Some edema is present. Dermatologic: Lower extremity cellulitis. Psychiatry awake answering questions. INVESTIGATIONS: INR 2, C-diff negative. ASSESSMENT: 1. Chronic hypertension from poor ejection fraction making the patient symptomatic with frequent falls. 2. End-stage kidney disease, on hemodialysis Tuesday with a right arm AV fistula. 3. Chronic congestive heart failure from systolic dysfunction, ejection fraction 10%. Probably from hypertensive heart disease. 4. Lower extremity cellulitis. Acute. 5. Persistent atrial fibrillation. The patient is chronically on Coumadin. Now discontinued because of frequent falls. 6. Depression, not otherwise specified. 7. Metabolic acidosis. 8. Lactic acidosis from hypoperfusion. 9. Medical debility. Chronic multifactorial. 10.Chronic obstructive pulmonary disease in an ex-smoker. PLAN: Awaiting the patient to go back to the ECF. Care was discussed with the patient. MMODL / IJN: [id number] /
--- NOTE | 2017-07-09 13:46 | DS ---
DISCHARGE SUMMARY DATE OF ADMISSION: July 05, 2017. DATE OF DISCHARGE: July 09, 2017. FINAL DIAGNOSIS: 1. Acute on chronic persistent hypotension from poor ejection fraction making the patient symptomatic with frequent falls. 2. End-stage kidney disease, on hemodialysis Tuesday with a right arm AV fistula. 3. Chronic congestive heart failure from systolic dysfunction, ejection fraction 10% from underlying hypertensive heart disease. 4. Hypertensive heart disease. 5. Lower extremity cellulitis acute. 6. Persistent atrial fibrillation. The patient's chronically on Coumadin. Now discontinued because of the patient frequent falls and high risk of bleeding. 7. Coumadin toxicity, present on admission. No bleeding. 8. Depression not otherwise specified. 9. Metabolic acidosis. 10.Lactic acidosis from hypoperfusion. 11.Medical debility. Chronic multifactorial. 12.Chronic obstructive pulmonary disease in an ex-smoker next. CONSULTATIONS: Dr. Guthrie from Infectious Disease. Dr. Pantoja from Nephrology and Dr. Yemi Guadalupe from Cardiology. HOSPITAL COURSE: This is a patient with EF of 10% with frequent falls yet again presented with the same. The patient chronically runs a blood pressure of 80-90 systolic. Even though he is able to doing dialysis 2 to 3 L of fluid were able to removed, it was decided stop patient's Coumadin because of high risk of bleeding and not anticoagulated any further. Prognosis is not good overall. PHYSICAL EXAMINATION: On examination, decreased breath sounds. Some edema is present. HEART: Sounds irregular. DISCHARGE MEDICATIONS: PhosLo 1334 p.o. t.i.d. with meals. Lexapro 15 mg with breakfast, DuoNeb q.i.d., Lipitor 40 mg q.h.s., midodrine 10 mg p.o. t.i.d., omeprazole 20 mg q.h.s., sodium bicarb 62 mg daily, vitamin B complex 1 capsule p.o. daily, Augmentin 500 1 tab p.o. daily total of 7 days to be given after dialysis on dialysis days and digoxin 125 mcg p.o. daily, Silvadene cream topical b.i.d. DISPOSITION: ECF. Follow up with Dr. Corbett. Follow up with Dr. Murillo in 1 week. No anticoagulation. Patient continue with his hemodialysis schedule. MMODL / IJN: [id number] /
== END 2017-07-09 13:53 | DRG 291 ==
LOC: EEVIPCON 21:36 → EC 21:36 → 6SEL 23:45 → OBSVTOIN 07-06 08:53 → 4MS4W 07-08 00:29
PROVIDERS: ADMIT Hospitalist; ATTEND Hospitalist
PROC: 5A1D70Z Performance of Urinary Filtration, Intermittent, Less than 6 Hours Per Day (ICD-10-PCS; principal; 2017-07-06)
DX: I13.2 Hypertensive heart and chronic kidney disease with heart failure and with stage 5 chronic kidney disease, or end stage renal disease (principal); N18.6 End stage renal disease; E87.2 Acidosis; I95.89 Other hypotension; I48.1 Persistent atrial fibrillation; I42.9 Cardiomyopathy, unspecified; I48.2 Chronic atrial fibrillation; E87.1 Hypo-osmolality and hyponatremia; G25.0 Essential tremor; L03.116 Cellulitis of left lower limb; I50.22 Chronic systolic (congestive) heart failure; L97.929 Non-pressure chronic ulcer of unspecified part of left lower leg with unspecified severity; L03.115 Cellulitis of right lower limb; J44.9 Chronic obstructive pulmonary disease, unspecified; F32.9 Major depressive disorder, single episode, unspecified; E78.5 Hyperlipidemia, unspecified; R53.81 Other malaise; T45.515A Adverse effect of anticoagulants, initial encounter; R79.1 Abnormal coagulation profile; K21.9 Gastro-esophageal reflux disease without esophagitis; R29.6 Repeated falls; Z79.01 Long term (current) use of anticoagulants; Z95.810 Presence of automatic (implantable) cardiac defibrillator; Z79.899 Other long term (current) drug therapy; Z87.891 Personal history of nicotine dependence; Z99.2 Dependence on renal dialysis; Z91.81 History of falling
CPT/HCPCS: 36415; 71020; 80048; 80053; 80162; 82550; 82553; 83036; 83605; 83735; 83880; 84100; 84484; 85025; 85610; 85730; 87040; 87324; 90935; 93005; 94640; 94760; 96360; 96361; 99285

== ENCOUNTER 2018-07-12 02:17 | Inpatient (IN) | payer OTHER, MEDICARE ==
[2018-07-12] MEDS ORDERED: ASPIRIN 81 MG PO STA (02:27)
--- NOTE | 2018-07-12 02:27 | ED ---
General Adult HPI - General Stated complaint: SILVIA Time Seen by Provider: 07/12/18 02:27 - History of Present Illness Initial comments: Mario is a 68-year-old male with extensive past medical history most significant for end-stage renal disease on hemodialysis Tuesday the emergency department today from metal lodged for evaluation of transient shortness of breath which occurred earlier in the evening and irregular heart rate. Patient reports that he had an episode of shortness of breath without any chest pain, caregivers metal lodged placed the pulse oximeter on him and noted that his oxygen saturation was 98 200%, however his heart rate was variable from the mid 70s to the 110s. They were concerned about this variability and call 911 for transfer to the ER. Patient reports that he has been compliant with his hemodialysis, last attended on Tuesday. Plans to attend tomorrow. He denies any chest pain, palpitations, he does report a history of A. fib. Upon arrival patient reports that he is feeling well and is uncertain why he had to come to the hospital. - Related Data Home Medications Medication Instructions Recorded Confirmed Calcium Acetate [PhosLo] 1,334 mg PO TID-W/MEALS 11/17/16 07/04/17 Escitalopram [Lexapro] 15 mg PO AC-BRKFST 05/22/17 07/04/17 Atorvastatin [Lipitor] 40 mg PO HS 07/04/17 07/04/17 Midodrine HCl [ProAmatine] 10 mg PO TID 07/04/17 07/04/17 Omeprazole 20 mg PO HS 07/04/17 07/04/17 Sodium Bicarbonate Tab 650 mg PO QAM 07/04/17 07/04/17 Vitamin B Complex 1 cap PO DAILY 07/04/17 07/04/17 Vitamin B Complex 1 tab PO DAILY 07/05/17 07/05/17 Previous Rx's Medication Instructions Recorded Ipratropium-Albuterol Nebulize 3 ml INHALATION RT-QID neb 05/31/17 [Duoneb 0.5 mg-3 mg/3 ml Soln] Amoxicillin/Potassium Clav 1 tab PO DAILY #7 tab 07/07/17 [Augmentin 500-125 Tablet] Digoxin [Lanoxin] 125 mcg PO DAILY #30 tab 07/07/17 SILVER sulfADIAZINE CREAM 1 applic TOPICAL BID #1 applic 07/07/17 [Silvadene Cream] Allergies Allergy/AdvReac Type Severity Reaction Status Date / Time No Known Allergies Allergy Verified 07/04/17 21:49 Review of Systems ROS Statement: Those systems with pertinent positive or pertinent negative responses have been documented in the HPI. ROS Other: All systems not noted in ROS Statement are negative. Past Medical History Past Medical History: Atrial Fibrillation, Heart Failure, Dialysis, GERD/Reflux , Renal Disease Additional Past Medical History / Comment(s): SEE DR AUDREY Zhang&Carlos, BLOOD CLOT IN PAST NOT SURE WHERE, ESSENTIAL TREMORS, CHRONIC RENAL FAILURE, HEMODIALYSIS, MON.TUE.TUE., hypotension, hemmorhoids History of Any Multi-Drug Resistant Organisms: None Reported Past Surgical History: AICD, Pacemaker Additional Past Surgical History / Comment(s): COLONOSCOPY, EGD, TEETH REMOVED, CARDIOVERSION, FISTULA RT UPPER ARM FOR HEMODIALYSIS, PREVIOUS CATHETER IN NECK FOR HEMODIALYSIS NOW REMOVED Past Anesthesia/Blood Transfusion Reactions: No Reported Reaction Type of Cardiac Device: AICD Device Placement Date:: may 2016 Past Psychological History: Depression Additional Psychological History / Comment(s): pt currently lives at [facility] in [place]. pt. has a [facility] appointed legal guardian. Retired laborer [employer]. [place] . No international travel in the last many years. Cats in the home where he was living before his hospitalization and placement in extended care Smoking Status: Former smoker Past Alcohol Use History: None Reported, Occasional, Rare Additional Past Alcohol Use History / Comment(s): STARTED SMOKING AT AGE 10, SMOKED 1 TO 1.5 PPD, QUIT -2012 Past Drug Use History: None Reported - Past Family History Sister(s) Family Medical History: Cancer Mother Family Medical History: No Reported History Additional Family Medical History / Comment(s): SMOKER Father Family Medical History: Cancer Additional Family Medical History / Comment(s): SMOKER, PALPATATIONS General Exam - General Exam Comments Initial Comments: Physical Exam GENERAL: Obese, elderly gentleman, chronically ill-appearing, no acute distress HENT: Normocephalic, Atraumatic. EYES: PERRL, EOMI PULMONARY: Unlabored respirations. Decreased by medic excursion secondary to obesity CARDIOVASCULAR: Irregularly irregular rhythm Rate in the low 100s AV fistula in the right upper extremity ABDOMEN: Morbidly obese, Soft and nontender with normal bowel sounds. SKIN: Skin is clear with no lesions or rashes and otherwise unremarkable. : Deferred NEUROLOGIC: Patient is alert and oriented x3. Moving all extremities spontaneously MUSCULOSKELETAL: Normal extremities with adequate strength and full range of motion. No lower extremity swelling or edema. No calf tenderness. PSYCHIATRIC: Normal psychiatric evaluation. Limitations: no limitations Course Vital Signs 07/12/18 02:31 Temperature 97.3 F L Pulse Rate 110 H Respiratory 16 Rate Blood Pressure 103/75 O2 Sat by Pulse 98 Oximetry EKG Findings - EKG Comments: EKG Findings:: EKG obtained at 2:20 AM, rate is 112, rhythm is A. fib, is left axis deviation, QRS is 88, QTC is 45. No acute ST elevations or depressions. No evidence of acute ischemia or infarction. Medical Decision Making - Medical Decision Making The patient was seen and evaluated, history was obtained from the patient and review of medical record This is a chronically ill 68-year-old man on end-stage renal hemodialysis Presented to the ER today for evaluation of shortness of breath and elevated heart rate at residential facility Patient denies any complaints Labs and imaging were ordered Labs with elevated transaminases, patient with no abdominal pain, computed tomography scan was ordered and revealed some fluid around the gallbladder however there is no leukocytosis, no abdominal tenderness, I suspect this fluid is ascitic fluid or related to CHF and not related to acute cholecystitis. Labs also reveal an elevated BNP which is likely related to CHF and kidney failure Labs reveal an undetectable digoxin level Suzan upon review of the patient's medication list there seems to be an air which states that digoxin is to be given once every 48 hours for anticoagulation. Suspect the patient's rapid A. fib is secondary to not receiving his Digoxin The patient's multiple medical comorbidities, multiple significant lab abnormalities, need for reevaluation of his medications as well as dialysis today I do feel he would benefit from remaining in the hospital for further management. His plan was discussed with the patient and his at bedside who are agreeable to this. Mills orders were placed with consults to nephrology for dialysis management. - Lab Data Result diagrams: 07/12/18 02:35 07/12/18 02:35 Lab Results 07/12/18 07/12/18 07/12/18 Range/Units 02:35 02:35 02:35 WBC 10.3 (3.8-10.6) k/uL RBC 4.44 (4.30-5.90) m/uL Hgb 13.8 (13.0-17.5) gm/dL Hct 45.1 (39.0-53.0) % MCV 101.4 H (80.0-100.0) fL MCH 31.1 (25.0-35.0) pg MCHC 30.7 L (31.0-37.0) g/dL RDW 16.1 H (11.5-15.5) % Plt Count 194 (150-450) k/uL Neutrophils % 78 % Lymphocytes % 12 % Monocytes % 8 % Eosinophils % 1 % Basophils % 1 % Neutrophils # 8.0 H (1.3-7.7) k/uL Lymphocytes # 1.3 (1.0-4.8) k/uL Monocytes # 0.8 (0-1.0) k/uL Eosinophils # 0.1 (0-0.7) k/uL Basophils # 0.1 (0-0.2) k/uL Hypochromasia Moderate Anisocytosis Slight Macrocytosis Slight PT (9.0-12.0) sec INR (<1.2) APTT (22.0-30.0) sec Sodium (137-145) mmol/L Potassium (3.5-5.1) mmol/L Chloride (98-107) mmol/L Carbon Dioxide (22-30) mmol/L Anion Gap mmol/L BUN (9-20) mg/dL Creatinine (0.66-1.25) mg/dL Est GFR (CKD-EPI)AfAm (>60 ml/min/1.73 sqM) Est GFR (CKD-EPI)NonAf (>60 ml/min/1.73 sqM) Glucose (74-99) mg/dL Calcium (8.4-10.2) mg/dL Magnesium (1.6-2.3) mg/dL Total Bilirubin (0.2-1.3) mg/dL AST (17-59) U/L ALT (21-72) U/L Alkaline Phosphatase (38-126) U/L Total Creatine Kinase 56 (55-170) U/L CK-MB (CK-2) 1.9 (0.0-2.4) ng/mL CK-MB (CK-2) Rel Index 3.4 Troponin I 0.015 (0.000-0.034) ng/mL NT-Pro-B Natriuret Pep 76822 pg/mL Total Protein (6.3-8.2) g/dL Albumin (3.5-5.0) g/dL Digoxin ng/mL 07/12/18 07/12/18 07/12/18 Range/Units 02:35 02:35 02:35 WBC (3.8-10.6) k/uL RBC (4.30-5.90) m/uL Hgb (13.0-17.5) gm/dL Hct (39.0-53.0) % MCV (80.0-100.0) fL MCH (25.0-35.0) pg MCHC (31.0-37.0) g/dL RDW (11.5-15.5) % Plt Count (150-450) k/uL Neutrophils % % Lymphocytes % % Monocytes % % Eosinophils % % Basophils % % Neutrophils # (1.3-7.7) k/uL Lymphocytes # (1.0-4.8) k/uL Monocytes # (0-1.0) k/uL Eosinophils # (0-0.7) k/uL Basophils # (0-0.2) k/uL Hypochromasia Anisocytosis Macrocytosis PT 13.2 H (9.0-12.0) sec INR 1.4 H (<1.2) APTT 25.3 (22.0-30.0) sec Sodium 134 L (137-145) mmol/L Potassium 5.4 H (3.5-5.1) mmol/L Chloride 93 L (98-107) mmol/L Carbon Dioxide 22 (22-30) mmol/L Anion Gap 19 mmol/L BUN 81 H (9-20) mg/dL Creatinine 7.37 H* (0.66-1.25) mg/dL Est GFR (CKD-EPI)AfAm 8 (>60 ml/min/1.73 sqM) Est GFR (CKD-EPI)NonAf 7 (>60 ml/min/1.73 sqM) Glucose 173 H (74-99) mg/dL Calcium 7.5 L (8.4-10.2) mg/dL Magnesium 1.8 (1.6-2.3) mg/dL Total Bilirubin 1.4 H (0.2-1.3) mg/dL AST 69 H (17-59) U/L ALT 98 H (21-72) U/L Alkaline Phosphatase 291 H (38-126) U/L Total Creatine Kinase (55-170) U/L CK-MB (CK-2) (0.0-2.4) ng/mL CK-MB (CK-2) Rel Index Troponin I (0.000-0.034) ng/mL NT-Pro-B Natriuret Pep pg/mL Total Protein 6.5 (6.3-8.2) g/dL Albumin 3.6 (3.5-5.0) g/dL Digoxin <0.4 ng/mL Disposition Clinical Impression: End-stage renal disease, Ascites, Dyspnea, Coagulopathy, Chronic kidney disease with end stage renal failure on dialysis, Congestive heart failure, Generalized weakness, Elevated transaminase level Disposition: ADMITTED IP TO THIS HOSP Referrals: Apollo Corbett DO [Primary Care Provider] - 1-2 days
[2018-07-12 02:53] LABS: INR 1.4 (<1.2); Prothrombin Time 13.2 sec (9.0-12.0)
[2018-07-12 02:54] LABS: Partial Thromboplastin Time 25.3 sec (22.0-30.0)
[2018-07-12 02:58] LABS: Anisocytosis Slight; Basophils # (A) 0.1 k/uL (0-0.2); Basophils % (A) 1 %; Eosinophils # (A) 0.1 k/uL (0-0.7); Eosinophils % (A) 1 %; HCT 45.1 % (39.0-53.0); HGB 13.8 gm/dL (13.0-17.5); Hypochromasia Moderate; Lymphocytes # (A) 1.3 k/uL (1.0-4.8); Lymphocytes % (A) 12 %; MCH 31.1 pg (25.0-35.0); MCHC 30.7 g/dL (31.0-37.0); MCV 101.4 fL (80.0-100.0); Macrocytosis Slight; Mean Platelet Volume 8.2; Monocytes # (A) 0.8 k/uL (0-1.0); Monocytes % (A) 8 %; Neutrophils % (A) 78 %; Platelet Count 194 k/uL (150-450); RBC 4.44 m/uL (4.30-5.90); RDW 16.1 % (11.5-15.5); WBC 10.3 k/uL (3.8-10.6)
[2018-07-12 03:00] LABS: Calcium 7.5 mg/dL (8.4-10.2); Magnesium 1.8 mg/dL (1.6-2.3); Total Bilirubin 1.4 mg/dL (0.2-1.3)
--- NOTE | 2018-07-12 03:01 | XR ---
EXAMINATION TYPE: XR chest 2V DATE OF EXAM: 07/12/2018 COMPARISON: 07/04/2017 HISTORY: Chest pain TECHNIQUE: Frontal and lateral views of the chest are obtained. FINDINGS: Heart is enlarged. There is left-sided pacemaker with the lead tips over the anterior hear t. Lungs are clear. There is no heart failure. There is no evidence of pleural effusion. There are ch est leads. Bony thorax is intact. IMPRESSION: No active cardiopulmonary disease. Cardiomegaly. No change.
[2018-07-12 03:07] LABS: Albumin 3.6 g/dL (3.5-5.0); Potassium 5.4 mmol/L (3.5-5.1); Total Protein 6.5 g/dL (6.3-8.2)
[2018-07-12 03:19] LABS: Creatine Kinase MB 1.9 ng/mL (0.0-2.4); Troponin I 0.015 ng/mL (0.000-0.034)
--- NOTE | 2018-07-12 04:09 | CT ---
EXAMINATION TYPE: CT abdomen pelvis wo con DATE OF EXAM: 07/12/2018 COMPARISON: None HISTORY: SILVIA abdominal pain CT DLP: 2415.4 mGycm Automated exposure control for dose reduction was used. TECHNIQUE: Helical acquisition of images was performed from the lung bases through the pelvis. FINDINGS: There is small left pleural effusion. There is no pericardial effusion. Heart appears enlarged. Lung bases appear clear of consolidation. There is some mild atelectasis at the left lung base. Liver shows no focal defect. There are multiple calcified gallstones. The bile ducts are not dilated. Spleen appears normal. Stomach appears normal. There is no pancreatic mass. There is no adrenal mass. There is symmetric renal cortical atrophy. There is no retroperitoneal padma opathy. There is no hydronephrosis. Ureters are not dilated. There is small amount of free fluid in t he pelvis. Appendix appears normal. There is no inguinal hernia. There are multiple diverticula in th e sigmoid colon. I see no sign of diverticulitis. There is no free air. There is small umbilical miles ia that contains fat. There are small amount of fluid around the lateral right lobe of the liver. Gal lbladder wall is slightly thickened. Lumbar spine shows no compression fracture. Bony pelvis is intac t. There is bilateral L5 spondylolysis with a few millimeter L5-S1 spondylolisthesis. Abdominal aorta is atheromatous. I see no mesenteric adenopathy. There is no mesenteric edema. There is subcutaneous edema over the lower lumbar spine. IMPRESSION: SMALL LEFT PLEURAL EFFUSION WITH MINIMAL ATELECTASIS IN THE LEFT LOWER LOBE. CARDIOMEGALY. CALCIFIED GALLSTONES. RENAL ATROPHY. MILD ASCITES. SMALL AMOUNT OF FLUID AROUND THE GALLBLADDER AND C HOLECYSTITIS CANNOT BE ENTIRELY EXCLUDED. GALLBLADDER IS NOT DILATED. SIGMOID DIVERTICULOSIS WITHOUT DIVERTICULITIS.
[2018-07-12] MEDS ORDERED: NALOXONE 0.4 MG/ML 1 ML VIAL IV PRN (04:30)
[2018-07-12] MEDS: IPRATROPIUM-ALBUTEROL 3 ML NEB INHALATION SCH ×4 (07:23→21:19)
[2018-07-12] MEDS ORDERED: INFLUENZA VACCINE (6 MOS+) 60 MCG/0.5 ML SYRINGE IM ONE (08:11)
[2018-07-12 08:57] LABS: Glucose,Whole Blood 125 mg/dL (75-99)
[2018-07-12] MEDS ORDERED: DIGOXIN 125 MCG TAB PO SCH (09:00)
--- NOTE | 2018-07-12 10:17 | P.NPCON ---
History of Present Illness - Reason for Consult end stage renal disease - History of Present Illness Reason for consultation: End-stage renal disease History of present illness: Patient is a 68-year-old male seen in renal consultation for end-stage renal disease. He is maintained on hemodialysis on a Tuesday schedule via right upper extremity AV fistula. Patient resides at [facility]. Patient became short of breath and his oxygen saturations were low. His heart rate was also high. He has history of atrial fibrillation with RVR. Chest x-ray is not suggestive of significant volume overload. His last hemodialysis treatment was on Tuesday. No vomiting or diarrhea. Oral intake is good. He is afebrile. Heart rate this morning was 114. Patient's blood pressure in the systolic 90s which is patient's baseline due to his underlying cardiac status. Patient has systolic CHF with ejection fraction of less than 20 %. He does admit to a chronic cough. Currently having breakfast. No active complaints at this time. Vital signs are stable. General: The patient appeared well nourished and normally developed. HEENT: Head exam is unremarkable. Neck is without jugular venous distension. LUNGS: Lungs are clear to auscultation and percussion. Breath sounds decreased. HEART: Rate and Rhythm are regular. First and second heart sounds normal. No murmurs, rubs or gallops. ABDOMEN: Abdominal exam reveals normal bowel sounds. Non-tender and non- distended. No evidence of peritonitis. EXTREMITITES: 1+ edema. Past Medical History Past Medical History: Atrial Fibrillation, Heart Failure, Dialysis, GERD/Reflux , Renal Disease Additional Past Medical History / Comment(s): ESRD with hemodialysis on /Tue/ Tue, severe nonischemic cardiomyopathy (AICD), hypotension, hemorrhoids, anemia , muscle wasting, tinnitis bilaterally occasionally, pt/spouse state that pt was to have a cardioversion once but it was cancelled because there was a blood clot-unsure location of blood clot. History of Any Multi-Drug Resistant Organisms: None Reported Past Surgical History: AICD Additional Past Surgical History / Comment(s): CARDIOVERSION, PT UNSURE IF HE EVER HAD VIRA, COLONOSCOPY, EGD, TEETH REMOVED, FISTULA RT UPPER ARM FOR HEMODIALYSIS, PREVIOUS CATHETER IN NECK FOR HEMODIALYSIS NOW REMOVED Past Anesthesia/Blood Transfusion Reactions: No Reported Reaction Type of Cardiac Device: AICD Device Placement Date:: may 2016 Smoking Status: Former smoker - Past Family History Sister(s) Family Medical History: Cancer Mother Family Medical History: GI Bleed Additional Family Medical History / Comment(s): Mother had stomach ulcers. She lived to be 102 yrs old. Father Family Medical History: AFIB, Cancer Additional Family Medical History / Comment(s): Skin cancer, brain tumor. Father at the age of 78 yrs. Medications and Allergies Home Medications Medication Instructions Recorded Confirmed Type RX: Calcium Acetate [PhosLo] 1,334 mg PO TID-W/MEALS 11/17/16 07/12/18 History RX: Atorvastatin [Lipitor] 40 mg PO HS 07/04/17 07/12/18 History RX: Midodrine HCl [ProAmatine] 10 mg PO BID 07/04/17 07/12/18 History RX: Sodium Bicarbonate Tab 650 mg PO BID 07/04/17 07/12/18 History RX: Vitamin B Complex 1 cap PO DAILY 07/04/17 07/12/18 History Acetaminophen Tab [Tylenol Tab] 650 mg PO Q6H PRN 07/12/18 07/12/18 History Apixaban [Eliquis] 2.5 mg PO BID 07/12/18 07/12/18 History Digoxin [Digitek] 125 mcg PO Q48H 07/12/18 07/12/18 History Escitalopram [Lexapro] 10 mg PO DAILY 07/12/18 07/12/18 History Hydrocodone/Acetaminophen [Salvo 1 tab PO Q4HR PRN 07/12/18 07/12/18 History 5-325] Ipratropium-Albuterol Nebulize 3 ml INHALATION RT-Q4H PRN 07/12/18 07/12/18 History [Duoneb 0.5 mg-3 mg/3 ml Soln] hydrOXYzine HCL [Atarax] 10 mg PO TID 07/12/18 07/12/18 History Allergies Allergy/AdvReac Type Severity Reaction Status Date / Time No Known Allergies Allergy Verified 07/12/18 07:22 Physical Exam Vitals: Vital Signs Temp Pulse Resp BP Pulse Ox 07/12/18 07:38 98.1 F 07/12/18 07:31 114 H 18 07/12/18 07:30 105 H 18 95/69 100 07/12/18 07:24 104 H 18 07/12/18 07:20 108 H 20 95/69 99 07/12/18 07:10 105 H 27 H 95/69 98 07/12/18 07:00 113 H 28 H 91 L 07/12/18 06:50 105 H 8 L 94/74 99 07/12/18 06:40 101 H 23 94/74 98 07/12/18 06:30 115 H 28 H 94/74 94 L 07/12/18 06:20 118 H 31 H 96 07/12/18 06:10 112 H 15 94/74 99 07/12/18 06:00 112 H 19 100/87 99 07/12/18 05:00 97.1 F L 97 19 108/65 99 07/12/18 04:50 106 H 16 94/83 96 07/12/18 04:34 97.3 F L 07/12/18 04:10 101 H 20 107/77 98 07/12/18 03:10 112 H 27 H 94/74 97 07/12/18 03:00 105 H 27 H 103/75 99 07/12/18 02:31 97.3 F L 110 H 16 103/75 98 Intake and Output 07/11/18 07/12/18 07/12/18 22:59 06:59 14:59 Other: Weight 113.398 kg Results - Lab Results Most recent lab results Calcium 7.5 mg/dL (8.4-10.2) L 07/12/18 02:35 Magnesium 1.8 mg/dL (1.6-2.3) 07/12/18 02:35 07/12/18 02:35 07/12/18 02:35 Assessment and Plan Plan: Assessment: 1. End-stage renal disease maintained on hemodialysis on a Tuesday schedule via right upper extremity AV fistula. 2. Systolic CHF with ejection fraction of less than 20%. 3. Atrial fibrillation Maintained on digoxin. 4. Chronic hypotension secondary to underlying cardiac status maintained on midodrine. 5. Chronic kidney disease mineral bone disease maintained on PhosLo. 6. Mild hyperkalemia secondary to chronic kidney disease. Also hemolyzed sample. 7. Hyponatremia secondary to CKD. Plan: Hemodialysis today. Monitor vitals. Thank you for the consultation. I will continue to follow the patient with you during his hospital stay.
[2018-07-12] MEDS: INSULIN ASPART 100 UNIT/ML 1 ML 10 ML VIAL SQ SCH ×4 (10:25→21:53)
[2018-07-12] MEDS: CALCIUM ACETATE 667 MG CAP PO SCH ×3 (10:55→18:50)
[2018-07-12] MEDS: MIDODRINE 5 MG TAB PO SCH ×3 (11:00→21:53)
[2018-07-12] MEDS: SODIUM BICARBONATE TAB 650 MG TAB PO SCH (11:00)
[2018-07-12 11:36] LABS: Glucose,Whole Blood 175 mg/dL (75-99)
[2018-07-12] MEDS ORDERED: ACETAMINOPHEN TAB 325 MG TAB PO PRN (11:49)
[2018-07-12] MEDS ORDERED: IPRATROPIUM-ALBUTEROL 3 ML NEB INHALATION PRN (11:49)
[2018-07-12] MEDS ORDERED: HYDROcodone/APAP 5-325MG 1 EACH TAB PO PRN (11:49)
[2018-07-12] MEDS ORDERED: NON-FORMULARY DRUG (Vitamin B Complex [Vitamin B Complex] 1 CAP) PO SCH (12:00)
[2018-07-12] MEDS: APIXABAN 2.5 MG TABLET PO SCH ×2 (14:40→21:53)
[2018-07-12] MEDS: hydrOXYzine HCL 10 MG TAB PO SCH ×2 (14:41→19:05)
[2018-07-12] MEDS: ESCITALOPRAM 10 MG TAB PO SCH (14:41)
[2018-07-12 16:57] LABS: Glucose,Whole Blood 190 mg/dL (75-99)
--- NOTE | 2018-07-12 18:47 | HP ---
HISTORY AND PHYSICAL DATE OF ADMISSION: 07/12/2018 DATE OF SERVICE: 07/12/2018 PRESENTING COMPLAINT: Shortness of breath. HISTORY OF PRESENTING COMPLAINT: This is a 68-year-old patient of Dr. Corbett who has multiple medical problems. Patient's chronic stable medical conditions include end-stage kidney disease, on hemodialysis, GERD, hemorrhoids, anemia, medical debility. EMS was called out with patient becoming more short of breath, more so one day, minimal cough. No chest pain. No fever or chills. Appetite is fair. Patient is tired, rundown, lethargic. Patient's heart rate was also found to be elevated up to about 120s. Patient is on hemodialysis Tuesday, Tuesday and Tuesday. When patient arrived here, he was getting hemodialyzed this afternoon. The patient is really tired and rundown. The patient was also found to be on digoxin. Admitted to telemetry floor. Patient has a fistula in right upper arm for hemodialysis. Patient is a resident of [facility]. REVIEW OF SYSTEMS: CONSTITUTIONAL: Weak, tired. HEENT: Decreased hearing. RESPIRATORY: As above. CARDIOVASCULAR: No chest pain. GASTROINTESTINAL: None. GENITOURINARY: None. MUSCULOSKELETAL: Some pain in the joints. DERMATOLOGICAL: None. HEMATOLOGICAL: None. LYMPHATICS: None. PSYCHIATRY: Slightly forgetful. NEUROLOGICAL: None. PAST MEDICAL HISTORY: 1. Atrial fibrillation. 2. Congestive heart failure. 3. End-stage kidney disease, on hemodialysis. 4. GERD. 5. Ischemic cardiomyopathy. Last EF less than 20% in 2014. 6. AICD. 7. Hemorrhoids. 8. Anemia. 9. Muscle wasting. 10.Tinnitus. PAST SURGICAL HISTORY: 1. Cardioversion. 2. AICD. 3. Fistula in right upper arm for hemodialysis. PSYCH HISTORY: Depression. SOCIAL HISTORY: The patient lives at [facility]. Court-appointed legal guardian. Retired laborer [employer]. [place] . Patient smoked for about 53 years about a pack a day; stopped in 2012. No alcohol. FAMILY HISTORY: Mother had stomach ulcer. HOME MEDICATIONS: 1. Vitamin B complex 1 capsule p.o. daily. 2. Sodium bicarb 650 mg p.o. b.i.d. 3. Harvey 5 one tablet q.4 p.r.n. 4. Tylenol 650 mg q.6 p.r.n. 5. Midodrine 10 mg p.o. b.i.d. 6. DuoNeb q.4 p.r.n. 7. Lexapro 10 mg p.o. daily. 8. Atarax 10 mg p.o. t.i.d. 9. Eliquis 2.5 mg b.i.d. 10.Digoxin 125 mcg every 48 hours. 11.PhosLo 1334 mg p.o. t.i.d. with meals. 12.Lipitor 40 mg at bedtime. ALLERGIES: NONE. PHYSICAL EXAMINATION: VITAL SIGNS ON PRESENTATION: Temperature 97.3, pulse 120, respiration 27, blood pressure 103/75, pulse ox 98% on room air. GENERAL APPEARANCE: Well built. Lying in bed, tired-appearing, lethargic. EYES: Pupils equal. Conjunctivae normal. HEENT: External appearance of nose and ears normal. Oral cavity unable to assess. NECK: Possibly JVD raised. Mass not palpable. RESPIRATORY: Effort increased. LUNGS: Decreased breath sounds. Some crackles. CARDIOVASCULAR: Heart sounds irregular. Minimal edema. ABDOMEN: Soft, nontender. Liver and spleen not palpable. LYMPHATIC: No lymph node palpable in neck or axillae. PSYCHIATRY: Able to answer simple questions. Mood and affect slightly tired-appearing. NEUROLOGICAL: Pupils equal. No facial asymmetry. Moving all 4 limbs. EXTREMITIES: Right upper extremity fistula. INVESTIGATIONS: White count 10.3, hemoglobin 13.8, potassium 5.4. BUN 81, creatinine 7.37, bicarb 22. Accu-Cheks 173, 125. Magnesium 1.8. Troponin I 0.015. Digoxin less than 0.4. EKG tracing, personally reviewed by me, shows atrial flutter/fibrillation, rate around 120s. Chest x-ray film, personally reviewed by me, shows pulmonary edema, some cardiomegaly. ASSESSMENT: 1. Acute on chronic congestive heart failure exacerbation from cardiomyopathy, ejection fraction less than 20%. 2. Automated implantable cardioverter defibrillator. 3. End-stage kidney disease, on hemodialysis Tuesday, Tuesday and Tuesday. 4. Hyperkalemia secondary to hemodialysis. 5. Persistent atrial flutter/fibrillation, rate uncontrolled. 6. Gastroesophageal reflux disease. 7. Medical debility, chronic, multifactorial. 8. Right upper extremity fistula. 9. Mineral bone disease secondary to end-stage kidney disease. 10.Mild cognitive impairment, possibly late-onset Alzheimer's dementia. 11.CODE STATUS: FULL CODE. 12.Patient has a [facility]-appointed legal guardian. PLAN: Patient is getting hemodialysis today. We will start the patient on IV Lasix 80 q.12. Role of digoxin in renal failure is unclear. Hopefully with better heart rate control, I can get a better blood pressure ahead. Will put the patient on Coreg 1.563 mg b.i.d. Will also stop patient's Atarax. Consultations to Cardiology and Nephrology are being made. Patient's prognosis is guarded. MMODL / IJN: [id number] /
[2018-07-12] MEDS: ATORVASTATIN 40 MG TAB PO SCH (21:53)
[2018-07-12 21:54] LABS: Glucose,Whole Blood 180 mg/dL (75-99)
[2018-07-12] MEDS: FUROSEMIDE 10 MG/ML 10 ML VIAL IV SCH (21:54)
[2018-07-12] MEDS: CARVEDILOL 1.563 MG TAB PO SCH (21:54)
[2018-07-13 07:12] LABS: Glucose,Whole Blood 159 mg/dL (75-99)
[2018-07-13] MEDS: IPRATROPIUM-ALBUTEROL 3 ML NEB INHALATION SCH ×4 (07:58→20:54)
[2018-07-13] MEDS: FUROSEMIDE 10 MG/ML 10 ML VIAL IV SCH ×2 (08:21→21:19)
[2018-07-13] MEDS: APIXABAN 2.5 MG TABLET PO SCH ×2 (08:21→21:18)
[2018-07-13] MEDS: SODIUM BICARBONATE TAB 650 MG TAB PO SCH (08:21)
[2018-07-13] MEDS: MIDODRINE 5 MG TAB PO SCH ×4 (08:21→16:54)
[2018-07-13] MEDS: ESCITALOPRAM 10 MG TAB PO SCH (08:22)
[2018-07-13] MEDS: CALCIUM ACETATE 667 MG CAP PO SCH ×4 (08:22→16:53)
[2018-07-13] MEDS: INSULIN ASPART 100 UNIT/ML 1 ML 10 ML VIAL SQ SCH ×4 (08:24→21:18)
--- NOTE | 2018-07-13 11:37 | P.CRDCN ---
History of Present Illness History of present illness: Mr. Chavez is a pleasant 68-year-old male past medical history significant for chronic systolic heart failure, non-ischemic cardiomyopathy with EF less than 20%, persistent atrial fibrillation on termite treater anticoagulation, chronic kidney disease on hemodialysis, s/p AICD implantation 2016 and former nicotine dependence. We have been asked to see him in consultation for heart failure. He presented to [facility] secondary to uncontrolled heart rates fluctuating between 70-110 with some shortness of breath. He is seen and examined laying flat in bed in no acute distress. He states he is unclear why he was sent to the hospital. He denies chest pain, shortness of breath, dizziness, orhopnea, PND or palpitations. He states he underwent dialysis yesterday as scheduled. Review of medical records reveal he was apparently hypoxic at [facility]. Telemetry tracings indicate his heart rate is fluctuating between 100-120. He is currently not on any beta blockers at home due to persistent hypotension. He does take midodrine daily. Blood pressure on arrival 103/75 repeats throughout the night last night fluctuate between 88-108 systolic. He was started on coreg per primary. EKG reveals atrial fibrillation heart rate 112. Chest x-ray is negative for acute cardiopulmonary process. CT abdomen and pelvis obtain secondary to abdominal pain reveals evidence of small left pleural effusion with minimal atelectasis in the left lower lobe and cardiomegaly. There is also evidence of calcified gallstones, renal atrophy, mild ascites and a small amount of fluid around the gallbladder, cholecystitis cannot be entirely excluded. Laboratory data reviewed, WBC 10.3, hemoglobin 13.8, platelets 194, INR 1.4, PT 13.2, sodium 134, potassium 5.4, creatinine 7.37, AST 69, ALT 98, cardiac enzymes negative 1, NT proBNP 43,000. Current cardiac medications include Midrin 10 mg twice a day, Eliquis 2.5 mg twice a day, digoxin 125 g every other day and atorvastatin 40 mg daily. At the time of my exam: CONSTITUTIONAL: Denies fever. Denies chills. EYES: Denies blurred vision. Denies vision changes. Denies eye pain. EARS, NOSE, MOUTH & THROAT: Denies headache. Denies sore throat. Denies ear pain. CARDIOVASCULAR: Denies chest pain. Denies shortness of breath. Denies orthopnea. Denies PND. Denies palpitations. RESPIRATORY: Denies cough. GASTROINTESTINAL: Denies abdominal pain. Denies diarrhea. Denies constipation. Denies nausea. Denies vomiting. MUSCULOSKELETAL: Denies myalgias. INTEGUMENTARY: Denies pruitis. Denies rash. NEUROLOGIC: Denies numbness. Denies tingling. Denies weakness. PSYCHIATRIC: Denies anxiety. Denies depression. ENDOCRINE: Denies fatigue. Denies weight change. Denies polydipsia. Denies polyurina. GENITOURINARY: Denies burning, hematuria or urgency with micturation. HEMATOLOGIC: Denies history of anemia. Denies bleeding. Blood pressure 108/74 heart rate 104 afebrile and maintaining oxygen saturation on room air. GENERAL: This is a 68-year-old male in no apparent distress at the time of my examination. HEENT: Head is atraumatic, normocephalic. Pupils are equal, round. Sclerae anicteric. Conjunctivae are clear. Mucous membranes of the mouth are moist. Neck is supple. There is no jugular venous distention. No carotid bruit is heard. LUNGS: Clear to auscultation no wheezes, rales or rhonchi. No chest wall tenderness is noted on palpation or with deep breathing. HEART: Irregular rate and rhythm without murmurs, rubs or gallops. S1 and S2 heard. ABDOMEN: Soft, nontender. Bowel sounds are heard. No organomegaly noted. EXTREMITIES: Trace bilateral lower extremity edema, non-pitting. No calf tenderness noted. Large area of dark purple ecchymosis noted to right upper extremity around fistula. VASCULAR: Radial and dorsalis pedis pulses palpated, no evidence of clubbing. NEUROLOGIC: Patient is awake, alert and oriented x3. ASSESSMENT Chronic systolic heart failure, currently not in acute heart failure. Non-ischemic cardiomyopathy EF less than 20% s/p ICD placement Chronic hypotension on midodrine Persistent atrial fibrillation on correction anticoagulation with uncontrolled ventricular response Chronic kidney disease on HD Elevated liver enzymes Hyperkalemia prior to dialysis Dyslipidemia PLAN He does not appear to be in acute heart failure state. Elevated NTproBNP secondary to chronic fluid overload from chronic kidney disease. Change beta ambika from coreg to lopressor 12.5 mg daily for better heart rate control without too much alteration in blood pressures. Give midodrine 30 minutes prior to getting up out of bed in the morning, then second dose approximately 5 hours later and same with third dose. Avoid giving just before bedtime since he will be laying down at that time. Ongoing medical management of chronic kidney disease. Thank you kindly for this consultation. Nurse Practitioner note has been reviewed, I agree with a documented findings and plan of care. Patient was seen and examined. Past Medical History Past Medical History: Atrial Fibrillation, Heart Failure, Dialysis, GERD/Reflux , Renal Disease Additional Past Medical History / Comment(s): ESRD with hemodialysis on /Tue/ Tue, severe nonischemic cardiomyopathy (AICD), hypotension, hemorrhoids, anemia , muscle wasting, tinnitis bilaterally occasionally, pt/spouse state that pt was to have a cardioversion once but it was cancelled because there was a blood clot-unsure location of blood clot. History of Any Multi-Drug Resistant Organisms: None Reported Past Surgical History: AICD Additional Past Surgical History / Comment(s): CARDIOVERSION, PT UNSURE IF HE EVER HAD VIRA, COLONOSCOPY, EGD, TEETH REMOVED, FISTULA RT UPPER ARM FOR HEMODIALYSIS, PREVIOUS CATHETER IN NECK FOR HEMODIALYSIS NOW REMOVED Past Anesthesia/Blood Transfusion Reactions: No Reported Reaction Type of Cardiac Device: AICD Device Placement Date:: may 2016 Smoking Status: Former smoker - Past Family History Sister(s) Family Medical History: Cancer Mother Family Medical History: GI Bleed Additional Family Medical History / Comment(s): Mother had stomach ulcers. She lived to be 102 yrs old. Father Family Medical History: AFIB, Cancer Additional Family Medical History / Comment(s): Skin cancer, brain tumor. Father at the age of 78 yrs. Medications and Allergies Home Medications Medication Instructions Recorded Confirmed Type Calcium Acetate [PhosLo] 1,334 mg PO TID-W/MEALS 11/17/16 07/12/18 History Atorvastatin [Lipitor] 40 mg PO HS 07/04/17 07/12/18 History Midodrine HCl [ProAmatine] 10 mg PO BID 07/04/17 07/12/18 History Sodium Bicarbonate Tab 650 mg PO BID 07/04/17 07/12/18 History Vitamin B Complex 1 cap PO DAILY 07/04/17 07/12/18 History Acetaminophen Tab [Tylenol Tab] 650 mg PO Q6H PRN 07/12/18 07/12/18 History Apixaban [Eliquis] 2.5 mg PO BID 07/12/18 07/12/18 History Digoxin [Digitek] 125 mcg PO Q48H 07/12/18 07/12/18 History Escitalopram [Lexapro] 10 mg PO DAILY 07/12/18 07/12/18 History Hydrocodone/Acetaminophen [Derwood 1 tab PO Q4HR PRN 07/12/18 07/12/18 History 5-325] Ipratropium-Albuterol Nebulize 3 ml INHALATION RT-Q4H PRN 07/12/18 07/12/18 History [Duoneb 0.5 mg-3 mg/3 ml Soln] hydrOXYzine HCL [Atarax] 10 mg PO TID 07/12/18 07/12/18 History Allergies Allergy/AdvReac Type Severity Reaction Status Date / Time No Known Allergies Allergy Verified 07/12/18 07:22 Physical Exam Vitals: Vital Signs Temp Pulse Pulse Resp BP Pulse Ox 07/13/18 08:06 104 H 07/13/18 07:58 104 H 07/13/18 07:32 105 H 16 108/74 99 07/13/18 05:14 18 85/57 97 07/13/18 01:46 97.6 F 92 20 88/66 92 L 07/13/18 01:15 110 H 07/12/18 21:37 97.7 F 22 97/66 94 L 07/12/18 21:28 100 07/12/18 21:19 100 07/12/18 21:10 110 H 07/12/18 18:59 90/60 07/12/18 18:53 100 85/58 99 07/12/18 16:56 96 07/12/18 15:35 96.0 F L 102 H 96/59 96 07/12/18 12:02 110 H 07/12/18 11:46 108 H Intake and Output 07/12/18 07/13/18 07/13/18 22:59 06:59 14:59 Intake Total 320 Balance 320 Intake: Oral 320 Other: # Voids 1 # Bowel Movements 1 Weight 124 kg Results 07/12/18 02:35 07/12/18 02:35 Current Medications Generic Name Dose Route Start Last Admin Trade Name Freq PRN Reason Stop Dose Admin Acetaminophen 650 mg 07/12/18 11:49 Tylenol Tab PO Q6H PRN Pain Hydrocodone Bitart/Acetaminophen 1 each 07/12/18 11:49 Derwood 5-325 PO Q4HR PRN Pain Albuterol/Ipratropium 3 ml 07/12/18 08:00 07/13/18 07:58 Duoneb 0.5 Mg-3 Mg/3 Ml Soln INHALATION 3 ml RT-QID MARTIN Administration Albuterol/Ipratropium 3 ml 07/12/18 11:49 Duoneb 0.5 Mg-3 Mg/3 Ml Soln INHALATION RT-Q4H PRN Shortness Of Breath Apixaban 2.5 mg 07/12/18 12:00 07/13/18 08:21 Eliquis PO 2.5 mg BID MARTIN Administration Atorvastatin Calcium 40 mg 07/12/18 21:00 07/12/18 21:53 Lipitor PO 40 mg HS MARTIN Administration Calcium Acetate 1,334 mg 07/12/18 07:30 07/13/18 08:22 Phoslo PO 1,334 mg TID-W/MEALS [facility] Administration Escitalopram Oxalate 10 mg 07/12/18 12:00 07/13/18 08:22 Lexapro PO 10 mg DAILY [facility] Administration Furosemide 80 mg 07/12/18 19:00 07/13/18 08:21 Lasix IV 80 mg Q12HR [facility] Administration Insulin Aspart 0 unit 07/12/18 07:30 07/13/18 08:24 Novolog SQ Not Given ACHS [facility] Protocol Metoprolol Tartrate 12.5 mg 07/13/18 09:00 Lopressor PO DAILY [facility] Midodrine 10 mg 07/13/18 12:30 Proamatine PO AC-TID [facility] Naloxone HCl 0.2 mg 07/12/18 04:30 Narcan IV Q2M PRN Opioid Reversal Sodium Bicarbonate 650 mg 07/12/18 09:00 07/13/18 08:21 Sodium Bicarbonate Tab PO 650 mg QAM [facility] Administration Intake and Output 07/12/18 07/13/18 07/13/18 22:59 06:59 14:59 Intake Total 320 Balance 320 Intake: Oral 320 Other: # Voids 1 # Bowel Movements 1 Weight 124 kg 07/12/18 02:35 07/12/18 02:35
--- NOTE | 2018-07-13 11:43 | P.PN ---
Subjective Patient is seen in follow-up for her incisional disease. He is maintained on hemodialysis on a Tuesday schedule via right upper extremity AV fistula. Patient had infiltrated fistula yesterday so he did not complete his hemodialysis treatment. Currently seeing while undergoing hemodialysis and his axis is working well. Oral intake is good. No vomiting or diarrhea. Vital signs are stable. General: The patient appeared well nourished and normally developed. HEENT: Head exam is unremarkable. Neck is without jugular venous distension. LUNGS: Lungs are clear to auscultation and percussion. Breath sounds decreased. HEART: Rate and Rhythm are regular. First and second heart sounds normal. No murmurs, rubs or gallops. ABDOMEN: Abdominal exam reveals normal bowel sounds. Non-tender and non- distended. No evidence of peritonitis. EXTREMITITES: No clubbing, cyanosis, or edema. Objective - Vital Signs Vital signs: Vital Signs Temp 97.6 F 07/13/18 01:46 Pulse 104 H 07/13/18 08:06 Resp 16 07/13/18 07:32 BP 108/74 07/13/18 07:32 Pulse Ox 99 07/13/18 07:32 Intake & Output 07/12/18 07/13/18 07/13/18 18:59 06:59 18:59 Intake Total 400 320 Balance 400 320 Weight 124 kg Intake: Oral 400 320 Other: # Voids 1 # Bowel Movements 1 - Labs CBC & Chem 7: 07/12/18 02:35 07/12/18 02:35 Labs: Abnormal Lab Results - Last 24 Hours (Table) 07/12/18 07/12/18 07/13/18 Range/Units 16:46 21:43 07:00 POC Glucose (mg/dL) 190 H 180 H 159 H (75-99) mg/dL Assessment and Plan Plan: Assessment: 1. End-stage renal disease maintained on hemodialysis on a Tuesday schedule via right upper extremity AV fistula. 2. Systolic CHF with ejection fraction of less than 20%. 3. Atrial fibrillation Maintained on lopressor. Also on anticoagulation. 4. Chronic hypotension secondary to underlying cardiac status maintained on midodrine. 5. Chronic kidney disease mineral bone disease maintained on PhosLo. 6. Mild hyperkalemia secondary to chronic kidney disease. Also hemolyzed sample. 7. Hyponatremia secondary to CKD. Plan: Currently undergoing HD - next treatment tomorrow. Monitor vitals.
[2018-07-13 12:21] LABS: Glucose,Whole Blood 102 mg/dL (75-99)
[2018-07-13] MEDS: METOPROLOL TARTRATE 12.5 MG TAB PO SCH (16:52)
[2018-07-13] MEDS: CARVEDILOL 1.563 MG TAB PO SCH (16:57)
--- NOTE | 2018-07-13 17:36 | PN ---
PROGRESS NOTE DATE OF SERVICE: July 13, 2018. PRESENTING COMPLAINT: Short of breath. INTERVAL HISTORY: This patient presents with what appears to be congestive heart failure exacerbation, was hemodialyzed yesterday. Also getting hemodialyzed today. The patient is still somewhat tired and lethargic. Did eat a little bit. The patient was on IV Lasix. The patient's Coreg was switched to Lopressor per Cardiology. Heart rate is somewhat better controlled. REVIEW OF SYSTEMS: Done for constitutional, cardiovascular, GI, pulmonary and relevant findings as above. CURRENT MEDICATIONS: Reviewed that include Eliquis, Lipitor, PhosLo, IV Lasix 80 mg q.12, Lopressor 12.5 p.o. b.i.d. EXAMINATION: VITAL SIGNS: Temperature 97.7, pulse 110, respiration 22, blood pressure 97/66, pulse ox 94 percent on room air. GENERAL APPEARANCE: Lying in bed, tired. A bit little bit less lethargic. EYES: Pupils are equal. Conjunctivae normal. HEENT: External appearance of nose and ears normal. Oral cavity unable to assess. NECK: JVD raised. Mass not palpable. RESPIRATORY: Effort increased. LUNGS: Decreased breath sounds. CARDIOVASCULAR: Heart sounds irregular. Minimal edema. ABDOMEN: Soft, nontender. Liver and spleen not palpable. PSYCHIATRY: The patient is able answer some simple questions. Still somewhat tired, lethargic, still somewhat better than yesterday. INVESTIGATIONS: Accu-Cheks 181, 59, 102. ASSESSMENT: 1. Acute on chronic congestive heart failure exacerbation from cardiomyopathy, EF less than 20%. 2. AICD. 3. End-stage kidney disease on hemodialysis Tuesday, Tuesday and Tuesday. 4. Acute metabolic encephalopathy, multifactorial present on admission. 5. Hyperkalemia secondary to renal failure. 6. Persistent atrial flutter fibrillation, rate uncontrolled on presentation, now better controlled. 7. Gastroesophageal reflux disease. 8. Medical debility chronic multifactorial. 9. Right upper extremity fistula. 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 11.Mild cognitive impairment possibly from late onset Alzheimer's dementia. 12.Patient has a court-appointed legal guardian. 13.CODE STATUS: FULL CODE. PLAN: Continue current medication and treatment plan. Heart rate is somewhat better control. Overall prognosis remains guarded. We will check electrolytes and repeat chest x-ray in the morning. MMODL / IJN: [id number] /
[2018-07-13 17:39] LABS: Glucose,Whole Blood 115 mg/dL (75-99)
[2018-07-13 20:34] LABS: Glucose,Whole Blood 198 mg/dL (75-99)
[2018-07-13] MEDS: ATORVASTATIN 40 MG TAB PO SCH (21:18)
[2018-07-14 06:59] LABS: Glucose,Whole Blood 115 mg/dL (75-99)
[2018-07-14 07:06] VITALS: RESP 18
[2018-07-14] MEDS: INSULIN ASPART 100 UNIT/ML 1 ML 10 ML VIAL SQ SCH ×3 (07:16→17:55)
[2018-07-14] MEDS: MIDODRINE 5 MG TAB PO SCH ×3 (07:19→16:59)
[2018-07-14] MEDS: CALCIUM ACETATE 667 MG CAP PO SCH ×3 (07:19→16:59)
[2018-07-14] MEDS: IPRATROPIUM-ALBUTEROL 3 ML NEB INHALATION SCH ×3 (08:11→16:39)
[2018-07-14 10:04] VITALS: BMI 34.8
[2018-07-14] MEDS: SODIUM BICARBONATE TAB 650 MG TAB PO SCH (10:42)
[2018-07-14] MEDS: APIXABAN 2.5 MG TABLET PO SCH (10:43)
[2018-07-14] MEDS: FUROSEMIDE 10 MG/ML 10 ML VIAL IV SCH (10:43)
[2018-07-14] MEDS: METOPROLOL TARTRATE 12.5 MG TAB PO SCH (10:43)
[2018-07-14] MEDS: ESCITALOPRAM 10 MG TAB PO SCH (10:44)
--- NOTE | 2018-07-14 11:23 | P.PN ---
Subjective Patient is seen in follow-up for end-stage renal disease. He is maintained on hemodialysis on a Tuesday schedule via right upper extremity AV fistula. Patient had infiltrated fistula earlier this admission but is now working well. Oral intake is good. No vomiting or diarrhea. Vital signs are stable. General: The patient appeared well nourished and normally developed. HEENT: Head exam is unremarkable. Neck is without jugular venous distension. LUNGS: Lungs are clear to auscultation and percussion. Breath sounds decreased. HEART: Rate and Rhythm are regular. First and second heart sounds normal. No murmurs, rubs or gallops. ABDOMEN: Abdominal exam reveals normal bowel sounds. Non-tender and non- distended. No evidence of peritonitis. EXTREMITITES: 1+ edema. Objective - Vital Signs Vital signs: Vital Signs Temp 97.2 F L 07/14/18 07:04 Pulse 92 07/14/18 08:23 Resp 18 07/14/18 07:07 BP 89/68 07/14/18 07:04 Pulse Ox 98 07/14/18 07:04 Intake & Output 07/13/18 07/14/18 07/14/18 18:59 06:59 18:59 Intake Total 250 160 Balance 250 160 Weight 123 kg 123 kg Intake: Oral 250 160 Other: Voiding Method Toilet Toilet # Bowel Movements 1 1 - Labs CBC & Chem 7: 07/12/18 02:35 07/12/18 02:35 Labs: Abnormal Lab Results - Last 24 Hours (Table) 07/13/18 07/13/18 07/13/18 Range/Units 12:10 17:27 20:23 POC Glucose (mg/dL) 102 H 115 H 198 H (75-99) mg/dL 07/14/18 Range/Units 06:47 POC Glucose (mg/dL) 115 H (75-99) mg/dL Assessment and Plan Plan: Assessment: 1. End-stage renal disease maintained on hemodialysis on a Tuesday schedule via right upper extremity AV fistula. 2. Systolic CHF with ejection fraction of less than 20%. 3. Atrial fibrillation Maintained on lopressor. Also on anticoagulation. 4. Chronic hypotension secondary to underlying cardiac status maintained on midodrine. 5. Chronic kidney disease mineral bone disease maintained on PhosLo. 6. Mild hyperkalemia secondary to chronic kidney disease. Also hemolyzed sample. 7. Hyponatremia secondary to CKD. Plan: Hemodialysis today. Will try for 4 L ultrafiltration. Monitor vitals.
[2018-07-14 12:23] LABS: Glucose,Whole Blood 195 mg/dL (75-99)
--- NOTE | 2018-07-14 14:06 | CDI ---
Last Revision, August 2017 Documentation Clarification Form Date: From: Tamica Alcantara RN Admit Date: 07/12/2018 4:33:00 AM Patient Name: Mario Chavez Visit Number: [id number] ATTENTION: The Clinical Documentation Specialists (CDI) and [facility] Coding Staff appreciate your assistance in clarifying documentation. Please respond to the clarification below the line at the bottom and electronically sign. The CDI & [facility] Coding staff will review the response and follow-up if needed. Please note: Queries are made part of the Legal Health Record. If you have any questions, please contact the author of this message via ITS. Sami Martin MD, A diagnosis of anemia lacks specificity to accurately reflect your patients severity of condition and clarification is needed. History of anemia is documented in the H&P. Patient admitted with sob, irregular heart rate, end stage renal disease, Ascites, dyspnea, coagulopathy, CKD end stage, CHF, generalized weakness, elevated transaminase History/Risk Factors: end stage kidney disease, GERD, hemorrhoids, anemia, a fib , AICD, muscle wasting, tinnitus, depression Clinical indicators: Hemoglobin: 13.8 Hematocrit: 45.1 Treatment: Monitor HGB and HCT In order to capture the severity of condition, please clarify the type of anemia and etiology if known: Acute blood loss anemia Acute on chronic blood loss anemia Chronic blood loss anemia Iron deficiency anemia Anemia of chronic kidney disease Unable to determine Other, please specify unable to determine MTDD
[2018-07-14 15:15] VITALS: BP 95/60; TEMP 97.4
--- NOTE | 2018-07-14 16:07 | DS ---
DISCHARGE SUMMARY DATE OF ADMISSION: 07/12/2018 DATE OF DISCHARGE: 07/14/2018 FINAL DIAGNOSES: 1. Acute on chronic congestive heart failure exacerbation from congestive heart failure from systolic dysfunction, ejection fraction less than 20%. 2. Automated implantable cardioverter defibrillator. 3. End-stage kidney disease, on hemodialysis Tuesday, Tuesday and Tuesday. 4. Acute metabolic encephalopathy, multifactorial, present on admission. 5. Hyperkalemia secondary to renal failure. 6. Persistent atrial flutter/fibrillation, rate uncontrolled on presentation. 7. Gastroesophageal reflux disease. 8. Medical debility, chronic, multifactorial. 9. Right upper extremity AV fistula. 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 11.Mild cognitive impairment, possibly late-onset Alzheimer's dementia. 12.Patient has a court-appointed legal guardian. 13.CODE STATUS: FULL CODE. 14.Gait dysfunction. Uses a walker. HOSPITAL COURSE: This patient presented from the [facility] weak, tired, rundown, short of breath, a bit encephalopathic. Patient has a fistula in the right upper extremity. The patient had sequential dialysis for 3 days, including today, and fluid was removed. Doing much better today, more awake, tolerating a diet. Did walk in the hallway. Care was discussed at length with the patient. I also spoke with Dr. Pantoja. Patient is good to go back. I also spoke to the person from the insurance company to give a clinical update. PHYSICAL EXAMINATION: Temperature 97.4, pulse 86, blood pressure 95/60, pulse ox 97%. LUNGS: Decreased breath sounds. CARDIOVASCULAR: Heart sounds irregular. PSYCH: Patient is able answer simple questions. INVESTIGATIONS: White count 10.3, hemoglobin 13.8, BUN 81, creatinine 7.37. CONSULTATIONS: 1. Dr. Pantoja from Nephrology. 2. Dr. Enrique from Cardiology. Discussion and discharge planning more than 35 minutes. DISCHARGE MEDICATIONS: 1. PhosLo 1334 p.o. t.i.d. with meals. 2. Lipitor 40 mg at bedtime. 3. Midodrine 10 mg p.o. b.i.d. 4. Sodium bicarb 650 mg p.o. b.i.d. 5. Vitamin B complex 1 capsule p.o. daily. 6. Tylenol 650 mg q.6 p.r.n. 7. Eliquis 2.5 mg p.o. b.i.d. 8. Lexapro 10 mg p.o. daily. 9. DuoNeb q.4 p.r.n. 10.[place] 5 one tablet q.4 p.r.n. 11.Lopressor 12.5 mg p.o. daily. DISPOSITION: [facility]. Follow up with Dr. Corbett. Maintenance hemodialysis schedule. Follow up with Cardiology in 2 weeks. MMODL / IJN: [id number] /
[2018-07-14 16:42] VITALS: PULSE 88
[2018-07-14 17:40] LABS: Glucose,Whole Blood 126 mg/dL (75-99)
--- NOTE | 2018-07-14 19:30 | XR ---
EXAMINATION TYPE: XR chest 2V DATE OF EXAM: 07/14/2018 COMPARISON: 07/12/2018 HISTORY: CHF short of breath TECHNIQUE: Frontal and lateral views of the chest are obtained. FINDINGS: There is no heart failure nor confluent pneumonic infiltrate. Costophrenic angles are piedad r. There are chest leads. Heart appears enlarged. There is pacemaker wire over the anterior chest. IMPRESSION: No active cardiopulmonary disease. Cardiomegaly. No change. No evidence of heart failure .
== END 2018-07-14 19:48 | DRG 291 ==
LOC: EC 02:17 → 4SSUR 04:30 → OBSVTOIN 04:33 → 4SSUR 07:28
PROVIDERS: ADMIT Hospitalist; ATTEND Hospitalist
DX: I50.23 Acute on chronic systolic (congestive) heart failure (principal); G93.41 Metabolic encephalopathy; N18.6 End stage renal disease; E87.1 Hypo-osmolality and hyponatremia; I48.1 Persistent atrial fibrillation; I48.92 Unspecified atrial flutter; J98.11 Atelectasis; D64.9 Anemia, unspecified; E78.5 Hyperlipidemia, unspecified; E87.5 Hyperkalemia; G31.84 Mild cognitive impairment of uncertain or unknown etiology; I25.5 Ischemic cardiomyopathy; I95.89 Other hypotension; G30.1 Alzheimer's disease with late onset; F02.80 Dementia in other diseases classified elsewhere, unspecified severity, without behavioral disturbance, psychotic disturbance, mood disturbance, and anxiety; K21.9 Gastro-esophageal reflux disease without esophagitis; E88.89 Other specified metabolic disorders; K64.9 Unspecified hemorrhoids; F32.9 Major depressive disorder, single episode, unspecified; H93.19 Tinnitus, unspecified ear; M62.50 Muscle wasting and atrophy, not elsewhere classified, unspecified site; R05 Cough; R26.9 Unspecified abnormalities of gait and mobility; R10.9 Unspecified abdominal pain; R74.8 Abnormal levels of other serum enzymes; G25.0 Essential tremor; E66.01 Morbid (severe) obesity due to excess calories; Z68.34 Body mass index [BMI] 34.0-34.9, adult; Z79.01 Long term (current) use of anticoagulants; Z79.899 Other long term (current) drug therapy; Z99.2 Dependence on renal dialysis; Z95.810 Presence of automatic (implantable) cardiac defibrillator; Z87.891 Personal history of nicotine dependence; Z80.8 Family history of malignant neoplasm of other organs or systems; Z82.49 Family history of ischemic heart disease and other diseases of the circulatory system
CPT/HCPCS: 36415; 71046; 74176; 80053; 80162; 82550; 82553; 83735; 83880; 84484; 85025; 85610; 85730; 90686; 90935; 93005; 94640; 99285